=== PATIENT | female | born 1960 | race Caucasian/White ===

== ENCOUNTER → 2016-10-29 | Outpatient (CLI) | payer OTHER ==
--- NOTE | 2016-10-29 10:45 | MM ---
Reason for exam: additional evaluation requested from prior study. Last mammogram was performed 1 year and 2 months ago. History: Patient is postmenopausal. Family history of breast cancer in maternal aunt. Benign MG pre op loc each addl RT of the right breast, October 12, 2015. Benign MG pre op needle loc RT of the right breast, October 12, 2015. MG discontinued stereo core RT of the right breast, October 04, 2015. Physical Findings: Nurse Summary: 0.5cm nodule in the right breast at 10 o'clock (nurse dw). MG Diagnostic Mammo w CAD RGIO Bilateral CC and MLO view(s) were taken. Prior study comparison: September 06, 2015, bilateral MG screening mammo w CAD. There are scattered fibroglandular densities. Finding #1: Architectural distortion in the upper outer quadrant, posterior position of the right breast. Finding #2: There are typically benign round calcifications in both breasts. There is a chronic nodularity in the left breast. These results were verbally communicated with the patient and result sheet given to the patient on 10/29/16. ASSESSMENT: Benign, BI-RAD 2 RECOMMENDATION: Routine screening mammogram of both breasts in 1 year.
== END | disposition home or self-care (01) ==
LOC: RADMAMWWP 09:25
PROVIDERS: ATTEND Family Medicine
DX: R92.8 Other abnormal and inconclusive findings on diagnostic imaging of breast (principal)

== ENCOUNTER → 2016-11-26 | Outpatient (CLI) | payer OTHER ==
--- NOTE | 2016-11-26 09:51 | US ---
EXAMINATION TYPE: US pelvic complete DATE OF EXAM: 11/26/2016 9:36 AM COMPARISON: CT 2013 CLINICAL HISTORY: R10.2 PELVIC PAIN. Patient denies pelvic pain; ; patient stated just had skin t ag removed during gynecological exam one month ago and doctor ordered pelvic US transabdominally: tub al ligation. TECHNIQUE: Transabdominal (TA) Date of LMP: years ago EXAM MEASUREMENTS: Uterus: 7.4 x 3.5 x 3.6 cm Endometrial Stripe: 0.5 cm Right Ovary: 2.6 x 2.1 x 1.3 cm Left Ovary: 2.0 x 1.5 x 1.3 cm 1. Uterus: Anteverted 2. Endometrium: thickness wnl post menopausal 3. Right Ovary: wnl 4. Left Ovary: wnl 5. Bilateral Adnexa: wnl 6. Posterior cul-de-sac: wnl IMPRESSION: NORMAL PELVIC ULTRASOUND.
== END | disposition home or self-care (01) ==
LOC: RADUSWWP 08:19
PROVIDERS: ATTEND Family Medicine
DX: R10.2 Pelvic and perineal pain (principal)
CPT/HCPCS: 76856

== ENCOUNTER → 2017-03-15 | Outpatient (CLI) | payer OTHER ==
--- NOTE | 2017-03-15 07:56 | US ---
EXAMINATION TYPE: US extremity nonvasculr ltd RT DATE OF EXAM: 03/15/2017 COMPARISON: NONE CLINICAL HISTORY: R side knee pain M25.561. Pt states feeling a "bulging" and pain behind right knee x many years Probable Suazo's Cyst right pop fossa in area of pt's pain and palpable= 6.5 x 1.6 x 3.5 cm IMPRESSION: Fairly moderate to large size right-sided popliteal cyst.
== END | disposition home or self-care (01) ==
LOC: RADUSWWP 07:02
PROVIDERS: ATTEND Family Medicine
DX: M71.21 Synovial cyst of popliteal space [Baker], right knee (principal)

== ENCOUNTER → 2017-10-30 | Outpatient (CLI) | payer OTHER ==
--- NOTE | 2017-11-01 11:04 | MM ---
Reason for exam: screening (asymptomatic). Last mammogram was performed 1 year ago. History: Patient is postmenopausal. Family history of breast cancer in maternal aunt. Benign MG pre op loc each addl RT of the right breast, October 12, 2015. Benign MG pre op needle loc RT of the right breast, October 12, 2015. MG discontinued stereo core RT of the right breast, October 04, 2015. Physical Findings: A clinical breast exam by your physician is recommended on an annual basis and results should be correlated with mammographic findings. MG Screening Mammo w CAD Bilateral CC and MLO view(s) were taken. Prior study comparison: October 29, 2016, bilateral MG diagnostic mammo w CAD RIGO. September 09, 2015, right breast MG work up mamm w CAD RT. The breast tissue is heterogeneously dense. This may lower the sensitivity of mammography. Surgical clips on right breast. No significant changes when compared with prior studies. ASSESSMENT: Benign, BI-RAD 2 RECOMMENDATION: Routine screening mammogram of both breasts in 1 year.
== END ==
LOC: RADMAMWWP 08:33
PROVIDERS: ATTEND Family Medicine
DX: Z12.31 Encounter for screening mammogram for malignant neoplasm of breast (principal)
CPT/HCPCS: 77067

== ENCOUNTER → 2017-11-05 | Outpatient (CLI) | payer OTHER ==
--- NOTE | 2017-11-05 10:28 | CTL ---
EXAMINATION TYPE: CT Low Dose Lung DATE OF EXAM ORDERED: 11/05/2017 HISTORY: 57-year-old female with personal history of tobacco use, 6 month follow-up exam. Lung cancer screening CT DLP: [address] CTDI: 3.9 mGy Automated exposure control for dose reduction was used. SCREENING VISIT: 6 month follow-up COMPARISON: 05/02/2017 TECHNIQUE: Low dose computed tomography scan was performed through the chest at 1 mm thick sections a nd reconstructed images in the coronal and sagittal plane at 1 mm thick sections. MIP reconstructions in the coronal/sagittal plane were performed. CT DIAGNOSTIC QUALITY: Limited, but interpretable FINDINGS: Heart is normal size without pericardial effusion. Mild coronary vessel calcifications are present in remarkable for coronary artery disease. Similar aneurysm of the ascending aorta measuring up to 4.8 cm. Conventional branching anatomy. Large caliber to the main right and left pulmonary arteries 2.9 and 2.7 cm, respectively, suggesting under lying pulmonary arterial hypertension. Mildly enlarged 1.4 cm right tracheobronchial angle lymph node is unchanged. Otherwise, no thoracic l ymphadenopathy. Mild diffuse bronchial wall thickening suggests bronchitis or asthma. 8 mm pulmonary nodule along the minor fissure and adjacent 3 mm nodular redemonstrated, axial image 8 5 and 88. Limited assessment of the upper abdomen due to excessive nor is an low-dose CT technique. Bones: Moderate degenerative disc disease mid to lower thoracic spine. IMPRESSION: 1. LungRADS 2, benign appearance, <1% chance of malignancy. The 8 mm pulmonary nodule along the minor fissure as well as the adjacent 3 mm nodule remain unchanged for 6 months. 2. Findings suggest bronchitis or asthma. Additional changes suggesting pulmonary arterial hypertensi on. 3. Aneurysmal ascending aorta 4.8 cm, unchanged from 05/02/2017. RECOMMENDATION: 1. Return to routine annual low-dose lung cancer screening CT. 2. Smoking cessation. 3. Follow-up as clinically indicated for the patient's ascending aortic aneurysm. FOLLOW UP CT CHEST RECOMMENDATION: [address] LUNG RAD: Lung-Rad 2 Benign Appearance or Behavior
== END | disposition home or self-care (01) ==
LOC: RADCTMAIN 08:25
PROVIDERS: ATTEND Family Medicine
DX: I71.2 Thoracic aortic aneurysm, without rupture (principal); R91.8 Other nonspecific abnormal finding of lung field; Z87.891 Personal history of nicotine dependence

== ENCOUNTER → 2017-11-21 | Outpatient (CLI) | payer OTHER ==
--- NOTE | 2017-11-21 12:18 | CONS ---
CONSULTATION DATE OF SERVICE: 11/21/2017 This 57-year-old lady has been evaluated in sleep center for multiple awakenings from sleep with snoring and significant excessive daytime sleepiness. HISTORY OF PRESENT ILLNESS/SLEEP WAKE EVALUATION: Patient's usual sleep schedule from 11p.m. to 7 a.m. on weekdays and from around 2 a.m. until 7 a.m. on weekends. Usually no problems with falling asleep, although she has TV set in bedroom. She prefers to sleep on the side position. She sleeps with loud snoring, according to her and she wakes up with a dry mouth up to 5 times from sleep and up to 5 episodes of nocturia. No history of hypnagogic hallucinations, sleep paralysis or cataplexy. [place] Sleepiness Scale is in extremely high range of 21. PAST MEDICAL HISTORY: Positive for swelling of the legs, peripheral neuropathy. PAST SURGICAL HISTORY: None. MEDICATIONS: Vitamins. SOCIAL HISTORY: Positive for smoking about 1 pack a day for 40 years. Patient continues smoking. Alcohol consumption none at the present time. REVIEW OF SYSTEMS: Multiple awakenings from sleep, sleepiness during the day. Numbness in the feet and arms. Swelling of legs. No fevers. No double vision. No recent chest pain. No shortness of breath. No abdominal pain. No bleeding episodes. No blood in urine. No seizure episodes. FAMILY HISTORY: Diabetes, cancer. PHYSICAL EXAMINATION: During physical exam, a 57-year-old lady without distress. VITAL SIGNS: BP 146/74, HR 97, RR 16, height 5 feet 7 inches, weight 287, BMI 44.9, temperature 97.8, oxygen saturation on room air 94%. HEENT: PERRLA, EOMI. Oropharynx extremely low position of soft palate. Restriction of nasal breathing bilaterally. NECK: Supple, no JVD. Thyroid is not palpable. LUNGS: Clear to percussion and to auscultation. Good air exchange. No wheezing or rhonchi. HEART: S1, S2 regular. No murmurs, gallops, or rubs. ABDOMEN: Obese. EXTREMITIES: 1+ bilateral ankle edema. REFERRAL MANAGER: Awake, alert, and oriented X3. Cranial nerves 2 to 7 intact. There is no fasciculation or atrophy. noted. No focal deficits observed IMPRESSION: 1. Snoring, multiple awakenings from sleep, extremely low position of soft palate, wide neck 18 inches, sleepiness, obstructive sleep apnea-hypopnea syndrome. 2. Significant excessive daytime sleepiness. [place] Sleepiness Scale is 21. Differential diagnosis should include hypersomnia if sleep study will be negative for obstructive sleep apnea-hypopnea syndrome. 3. Obesity. 4. Chronic obstructive pulmonary disease. 5. History of smoking for about 40 pack years. 6. Swelling of the legs. 7. Increasing blood pressure in the office today. 8. History of peripheral neuropathy with numbness in feet and hands. 9. Menopause for about 15 years. PLAN: 1. Polysomnography for evaluation of patient's breathing during sleep. 2. CPAP/BiPAP titration if sleep study confirms obstructive sleep apnea-hypopnea syndrome. 3. Preferable position during sleep on the side. 4. No driving if patient feels any sleepiness. 5. I will see patient for follow up visit to explain results of testing and following plan. Thank you very much for referring this patient for consultation. Sincerely, Charly Bourgeois MD, PhD, FAASM Diplomat of [employer] [employer] [facility] [place] MMODL / IJN: [id number] /
== END | disposition home or self-care (01) ==
LOC: SLEEP 11:19
PROVIDERS: ATTEND Internal Medicine
DX: G47.33 Obstructive sleep apnea (adult) (pediatric) (principal); E66.9 Obesity, unspecified; G62.9 Polyneuropathy, unspecified; R03.0 Elevated blood-pressure reading, without diagnosis of hypertension; R20.0 Anesthesia of skin; M79.89 Other specified soft tissue disorders; J44.9 Chronic obstructive pulmonary disease, unspecified; Z87.891 Personal history of nicotine dependence; Z78.0 Asymptomatic menopausal state; Z68.41 Body mass index [BMI] 40.0-44.9, adult; Z79.899 Other long term (current) drug therapy
CPT/HCPCS: 99211

== ENCOUNTER → 2018-03-12 | Outpatient (CLI) | payer OTHER ==
--- NOTE | 2018-03-12 17:59 | US ---
EXAMINATION TYPE: US venous doppler duplex LE RT DATE OF EXAM: 03/12/2018 5:40 PM COMPARISON: NONE CLINICAL HISTORY: R22.41 Swelling Right Leg. Swelling SIDE PERFORMED: Right TECHNIQUE: The lower extremity deep venous system is examined utilizing real time linear array sonog geovanny with graded compression, doppler sonography and color-flow sonography. VESSELS IMAGED: External Iliac Vein (EIV) Common Femoral Vein Deep Femoral Vein Greater Saphenous Vein * Femoral Vein Popliteal Vein Small Saphenous Vein * Proximal Calf Veins (* superficial vessels) Right Leg: Negative for DVT No evidence of DVT right leg. IMPRESSION: Negative exam. No deep venous thrombosis in the right leg.
== END | disposition home or self-care (01) ==
LOC: RADUSMAIN 17:05
PROVIDERS: ATTEND Physician Assistant
DX: R22.41 Localized swelling, mass and lump, right lower limb (principal)

== ENCOUNTER 2018-07-15 14:38 | Emergency (ER) | payer OTHER ==
[2018-07-15] MEDS ORDERED: IPRATROPIUM-ALBUTEROL 3 ML NEB INHALATION STA (14:55)
[2018-07-15] MEDS ORDERED: methylPREDNISolone SOD SUCCI 125 MG/2 ML VIAL IV STA (14:55)
[2018-07-15] MEDS ORDERED: SODIUM CHLORIDE 0.9% 1,000 ML IV STA (14:55)
[2018-07-15 15:21] VITALS: RESP 20
--- NOTE | 2018-07-15 15:27 | XR ---
EXAMINATION TYPE: XR chest 2V DATE OF EXAM: 07/15/2018 COMPARISON: NONE HISTORY: Difficulty breathing TECHNIQUE: Frontal and lateral views of the chest are obtained. FINDINGS: There is no focal air space opacity, pleural effusion, or pneumothorax seen. The cardiac silhouette size is within normal limits. There is a mild spinal curvature. The osseous structures a re intact. The aorta is dense. Prominent lung volumes could possibly be due to underlying COPD. IMPRESSION: No acute cardiopulmonary process.
[2018-07-15 15:36] LABS: Basophils % (A) 0 %; Eosinophils # (A) 0.2 k/uL (0-0.7); Eosinophils % (A) 2 %; HCT 49.2 % (34.0-46.0); HGB 15.5 gm/dL (11.4-16.0); Lymphocytes # (A) 1.3 k/uL (1.0-4.8); Lymphocytes % (A) 17 %; MCH 29.9 pg (25.0-35.0); MCHC 31.6 g/dL (31.0-37.0); MCV 94.5 fL (80.0-100.0); Mean Platelet Volume 7.3; Monocytes # (A) 0.7 k/uL (0-1.0); Monocytes % (A) 8 %; Neutrophils # (A) 5.5 k/uL (1.3-7.7); Neutrophils % (A) 70 %; Platelet Count 191 k/uL (150-450); RDW 13.8 % (11.5-15.5); WBC 7.9 k/uL (3.8-10.6)
[2018-07-15 15:47] LABS: ALT 42 U/L (9-52); AST 38 U/L (14-36); Albumin 3.8 g/dL (3.5-5.0); Alkaline Phosphatase 118 U/L (38-126); Anion Gap 6 mmol/L; Blood Urea Nitrogen 12 mg/dL (7-17); Calcium 9.2 mg/dL (8.4-10.2); Carbon Dioxide 32 mmol/L (22-30); Chloride 103 mmol/L (98-107); Glucose 102 mg/dL (74-99); Magnesium 1.6 mg/dL (1.6-2.3); Potassium 4.3 mmol/L (3.5-5.1); Sodium 141 mmol/L (137-145); Total Bilirubin 0.5 mg/dL (0.2-1.3); Total Protein 6.5 g/dL (6.3-8.2)
--- NOTE | 2018-07-15 16:25 | ED ---
SOB HPI - General Chief Complaint: Shortness of Breath Stated Complaint: Dr young, poss pneumonia Time Seen by Provider: 07/15/18 14:45 Source: patient, RN notes reviewed Mode of arrival: wheelchair Limitations: no limitations - History of Present Illness Initial Comments: 57-year-old female presents emergency Department with chief complaint of shortness of breath. Patient was seen at PCPs office sent over here for further evaluation. She does have a history of COPD. Patient continues to smoke. Patient states she's been doing treatments at home and states short of breath. Patient was noted rule out pneumonia. Patient denies chest pain. Patient denies fever or chills. - Related Data Home Medications Medication Instructions Recorded Confirmed [id number] [id number] 2 each PO Q6HR PRN 09/08/15 10/10/15 [Excedrin] Biotin 5 mg PO QAM 09/08/15 10/10/15 Cartilage/Collagen II/Hyaluron 1 each PO QAM 09/08/15 10/10/15 [Move Free Ultra Tablet] Cranberry Fruit Extract [Cranberry] 3,200 mg PO QAM 09/08/15 10/10/15 Cyclobenzaprine [Flexeril] 5 mg PO TID PRN 09/08/15 10/10/15 Esomeprazole Magnesium [NexIUM] 20 mg PO DAILY 09/08/15 10/10/15 Glucosam/Javed-Msm1/C/Rigoberto/Bosw 1 each PO QAM 09/08/15 10/10/15 [Glucosamine-Chondroitin Tablet] Bgt-Owyb-Uqkfw Acid 1 cap PO QAM 09/08/15 10/10/15 [-U Capsule] Previous Rx's Medication Instructions Recorded HYDROcodone/APAP 7.5-325MG [[place] 1 each PO Q4H PRN #60 tab 10/12/15 7.5] Azithromycin [Zithromax Z-pack] 0 mg PO DIRECTED #1 pack 07/15/18 predniSONE 50 mg PO DAILY #5 tab 07/15/18 Allergies Allergy/AdvReac Type Severity Reaction Status Date / Time No Known Allergies Allergy Verified 07/15/18 14:44 Review of Systems ROS Statement: Those systems with pertinent positive or pertinent negative responses have been documented in the HPI. ROS Other: All systems not noted in ROS Statement are negative. Past Medical History Past Medical History: COPD Additional Past Medical History / Comment(s): ABNORMAL MAMMOGRAM History of Any Multi-Drug Resistant Organisms: None Reported Additional Past Surgical History / Comment(s): COLONOSCOPY Past Anesthesia/Blood Transfusion Reactions: No Reported Reaction Past Psychological History: No Psychological Hx Reported Smoking Status: Current every day smoker Past Alcohol Use History: None Reported Past Drug Use History: None Reported - Past Family History Mother Family Medical History: Diabetes Mellitus General Exam Limitations: no limitations General appearance: alert, in no apparent distress Head exam: Present: atraumatic, normocephalic, normal inspection Eye exam: Present: normal appearance, PERRL, EOMI. Absent: scleral icterus, conjunctival injection, periorbital swelling ENT exam: Present: normal exam, normal oropharynx, mucous membranes moist, TM's normal bilaterally, normal external ear exam Neck exam: Present: normal inspection, full ROM. Absent: tenderness, meningismus, lymphadenopathy Respiratory exam: Present: wheezes, decreased breath sounds. Absent: normal lung sounds bilaterally, respiratory distress, rales, rhonchi, stridor Cardiovascular Exam: Present: normal rhythm, tachycardia, normal heart sounds. Absent: systolic murmur, diastolic murmur, rubs, gallop, clicks Course Vital Signs 07/15/18 07/15/18 07/15/18 14:39 15:19 15:44 Temperature 98.2 F Pulse Rate 112 H 105 H Respiratory 18 20 20 Rate Blood Pressure 134/74 115/74 O2 Sat by Pulse 94 L 91 L Oximetry 07/15/18 07/15/18 15:49 16:03 Temperature Pulse Rate 93 95 Respiratory Rate Blood Pressure O2 Sat by Pulse Oximetry Medical Decision Making - Medical Decision Making 57-year-old female presented for shortness breath. Patient's found to be hypoxic 88-90 on pulse ox, patient is improved slightly after treatment. Chest x-ray obtained no acute abnormality. Patient advised needs to be admitted for COPD exacerbation. Patient refuses. Patient will sign out AGAINST MEDICAL ADVICE. - Lab Data Result diagrams: 07/15/18 15:09 07/15/18 15:09 Lab Results 07/15/18 07/15/18 07/15/18 Range/Units 15:09 15:09 15:09 WBC 7.9 (3.8-10.6) k/uL RBC 5.20 (3.80-5.40) m/uL Hgb 15.5 (11.4-16.0) gm/dL Hct 49.2 H (34.0-46.0) % MCV 94.5 (80.0-100.0) fL MCH 29.9 (25.0-35.0) pg MCHC 31.6 (31.0-37.0) g/dL RDW 13.8 (11.5-15.5) % Plt Count 191 (150-450) k/uL Neutrophils % 70 % Lymphocytes % 17 % Monocytes % 8 % Eosinophils % 2 % Basophils % 0 % Neutrophils # 5.5 (1.3-7.7) k/uL Lymphocytes # 1.3 (1.0-4.8) k/uL Monocytes # 0.7 (0-1.0) k/uL Eosinophils # 0.2 (0-0.7) k/uL Basophils # 0.0 (0-0.2) k/uL Sodium 141 (137-145) mmol/L Potassium 4.3 (3.5-5.1) mmol/L Chloride 103 (98-107) mmol/L Carbon Dioxide 32 H (22-30) mmol/L Anion Gap 6 mmol/L BUN 12 (7-17) mg/dL Creatinine 0.63 (0.52-1.04) mg/dL Est GFR (CKD-EPI)AfAm >90 (>60 ml/min/1.73 sqM) Est GFR (CKD-EPI)NonAf >90 (>60 ml/min/1.73 sqM) Glucose 102 H (74-99) mg/dL Calcium 9.2 (8.4-10.2) mg/dL Magnesium 1.6 (1.6-2.3) mg/dL Total Bilirubin 0.5 (0.2-1.3) mg/dL AST 38 H (14-36) U/L ALT 42 (9-52) U/L Alkaline Phosphatase 118 (38-126) U/L Troponin I <0.012 (0.000-0.034) ng/mL NT-Pro-B Natriuret Pep pg/mL Total Protein 6.5 (6.3-8.2) g/dL Albumin 3.8 (3.5-5.0) g/dL Influenza Type A RNA (Not Detectd) Influenza Type B (PCR) (Not Detectd) 07/15/18 07/15/18 Range/Units 15:09 15:09 WBC (3.8-10.6) k/uL RBC (3.80-5.40) m/uL Hgb (11.4-16.0) gm/dL Hct (34.0-46.0) % MCV (80.0-100.0) fL MCH (25.0-35.0) pg MCHC (31.0-37.0) g/dL RDW (11.5-15.5) % Plt Count (150-450) k/uL Neutrophils % % Lymphocytes % % Monocytes % % Eosinophils % % Basophils % % Neutrophils # (1.3-7.7) k/uL Lymphocytes # (1.0-4.8) k/uL Monocytes # (0-1.0) k/uL Eosinophils # (0-0.7) k/uL Basophils # (0-0.2) k/uL Sodium (137-145) mmol/L Potassium (3.5-5.1) mmol/L Chloride (98-107) mmol/L Carbon Dioxide (22-30) mmol/L Anion Gap mmol/L BUN (7-17) mg/dL Creatinine (0.52-1.04) mg/dL Est GFR (CKD-EPI)AfAm (>60 ml/min/1.73 sqM) Est GFR (CKD-EPI)NonAf (>60 ml/min/1.73 sqM) Glucose (74-99) mg/dL Calcium (8.4-10.2) mg/dL Magnesium (1.6-2.3) mg/dL Total Bilirubin (0.2-1.3) mg/dL AST (14-36) U/L ALT (9-52) U/L Alkaline Phosphatase (38-126) U/L Troponin I (0.000-0.034) ng/mL NT-Pro-B Natriuret Pep 172 pg/mL Total Protein (6.3-8.2) g/dL Albumin (3.5-5.0) g/dL Influenza Type A RNA Not Detected (Not Detectd) Influenza Type B (PCR) Not Detected (Not Detectd) 07/15/18 16:23 EKG performed at 16:17 all sinus rhythm with a rate of 97 IL 136 QRS 80 QT status QTC 356/452 Disposition Clinical Impression: COPD exacerbation, Hypoxic Disposition: Left Against Medical Advice Condition: Fair Instructions: COPD (Chronic Obstructive Pulmonary Disease) (ED) Additional Instructions: Please return to the Emergency Department if symptoms worsen or any other concerns. Prescriptions: Azithromycin [Zithromax Z-pack] 0 mg PO DIRECTED #1 pack predniSONE 50 mg PO DAILY #5 tab Is patient prescribed a controlled substance at d/c from ED?: No Referrals: Silvana Taylor DO [Primary Care Provider] - 1-2 days Time of Disposition: 16:24
[2018-07-15 16:34] VITALS: BP 124/66; PULSE 102; TEMP 98.5
== END 2018-07-15 16:32 | disposition left against medical advice (07) ==
LOC: EC 14:38
DX: J44.1 Chronic obstructive pulmonary disease with (acute) exacerbation (principal); R09.02 Hypoxemia; Z53.29 Procedure and treatment not carried out because of patient's decision for other reasons; Z79.899 Other long term (current) drug therapy; F17.200 Nicotine dependence, unspecified, uncomplicated
CPT/HCPCS: 36415; 94640; 93005; 83880; 80053; 83735; 84484; 85025; 87502; 71046; 99285; 96374; 96361; J2930

== ENCOUNTER 2018-07-15 23:04 | Observation (INO) | payer OTHER ==
[~2018-07-15 23:04] MED LIST: methylPREDNISolone SOD SUCCI 125 MG/2 ML VIAL ONE
[2018-07-16] MEDS: methylPREDNISolone SOD SUCCI 125 MG/2 ML VIAL IVP SCH ×4 (06:34→23:06)
[2018-07-16] MEDS: SODIUM CHLORIDE 0.9% 1,000 ML IV SCH ×2 (06:34→18:12)
[2018-07-16 07:07] LABS: Creatine Kinase 146 U/L (30-135); Creatine Kinase MB 3.6 ng/mL (0.0-2.4); Troponin I <0.012 ng/mL (0.000-0.034)
[2018-07-16 07:08] LABS: ALT 45 U/L (9-52); AST 36 U/L (14-36); Albumin 4.1 g/dL (3.5-5.0); Alkaline Phosphatase 121 U/L (38-126); Anion Gap 12 mmol/L; Blood Urea Nitrogen 20 mg/dL (7-17); Calcium 9.5 mg/dL (8.4-10.2); Carbon Dioxide 29 mmol/L (22-30); Chloride 100 mmol/L (98-107); Glucose 186 mg/dL (74-99); Magnesium 1.6 mg/dL (1.6-2.3); Potassium 4.7 mmol/L (3.5-5.1); Sodium 141 mmol/L (137-145); Total Bilirubin 0.3 mg/dL (0.2-1.3); Total Protein 6.8 g/dL (6.3-8.2)
[2018-07-16 07:38] LABS: Basophils % (A) 0 %; Eosinophils % (A) 0 %; HCT 50.6 % (34.0-46.0); HGB 15.8 gm/dL (11.4-16.0); Lymphocytes # (A) 0.7 k/uL (1.0-4.8); Lymphocytes % (A) 7 %; MCH 29.9 pg (25.0-35.0); MCHC 31.2 g/dL (31.0-37.0); MCV 95.9 fL (80.0-100.0); Mean Platelet Volume 7.8; Monocytes # (A) 0.1 k/uL (0-1.0); Monocytes % (A) 2 %; Neutrophils # (A) 8.5 k/uL (1.3-7.7); Neutrophils % (A) 90 %; Platelet Count 215 k/uL (150-450); RBC 5.28 m/uL (3.80-5.40); RDW 13.8 % (11.5-15.5); WBC 9.4 k/uL (3.8-10.6)
[2018-07-16] MEDS: IPRATROPIUM-ALBUTEROL 3 ML NEB IH SCH ×2 (09:12→13:09)
[2018-07-16] MEDS ORDERED: PNEUMOCOCCAL VACC-PNEUMOVAX 23 25 MCG/0.5 ML VIAL IM ONE (09:25)
[2018-07-16 11:49] LABS: Glucose,Whole Blood 211 mg/dL (75-99)
[2018-07-16] MEDS ORDERED: ASPIRIN-ACET-CAFF 250-250-65MG 1 EACH TAB PO PRN (12:05)
[2018-07-16] MEDS ORDERED: IPRATROPIUM-ALBUTEROL 3 ML NEB INHALATION PRN (12:08)
--- NOTE | 2018-07-16 12:17 | P.HPIM ---
History of Present Illness H&P Date: 07/16/18 This is a 57-year-old female patient of Dr. Taylor. Patient presented with complaints of increased shortness of breath. Patient was seen in her PCPs office where she was being treated outpatient for COPD exacerbation but symptoms had been progressively getting worse since her PCP sent her to be evaluated in the ER. Patient does have known past medical history of COPD and is a current 1 pack a day smoker. Chest x-ray completed showing no acute cardiopulmonary process. EKG completed showing normal sinus rhythm possible left atrial enlargement nonspecific T-wave abnormality. Dr. Munoz has been consulted for pulmonary. Patient started on IV steroids and antibiotics for COPD exacerbation. Repeat chest x-ray ordered. This time patient states slight improvement. Patient denies any nausea vomiting or diarrhea. Patient denies any urinary burning or frequency Review of Systems please refer to HPI otherwise unremarkable Past Medical History Past Medical History: COPD, GERD/Reflux, Osteoarthritis (OA) Additional Past Medical History / Comment(s): Frequent headaches, sinus and ear problems-R ear worse, severe arthritis bilateral knees. History of Any Multi-Drug Resistant Organisms: None Reported Additional Past Surgical History / Comment(s): R breast biopsies-benign, COLONOSCOPY Past Anesthesia/Blood Transfusion Reactions: No Reported Reaction Additional Past Anesthesia/Blood Transfusion Reaction / Comment(s): Difficulty waking. Smoking Status: Current every day smoker - Past Family History Mother Family Medical History: Diabetes Mellitus Father History Unknown: Yes Family Medical History: Unable to Obtain Medications and Allergies Home Medications Medication Instructions Recorded Confirmed Type Qdndhyq-Yltm-Kstv [id number] 2 tab PO Q6HR PRN 09/08/15 07/16/18 History [Excedrin] Cartilage/Collagen II/Hyaluron 1 tab PO QAM 09/08/15 07/16/18 History [Move Free Ultra Tablet] Cranberry Fruit Extract [Cranberry] 500 mg PO QAM 09/08/15 07/16/18 History Glucosam/Javed-Msm1/C/Rigoberto/Bosw 1 tab PO QAM 09/08/15 07/16/18 History [Glucosamine-Chondroitin Tablet] Vwf-Afvy-Eqzlq Acid 1 cap PO QAM 09/08/15 07/16/18 History [-U Capsule] RX: Biotin 5 mg PO QAM 09/08/15 07/16/18 History RX: predniSONE 50 mg PO DAILY #5 tab 07/15/18 07/16/18 Rx RX: Azithromycin [Zithromax Z-pack] See Taper PO DIRECTED 07/16/18 07/16/18 History Allergies Allergy/AdvReac Type Severity Reaction Status Date / Time No Known Allergies Allergy Verified 07/16/18 07:25 Physical Exam Vitals: Vital Signs Temp Pulse Pulse Resp BP Pulse Ox 07/16/18 09:26 82 07/16/18 09:05 80 07/16/18 07:40 97.7 F 89 18 129/78 90 L 07/16/18 02:10 98.3 F 106 H 18 130/83 96 Intake and Output 07/15/18 07/16/18 07/16/18 22:59 06:59 14:59 Other: Weight 125.6 kg Head normocephalic Neck supple Lungs diminished bilaterally expiratory wheezing Heart regular rate and rhythm S1-S2, no rub or gallop Abdomen is soft nontender nondistended positive bowel sounds no hepatosplenomegaly Extremities no edema Neuro alert and orientated to 3 Results CBC & Chem 7: 07/15/18 23:25 07/15/18 23:25 Labs: Abnormal Lab Results - Last 24 Hours (Table) 07/15/18 07/15/18 07/15/18 Range/Units 23:25 23:25 23:25 Hct 50.6 H (34.0-46.0) % Neutrophils # 8.5 H (1.3-7.7) k/uL Lymphocytes # 0.7 L (1.0-4.8) k/uL BUN 20 H (7-17) mg/dL Glucose 186 H (74-99) mg/dL POC Glucose (mg/dL) (75-99) mg/dL Total Creatine Kinase 146 H (30-135) U/L CK-MB (CK-2) 3.6 H (0.0-2.4) ng/mL 07/16/18 Range/Units 11:46 Hct (34.0-46.0) % Neutrophils # (1.3-7.7) k/uL Lymphocytes # (1.0-4.8) k/uL BUN (7-17) mg/dL Glucose (74-99) mg/dL POC Glucose (mg/dL) 211 H (75-99) mg/dL Total Creatine Kinase (30-135) U/L CK-MB (CK-2) (0.0-2.4) ng/mL Thrombosis Risk Factor Assmnt - Choose All That Apply Any of the Below Risk Factors Present?: Yes Each Factor Represents 1 point: Abnormal pulmonary function (COPD), Age 41-60 years, Obesity (BMI >25) Other Risk Factors: No Other congenital or acquired thrombophilia - If yes, enter type in comment: No Thrombosis Risk Factor Assessment Total Risk Factor Score: 3 Thrombosis Risk Factor Assessment Level: Moderate Risk Assessment and Plan Assessment: 1. Acute COPD exacerbation. Patient started on Solu-Medrol. Azithromycin and Rocephin for IV antibiotics. Dr. Munoz consulted for pulmonary. Repeat chest x- ray has been ordered. DuoNeb breathing treatments ordered. 2. Nicotine dependence. Patient states she smokes a pack a day. Patient educated on the importance smoking cessation. Nicotine patch ordered 3. History of GERD 4. History of osteoarthritis 5. History of migraines. Home medications resumed 6. Hyperglycemia due to IV steroids. We'll checking A1c. Sliding scale insulin ordered. DVT prophylaxis Lovenox. GI prophylaxis Protonix Time with Patient: Greater than 30 (Greater than 60% of the total time spent in counseling and coordination of care. I performed an examination of the patient and discussed their management with the Nurse Practitioner. I have reviewed the Nurse Practitioner's notes and agree with the documented findings and plan of care)
[2018-07-16] MEDS: INSULIN ASPART (NovoLOG) 100 UNIT/ML VIAL SQ SCH ×3 (12:36→23:03)
[2018-07-16] MEDS: ACETAMINOPHEN TAB 325 MG TAB PO PRN ×2 (12:36→18:09)
[2018-07-16] MEDS: IPRATROPIUM-ALBUTEROL 3 ML NEB INHALATION SCH ×3 (12:54→21:06)
--- NOTE | 2018-07-16 14:06 | XR ---
EXAMINATION TYPE: XR chest 2V DATE OF EXAM: 07/16/2018 COMPARISON: 07/15/2018 TECHNIQUE: PA and lateral views submitted. HISTORY: Difficulty breathing FINDINGS: The lungs are clear and there is no pneumothorax, pleural effusion, or focal pneumonia. Subsegmenta l changes at the left lung base. Atherosclerotic change of the aorta. Arthropathy of the shoulders. D iffuse osteopenia. IMPRESSION: 1. Left basilar linear atelectasis or scar.
[2018-07-16 18:04] LABS: Glucose,Whole Blood 173 mg/dL (75-99)
[2018-07-16 20:30] LABS: Glucose,Whole Blood 182 mg/dL (75-99)
[2018-07-16] MEDS: AZITHROMYCIN 500 MG in SODIUM CHLORIDE 0.9% 250 ML IVPB SCH (23:03)
[2018-07-16] MEDS: NICOTINE 21MG/24HR PATCH TRANSDERM SCH (23:03)
[2018-07-17] MEDS: ACETAMINOPHEN TAB 325 MG TAB PO PRN ×3 (00:59→20:45)
[2018-07-17] MEDS: methylPREDNISolone SOD SUCCI 125 MG/2 ML VIAL IVP SCH ×3 (05:39→18:30)
[2018-07-17 07:17] LABS: Glucose,Whole Blood 125 mg/dL (75-99)
--- NOTE | 2018-07-17 07:37 | P.CNPUL ---
History of Present Illness Consult date: 07/16/18 Reason for consult: dyspnea, cough Chief complaint: Increasing shortness of breath for a week duration progressive History of present illness: 57-year-old female who was seen evaluated examined on the floor for ongoing worsening of shortness of breath patient has a history of smoking and nicotine use and possible severe COPD, patient was seen in primary care service because of poor response of the therapy on outpatient basis advised to be admitted to the emergency department, patient has been placed on antibiotics breathing treatments and IV steroids, patient does have some EKG abnormality with some T wave changes however patient is pain-free, shortness of breath has improved with therapy to some extent, labs reviewed medications reviewed radiographic studies reviewed as well, chest x-ray left lower lobe infiltrate cannot be excluded versus atelectasis Review of Systems All systems: negative Past Medical History Past Medical History: COPD, GERD/Reflux, Osteoarthritis (OA) Additional Past Medical History / Comment(s): Frequent headaches, sinus and ear problems-R ear worse, severe arthritis bilateral knees. History of Any Multi-Drug Resistant Organisms: None Reported Additional Past Surgical History / Comment(s): R breast biopsies-benign, COLONOSCOPY Past Anesthesia/Blood Transfusion Reactions: No Reported Reaction Additional Past Anesthesia/Blood Transfusion Reaction / Comment(s): Difficulty waking. Smoking Status: Current every day smoker - Past Family History Mother Family Medical History: Diabetes Mellitus Father History Unknown: Yes Family Medical History: Unable to Obtain Medications and Allergies Home Medications Medication Instructions Recorded Confirmed Type Ftlqewe-Zwms-Awoe [id number] 2 tab PO Q6HR PRN 09/08/15 07/16/18 History [Excedrin] Biotin 5 mg PO QAM 09/08/15 07/16/18 History Cartilage/Collagen II/Hyaluron 1 tab PO QAM 09/08/15 07/16/18 History [Move Free Ultra Tablet] Cranberry Fruit Extract [Cranberry] 500 mg PO QAM 09/08/15 07/16/18 History Glucosam/Javed-Msm1/C/Rigoberto/Bosw 1 tab PO QAM 09/08/15 07/16/18 History [Glucosamine-Chondroitin Tablet] Znq-Vjog-Niviv Acid 1 cap PO QAM 09/08/15 07/16/18 History [-U Capsule] predniSONE 50 mg PO DAILY #5 tab 07/15/18 07/16/18 Rx Azithromycin [Zithromax Z-pack] See Taper PO DIRECTED 07/16/18 07/16/18 History Allergies Allergy/AdvReac Type Severity Reaction Status Date / Time No Known Allergies Allergy Verified 07/16/18 07:25 Physical Exam Vitals: Vital Signs Temp Pulse Pulse Resp BP Pulse Ox 07/16/18 21:18 102 H 07/16/18 21:07 100 07/16/18 20:22 78 17 07/16/18 20:20 98.1 F 88 16 129/80 94 L 07/16/18 17:08 100 18 07/16/18 16:55 102 H 18 90 L 07/16/18 15:17 98.4 F 81 16 119/78 94 L 07/16/18 13:07 84 07/16/18 12:54 88 07/16/18 09:26 82 07/16/18 09:05 80 07/16/18 07:40 97.7 F 89 18 129/78 90 L 07/16/18 02:10 98.3 F 106 H 18 130/83 96 Intake and Output 07/16/18 07/16/18 07/17/18 14:59 22:59 06:59 Intake Total 500 700 Balance 500 700 Intake: Intake, IV Titration 160 Amount Sodium Chloride 0.9% 1, 160 000 ml @ 80 mls/hr IV . [id number] [facility] Rx#:[id number] Oral 500 540 Other: Voiding Method Toilet # Voids 3 Weight 125.6 kg - Constitutional General appearance: average body habitus, disheveled, mild distress - EENT Eyes: EOMI, PERRLA, poor dentition, normal appearance Ears: bilateral: normal - Neck Carotids: bilateral: upstroke normal Thyroid: bilateral: normal size - Respiratory Respiratory: bilateral: diminished, rhonchi, wheezing (Fine on forced expiration ), prolonged expiration, negative: dullness, rales, prolonged inspiration - Cardiovascular Rhythm: regular Heart sounds: normal: S1, S2 - Gastrointestinal General gastrointestinal: decreased bowel sounds, soft - Neurologic Neurologic: CNII-XII intact - Musculoskeletal Musculoskeletal: gait normal, generalized weakness, strength equal bilaterally - Psychiatric Psychiatric: A&O x's 3, appropriate affect, intact judgment & insight Results - Laboratory Findings CBC and BMP: 07/15/18 23:25 07/15/18 23:25 Abnormal lab findings: Abnormal Labs 07/15/18 07/15/18 07/15/18 23:25 23:25 23:25 Hct 50.6 H Neutrophils # 8.5 H Lymphocytes # 0.7 L BUN 20 H Glucose 186 H POC Glucose (mg/dL) Total Creatine Kinase 146 H CK-MB (CK-2) 3.6 H 07/16/18 07/16/18 07/16/18 11:46 17:53 20:19 Hct Neutrophils # Lymphocytes # BUN Glucose POC Glucose (mg/dL) 211 H 173 H 182 H Total Creatine Kinase CK-MB (CK-2) - Diagnostic Findings Chest x-ray: report reviewed, image reviewed (Finding as noted above) Assessment and Plan Assessment: Probable left lower lobe pneumonia Acute COPD exacerbation Nonspecific EKG findings Extensive history of smoking and nicotine use History of migraine headaches History of GERD Degenerative joint disease osteoarthritis Plan: Bronchodilators IV steroids Deep breathing exercises incentive spirometry Sputum studies Will obtain a follow-up chest x-ray in next 48 hours Further recommendations pending plan of care as per clinical response of the patient Time with Patient: Greater than 30
--- NOTE | 2018-07-17 07:38 | P.PN ---
Subjective Progress Note Date: 07/17/18 Principal diagnosis: Left lower lobe pneumonia, acute COPD exacerbation, tracheobronchitis, extensive history of smoking and nicotine use, GERD, degenerative joint disease osteoarthritis, 07/17/2018, patient seen eval reexamined during the rounds, clinically patient has been doing slightly better with still short of breath ongoing cough and congestion unable to produce any sputum labs reviewed medications reviewed 57-year-old female who was seen evaluated examined on the floor for ongoing worsening of shortness of breath patient has a history of smoking and nicotine use and possible severe COPD, patient was seen in primary care service because of poor response of the therapy on outpatient basis advised to be admitted to the emergency department, patient has been placed on antibiotics breathing treatments and IV steroids, patient does have some EKG abnormality with some T wave changes however patient is pain-free, shortness of breath has improved with therapy to some extent, labs reviewed medications reviewed radiographic studies reviewed as well, chest x-ray left lower lobe infiltrate cannot be excluded versus atelectasis Objective - Vital Signs Vital signs: Vital Signs Temp 97.9 F 07/17/18 00:16 Pulse 74 07/17/18 00:16 Resp 16 07/17/18 00:16 BP 117/67 07/17/18 00:16 Pulse Ox 92 L 07/17/18 00:16 Intake & Output 07/16/18 07/17/18 07/17/18 18:59 06:59 18:59 Intake Total 500 700 Balance 500 700 Weight 125.6 kg Intake: Intake, IV Titration 160 Amount Sodium Chloride 0.9% 1, 160 000 ml @ 80 mls/hr IV . [id number] [facility] Rx#:[id number] Oral 500 540 Other: Voiding Method Toilet # Voids 3 - Exam - Constitutional General appearance: average body habitus, disheveled, mild distress - EENT Eyes: EOMI, PERRLA, poor dentition, normal appearance Ears: bilateral: normal - Neck Carotids: bilateral: upstroke normal Thyroid: bilateral: normal size - Respiratory Respiratory: bilateral: diminished, rhonchi, wheezing (Fine on forced expiration ), prolonged expiration, negative: dullness, rales, prolonged inspiration - Cardiovascular Rhythm: regular Heart sounds: normal: S1, S2 - Gastrointestinal General gastrointestinal: decreased bowel sounds, soft - Neurologic Neurologic: CNII-XII intact - Musculoskeletal Musculoskeletal: gait normal, generalized weakness, strength equal bilaterally - Psychiatric Psychiatric: A&O x's 3, appropriate affect, intact judgment & insight - Labs CBC & Chem 7: 07/15/18 23:25 07/15/18 23:25 Labs: Abnormal Lab Results - Last 24 Hours (Table) 07/15/18 07/16/18 07/16/18 Range/Units 23:25 11:46 17:53 Hct 50.6 H (34.0-46.0) % Neutrophils # 8.5 H (1.3-7.7) k/uL Lymphocytes # 0.7 L (1.0-4.8) k/uL POC Glucose (mg/dL) 211 H 173 H (75-99) mg/dL 07/16/18 07/17/18 Range/Units 20:19 07:05 Hct (34.0-46.0) % Neutrophils # (1.3-7.7) k/uL Lymphocytes # (1.0-4.8) k/uL POC Glucose (mg/dL) 182 H 125 H (75-99) mg/dL Assessment and Plan Assessment: Probable left lower lobe pneumonia Acute COPD exacerbation Nonspecific EKG findings Extensive history of smoking and nicotine use History of migraine headaches History of GERD Degenerative joint disease osteoarthritis Plan: Bronchodilators IV steroids Deep breathing exercises incentive spirometry Sputum studies Will obtain a follow-up chest x-ray in next 48 hours Further recommendations pending plan of care as per clinical response of the patient Time with Patient: Greater than 30
[2018-07-17] MEDS: INSULIN ASPART (NovoLOG) 100 UNIT/ML VIAL SQ SCH ×4 (07:42→20:45)
[2018-07-17] MEDS: PANTOPRAZOLE 40 MG TABLET PO SCH (07:59)
[2018-07-17] MEDS: ENOXAPARIN 40 MG/0.4 ML SYRINGE SQ SCH (07:59)
[2018-07-17] MEDS: NICOTINE 21MG/24HR PATCH TRANSDERM SCH (07:59)
[2018-07-17 08:32] LABS: Basophils % (A) 0 %; Eosinophils # (A) 0.1 k/uL (0-0.7); Eosinophils % (A) 0 %; HCT 48.4 % (34.0-46.0); HGB 15.2 gm/dL (11.4-16.0); Hypochromasia Moderate; Lymphocytes # (A) 1.2 k/uL (1.0-4.8); Lymphocytes % (A) 7 %; MCH 30.5 pg (25.0-35.0); MCHC 31.3 g/dL (31.0-37.0); MCV 97.4 fL (80.0-100.0); Mean Platelet Volume 7.4; Monocytes # (A) 0.5 k/uL (0-1.0); Monocytes % (A) 3 %; Neutrophils % (A) 90 %; Platelet Count 210 k/uL (150-450); RBC 4.97 m/uL (3.80-5.40); RDW 13.8 % (11.5-15.5); WBC 17.8 k/uL (3.8-10.6)
[2018-07-17 08:56] LABS: ALT 58 U/L (9-52); AST 46 U/L (14-36); Albumin 3.8 g/dL (3.5-5.0); Alkaline Phosphatase 105 U/L (38-126); Anion Gap 5 mmol/L; Blood Urea Nitrogen 15 mg/dL (7-17); Calcium 9.7 mg/dL (8.4-10.2); Carbon Dioxide 35 mmol/L (22-30); Chloride 102 mmol/L (98-107); Glucose 125 mg/dL (74-99); Potassium 5.1 mmol/L (3.5-5.1); Sodium 142 mmol/L (137-145); Total Bilirubin 0.3 mg/dL (0.2-1.3); Total Protein 6.3 g/dL (6.3-8.2)
[2018-07-17] MEDS ORDERED: NICOTINE 21MG/24HR PATCH TRANSDERM SCH (09:00)
[2018-07-17] MEDS: IPRATROPIUM-ALBUTEROL 3 ML NEB INHALATION SCH ×4 (09:35→21:38)
--- NOTE | 2018-07-17 12:04 | P.PN ---
Subjective Progress Note Date: 07/17/18 This is a 57-year-old female patient of Dr. Taylor. Patient presented with complaints of increased shortness of breath. Patient was seen in her PCPs office where she was being treated outpatient for COPD exacerbation but symptoms had been progressively getting worse since her PCP sent her to be evaluated in the ER. Patient does have known past medical history of COPD and is a current 1 pack a day smoker. Chest x-ray completed showing no acute cardiopulmonary process. EKG completed showing normal sinus rhythm possible left atrial enlargement nonspecific T-wave abnormality. Dr. Munoz has been consulted for pulmonary. Patient started on IV steroids and antibiotics for COPD exacerbation. Repeat chest x-ray ordered. This time patient states slight improvement. Patient denies any nausea vomiting or diarrhea. Patient denies any urinary burning or frequency On 07/17/2018 patient alert and oriented 3 sitting up in bed. Patient does report some per minute with her breathing. Patient remains on IV antibiotics and IV steroids. Patient has been followed by pulmonary. At this time patient denies chest pain. Patient denies any nausea vomiting or diarrhea. Patient denies any urinary burning frequency Objective - Vital Signs Vital signs: Vital Signs Temp 97.6 F 07/17/18 08:06 Pulse 100 07/17/18 09:49 Resp 20 07/17/18 08:06 BP 122/80 07/17/18 08:06 Pulse Ox 94 L 07/17/18 08:06 Intake & Output 07/16/18 07/17/18 07/17/18 18:59 06:59 18:59 Intake Total 500 700 Balance 500 700 Weight 125.6 kg Intake: Intake, IV Titration 160 Amount Sodium Chloride 0.9% 1, 160 000 ml @ 80 mls/hr IV . [id number] [facility] Rx#:[id number] Oral 500 540 Other: Voiding Method Toilet # Voids 3 - Exam Head normocephalic Neck supple Lungs clear to auscultation bilaterally no wheezing or crackles Heart regular rate and rhythm S1-S2, no rub or gallop Abdomen is soft nontender nondistended positive bowel sounds no hepatosplenomegaly Extremities no edema Neuro alert and orientated to 3 - Labs CBC & Chem 7: 07/17/18 07:45 07/17/18 07:45 Labs: Abnormal Lab Results - Last 24 Hours (Table) 07/16/18 07/16/18 07/17/18 Range/Units 17:53 20:19 07:05 WBC (3.8-10.6) k/uL Hct (34.0-46.0) % Neutrophils # (1.3-7.7) k/uL Carbon Dioxide (22-30) mmol/L Glucose (74-99) mg/dL POC Glucose (mg/dL) 173 H 182 H 125 H (75-99) mg/dL AST (14-36) U/L ALT (9-52) U/L 07/17/18 07/17/18 Range/Units 07:45 07:45 WBC 17.8 H (3.8-10.6) k/uL Hct 48.4 H (34.0-46.0) % Neutrophils # 16.0 H (1.3-7.7) k/uL Carbon Dioxide 35 H (22-30) mmol/L Glucose 125 H (74-99) mg/dL POC Glucose (mg/dL) (75-99) mg/dL AST 46 H (14-36) U/L ALT 58 H (9-52) U/L Assessment and Plan Assessment: 1. Acute COPD exacerbation. Patient started on Solu-Medrol. Azithromycin and Rocephin for IV antibiotics. Dr. Munoz consulted for pulmonary. Repeat chest x- ray has been ordered. DuoNeb breathing treatments ordered. 2. Nicotine dependence. Patient states she smokes a pack a day. Patient educated on the importance smoking cessation. Nicotine patch ordered 3. History of GERD 4. History of osteoarthritis 5. History of migraines. Home medications resumed 6. Hyperglycemia due to IV steroids. We'll checking A1c. Sliding scale insulin ordered. DVT prophylaxis Lovenox. GI prophylaxis Protonix I performed an examination of the patient and discussed their management with the Nurse Practitioner. I have reviewed the Nurse Practitioner's notes and agree with the documented findings and plan of care
[2018-07-17 12:06] LABS: Glucose,Whole Blood 200 mg/dL (75-99)
[2018-07-17 17:07] LABS: Glucose,Whole Blood 200 mg/dL (75-99)
[2018-07-17] MEDS: SODIUM CHLORIDE 0.9% 1,000 ML IV SCH ×2 (18:36→20:46)
[2018-07-17 20:29] LABS: Glucose,Whole Blood 255 mg/dL (75-99)
[2018-07-17] MEDS: AZITHROMYCIN 500 MG in SODIUM CHLORIDE 0.9% 250 ML IVPB SCH (20:46)
[2018-07-18] MEDS: methylPREDNISolone SOD SUCCI 125 MG/2 ML VIAL IVP SCH ×3 (00:38→12:12)
[2018-07-18 07:32] LABS: Glucose,Whole Blood 123 mg/dL (75-99)
[2018-07-18 07:48] VITALS: BP 128/88; RESP 16; TEMP 98
[2018-07-18] MEDS: ENOXAPARIN 40 MG/0.4 ML SYRINGE SQ SCH (07:48)
[2018-07-18] MEDS: PANTOPRAZOLE 40 MG TABLET PO SCH (07:49)
[2018-07-18] MEDS: NICOTINE 21MG/24HR PATCH TRANSDERM SCH (07:49)
[2018-07-18] MEDS: INSULIN ASPART (NovoLOG) 100 UNIT/ML VIAL SQ SCH ×2 (07:49→15:11)
[2018-07-18 08:29] LABS: Basophils % (A) 0 %; Eosinophils % (A) 0 %; HCT 45.8 % (34.0-46.0); HGB 14.4 gm/dL (11.4-16.0); Hypochromasia Moderate; Lymphocytes # (A) 1.1 k/uL (1.0-4.8); Lymphocytes % (A) 8 %; MCH 30.9 pg (25.0-35.0); MCHC 31.5 g/dL (31.0-37.0); Mean Platelet Volume 7.2; Monocytes # (A) 0.5 k/uL (0-1.0); Monocytes % (A) 3 %; Neutrophils # (A) 12.3 k/uL (1.3-7.7); Neutrophils % (A) 88 %; Platelet Count 194 k/uL (150-450); RBC 4.67 m/uL (3.80-5.40); RDW 13.8 % (11.5-15.5)
[2018-07-18] MEDS: IPRATROPIUM-ALBUTEROL 3 ML NEB INHALATION SCH ×2 (08:55→12:42)
[2018-07-18 08:57] LABS: ALT 74 U/L (9-52); AST 44 U/L (14-36); Albumin 3.6 g/dL (3.5-5.0); Alkaline Phosphatase 90 U/L (38-126); Anion Gap 4 mmol/L; Blood Urea Nitrogen 19 mg/dL (7-17); Calcium 9.1 mg/dL (8.4-10.2); Carbon Dioxide 37 mmol/L (22-30); Chloride 103 mmol/L (98-107); Glucose 120 mg/dL (74-99); Potassium 4.8 mmol/L (3.5-5.1); Sodium 144 mmol/L (137-145); Total Bilirubin 0.3 mg/dL (0.2-1.3); Total Protein 5.9 g/dL (6.3-8.2)
[2018-07-18 12:04] LABS: Glucose,Whole Blood 120 mg/dL (75-99)
[2018-07-18] MEDS: SODIUM CHLORIDE 0.9% 1,000 ML IV SCH (12:11)
[2018-07-18 12:45] VITALS: PULSE 92
--- NOTE | 2018-07-18 15:12 | P.DS ---
Providers Date of admission: 07/16/18 00:25 Expected date of discharge: 07/18/18 Attending physician: Catie Rhodes Consults: 07/16/18 08:48 Consult Physician Routine Consulting Provider: Joel Munoz Consult Reason/Comments: COPD Do you want consulting provider notified?: Yes Placement Type Exists?: Yes Primary care physician: Silvana Taylor Hospital Course: Discharge diagnosis 1. Acute COPD exacerbation with probable left lower lobe pneumonia. Patient started on Solu-Medrol. Azithromycin and Rocephin for IV antibiotics. Dr. Munoz consulted for pulmonary. Repeat chest x-ray has been ordered. DuoNeb breathing treatments ordered. Patient will be DC'd home on Ceftin for 7 more days and Prednisone taper. 2. Nicotine dependence. Patient states she smokes a pack a day. Patient educated on the importance smoking cessation. Nicotine patch ordered 3. History of GERD 4. History of osteoarthritis 5. History of migraines. Home medications resumed 6. Hyperglycemia due to IV steroids. Hemoglobin A1c 6.0 7. Elevated liver enzymes. AST 44, ALT 74. Will order repeat CMP for 3 days outpatient Hospital course This is a 57-year-old female patient of Dr. Taylor. Patient presented with complaints of increased shortness of breath. Patient was seen in her PCPs office where she was being treated outpatient for COPD exacerbation but symptoms had been progressively getting worse since her PCP sent her to be evaluated in the ER. Patient does have known past medical history of COPD and is a current 1 pack a day smoker. Chest x-ray completed showing no acute cardiopulmonary process. EKG completed showing normal sinus rhythm possible left atrial enlargement nonspecific T-wave abnormality. Dr. Munoz has been consulted for pulmonary. Patient started on IV steroids and antibiotics for COPD exacerbation. Repeat chest x-ray ordered. This time patient states slight improvement. Patient denies any nausea vomiting or diarrhea. Patient denies any urinary burning or frequency On 07/17/2018 patient alert and oriented 3 sitting up in bed. Patient does report some per minute with her breathing. Patient remains on IV antibiotics and IV steroids. Patient has been followed by pulmonary. At this time patient denies chest pain. Patient denies any nausea vomiting or diarrhea. Patient denies any urinary burning frequency On 07/18/2018 patient is alert and oriented 3. Patient states she feels much improved. Patient will be DC'd on Ceftin antibiotic and prednisone taper. Patient denies chest pain or shortness breath. Patient denies nausea vomiting or diarrhea. Patient denies any urinary burning or frequency. Patient has mildly elevated liver enzymes AST 44 ALT 74. Will order repeat liver enzymes outpatient in 3 days home oxygen test performed. Patient satting less then 88% on room air requiring home O2. I performed an examination of the patient and discussed their management with the Nurse Practitioner. I have reviewed the Nurse Practitioner's notes and agree with the documented findings and plan of care Patient Condition at Discharge: Stable Plan - Discharge Summary Discharge Rx Participant: No New Discharge Prescriptions: New predniSONE 10 mg PO DIRECTED #30 tab Nicotine 14Mg/24Hr Patch [Habitrol] 1 patch TRANSDERM DAILY 30 Days #30 patch Cefuroxime Axetil [Ceftin] 500 mg PO BID 7 Days #14 tab Continue Yegmdvc-Jccb-Gpwb [id number] [Excedrin] 2 tab PO Q6HR PRN PRN Reason: Migraine Headache Glucosam/Javed-Msm1/C/Rigoberto/Bosw [Glucosamine-Chondroitin Tablet] 1 tab PO QAM Cartilage/Collagen II/Hyaluron [Move Free Ultra Tablet] 1 tab PO QAM Cranberry Fruit Extract [Cranberry] 500 mg PO QAM Kun-Okyh-Zdjhw Acid [-U Capsule (formulary)] 1 cap PO QAM Biotin 5 mg PO QAM Discontinued predniSONE 50 mg PO DAILY #5 tab Azithromycin [Zithromax Z-pack] See Taper PO DIRECTED Discharge Medication List Dshzyuy-Tsfc-Owfm [id number] [Excedrin] 2 tab PO Q6HR PRN 09/08/15 [History] Biotin 5 mg PO QAM 09/08/15 [History] Cartilage/Collagen II/Hyaluron [Move Free Ultra Tablet] 1 tab PO QAM 09/08/15 [ History] Cranberry Fruit Extract [Cranberry] 500 mg PO QAM 09/08/15 [History] Glucosam/Javed-Msm1/C/Rigoberto/Bosw [Glucosamine-Chondroitin Tablet] 1 tab PO QAM 09/20 [History] Qqv-Qpyo-Dxzsa Acid [-U Capsule (formulary)] 1 cap PO QAM 09/07 [History] Cefuroxime Axetil [Ceftin] 500 mg PO BID 7 Days #14 tab 07/18/18 [Rx] Nicotine 14Mg/24Hr Patch [Habitrol] 1 patch TRANSDERM DAILY 30 Days #30 patch [Rx] predniSONE 10 mg PO DIRECTED #30 tab 07/18/18 [Rx] Follow up Appointment(s)/Referral(s): Joel Munoz MD [STAFF PHYSICIAN] - 1 Week Silvana Taylor DO [Primary Care Provider] - 1 Week Activity/Diet/Wound Care/Special Instructions: Patient will be discharged home with home oxygen Activity as tolerated Diet heart healthy Discharge Disposition: HOME SELF-CARE
--- NOTE | 2018-07-18 15:29 | P.PN ---
Subjective Progress Note Date: 07/18/18 Principal diagnosis: Left lower lobe pneumonia, acute COPD exacerbation, tracheobronchitis, extensive history of smoking and nicotine use, GERD, degenerative joint disease osteoarthritis, 07/18/2018, patient seen eval examined during the rounds clinically patient has been doing well awake and alert breathing comfortably no distress present hemodynamic status stable cough congestion shortness of breath has improved care plan discussed primary service patient patient is being planned for discharge later on today 07/17/2018, patient seen eval reexamined during the rounds, clinically patient has been doing slightly better with still short of breath ongoing cough and congestion unable to produce any sputum labs reviewed medications reviewed 57-year-old female who was seen evaluated examined on the floor for ongoing worsening of shortness of breath patient has a history of smoking and nicotine use and possible severe COPD, patient was seen in primary care service because of poor response of the therapy on outpatient basis advised to be admitted to the emergency department, patient has been placed on antibiotics breathing treatments and IV steroids, patient does have some EKG abnormality with some T wave changes however patient is pain-free, shortness of breath has improved with therapy to some extent, labs reviewed medications reviewed radiographic studies reviewed as well, chest x-ray left lower lobe infiltrate cannot be excluded versus atelectasis Objective - Vital Signs Vital signs: Vital Signs Temp 98.0 F 07/18/18 07:46 Pulse 92 07/18/18 12:53 Resp 16 07/18/18 07:46 BP 128/88 07/18/18 07:46 Pulse Ox 92 L 07/18/18 07:46 Intake & Output 07/17/18 07/18/18 07/18/18 18:59 06:59 18:59 Intake Total 3225 Balance 3225 Intake: Intake, IV Titration 1065 Amount Azithromycin 500 mg In 250 Sodium Chloride 0.9% 250 ml @ 250 mls/hr IVPB Q24H [facility] Rx#:[id number] Sodium Chloride 0.9% 1, 815 000 ml @ 80 mls/hr IV . [id number] [facility] Rx#:[id number] Oral 2160 Other: # Voids 4 3 2 # Bowel Movements 1 - Exam - Constitutional General appearance: average body habitus, disheveled, mild distress - EENT Eyes: EOMI, PERRLA, poor dentition, normal appearance Ears: bilateral: normal - Neck Carotids: bilateral: upstroke normal Thyroid: bilateral: normal size - Respiratory Respiratory: bilateral: diminished, rhonchi, wheezing (Fine on forced expiration ), prolonged expiration, negative: dullness, rales, prolonged inspiration - Cardiovascular Rhythm: regular Heart sounds: normal: S1, S2 - Gastrointestinal General gastrointestinal: decreased bowel sounds, soft - Neurologic Neurologic: CNII-XII intact - Musculoskeletal Musculoskeletal: gait normal, generalized weakness, strength equal bilaterally - Psychiatric Psychiatric: A&O x's 3, appropriate affect, intact judgment & insight - Labs CBC & Chem 7: 07/18/18 07:34 07/18/18 07:34 Labs: Abnormal Lab Results - Last 24 Hours (Table) 07/17/18 07/17/18 07/18/18 Range/Units 16:49 20:17 07:19 WBC (3.8-10.6) k/uL Neutrophils # (1.3-7.7) k/uL Carbon Dioxide (22-30) mmol/L BUN (7-17) mg/dL Glucose (74-99) mg/dL POC Glucose (mg/dL) 200 H 255 H 123 H (75-99) mg/dL AST (14-36) U/L ALT (9-52) U/L Total Protein (6.3-8.2) g/dL 07/18/18 07/18/18 07/18/18 Range/Units 07:34 07:34 11:52 WBC 14.0 H (3.8-10.6) k/uL Neutrophils # 12.3 H (1.3-7.7) k/uL Carbon Dioxide 37 H (22-30) mmol/L BUN 19 H (7-17) mg/dL Glucose 120 H (74-99) mg/dL POC Glucose (mg/dL) 120 H (75-99) mg/dL AST 44 H (14-36) U/L ALT 74 H (9-52) U/L Total Protein 5.9 L (6.3-8.2) g/dL Assessment and Plan Assessment: Probable left lower lobe pneumonia Acute COPD exacerbation Nonspecific EKG findings Extensive history of smoking and nicotine use History of migraine headaches History of GERD Degenerative joint disease osteoarthritis Plan: Bronchodilators IV steroids Deep breathing exercises incentive spirometry Sputum studies Will obtain a follow-up chest x-ray in next 48 hours Further recommendations pending plan of care as per clinical response of the patient Time with Patient: Greater than 30
[2018-07-18] MEDS ORDERED: AZITHROMYCIN 500 MG TAB PO SCH (20:00)
== END 2018-07-18 16:36 | disposition home or self-care (01) ==
LOC: EC 23:04 → 4SSUR 07-16 00:25 → UNDOADMIN 07-16 00:25 → INTOOBSV 07-16 00:25 → EDSTATUS 07-16 04:47 → UNDODISIN 07-18 16:36
PROVIDERS: ADMIT Internal Medicine; ATTEND Internal Medicine
DX: J44.1 Chronic obstructive pulmonary disease with (acute) exacerbation (principal); F17.210 Nicotine dependence, cigarettes, uncomplicated; K21.9 Gastro-esophageal reflux disease without esophagitis; M17.0 Bilateral primary osteoarthritis of knee; R73.9 Hyperglycemia, unspecified; T38.0X5A Adverse effect of glucocorticoids and synthetic analogues, initial encounter; G43.909 Migraine, unspecified, not intractable, without status migrainosus; E66.9 Obesity, unspecified; Z68.41 Body mass index [BMI] 40.0-44.9, adult; R74.8 Abnormal levels of other serum enzymes; R94.31 Abnormal electrocardiogram [ECG] [EKG]; Z79.82 Long term (current) use of aspirin; Z79.52 Long term (current) use of systemic steroids; Z79.899 Other long term (current) drug therapy; Z83.3 Family history of diabetes mellitus
CPT/HCPCS: 96376 ×3; 96365; 96366; 96367; 96372 ×2; 96361; 96374; 99285 ×2; 36415; 94640 ×8; 94760; 93005; 83880; 80053 ×4; 82550; 82553; 83735 ×2; 84484 ×2; 85025 ×4; 87502; 83036; 71046 ×2; G0378 ×3; S4990 ×3; J2930 ×4; J0456 ×2; J1650 ×2; J0696 ×2

== ENCOUNTER 2018-08-29 21:39 | Emergency (ER) | payer OTHER ==
[2018-08-29 22:10] LABS: Glucose,Whole Blood 114 mg/dL (75-99)
[2018-08-29] MEDS ORDERED: SODIUM CHLORIDE 0.9% 1,000 ML IV ONE (22:24)
[2018-08-29 22:43] VITALS: RESP 18
[2018-08-29 22:51] LABS: Basophils # (A) 0.1 k/uL (0-0.2); Basophils % (A) 0 %; Eosinophils # (A) 0.2 k/uL (0-0.7); Eosinophils % (A) 2 %; HCT 49.7 % (34.0-46.0); HGB 15.5 gm/dL (11.4-16.0); Lymphocytes # (A) 1.9 k/uL (1.0-4.8); Lymphocytes % (A) 15 %; MCH 30.4 pg (25.0-35.0); MCHC 31.2 g/dL (31.0-37.0); MCV 97.5 fL (80.0-100.0); Mean Platelet Volume 7.5; Monocytes # (A) 0.7 k/uL (0-1.0); Monocytes % (A) 6 %; Neutrophils # (A) 9.8 k/uL (1.3-7.7); Neutrophils % (A) 76 %; Platelet Count 239 k/uL (150-450); RDW 14.4 % (11.5-15.5); WBC 12.8 k/uL (3.8-10.6)
--- NOTE | 2018-08-29 22:53 | ED ---
General Adult HPI - General Chief complaint: Neuro Symptoms/Deficit Stated complaint: Hands shaking,slurred speech Source: patient Mode of arrival: wheelchair Limitations: no limitations - History of Present Illness Initial comments: Chante is a 57-year-old female who presents the emergency department today for evaluation of fatigue and generalized weakness. Patient reports that she's been dealing with chronic leg pain recently she states that last night she was unable to sleep during the night due to neuropathy in her legs. She reports that she did take gabapentin which improved her discomfort somewhat but she still feels as though she got less than a couple hours of sleep. Today she went about her usual day. She did take baclofen this afternoon which is a new medication for her. At dinnertime she states that she felt like her whole body was week she was having difficulty holding onto her silverware. She reports of both hands were weak and she kept dropping her fork while eating spaghetti. States that after dinner she decided to lay down because she is feeling very tired. Family states that they tried to wake her up and she was difficult to arouse which made them very concerned, upon her waking she continued to feel as though both of her arms and her entire body were very weak. Patient stated that she just thought she was fatigued and wanted to go back to sleep but her family is concerned that she may be having a stroke and encouraged her to come to the ER for further evaluation. - Related Data Home Medications Medication Instructions Recorded Confirmed Ehgdvtb-Gxki-Uaka [id number] 2 tab PO Q6HR PRN 09/08/15 08/29/18 [Excedrin] Biotin 5 mg PO QAM 09/08/15 08/29/18 Cranberry Fruit Extract [Cranberry] 500 mg PO QAM 09/08/15 08/29/18 Vjv-Tekb-Zmkrj Acid 1 cap PO QAM 09/08/15 08/29/18 [-U Capsule (formulary)] Baclofen [Lioresal] 20 mg PO BID 08/29/18 08/29/18 Beclomethasone Dip 80 Mcg/Puff 2 puff INHALATION RT-BID 08/29/18 08/29/18 [Qvar 80 mcg] Ergocalciferol [Vitamin D2 50,000 unit PO WEEKLY 08/29/18 08/29/18 (DRISDOL)] Fluticasone/Umeclidin/Vilanter 1 puff INHALATION RT-HS 08/29/18 08/29/18 [Trelegy Ellipta 100-62.5-25] Furosemide [Lasix] 20 mg PO TID 08/29/18 08/29/18 Gabapentin [Neurontin] 100 mg PO TID 08/29/18 08/29/18 Previous Rx's Medication Instructions Recorded predniSONE 10 mg PO DIRECTED #30 tab 07/18/18 Allergies Allergy/AdvReac Type Severity Reaction Status Date / Time No Known Allergies Allergy Verified 08/29/18 22:18 Review of Systems ROS Statement: Those systems with pertinent positive or pertinent negative responses have been documented in the HPI. ROS Other: All systems not noted in ROS Statement are negative. Past Medical History Past Medical History: COPD, GERD/Reflux, Osteoarthritis (OA) Additional Past Medical History / Comment(s): Frequent headaches, sinus and ear problems-R ear worse, severe arthritis bilateral knees. History of Any Multi-Drug Resistant Organisms: None Reported Additional Past Surgical History / Comment(s): R breast biopsies-benign, COLONOSCOPY Past Anesthesia/Blood Transfusion Reactions: No Reported Reaction Additional Past Anesthesia/Blood Transfusion Reaction / Comment(s): Difficulty waking. Past Psychological History: No Psychological Hx Reported Smoking Status: Current every day smoker Past Alcohol Use History: None Reported Past Drug Use History: None Reported - Past Family History Mother Family Medical History: Diabetes Mellitus Father History Unknown: Yes Family Medical History: Unable to Obtain General Exam - General Exam Comments Initial Comments: GENERAL: Patient is well-developed and well-nourished. Patient is nontoxic and well-hydrated and is in no distress. HENT: Normocephalic, Atraumatic. Neck is soft and supple. Mucus membranes are dry EYES: The sclera were anicteric and conjunctiva were pink and moist. Extraocular movements were intact and pupils were equal round and reactive to light. Eyelids were unremarkable. PULMONARY: Unlabored respirations. Good breath sounds bilaterally. No audible rales rhonchi or wheezing was noted. CARDIOVASCULAR: There is a regular rate and rhythm without any murmurs gallops or rubs. ABDOMEN: Obese, Soft and nontender with normal bowel sounds. SKIN: Skin is clear with no lesions or rashes and otherwise unremarkable. NEUROLOGIC: Patient is alert and oriented x3. Cranial nerves II through XII are intact. Motor and sensory are intact in bilateral upper and lower extremities. Normal speech, volume and content. Symmetrical smile. NIH score is 0 MUSCULOSKELETAL: Normal extremities with adequate strength and full range of motion. No lower extremity swelling or edema. No calf tenderness. LYMPHATICS: No significant lymphadenopathy is noted PSYCHIATRIC: Normal psychiatric evaluation. Limitations: no limitations Limitations: no limitations Course Vital Signs 08/29/18 08/29/18 08/29/18 21:43 22:00 22:42 Temperature 98.7 F Pulse Rate 97 98 101 H Respiratory 20 18 18 Rate Blood Pressure 138/95 141/90 111/80 O2 Sat by Pulse 92 L 91 L Oximetry 08/29/18 23:25 Temperature 97.7 F Pulse Rate 93 Respiratory 18 Rate Blood Pressure 143/77 O2 Sat by Pulse 98 Oximetry EKG Findings - EKG Comments: EKG Findings:: EKG obtained at 10:04 PM, rate is 95 rhythm is sinus there is a normal axis are normal intervals, CA 140, QRS 72, QTc 432. There are no acute ST elevations or depressions is no evidence of acute ischemia or infarction or arrhythmia. Medical Decision Making - Medical Decision Making The patient was seen and evaluated history was obtained from the patient Patient's family concerned she may be having a stroke due to weakness in her bilateral upper extremities and difficulty holding her fork and falling asleep during dinner Patient is on gabapentin when necessary for neuropathy and was started on baclofen which she took today in addition patient reports she's had only about 2 hours of sleep in the past 24 hours Patient's NIH score is 0, her symptoms are global weakness and fatigue I do not feel the patient is having an acute neurologic event I suspect that the patient's generalized weakness and fatigue secondary to sleep deprivation and medication interactions Patient's labs were reviewed she has mild leukocytosis no other significant abnormalities Patient received some IV fluids, upon reevaluation she reports she is feeling well she is still tired and would like to go home to sleep comfortably in her own bed Patient's vital signs were stable throughout her emergency visit stay. She had no focal neurologic deficits. Patient remained awake alert oriented at this time I do feel the patient is stable for discharge home. I did encourage the patient not to take baclofen especially when taking gabapentin as I do feel that the mixture of these 2 medications did significantly contribute to her bilateral upper extremity weakness in the difficulty she had while eating. I did encourage the patient to get a good night sleep and follow up with her primary care physician. Return parameters were discussed all questions pertaining care were answered best my ability and the patient was discharged home in stable condition. - Lab Data Result diagrams: 08/29/18 22:40 08/29/18 22:40 Lab Results 08/29/18 08/29/18 08/29/18 Range/Units 21:58 22:40 22:40 WBC 12.8 H (3.8-10.6) k/uL RBC 5.10 (3.80-5.40) m/uL Hgb 15.5 (11.4-16.0) gm/dL Hct 49.7 H (34.0-46.0) % MCV 97.5 (80.0-100.0) fL MCH 30.4 (25.0-35.0) pg MCHC 31.2 (31.0-37.0) g/dL RDW 14.4 (11.5-15.5) % Plt Count 239 (150-450) k/uL Neutrophils % 76 % Lymphocytes % 15 % Monocytes % 6 % Eosinophils % 2 % Basophils % 0 % Neutrophils # 9.8 H (1.3-7.7) k/uL Lymphocytes # 1.9 (1.0-4.8) k/uL Monocytes # 0.7 (0-1.0) k/uL Eosinophils # 0.2 (0-0.7) k/uL Basophils # 0.1 (0-0.2) k/uL Sodium 141 (137-145) mmol/L Potassium 4.3 (3.5-5.1) mmol/L Chloride 100 (98-107) mmol/L Carbon Dioxide 34 H (22-30) mmol/L Anion Gap 7 mmol/L BUN 21 H (7-17) mg/dL Creatinine 0.69 (0.52-1.04) mg/dL Est GFR (CKD-EPI)AfAm >90 (>60 ml/min/1.73 sqM) Est GFR (CKD-EPI)NonAf >90 (>60 ml/min/1.73 sqM) Glucose 121 H (74-99) mg/dL POC Glucose (mg/dL) 114 H (75-99) mg/dL POC Glu Hiv Counselor ID Slade, Maria Del Carmen Calcium 9.9 (8.4-10.2) mg/dL Magnesium 1.8 (1.6-2.3) mg/dL Total Bilirubin 0.3 (0.2-1.3) mg/dL AST 20 (14-36) U/L ALT 36 (9-52) U/L Alkaline Phosphatase 120 (38-126) U/L Total Protein 7.4 (6.3-8.2) g/dL Albumin 4.2 (3.5-5.0) g/dL Urine Color Urine Appearance (Clear) Urine pH (5.0-8.0) Ur Specific [place] (1.001-1.035) Urine Protein (Negative) Urine Glucose (UA) (Negative) Urine Ketones (Negative) Urine Blood (Negative) Urine Nitrite (Negative) Urine Bilirubin (Negative) Urine Urobilinogen (<2.0) mg/dL Ur Leukocyte Esterase (Negative) Urine RBC (0-5) /hpf Urine WBC (0-5) /hpf Ur Squamous Epith Cells (0-4) /hpf Urine Bacteria (None) /hpf Urine Mucus (None) /hpf 08/29/18 Range/Units 22:55 WBC (3.8-10.6) k/uL RBC (3.80-5.40) m/uL Hgb (11.4-16.0) gm/dL Hct (34.0-46.0) % MCV (80.0-100.0) fL MCH (25.0-35.0) pg MCHC (31.0-37.0) g/dL RDW (11.5-15.5) % Plt Count (150-450) k/uL Neutrophils % % Lymphocytes % % Monocytes % % Eosinophils % % Basophils % % Neutrophils # (1.3-7.7) k/uL Lymphocytes # (1.0-4.8) k/uL Monocytes # (0-1.0) k/uL Eosinophils # (0-0.7) k/uL Basophils # (0-0.2) k/uL Sodium (137-145) mmol/L Potassium (3.5-5.1) mmol/L Chloride (98-107) mmol/L Carbon Dioxide (22-30) mmol/L Anion Gap mmol/L BUN (7-17) mg/dL Creatinine (0.52-1.04) mg/dL Est GFR (CKD-EPI)AfAm (>60 ml/min/1.73 sqM) Est GFR (CKD-EPI)NonAf (>60 ml/min/1.73 sqM) Glucose (74-99) mg/dL POC Glucose (mg/dL) (75-99) mg/dL POC Glu Hiv Counselor ID Calcium (8.4-10.2) mg/dL Magnesium (1.6-2.3) mg/dL Total Bilirubin (0.2-1.3) mg/dL AST (14-36) U/L ALT (9-52) U/L Alkaline Phosphatase (38-126) U/L Total Protein (6.3-8.2) g/dL Albumin (3.5-5.0) g/dL Urine Color Yellow Urine Appearance Clear (Clear) Urine pH 6.0 (5.0-8.0) Ur Specific [place] 1.019 (1.001-1.035) Urine Protein Negative (Negative) Urine Glucose (UA) Negative (Negative) Urine Ketones Negative (Negative) Urine Blood Small H (Negative) Urine Nitrite Negative (Negative) Urine Bilirubin Negative (Negative) Urine Urobilinogen <2.0 (<2.0) mg/dL Ur Leukocyte Esterase Negative (Negative) Urine RBC 7 H (0-5) /hpf Urine WBC <1 (0-5) /hpf Ur Squamous Epith Cells 1 (0-4) /hpf Urine Bacteria Rare H (None) /hpf Urine Mucus Rare H (None) /hpf Disposition Clinical Impression: Medication reaction Disposition: HOME SELF-CARE Condition: Good Instructions (If sedation given, give patient instructions): Fatigue (ED) Is patient prescribed a controlled substance at d/c from ED?: No Referrals: Silvana Taylor DO [Primary Care Provider] - 1-2 days
[2018-08-29 22:59] LABS: ALT 36 U/L (9-52); AST 20 U/L (14-36); Albumin 4.2 g/dL (3.5-5.0); Alkaline Phosphatase 120 U/L (38-126); Anion Gap 7 mmol/L; Blood Urea Nitrogen 21 mg/dL (7-17); Calcium 9.9 mg/dL (8.4-10.2); Carbon Dioxide 34 mmol/L (22-30); Chloride 100 mmol/L (98-107); Glucose 121 mg/dL (74-99); Magnesium 1.8 mg/dL (1.6-2.3); Potassium 4.3 mmol/L (3.5-5.1); Sodium 141 mmol/L (137-145); Total Bilirubin 0.3 mg/dL (0.2-1.3); Total Protein 7.4 g/dL (6.3-8.2)
[2018-08-29 23:16] LABS: Appearance,Urine Clear (Clear); Bacteria,Urine Rare /hpf; Bilirubin,Urine Negative (Negative); Blood,Urine Small (Negative); Color,Urine Yellow; Glucose,Urine (UA) Negative (Negative); Ketones,Urine Negative (Negative); Leukocyte Esterase,Urine Negative (Negative); Mucus,Urine Rare /hpf; Nitrite,Urine Negative (Negative); Protein,Urine Negative (Negative); RBC,Urine 7 /hpf (0-5); Specific Gravity,Urine 1.019 (1.001-1.035); Squamous Epithelial Cell,Urine 1 /hpf (0-4); Urobilinogen,Urine <2.0 mg/dL (<2.0)
[2018-08-29 23:29] VITALS: BP 143/77; PULSE 93; TEMP 97.7
== END 2018-08-29 23:25 | disposition home or self-care (01) ==
LOC: EC 21:39
DX: R53.1 Weakness (principal); R53.81 Other malaise; T42.8X5A Adverse effect of antiparkinsonism drugs and other central muscle-tone depressants, initial encounter; G62.9 Polyneuropathy, unspecified; D72.829 Elevated white blood cell count, unspecified; J44.9 Chronic obstructive pulmonary disease, unspecified; F17.200 Nicotine dependence, unspecified, uncomplicated; Z79.82 Long term (current) use of aspirin; Z79.51 Long term (current) use of inhaled steroids; Z79.899 Other long term (current) drug therapy
CPT/HCPCS: 36415; 80053; 81001; 83735; 85025; 96360; 99285

== ENCOUNTER → 2018-11-20 | Outpatient (CLI) | payer OTHER | END | disposition home or self-care (01) | LOC: RADMRIMAIN 08:06 | PROVIDERS: ATTEND Physician Assistant | DX: Z53.9 Procedure and treatment not carried out, unspecified reason (principal) ==

== ENCOUNTER → 2019-03-03 | Outpatient (CLI) | payer OTHER ==
[2019-03-03 10:37] LABS: African American GFR (CKD) >90 (>60 ml/min/1.73 sqM); Blood Urea Nitrogen 14 mg/dL (7-17)
--- NOTE | 2019-03-03 11:26 | CT ---
EXAMINATION TYPE: CT chest w con DATE OF EXAM: 03/03/2019 COMPARISON: Low-dose lung screening CT November 05, 2017 and older study May 02, 2017 HISTORY: Other nonspecific abnormal finding of lung cuenca CT DLP: 753.10 mGycm. Automated Exposure Control for Dose Reduction was Utilized. TECHNIQUE: CT scan of the thorax is performed following with IV Contrast, patient injected with 100 ml mL of Isovue 300. FINDINGS: LUNGS: Stable mild right apical linear scarring. Just inferior to this there is new 10 x 8 mm right u pper lobe scarlike opacity axial image 13. Just inferior to this there is a new 1.2 x 1.0 cm left upp er lobe nodule or nodular consolidation axial image 16. There is increasing left basilar linear atele ctasis. No pleural effusion or pneumothorax. Background mild emphysematous change. MEDIASTINUM: There are no new greater than 1 cm hilar or mediastinal lymph nodes. Trace pericardial e ffusion is seen. No cardiomegaly. Enlarged main pulmonary artery 3.9 cm axial image 22. CT findings c onsistent with underlying pulmonary hypertension. Adjacent ascending aorta measures up to 4.9 cm in d iameter. OTHER: Surgical clips in the right breast are redemonstrated. IMPRESSION: New areas of nodularity or nodular consolidation bilateral upper lobes measuring up to 1. 2 x 1.0 cm. Consider PET/CT to further evaluate. Stable 4.9 cm ascending aortic aneurysm.
== END | disposition home or self-care (01) ==
LOC: RADCTMAIN 10:00
PROVIDERS: ATTEND Family Medicine
DX: I71.2 Thoracic aortic aneurysm, without rupture (principal)
CPT/HCPCS: 82565; 84520; 71260; 36415; Q9967

== ENCOUNTER → 2019-03-13 | Outpatient (CLI) | payer OTHER ==
--- NOTE | 2019-03-17 07:01 | PE ---
EXAMINATION TYPE: PET CT fusion skull to thigh DATE OF EXAM: 03/13/2019 COMPARISON: Low-dose CT dated 03/03/[address] dated 11/05/2017 HISTORY: Abnormal chest CT TECHNIQUE: Following the intravenous administration of 10.69 mCi of F-18 FDG, whole body images are performed from the skull base to the midthigh. Images are reviewed on the computer in the coronal, a xial, and sagittal planes. Reconstructed rotating images are created on independent workstation and reviewed on the computer. A localization and attenuation correction CT is performed in conjunction with the PET scan. SCAN: Initial. (Initial treatment strategy) FINDINGS: Mediastinal background: 2.06 Abdominal background: 3.83 SKULL BASE AND NECK: No suspicious hypermetabolic uptake. Uptake within the bilateral tonsillar pill ars is likely physiologic and small tonsilloliths are also seen and therefore uptake may be inflammat ory. CHEST, MEDIASTINUM, AND HILAR REGION: The right apical pulmonary nodule measuring approximately 0.6 x 0.7 cm measures smaller than on the prior exam of 02/24/1718 however this may be related to differenc es in technique. This has a maximum SUV of 0.76 although is below the threshold of PET CT. On the lef t there is an approximately 1.2 x 0.6 cm similar-appearing nodule with a maximum SUV of 0.79. ABDOMEN AND PELVIS: Focal cortical uptake of the right superior pole the kidney measures 4.31 maximum SUV without noncontrast enhanced CT correlate. OSSEOUS STRUCTURES: OTHER CT: Minimal right apical pleural-parenchymal scarring is seen. Trace pericardial effusion. Main pulmonary artery enlargement is seen that may represent pulmonary arterial hypertension clinically. Ascending thoracic aorta is again dilated and aneurysmal measuring approximately 4.8 cm. There is min imal dependent subsegmental atelectasis seen. Paranasal sinuses and mastoid air cells are well aerate d. Moderate degenerative changes of the spine are noted. Surgical clips are seen within the right sadia ast. Left chest wall is not included on the imaging given patient body habitus. Too small to accurate ly characterize lower pole posterior exophytic left renal lesion is subcentimeter. Diffuse thickening of the sigmoid colon could be artifactual given incomplete distention. Scattered sigmoid diverticula are noted. No dilated large or small bowel. Ventral diastases recti is seen. Entirety of the soft ti ssues are not imaged again given patient body habitus. No adenopathy is seen by size criteria in the chest, abdomen, or pelvis. Largest right paratracheal lymph node measures 1.0 cm in short axis, upper limits of normal. Precarinal lymph node also measures 1 cm in short axis, upper limits of normal. Gr susanna 1 anterolisthesis of L5 on S1. IMPRESSION: 1. Biapical pulmonary nodules are hypometabolic and therefore may relate to a benign process such as granulomatous disease, inflammatory process, or much less likely infectious process. However given th eir small size follow-up chest CT is recommended in 6-12 months to ensure no interval growth. If inte rval growth at that time repeat PET CT or percutaneous biopsy could be considered. 2. Focal cortical uptake within the right superior pole the kidney without CT correlate on nonenhance d CT. This could be misregistration from the renal sinus however renal ultrasound is recommended to e nsure no corresponding subcentimeter mass. 3. Diffuse thickening of the sigmoid colon may be on the basis of incomplete distention or chronic co litis with no acute inflammatory change. Correlate with any recent colonoscopy.
== END | disposition home or self-care (01) ==
LOC: RADPETMAIN 14:51
PROVIDERS: ATTEND Physician Assistant
DX: R91.8 Other nonspecific abnormal finding of lung field (principal); K63.89 Other specified diseases of intestine
CPT/HCPCS: 78815; A9552

== ENCOUNTER → 2019-04-04 | Outpatient (CLI) | payer OTHER ==
--- NOTE | 2019-04-04 21:34 | MR ---
EXAMINATION TYPE: MR brain wo/w con DATE OF EXAM: 04/04/2019 COMPARISON: None HISTORY: Dizziness, migraine, history of lung nodule CONTRAST: Performed utilizing 13 mL intravenous Gadavist gadolinium contrast. TECHNIQUE: Multiplanar, multiecho imaging on a 3.0 Essie magnet is performed through the brain. Stud y is performed within 24 hours of arrival to the hospital. Fast brain protocol was utilized due to cl austrophobia. The craniovertebral junction is normal. The pituitary is normal. Diffusion-weighted imaging is performed. No abnormal hyperintensity is present to suggest an acute i ntracranial infarct or acute ischemic change. Through the brain is unremarkable. Ventricles and sulci are appropriate for the patient age. No suspicious enhancement is evident. IMPRESSIONS: 1. Normal pre and postcontrast MRI brain
== END | disposition home or self-care (01) ==
LOC: RADMRIMAIN 13:05
PROVIDERS: ATTEND Physician Assistant
DX: R42 Dizziness and giddiness (principal)
CPT/HCPCS: 70553; A9585

== ENCOUNTER → 2019-07-18 | Outpatient (CLI) | payer OTHER ==
--- NOTE | 2019-07-18 16:45 | CT ---
EXAMINATION TYPE: CT abdomen pelvis w con DATE OF EXAM: 07/18/2019 HISTORY: Abdominal pelvic pain, nausea, dry heaving x2 months CT DLP: 2422mGycm Automated Exposure Control for Dose Reduction was Utilized. CONTRAST: CT scan of the abdomen and pelvis is performed with IV Contrast, patient injected with 100 mL of Isov ue 300. COMPARISON: PET/CT dated 03/13/2019 FINDINGS: LUNG BASES: Right middle lobe pulmonary nodule measures 6 mm. Bibasilar subsegmental atelectasis is s een.. LIVER/GB: Hepatic parenchyma is diffusely hypoattenuated in comparison to that of the spleen, most co mmonly seen in hepatic steatosis. This finding limits evaluation for hepatic masses. No gross evidenc e of hepatic mass is seen. No intrahepatic biliary ductal dilatation. No cholelithiasis PANCREAS: No significant abnormality is seen. SPLEEN: No significant abnormality is seen. ADRENALS: No significant abnormality is seen. KIDNEYS: There is a too small to accurately characterize 3 mm exophytic left renal lesion of the late ral pole on series 3 image 35. The kidneys demonstrate no evidence of hydronephrosis. BOWEL: There is long segment bowel wall thickening of the sigmoid colon. There is a hypoattenuated le riley within the sigmoid colon wall measuring 1.3 cm on series 3 image 74. There is mild pericolonic f at stranding. There are few scattered diverticula however no diverticular seen adjacent to be focal f at stranding. There is luminal narrowing of the sigmoid colon however no obstruction is seen. No prox imally dilated large or small bowel. UTERUS/ADNEXA: No gross abnormality seen. LYMPH NODES: No greater than 1cm abdominal or pelvic lymph nodes are appreciated. OSSEOUS STRUCTURES: There is grade 1 anterolisthesis of L5 on S1 likely on a degenerative basis. Air is seen posterior to the L2 vertebral body likely from adjacent vacuum disc phenomenon. OTHER: Ventral diastases recti is seen. IMPRESSION: 1. Long segment bowel wall thickening and pericolonic fat stranding of the sigmoid colon. Findings ma y be on the basis of acute uncomplicated colitis given no directly adjacent diverticula are seen. Alt ernatively acute or resolving diverticulitis are possible. A submucosal 1.3 cm lesion is seen in the sigmoid colon and considerations are for polyp, mass, or submucosal abscess. This would not be amenab le to percutaneous drainage at this time. As uptake was seen on the prior PET/CT in the sigmoid colon colonoscopy is again recommended to exclude neoplasm. 2. Mild grade hepatic steatosis. 3. Right middle lobe pulmonary nodule measuring 6 mm.
== END | disposition home or self-care (01) ==
LOC: RADCTMAIN 09:39
PROVIDERS: ATTEND Family Medicine
DX: K63.89 Other specified diseases of intestine (principal); K76.0 Fatty (change of) liver, not elsewhere classified
CPT/HCPCS: 74177; Q9967

== ENCOUNTER 2020-07-11 08:18 | Day surgery (SDC) | payer MEDICARE, OTHER ==
[2020-07-05 08:55] VITALS: BMI 43.8
[2020-07-11 08:53] LABS: Glucose,Whole Blood 141 mg/dL (75-99)
[2020-07-11] MEDS ORDERED: LACTATED RINGERS 1,000 ML IV ONE (08:56)
[2020-07-11] MEDS ORDERED: LIDOCAINE 1% (10MG/ML) FOR IV START INTRADERMA ONE (08:56)
[2020-07-11] MEDS ORDERED: PROPOFOL 10 MG/ML 20 ML VIAL IV ONE (09:57)
--- NOTE | 2020-07-11 10:08 | P.GSHP ---
History of Present Illness H&P Date: 07/11/20 Chief Complaint: GI bleed This is a 59-year-old female who presents today for colonoscopy. She has a history of GI bleed. Past Medical History Past Medical History: COPD, Diabetes Mellitus, GERD/Reflux, Osteoarthritis (OA), Pneumonia Additional Past Medical History / Comment(s): migraines,, sinus and ear [id number] ear worse, severe arthritis bilateral knees, constipation, edema lower legs and feet, hemorrhoids, blood in stool at times, gallstones, History of Any Multi-Drug Resistant Organisms: None Reported Past Surgical History: Breast Surgery, Tubal Ligation Additional Past Surgical History / Comment(s): Rt breast biopsies, COLONOSCOPY Past Anesthesia/Blood Transfusion Reactions: Previous Problems w/ Anesthesia Additional Past Anesthesia/Blood Transfusion Reaction / Comment(s): states had diff waking up- "states stopped breathing for a couple seconds" with last col onocopy, "i need a pillow under my head" Smoking Status: Current every day smoker - Past Family History Mother Family Medical History: No Reported History Additional Family Medical History / Comment(s): . Father History Unknown: Yes Family Medical History: Unable to Obtain Medications and Allergies Home Medications Medication Instructions Recorded Confirmed Type Lmiezvz-Oyyx-Hjzr [id number] 2 tab PO Q6HR PRN 09/08/15 07/05/20 History [Excedrin] Ergocalciferol [Vitamin D2 50,000 unit PO MARCELINO 08/29/18 07/05/20 History (DRISDOL)] Multivitamins, Thera [Multivitamin 1 tab PO PC-SUPPER 07/31/19 07/05/20 History (formulary)] Furosemide [Lasix] 20 mg PO PC-SUPPER 07/05/20 07/05/20 History Omeprazole [PriLOSEC] 40 mg PO PC-SUPPER 07/05/20 07/05/20 History Potassium Chloride [Klor-Con 20] 20 meq PO PC-SUPPER 07/05/20 07/05/20 History metFORMIN HCL [Glucophage Xr] 500 mg PO PC-SUPPER 07/05/20 07/05/20 History Allergies Allergy/AdvReac Type Severity Reaction Status Date / Time No Known Allergies Allergy Verified 07/05/20 08:38 Surgical - Exam Vital Signs Temp Pulse Resp BP Pulse Ox 97.2 F L 118 H 20 135/86 94 L 07/11/20 08:55 07/11/20 08:55 07/11/20 08:55 07/11/20 08:55 07/11/20 08:55 - General well developed, well nourished, no distress - Eyes PERRL - ENT normal pinna - Neck no masses - Respiratory normal expansion - Cardiovascular Rhythm: regular - Abdomen Abdomen: soft, non tender Results - Labs Abnormal Lab Results - Last 24 Hours (Table) 07/11/20 Range/Units 08:50 POC Glucose (mg/dL) 141 H (75-99) mg/dL Assessment and Plan Assessment: GI bleed we'll perform colonoscopy
[2020-07-11] MEDS ORDERED: IV FLUID CONTINUATION 1,000 ML IV ONE ×2 (10:26)
[2020-07-11 10:36] VITALS: TEMP 98
[2020-07-11 10:52] LABS: Glucose,Whole Blood 103 mg/dL (75-99)
[2020-07-11 11:42] VITALS: RESP 16
[2020-07-11 11:48] VITALS: BP 125/81; PULSE 95
== END 2020-07-11 12:18 | disposition home or self-care (01) ==
LOC: ORWHC2ENDO 08:18
PROVIDERS: ATTEND Surgery
DX: K92.2 Gastrointestinal hemorrhage, unspecified (principal); Z53.09 Procedure and treatment not carried out because of other contraindication; J44.9 Chronic obstructive pulmonary disease, unspecified; E11.9 Type 2 diabetes mellitus without complications; K21.9 Gastro-esophageal reflux disease without esophagitis; M19.90 Unspecified osteoarthritis, unspecified site; G43.909 Migraine, unspecified, not intractable, without status migrainosus; Z87.01 Personal history of pneumonia (recurrent); H91.90 Unspecified hearing loss, unspecified ear; F17.210 Nicotine dependence, cigarettes, uncomplicated; M17.0 Bilateral primary osteoarthritis of knee; Z98.51 Tubal ligation status; Z98.890 Other specified postprocedural states; Z87.19 Personal history of other diseases of the digestive system; Z79.84 Long term (current) use of oral hypoglycemic drugs; Z79.899 Other long term (current) drug therapy; Z99.81 Dependence on supplemental oxygen; E66.01 Morbid (severe) obesity due to excess calories; Z68.42 Body mass index [BMI] 45.0-49.9, adult
CPT/HCPCS: 45378; J2704

== ENCOUNTER 2020-10-30 05:50 | Inpatient (IN) | payer MEDICARE, OTHER ==
[2020-10-30] MEDS ORDERED: DEXAMETHASONE SOD PHOSPHATE 10 MG/ML 1 ML VIAL IV STA (06:07)
--- NOTE | 2020-10-30 06:11 | ED ---
SOB HPI - General Chief Complaint: Shortness of Breath Stated Complaint: SOB Time Seen by Provider: 10/30/20 06:00 Source: EMS Mode of arrival: EMS - History of Present Illness Initial Comments: Patient is a 60-year-old female with history of COPD, normal and 2 L of O2 at home, presenting to the emergency Department via EMS with complaints of increasing shortness of breath over the past few days. Patient tested positive for Covid at her doctor's office 4-5 days ago. She states her symptoms started 1 week ago. She's been having a cough, shortness of breath, fatigue and some body aches. She has some intermittent abdominal cramping but no specific abdominal pain. She denies nausea or vomiting, no diarrhea. Her appetite has been low, she's been drinking fluids. She states over the last few days she's had to increase her oxygen at home because she feels increasingly short of breath. She is an every day smoker. He denies any chest pains. She does admit to mild headache. She has no further complaints at this time. Upon arrival to the ER, she is at 91% on 4 L, rest of vitals are stable. - Related Data Home Medications Medication Instructions Recorded Confirmed Ergocalciferol [Vitamin D2 50,000 unit PO MARCELINO 08/29/18 10/30/20 (DRISDOL)] Multivitamins, Thera [Multivitamin 1 tab PO PC-SUPPER 07/31/19 10/30/20 (formulary)] Furosemide [Lasix] 20 mg PO PC-SUPPER PRN 07/05/20 10/30/20 Omeprazole [PriLOSEC] 40 mg PO PC-SUPPER 07/05/20 10/30/20 Potassium Chloride [Klor-Con 20] 20 meq PO PC-SUPPER PRN 07/05/20 10/30/20 Aspirin EC [Ecotrin Low Dose] 81 mg PO DAILY 10/30/20 10/30/20 Bumetanide 0.5 mg PO BID PRN 10/30/20 10/30/20 Furosemide [Lasix] 40 mg PO BID PRN 10/30/20 10/30/20 Montelukast [Singulair] 10 mg PO DAILY 10/30/20 10/30/20 Allergies Allergy/AdvReac Type Severity Reaction Status Date / Time No Known Allergies Allergy Verified 10/30/20 07:48 Review of Systems ROS Statement: Those systems with pertinent positive or pertinent negative responses have been documented in the HPI. ROS Other: All systems not noted in ROS Statement are negative. Past Medical History Past Medical History: COPD, Diabetes Mellitus, GERD/Reflux, Osteoarthritis (OA), Pneumonia Additional Past Medical History / Comment(s): migraines,, sinus and ear [id number] ear worse, severe arthritis bilateral knees, constipation, edema lower legs and feet, hemorrhoids, blood in stool at times, gallstones, History of Any Multi-Drug Resistant Organisms: None Reported Past Surgical History: Breast Surgery, Tubal Ligation Additional Past Surgical History / Comment(s): Rt breast biopsies, COLONOSCOPY Past Anesthesia/Blood Transfusion Reactions: Previous Problems w/ Anesthesia Additional Past Anesthesia/Blood Transfusion Reaction / Comment(s): states had diff waking up- "states stopped breathing for a couple seconds" with last colonocopy, "i need a pillow under my head" Past Psychological History: No Psychological Hx Reported Smoking Status: Former smoker Past Alcohol Use History: None Reported Past Drug Use History: None Reported - Past Family History Mother Family Medical History: No Reported History Additional Family Medical History / Comment(s): . Father History Unknown: Yes Family Medical History: Unable to Obtain General Exam - General Exam Comments Initial Comments: GENERAL: Patient is well-developed and well-nourished. Patient is nontoxic and in no acute distress. HEAD: Atraumatic, normocephalic. EYES: Pupils equal round and reactive to light, extraocular movements intact, sclera anicteric, conjunctiva are normal. Eyelids were unremarkable. ENT: TMs normal, nares patent, oropharynx clear without exudates. Moist mucous membr anes. NECK: Normal range of motion, supple without lymphadenopathy or JVD. LUNGS: Unlabored respirations. Decreased sounds in the lower lung cuenca, mild wheezes present HEART: Regular rate and rhythm without murmurs, rubs or gallops. ABDOMEN: Soft, nontender, normoactive bowel sounds. No guarding, no rebound. No masses appreciated. : Deferred MUSCULOSKELETAL: Normal extremities with adequate strength and normal range of motion, no pitting or edema. No clubbing or cyanosis. NEUROLOGICAL: Patient is alert and oriented x 3. Motor and sensory are also intact. Cranial nerves II through XII grossly intact. Symmetrical smile. Normal speech, normal gait. PSYCH: Normal mood, normal affect. SKIN: Warm, Dry, normal turgor, no rashes or lesions noted. Course Vital Signs 10/30/20 10/30/20 05:58 07:42 Temperature 98.2 F Pulse Rate 95 98 Respiratory 20 17 Rate Blood Pressure 140/99 117/70 O2 Sat by Pulse 91 L 92 L Oximetry Medical Decision Making - Medical Decision Making Patient is a 60-year-old female with history of COPD presenting from EMS for increasing shortness of breath. She tested positive for Covid a 4-5 days ago, is normally on 2 L at home. She's been having to increase this over the past 1- 2 days. He is currently at 91% on 4 L. Rest of vitals are stable. EKG shows no acute process. Chest x-ray shows prominence of right hilum, lymphadenopathy cannot be excluded, Covid pneumonia. White count is normal, hemoglobin is stable, dimer is elevated 0.96. Reticulocyte acid is 1.8. Magnesium is slightly low at 1.4. CT of the chest shows no evidence for PE, findings consistent with pneumonia, mediastinal and hilar adenopathy, emphysema, correlate for pulmonary artery hypertension. Upon reexamination, the patient is currently studying at 92% on 5 L. Respiratory vitals are stable. Patient be admitted for Covid pneumonia, pulmonary on consult. Patient accepted by Dr. Neva cabrera. Case discussed with Dr. Diane. - Lab Data Result diagrams: 10/30/20 06:11 10/30/20 06:11 Lab Results 10/30/20 10/30/20 10/30/20 Range/Units 06:11 06:11 06:11 WBC 8.0 (3.8-10.6) k/uL RBC 5.82 H (3.80-5.40) m/uL Hgb 17.0 H (11.4-16.0) gm/dL Hct 53.2 H (34.0-46.0) % MCV 91.4 (80.0-100.0) fL MCH 29.2 (25.0-35.0) pg MCHC 32.0 (31.0-37.0) g/dL RDW 18.5 H (11.5-15.5) % Plt Count 146 L (150-450) k/uL MPV 7.8 Neutrophils % 76 % Lymphocytes % 14 % Monocytes % 5 % Eosinophils % 1 % Basophils % 3 % Neutrophils # 6.1 (1.3-7.7) k/uL Lymphocytes # 1.1 (1.0-4.8) k/uL Monocytes # 0.4 (0-1.0) k/uL Eosinophils # 0.1 (0-0.7) k/uL Basophils # 0.2 (0-0.2) k/uL Hypochromasia Slight Anisocytosis Slight PT 9.9 (9.0-12.0) sec INR 0.9 (<1.2) APTT 22.0 (22.0-30.0) sec D-Dimer 0.96 H (<0.60) mg/L FEU Sodium 138 (137-145) mmol/L Potassium 4.8 (3.5-5.1) mmol/L Chloride 97 L (98-107) mmol/L Carbon Dioxide 38 H (22-30) mmol/L Anion Gap 3 mmol/L BUN 17 (7-17) mg/dL Creatinine 0.51 L (0.52-1.04) mg/dL Est GFR (CKD-EPI)AfAm >90 (>60 ml/min/1.73 sqM) Est GFR (CKD-EPI)NonAf >90 (>60 ml/min/1.73 sqM) Glucose 116 H (74-99) mg/dL Plasma Lactic Acid Sandoval (0.7-2.0) mmol/L Calcium 8.6 (8.4-10.2) mg/dL Magnesium 1.4 L (1.6-2.3) mg/dL Total Bilirubin 0.8 (0.2-1.3) mg/dL AST 43 H (14-36) U/L ALT 31 (4-34) U/L Alkaline Phosphatase 126 (38-126) U/L Lactate Dehydrogenase 1191 H (313-618) U/L Total Protein 6.9 (6.3-8.2) g/dL Albumin 3.7 (3.5-5.0) g/dL 10/30/20 Range/Units 06:11 WBC (3.8-10.6) k/uL RBC (3.80-5.40) m/uL Hgb (11.4-16.0) gm/dL Hct (34.0-46.0) % MCV (80.0-100.0) fL MCH (25.0-35.0) pg MCHC (31.0-37.0) g/dL RDW (11.5-15.5) % Plt Count (150-450) k/uL MPV Neutrophils % % Lymphocytes % % Monocytes % % Eosinophils % % Basophils % % Neutrophils # (1.3-7.7) k/uL Lymphocytes # (1.0-4.8) k/uL Monocytes # (0-1.0) k/uL Eosinophils # (0-0.7) k/uL Basophils # (0-0.2) k/uL Hypochromasia Anisocytosis PT (9.0-12.0) sec INR (<1.2) APTT (22.0-30.0) sec D-Dimer (<0.60) mg/L FEU Sodium (137-145) mmol/L Potassium (3.5-5.1) mmol/L Chloride (98-107) mmol/L Carbon Dioxide (22-30) mmol/L Anion Gap mmol/L BUN (7-17) mg/dL Creatinine (0.52-1.04) mg/dL Est GFR (CKD-EPI)AfAm (>60 ml/min/1.73 sqM) Est GFR (CKD-EPI)NonAf (>60 ml/min/1.73 sqM) Glucose (74-99) mg/dL Plasma Lactic Acid Sandoval 1.8 (0.7-2.0) mmol/L Calcium (8.4-10.2) mg/dL Magnesium (1.6-2.3) mg/dL Total Bilirubin (0.2-1.3) mg/dL AST (14-36) U/L ALT (4-34) U/L Alkaline Phosphatase (38-126) U/L Lactate Dehydrogenase (313-618) U/L Total Protein (6.3-8.2) g/dL Albumin (3.5-5.0) g/dL - EKG Data EKG Comments: Normal sinus rhythm, right atrial enlargement, pulmonary disease pattern, non specific T-wave abnormalities, no signs of acute ischemia. Similar to previous EKG on 08/29/2018. Disposition Clinical Impression: Pneumonia due to COVID-19 virus, Hypoxia, COPD exacerbation Disposition: ADMITTED IP TO THIS HOSP Condition: Stable Is patient prescribed a controlled substance at d/c from ED?: No Referrals: Pablo Hope MD [Primary Care Provider] - 1-2 days Decision Date: 10/30/20 Decision Time: 08:29
[2020-10-30 06:19] LABS: Anisocytosis Slight; Basophils # (A) 0.2 k/uL (0-0.2); Basophils % (A) 3 %; Eosinophils # (A) 0.1 k/uL (0-0.7); Eosinophils % (A) 1 %; HCT 53.2 % (34.0-46.0); Hypochromasia Slight; Lymphocytes # (A) 1.1 k/uL (1.0-4.8); Lymphocytes % (A) 14 %; MCH 29.2 pg (25.0-35.0); MCV 91.4 fL (80.0-100.0); Mean Platelet Volume 7.8; Monocytes # (A) 0.4 k/uL (0-1.0); Monocytes % (A) 5 %; Neutrophils # (A) 6.1 k/uL (1.3-7.7); Neutrophils % (A) 76 %; Platelet Count 146 k/uL (150-450); RBC 5.82 m/uL (3.80-5.40); RDW 18.5 % (11.5-15.5)
[2020-10-30 06:41] LABS: ALT 31 U/L (4-34); AST 43 U/L (14-36); African American GFR (CKD) >90 (>60 ml/min/1.73 sqM); Albumin 3.7 g/dL (3.5-5.0); Alkaline Phosphatase 126 U/L (38-126); Anion Gap 3 mmol/L; Blood Urea Nitrogen 17 mg/dL (7-17); Calcium 8.6 mg/dL (8.4-10.2); Carbon Dioxide 38 mmol/L (22-30); Chloride 97 mmol/L (98-107); Glucose 116 mg/dL (74-99); LDH 1191 U/L (313-618); Magnesium 1.4 mg/dL (1.6-2.3); Non-African American GFR(CKD) >90 (>60 ml/min/1.73 sqM); Sodium 138 mmol/L (137-145); Total Bilirubin 0.8 mg/dL (0.2-1.3); Total Protein 6.9 g/dL (6.3-8.2)
--- NOTE | 2020-10-30 06:45 | XR ---
EXAM: XR Chest, 1 View CLINICAL HISTORY: ITS.REASON XR Reason: Suspected COVID-19 pneumonia TECHNIQUE: Frontal view of the chest. COMPARISON: 07/16/2018. FINDINGS: Lungs: Patchy airspace disease is noted at the periphery of the mid lower lung zones bilaterally, right lung more so than the left lung. Prominence of the right hilum. Pleural space: Unremarkable. No pneumothorax. Heart: Cardiomegaly. Mediastinum: Unremarkable. Bones/joints: Osteopenia. Vasculature: Atherosclerotic disease of the aortic knob. IMPRESSION: 1. Prominence of the right hilum. Etiology such as lymphadenopathy cannot be excluded. 2. Patchy airspace disease in the mid lower lung zones bilaterally, right lung worse than the left lung. Atypical pneumonia such as Covid-19 pneumonia should be considered. 3. Osteopenia. 4. CT imaging of the chest with contrast administration is advised to further assessment of the right hilum and the pulmonary parenchyma.
[2020-10-30 06:46] LABS: Potassium 4.8 mmol/L (3.5-5.1)
[2020-10-30 06:47] LABS: INR 0.9 (<1.2); Prothrombin Time 9.9 sec (9.0-12.0)
[2020-10-30 07:08] LABS: D-Dimer 0.96 mg/L FEU (<0.60)
--- NOTE | 2020-10-30 08:08 | CT ---
EXAMINATION TYPE: CT chest angio for PE DATE OF EXAM: 10/30/2020 COMPARISON: Chest x-ray same date HISTORY: SOB, covid postitive CT DLP: 768.7 mGycm Automated exposure control for dose reduction was used. CONTRAST: CT Chest for pulmonary embolism performed with with IV Contrast, patient injected with 100 mL of Isov ue 370. Three-dimensional reconstructions performed on an alternate workstation FINDINGS: LUNGS: The lungs are remarkable for bilateral airspace disease, scattered groundglass predominantly p eripheral areas of airspace disease present, some of which appears somewhat nodular. There are some u nderlying emphysematous changes within the lungs. Some interstitial changes are present at the lung b ases, thickened interlobular septal lines. There is no pleural effusion or pneumothorax seen. The tracheobronchial tree is patent. MEDIASTINUM: There is satisfactory enhancement of the pulmonary artery and its branches, there is no CT evidence for pulmonary embolism. There is bilateral hilar, mediastinal adenopathy present as note d on chest x-ray No pericardial effusion is seen. The pulmonary artery is dilated. AORTA: Aneurysmal, ascending aorta measures approximately 4.6 cm, proximal descending aorta, thoraci c aorta shows a normal caliber. OTHER: Degenerative disc changes are noted in the visualized thoracic spine, there is a spinal curva ture. IMPRESSION: No evident pulmonary embolism. Findings consistent with pneumonia, follow-up recommended. Mediastinal and hilar adenopathy. Emphysema, correlate for pulmonary artery hypertension.
[2020-10-30] MEDS ORDERED: ONDANSETRON 4 MG/2 ML VIAL IVP PRN (08:23)
[2020-10-30] MEDS ORDERED: NALOXONE 0.4 MG/ML 1 ML VIAL IV PRN (08:23)
[2020-10-30 08:35] LABS: C Reactive Protein 4.6 mg/dL (<1.0)
[2020-10-30] MEDS: SODIUM CHLORIDE 0.9% 1,000 ML IV SCH ×2 (08:43→19:12)
[2020-10-30] MEDS ORDERED: REMDESIVIR 200 MG in SODIUM CHLORIDE 0.9% 250 ML IVPB ONE (15:00)
[2020-10-30] MEDS: ACETAMINOPHEN TAB 325 MG TAB PO PRN (15:29)
[2020-10-30] MEDS ORDERED: FUROSEMIDE 40 MG TAB PO PRN (16:47)
[2020-10-30] MEDS ORDERED: POTASSIUM CHLORIDE ER 20 MEQ TAB.ER PO PRN (16:47)
[2020-10-30] MEDS ORDERED: BUMETANIDE 0.5 MG TABLET PO PRN (16:47)
[2020-10-30] MEDS ORDERED: FUROSEMIDE 20 MG TAB PO PRN (16:47)
--- NOTE | 2020-10-30 16:48 | P.CNPUL ---
History of Present Illness Consult date: 10/30/20 Requesting physician: Fanny Jay Reason for consult: dyspnea, abnormal CXR/CT Chief complaint: Shortness of breath, cough, congestion History of present illness: This is a very pleasant 60-year-old female patient who follows with Dr. Viveros as her primary care provider. She has a history of obesity, oxygen dependent chronic obstructive pulmonary disease, former smoker, gastroesophageal reflux disease, diabetes mellitus, osteoarthritis. She had been having symptoms of sore throat, loss of taste, abdominal discomfort, shortness of breath cough, congestion. She tested positive at her PCPs office 4-5 days ago. Her symptoms started 1 week ago. She states her whole house has CoVID. early this morning she developed worsening shortness of breath cough and congestion and presented here to the emergency room for the same. O2 saturation 91% on 2 L nasal cannula. She's currently on 5 L/m. She is sitting up at the bedside. Awake and alert in no acute distress. Chest x-ray reveals patchy bilateral airspace disease in the mid lower lung zones. Right worse than left. There is some reactive lymphadenopathy noted. CT angiogram ruled out pulmonary embolism. Findings consistent with pneumonia. Mediastinal and hilar adenopathy. Emphysema. White count 8.0. Hemoglobin 17.0. Platelets 146. D-dimer 0.96. Sodium 1:30. Potassium 4.8. Creatinine 0.51. Glucose 116. AST 43. ALT 31. LDH 1191. C- reactive protein 4.6. Alfaro virus by PCR detected. She was initiating 0.9 normal saline at 75 ML's per hour. Given 1 dose of Decadron. Review of Systems REVIEW OF SYSTEMS: CONSTITUTIONAL: Denies any recent significant weight loss or weight gain. EYES: Denies change in vision. EARS, NOSE, MOUTH, THROAT: Positive for headache, sore throat CARDIOVASCULAR: Denies chest pain, palpitations or syncopal episodes. RESPIRATORY: Positive for shortness of breath, cough, congestion no hemoptysis. GASTROINTESTINAL: Denies change in appetite, denies abdominal pain GENITOURINARY: Denies hematuria, denies infections. MUSKULOSKELETAL: Denies pain, denies swelling. INTEGUMENTARY: Denies rash, denies eczema. NEUROLOGICAL: Denies recent memory loss, no recent seizure activity. PSYCHIATRIC: Denies anxiety, denies depression. HEMATOLOGIC/LYMPHATIC: Denies anemia, denies enlarged lymph nodes. Past Medical History Past Medical History: COPD, GERD/Reflux, Osteoarthritis (OA), Pneumonia Additional Past Medical History / Comment(s): migraines,, sinus and ear [id number] ear worse, severe arthritis bilateral knees, constipation, edema lower legs and feet, hemorrhoids, blood in stool at times, gallstones, History of Any Multi-Drug Resistant Organisms: None Reported Past Surgical History: Breast Surgery, Tubal Ligation Additional Past Surgical History / Comment(s): Rt breast biopsies, COLONOSCOPY Past Anesthesia/Blood Transfusion Reactions: Previous Problems w/ Anesthesia Additional Past Anesthesia/Blood Transfusion Reaction / Comment(s): states had diff waking up- "states stopped breathing for a couple seconds" with last colonocopy, "i need a pillow under my head" Past Psychological History: No Psychological Hx Reported Additional Psychological History / Comment(s): . Smoking Status: Former smoker Past Alcohol Use History: None Reported Additional Past Alcohol Use History / Comment(s): HAS BEEN SMOKING SINCE AGE 15, smokes 1 PPD Past Drug Use History: None Reported - Past Family History Mother Family Medical History: No Reported History Additional Family Medical History / Comment(s): . Father History Unknown: Yes Family Medical History: Unable to Obtain Medications and Allergies Home Medications Medication Instructions Recorded Confirmed Type Ergocalciferol [Vitamin D2 50,000 unit PO MARCELINO 08/29/18 10/30/20 History (DRISDOL)] Multivitamins, Thera [Multivitamin 1 tab PO PC-SUPPER 07/31/19 10/30/20 History (formulary)] Furosemide [Lasix] 20 mg PO PC-SUPPER PRN 07/05/20 10/30/20 History Omeprazole [PriLOSEC] 40 mg PO PC-SUPPER 07/05/20 10/30/20 History Potassium Chloride [Klor-Con 20] 20 meq PO PC-SUPPER PRN 07/05/20 10/30/20 History Aspirin EC [Ecotrin Low Dose] 81 mg PO DAILY 10/30/20 10/30/20 History Bumetanide 0.5 mg PO BID PRN 10/30/20 10/30/20 History Furosemide [Lasix] 40 mg PO BID PRN 10/30/20 10/30/20 History Montelukast [Singulair] 10 mg PO DAILY 10/30/20 10/30/20 History Allergies Allergy/AdvReac Type Severity Reaction Status Date / Time No Known Allergies Allergy Verified 10/30/20 07:48 Physical Exam Vitals: Vital Signs Temp Pulse Pulse Resp BP BP Pulse Ox 10/30/20 14:00 98.5 F 95 18 122/81 93 L 10/30/20 09:42 17 10/30/20 09:20 98.4 F 101 H 18 127/84 89 L 10/30/20 07:42 98 17 117/70 92 L 10/30/20 05:58 98.2 F 95 20 140/99 91 L Intake and Output 10/30/20 10/30/20 10/30/20 06:59 14:59 22:59 Other: Weight 127.006 kg 127.006 kg GENERAL EXAM: Alert, obese, very pleasant 60-year-old female patient, on 5 L nasal cannula, fairly comfortable in no apparent distress. HEAD: Normocephalic. EYES: Normal reaction of pupils, equal size. NOSE: Clear with pink turbinates. THROAT: No erythema or exudates. NECK: No masses, no JVD. CHEST: No chest wall deformity. LUNGS: Equal air entry with crackles in the bilateral posterior bases CVS: S1 and S2 normal with no audible murmur, regular rhythm. ABDOMEN: No hepatosplenomegaly, normal bowel sounds, no guarding or rigidity. SPINE: No scoliosis or deformity SKIN: No rashes CENTRAL NERVOUS SYSTEM: No focal deficits, tone is normal in all 4 extremities. EXTREMITIES: There is no peripheral edema. No clubbing, no cyanosis. Pe ripheral pulses are intact. Results - Laboratory Findings CBC and BMP: 10/30/20 06:11 10/30/20 06:11 PT/INR, D-dimer PT 9.9 sec (9.0-12.0) 10/30/20 06:11 INR 0.9 (<1.2) 10/30/20 06:11 D-Dimer 0.96 mg/L FEU (<0.60) H 10/30/20 06:11 Abnormal lab findings: Abnormal Labs 10/30/20 10/30/20 10/30/20 06:11 06:11 06:11 RBC 5.82 H Hgb 17.0 H Hct 53.2 H RDW 18.5 H Plt Count 146 L D-Dimer 0.96 H Chloride 97 L Carbon Dioxide 38 H Creatinine 0.51 L Glucose 116 H Magnesium 1.4 L AST 43 H Lactate Dehydrogenase 1191 H C-Reactive Protein 4.6 H Coronavirus (PCR) 10/30/20 08:26 RBC Hgb Hct RDW Plt Count D-Dimer Chloride Carbon Dioxide Creatinine Glucose Magnesium AST Lactate Dehydrogenase C-Reactive Protein Coronavirus (PCR) Detected A - Diagnostic Findings Chest x-ray: image reviewed CT scan - chest: image reviewed Assessment and Plan Assessment: 1 Acute on chronic hypoxemic respiratory failure secondary to acute COVID-19 pneumonia. Initiated on Remdesivir 10/30/2020 2 Acute exacerbation of chronic obstructive pulmonary disease secondary to above 3 Chronic hypoxemic respiratory failure secondary to COPD 4 Morbid obesity, BMI 43.9 kg/m 4 Diabetes mellitus 5 Gastroesophageal reflux disease 6 Osteoarthritis 7 Former smoker Plan: The patient was seen and evaluated by Dr. Ryder Chest x-ray, CAT scans and labs reviewed Initiated on Remdesivir Initiated on Lovenox, dexamethasone, vitamin supplements Titrate the FiO2 as tolerated Follow-up labs in the a.m. We will continue to follow and make further recommendations based on her clinical status I, the cosigning physician, performed a history & physical examination of the patient. Lungs sounds crackles in the bilateral posterior bases. Maintaining good O2 saturations in the 90s on 5 L/m per nasal cannula. I discussed the assessment and plan of care with my nurse practitioner, Elizabeth Brink. I attest to the above consultation as dictated by her. Time with Patient: Greater than 30
[2020-10-30] MEDS ORDERED: PANTOPRAZOLE 40 MG TABLET PO SCH (17:00)
[2020-10-30] MEDS ORDERED: ERGOCALCIFEROL 1,250 MCG (50,000 IU) CAPSULE PO SCH (17:15)
[2020-10-30] MEDS: MULTIVITAMINS, THERA 1 EACH TAB PO SCH (18:15)
[2020-10-30] MEDS: PANTOPRAZOLE 40 MG TABLET PO SCH (18:15)
[2020-10-30] MEDS: ENOXAPARIN 40 MG/0.4 ML SYRINGE SQ SCH (18:16)
--- NOTE | 2020-10-30 18:17 | HP ---
HISTORY AND PHYSICAL CHIEF COMPLAINTS: Shortness of breath. I am covering for Dr. Hope. HISTORY OF PRESENT ILLNESS: This 60-year-old woman with a past medical history of multiple medical problems including COPD, history of GERD, DJD, history of pneumonia, history of migraines, history of breast surgery, history of tubal ligation, being followed by Dr. Hope in the outpatient setting was having complaints of increased shortness of breath over the past several days. The patient was tested positive for Covid 19 at the primary care physician about 5 days ago. The patient whole two other symptoms are therefore like about 7 days. The patient also had some cough, shortness of breath, fatigue and some body aches. The patient came to [facility] and was admitted to the hospital for further evaluation and treatment. There is some intermittent cramping also noted. At the time of admission, the WBC is 8. Hemoglobin 17 and COVID-19 was positive. D- dimer was 0.96 and the patient's pulse ox was 89 percent on 4 L. The patient also had a chest x-ray and CT scan of the chest which is reviewed personally by me. The chest x- ray showed significant pneumonia on the right side. A CTA showed no evidence of pulmonary embolism, but showed significant evidence of bilateral pneumonia, right more than the left. The patient was admitted to the hospital for further evaluation and treatment. Pulmonary consultation in progress. There is no history of fever or rigors or chills. No history of headache, loss of consciousness, seizures at this time. PAST MEDICAL HISTORY: History of COPD, GERD, history of DJD, history of pneumonia, migraine, history of breast surgery, tubal ligation. MEDICATIONS: Prior to admission include: Klor-Con, Prilosec, multivitamins, Singulair, Lasix, vitamin D2, Bumex and Ecotrin. Doses are reviewed. ALLERGIES: None. FAMILY HISTORY: No history of heart disease or strokes in the family. SOCIAL HISTORY: History of smoking, continued ongoing. REVIEW OF SYSTEMS: ENT: No diminished vision. No diminished hearing. CARDIOVASCULAR: S1, S2. RESPIRATORY: As mentioned earlier. GI no nausea or vomiting. no dysuria. NERVOUS SYSTEM: No numbness or weakness. ALLERGY/IMMUNOLOGY: No asthma or hayfever. MUSCULOSKELETAL: As mentioned earlier. HEMATOLOGY/ONCOLOGY: No history of anemia. ENDOCRINE: No history of diabetes or hypothyroidism. CONSTITUTIONAL: As mentioned earlier. DERMATOLOGY: Negative. RHEUMATOLOGY: Negative. PSYCHIATRIC: As mentioned earlier. PHYSICAL EXAMINATION: Alert and oriented times three. Pulse 95, blood pressure 122/81. Respiration 18. Temperature 98.4, pulse ox 92% on 5 L. HEENT: Conjunctivae normal. NECK: No JVD. CARDIOVASCULAR: S1, S2 muffled. RESPIRATORY SYSTEM: Breath sounds diminished at the bases. A few scattered rhonchi. ABDOMEN: Soft, obese, nontender. LEGS: No edema. No swelling. NERVOUS SYSTEM: Higher functions as mentioned earlier. Moves all four extremities. No focal deficits. LYMPHATICS: No lymph nodes palpable in the neck, axillae or groin. SKIN: No ulcer, no rash and no bleeding. JOINTS: No active deforming arthropathy. LABS: WBC 18, hemoglobin is 17. Otherwise, LDH is 119, C-reactive is 4.6. Covid 19 is positive. ASSESSMENT: 1. Acute COVID-19 infection with acute COVID-19 bilateral pneumonia with acute hypoxic respiratory failure. 2. Mild thrombocytopenia. 3. Hypomagnesemia. 4. Elevated inflammatory markers of COVID-19. 5. History of chronic obstructive pulmonary disease. 6. Gastroesophageal reflux disease. 7. Degenerative joint disease. 8. History of pneumonia. 9. History of migraines. 10.History of degenerative joint disease. 11.History of tubal ligation. 12.Remote history of nicotine dependence. 13.Obesity with body mass of 43.9. 14.NO CODE, NO CPR, NO VENT. RECOMMENDATIONS AND DISCUSSION: In this 60-year-old woman who presented with multiple complex medical issues. We will monitor the patient closely. Continue the current medications. Symptomatic treatment. Dexamethasone. Bronchodilators. Remdesivir. Otherwise repeat labs. Prognosis guarded because of multiple complex medical issues. Further recommendations to follow. Dr. Hope will follow. See orders for details. A copy of dictation being forwarded to Dr. Hope who is the primary physician. MMODL / IJN: [id number] /
[2020-10-30] MEDS: BENZOCAINE/MENTHOL LOZENG 1 EACH LOZENGE MUCOUS MEM PRN (22:32)
[2020-10-31] MEDS: ACETAMINOPHEN TAB 325 MG TAB PO PRN (04:14)
[2020-10-31] MEDS: BENZOCAINE/MENTHOL LOZENG 1 EACH LOZENGE MUCOUS MEM PRN (04:15)
[2020-10-31] MEDS: CHOLECALCIFEROL 25 MCG (1000 IU) TABLET PO SCH (07:06)
[2020-10-31] MEDS: ASPIRIN 81 MG PO SCH (07:06)
[2020-10-31] MEDS: MONTELUKAST 10 MG TAB PO SCH (07:06)
[2020-10-31] MEDS: ENOXAPARIN 40 MG/0.4 ML SYRINGE SQ SCH (07:07)
[2020-10-31] MEDS: ZINC SULFATE 220 MG CAP PO SCH (07:07)
[2020-10-31] MEDS: ASCORBIC ACID 500 MG TAB PO SCH (07:07)
[2020-10-31] MEDS: DEXAMETHASONE SOD PHOSPHATE 10 MG/ML 1 ML VIAL IV SCH (07:08)
[2020-10-31 11:45] LABS: African American GFR (CKD) 115.6 (60.0-200.0); Anion Gap 2.8 mmol/L (4.00-12.00); C Reactive Protein 4.2 mg/dL (0.0-0.8); Calcium 9.2 mg/dL (8.7-10.3); Carbon Dioxide 37.2 mmol/L (21.6-31.8); Non-African American GFR(CKD) 99.8 (60.0-200.0); Potassium 4.6 mmol/L (3.5-5.5)
[2020-10-31] MEDS ORDERED: Magnesium Replacement Protocol 1 EACH MISC MISCELLANE PRN (11:47)
[2020-10-31 12:02] LABS: Basophils # (A) 0.02 X 10*3/uL (0.00-0.10); Basophils % (A) 0.3 %; Eosinophils # (A) 0 X 10*3/uL (0.04-0.35); Eosinophils % (A) 0 %; HCT 52.2 % (37.2-46.3); HGB 15.2 g/dL (12.0-15.0); Lymphocytes # (A) 1.72 X 10*3/uL (0.90-5.00); Lymphocytes % (A) 27.4 %; MCH 27.8 pg (27.0-32.0); MCHC 29.1 g/dL (32.0-37.0); MCV 95.4 fL (80.0-97.0); Mean Platelet Volume 10.4 fL (9.5-12.2); Monocytes # (A) 0.63 X 10*3/uL (0.20-1.00); Neutrophils # (A) 3.86 X 10*3/uL (1.80-7.70); Neutrophils % (A) 61.5 %; Platelet Count 155 X 10*3/uL (140-440); RBC 5.47 X 10*6/uL (4.10-5.20); RDW 18.8 % (11.5-14.5); WBC 6.28 X 10*3/uL (4.50-10.00)
--- NOTE | 2020-10-31 12:09 | P.PN ---
Subjective Progress Note Date: 10/31/20 This is a 60-year-old female admitted with hypoxic respiratory failure secondary to Covid pneumonia and multiple other medical issues. Completing Day 2 of Remdesivir. Continues on Lovenox, dexamethasone, vitamin supplements. Reports slept, sore throat. Maintaining O2 sats in the mid to low 90s on 5 L nasal cannula. Denies chest pain, palpitations or increasing shortness breath-reports she always has chronic shortness of breath. Denies lightheadedness dizziness or focal deficits. Afebrile. Objective - Vital Signs Vital signs: Vital Signs Temp 97.9 F 10/31/20 05:39 Pulse 68 10/31/20 05:39 Resp 18 10/31/20 05:39 BP 137/91 10/31/20 05:39 Pulse Ox 93 L 10/31/20 05:39 Intake & Output 10/30/20 10/31/20 10/31/20 18:59 06:59 18:59 Intake Total 250 Balance 250 Weight 127.006 kg Intake: Intake, IV Titration 250 Amount Remdesivir 200 mg In 250 Sodium Chloride 0.9% 250 ml @ 250 mls/hr IVPB ONCE ONE Rx#:[id number] Other: Voiding Method Toilet # Voids 3 - Exam PHYSICAL EXAM: VITAL SIGNS: [As above] GENERAL: Alert and oriented 3, Sitting up in bed, no acute distress, in deep sleep, aroused easily. HEENT: Conjunctivae normal. eyes normal. NECK: No JVD. No thyroid enlargement. CARDIOVASCULAR: S1, S2 regular. No murmur. RESPIRATION: Breath sounds diminished in the bases. Bibasilar crackles. ABDOMEN: Soft, nontender . No guarding. no masses palpable. Positive Bowel sounds. LEGS: No edema. no swelling NERVOUS SYSTEM: Cranial N 2-12 grossly normal. No focal deficits. Strength and sensation grossly intact. Skin: Warm and dry, no rash - Labs CBC & Chem 7: 10/30/20 06:11 10/30/20 06:11 Labs: Abnormal Lab Results - Last 24 Hours (Table) 10/30/20 10/30/20 Range/Units 06:11 08:26 C-Reactive Protein 4.6 H (<1.0) mg/dL Coronavirus (PCR) Detected A (Not Detectd) Assessment and Plan Assessment: Acute COVID-19 pneumonia Acute COPD secondary to above Acute on chronic hypoxic respiratory failure secondary to the above Hypomagnesemia Morbid obesity, BMI 43.9 Diabetes mellitus Gastroesophageal reflux disease History of Nicotine dependence Osteoarthritis Plan: Continue on current medication regime ,monitoring and symptomatic treatment. Follow-up magnesium level ordered with replacement protocol in place. Continue on covid regimen, including Remdesivir. Titrate FiO2 as per parameters. Increase activity as tolerated. The impression and plan of care has been dictated as directed. : I performed a history and examination of this patient, discussed the same with the dictator. I agree with the dictator's note ,documented as a scribe. Any additional findings or plans will be noted.
[2020-10-31] MEDS: REMDESIVIR 100 MG in SODIUM CHLORIDE 0.9% 250 ML IVPB SCH (14:28)
--- NOTE | 2020-10-31 15:47 | P.PN ---
Subjective Progress Note Date: 10/31/20 Principal diagnosis: Shortness of breath, cough, congestion This is a very pleasant 60-year-old female patient who follows with Dr. Viveros as her primary care provider. She has a history of obesity, oxygen dependent chronic obstructive pulmonary disease, former smoker, gastroesophageal reflux disease, diabetes mellitus, osteoarthritis. She had been having symptoms of sore throat, loss of taste, abdominal discomfort, shortness of breath cough, congestion. She tested positive at her PCPs office 4-5 days ago. Her symptoms started 1 week ago. She states her whole house has CoVID. early this morning she developed worsening shortness of breath cough and congestion and presented here to the emergency room for the same. O2 saturation 91% on 2 L nasal cannula. She's currently on 5 L/m. She is sitting up at the bedside. Awake and alert in no acute distress. Chest x-ray reveals patchy bilateral airspace disease in the mid lower lung zones. Right worse than left. There is some reactive lymphadenopathy noted. CT angiogram ruled out pulmonary embolism. Findings c onsistent with pneumonia. Mediastinal and hilar adenopathy. Emphysema. White count 8.0. Hemoglobin 17.0. Platelets 146. D-dimer 0.96. Sodium 1:30. Potassium 4.8. Creatinine 0.51. Glucose 116. AST 43. ALT 31. LDH 1191. C- reactive protein 4.6. Alfaro virus by PCR detected. She was initiating 0.9 normal saline at 75 ML's per hour. Given 1 dose of Decadron. On 10/31/2020 patient seen in follow-up on medical surgical floor. She was admitted with Covid pneumonia, she remains on 5 L of oxygen, her pulse ox is 94%, not sure if attempts have been made to wean her down. But looks very comfortable, she is sitting up on the edge of the bed, she is eating lunch, she is afebrile, hemodynamically she is stable, and denies worsening dyspnea, today's labs have been reviewed, white blood cell, 6.28, hemoglobin 16.2, d- dimer 0.76, renal profile is unremarkable, CO2 is 37, sodium is 141, potassium was 4.6. DAH is down to 358, his CRP is 4.2. Patient continues on daily dose of Decadron 6 mg daily, and she continues on Remdesivir, today is day 2 of treatment. Objective - Vital Signs Vital signs: Vital Signs Temp 98.1 F 10/31/20 14:00 Pulse 79 10/31/20 14:00 Resp 16 10/31/20 14:00 BP 130/73 10/31/20 14:00 Pulse Ox 94 L 10/31/20 14:00 Intake & Output 10/30/20 10/31/20 10/31/20 18:59 06:59 18:59 Intake Total 250 Balance 250 Weight 127.006 kg Intake: Intake, IV Titration 250 Amount Remdesivir 200 mg In 250 Sodium Chloride 0.9% 250 ml @ 250 mls/hr IVPB ONCE ONE Rx#:[id number] Other: Voiding Method Toilet Toilet # Voids 3 - Exam GENERAL EXAM: Alert, very pleasant, 60-year-old white female, on 5 L of oxygen with pulse ox of 94% comfortable in no apparent distress. HEAD: Normocephalic/atraumatic. EYES: Normal reaction of pupils, equal size. Conjunctiva pink, sclera white. NOSE: Clear with pink turbinates. THROAT: No erythema or exudates. NECK: No masses, no JVD, no thyroid enlargement, no adenopathy. CHEST: No chest wall deformity. Symmetrical expansion. LUNGS: Equal air entry with no crackles, wheeze, rhonchi or dullness. CVS: Regular rate and rhythm, normal S1 and S2, no gallops, no murmurs, no rubs ABDOMEN: Soft, nontender. No hepatosplenomegaly, normal bowel sounds, no guarding or rigidity. EXTREMITIES: No clubbing, no edema, no cyanosis, 2+ pulses and upper and lower extremities. MUSCULOSKELETAL: Muscle strength and tone normal. SPINE: No scoliosis or deformity SKIN: No rashes CENTRAL NERVOUS SYSTEM: Alert and oriented -3. No focal deficits, tone is normal in all 4 extremities. PSYCHIATRIC: Alert and oriented -3. Appropriate affect. Intact judgment and insight. - Labs CBC & Chem 7: 10/31/20 07:36 10/31/20 07:36 Labs: Abnormal Lab Results - Last 24 Hours (Table) 10/31/20 10/31/20 10/31/20 Range/Units 07:36 07:36 07:36 RBC 5.47 H (4.10-5.20) X 10*6/uL Hgb 15.2 H (12.0-15.0) g/dL Hct 52.2 H (37.2-46.3) % MCHC 29.1 L (32.0-37.0) g/dL RDW 18.8 H (11.5-14.5) % Immature Gran # 0.05 H (0.00-0.04) X 10*3/uL Eosinophils # 0 L (0.04-0.35) X 10*3/uL D-Dimer 0.76 H (<0.60) mg/L FEU Carbon Dioxide 37.2 H (21.6-31.8) mmol/L Anion Gap 2.80 L (4.00-12.00) mmol/L BUN/Creatinine Ratio 25.00 H (12.00-20.00) Ratio Lactate Dehydrogenase 358 H (120-246) U/L C-Reactive Protein 4.2 H (0.0-0.8) mg/dL Assessment and Plan Plan: Assessment: 1 Acute on chronic hypoxemic respiratory failure secondary to acute COVID-19 pneumonia. Initiated on Remdesivir 10/30/2020 2 Acute exacerbation of chronic obstructive pulmonary disease secondary to above 3 Chronic hypoxemic respiratory failure secondary to COPD 4 Morbid obesity, BMI 43.9 kg/m 4 Diabetes mellitus 5 Gastroesophageal reflux disease 6 Osteoarthritis 7 Former smoker Plan: Continue with Remdesivir and today is day two of treatment Continue Decadron, continue Lovenox, continue vitamins Today's labs have been noted, inflammatory markers are improving Weaning FiO2 to maintain O2 saturations at or above 90% We'll continue to follow her clinical course I performed a history & physical examination of the patient and discussed their management with my nurse practitioner, Sarah Bush. I reviewed the nurse practitioner's note and agree with the documented findings and plan of care. Lung sounds are positive for a few scattered crackles. The findings and the impression was discussed with the patient. I attest to the documentation by the nurse practitioner. Time with Patient: Less than 30
[2020-10-31] MEDS: PANTOPRAZOLE 40 MG TABLET PO SCH (16:40)
[2020-10-31] MEDS: MULTIVITAMINS, THERA 1 EACH TAB PO SCH (16:40)
[2020-10-31] MEDS: SODIUM CHLORIDE 0.9% 1,000 ML IV SCH (19:13)
[2020-11-01] MEDS ORDERED: ACETAMINOPHEN TAB 325 MG TAB ONE (04:35)
[2020-11-01] MEDS ORDERED: BENZOCAINE/MENTHOL LOZENG 1 EACH LOZENGE MUCOUS MEM ONE (04:35)
[2020-11-01] MEDS: ENOXAPARIN 40 MG/0.4 ML SYRINGE SQ SCH (09:39)
[2020-11-01] MEDS: ZINC SULFATE 220 MG CAP PO SCH (09:39)
[2020-11-01] MEDS: ASCORBIC ACID 500 MG TAB PO SCH (09:39)
[2020-11-01] MEDS: MONTELUKAST 10 MG TAB PO SCH (09:39)
[2020-11-01] MEDS: DEXAMETHASONE SOD PHOSPHATE 10 MG/ML 1 ML VIAL IV SCH (09:39)
[2020-11-01] MEDS: ASPIRIN 81 MG PO SCH (09:40)
[2020-11-01] MEDS: CHOLECALCIFEROL 25 MCG (1000 IU) TABLET PO SCH (09:40)
[2020-11-01 10:39] VITALS: PULSE 84; RESP 16
[2020-11-01] MEDS: REMDESIVIR 100 MG in SODIUM CHLORIDE 0.9% 250 ML IVPB SCH (14:06)
--- NOTE | 2020-11-01 14:18 | P.DS ---
Providers Date of admission: 10/30/20 08:23 Expected date of discharge: 11/01/20 Attending physician: Pablo Hope MD Consults: 10/30/20 08:24 Consult Physician Urgent Consulting Provider: Tammy Ryder Consult Reason/Comments: Covid pneumonia Do you want consulting provider notified?: Yes Primary care physician: Pablo Hope MD Hospital Course: Final Diagnoses: Acute COVID-19 pneumonia Acute COPD secondary to above Acute on chronic hypoxic respiratory failure secondary to the above Hypomagnesemia Morbid obesity, BMI 43.9 Diabetes mellitus Gastroesophageal reflux disease History of Nicotine dependence, quit 3 months ago. Osteoarthritis Hospital course:This is a 60-year-old female admitted with hypoxic respiratory failure secondary to Covid pneumonia and multiple other medical issues. Completing Day 2 of Remdesivir. Continues on Lovenox, dexamethasone, vitamin supplements. Reports slept, sore throat. Maintaining O2 sats in the mid to low 90s on 5 L nasal cannula. Denies chest pain, palpitations or increasing shortness breath-reports she always has chronic shortness of breath. Denies lightheadedness dizziness or focal deficits. Afebrile. Significant clinical improvement. Completing third dose of Remdesevir. Sitting up at bedside, talking on full with no shortness of breath. Lungs clear to auscultation . Denies chest pain, palpitations. Denies lightheadedness dizziness or focal deficits. Patient is eager for discharge. Patient will be discharged home today in stable condition with fair prognosis pending final DC recommendations and clearance from pulmonary. The impression and plan of care has been dictated as directed. : I performed a history and examination of this patient, discussed the same with the dictator. I agree with the dictator's note ,documented as a scribe. Any additional findings or plans will be noted. Patient Condition at Discharge: Stable Plan - Discharge Summary New Discharge Prescriptions: New Zinc Sulfate [Orazinc] 220 mg PO DAILY cap Ascorbic Acid [Vitamin C] 1,000 mg PO DAILY tab Cholecalciferol [Vitamin D3 (25 Mcg = 1000 Iu)] 25 mcg PO DAILY tablet dexAMETHasone ORAL [Hexadrol] See Taper PO DAILY 9 Days #18 tablet Continue Ergocalciferol [Vitamin D2 (DRISDOL)] 50,000 unit PO MARCELINO Multivitamins, Thera [Multivitamin (formulary)] 1 tab PO PC-SUPPER Omeprazole [PriLOSEC] 40 mg PO PC-SUPPER Potassium Chloride [Klor-Con 20] 20 meq PO PC-SUPPER PRN PRN Reason: WITH LASIX Furosemide [Lasix] 20 mg PO PC-SUPPER PRN PRN Reason: Edema Aspirin EC [Ecotrin Low Dose] 81 mg PO DAILY Bumetanide 0.5 mg PO BID PRN PRN Reason: Edema Furosemide [Lasix] 40 mg PO BID PRN PRN Reason: Edema Montelukast [Singulair] 10 mg PO DAILY Discharge Medication List Ergocalciferol [Vitamin D2 (DRISDOL)] 50,000 unit PO MARCELINO 08/29/18 [History] Multivitamins, Thera [Multivitamin (formulary)] 1 tab PO PC-SUPPER 07/31/19 [History] Furosemide [Lasix] 20 mg PO PC-SUPPER PRN 07/05/20 [History] Omeprazole [PriLOSEC] 40 mg PO PC-SUPPER 07/05/20 [History] Potassium Chloride [Klor-Con 20] 20 meq PO PC-SUPPER PRN 07/05/20 [History] Aspirin EC [Ecotrin Low Dose] 81 mg PO DAILY 10/30/20 [History] Bumetanide 0.5 mg PO BID PRN 10/30/20 [History] Furosemide [Lasix] 40 mg PO BID PRN 10/30/20 [History] Montelukast [Singulair] 10 mg PO DAILY 10/30/20 [History] Ascorbic Acid [Vitamin C] 1,000 mg PO DAILY tab 11/01/20 [Rx] Cholecalciferol [Vitamin D3 (25 Mcg = 1000 Iu)] 25 mcg PO DAILY tablet 11/01/20 [Rx] Zinc Sulfate [Orazinc] 220 mg PO DAILY cap 11/01/20 [Rx] dexAMETHasone ORAL [Hexadrol] See Taper PO DAILY 9 Days #18 tablet 11/01/20 [Rx] Follow up Appointment(s)/Referral(s): Pablo Hope MD [Primary Care Provider] - 11/08/20 1:30 pm (With [facility] This will be a virtual visit. office will call you) [facility] [NON-STAFF] - As Needed Joe Xiong DO [Doctor of Osteopathic Medicine] - 2 Weeks
--- NOTE | 2020-11-01 14:28 | P.PN ---
Subjective Progress Note Date: 11/01/20 Principal diagnosis: Shortness of breath, cough, congestion This is a very pleasant 60-year-old female patient who follows with Dr. Viveros as her primary care provider. She has a history of obesity, oxygen dependent chronic obstructive pulmonary disease, former smoker, gastroesophageal reflux disease, diabetes mellitus, osteoarthritis. She had been having symptoms of sore throat, loss of taste, abdominal discomfort, shortness of breath cough, congestion. She tested positive at her PCPs office 4-5 days ago. Her symptoms started 1 week ago. She states her whole house has CoVID. early this morning she developed worsening shortness of breath cough and congestion and presented here to the emergency room for the same. O2 saturation 91% on 2 L nasal cannula. She's currently on 5 L/m. She is sitting up at the bedside. Awake and alert in no acute distress. Chest x-ray reveals patchy bilateral airspace disease in the mid lower lung zones. Right worse than left. There is some reactive lymphadenopathy noted. CT angiogram ruled out pulmonary embolism. Findings c onsistent with pneumonia. Mediastinal and hilar adenopathy. Emphysema. White count 8.0. Hemoglobin 17.0. Platelets 146. D-dimer 0.96. Sodium 1:30. Potassium 4.8. Creatinine 0.51. Glucose 116. AST 43. ALT 31. LDH 1191. C- reactive protein 4.6. Alfaro virus by PCR detected. She was initiating 0.9 normal saline at 75 ML's per hour. Given 1 dose of Decadron. On 10/31/2020 patient seen in follow-up on medical surgical floor. She was admitted with Covid pneumonia, she remains on 5 L of oxygen, her pulse ox is 94%, not sure if attempts have been made to wean her down. But looks very comfortable, she is sitting up on the edge of the bed, she is eating lunch, she is afebrile, hemodynamically she is stable, and denies worsening dyspnea, today's labs have been reviewed, white blood cell, 6.28, hemoglobin 16.2, d- dimer 0.76, renal profile is unremarkable, CO2 is 37, sodium is 141, potassium was 4.6. DAH is down to 358, his CRP is 4.2. Patient continues on daily dose of Decadron 6 mg daily, and she continues on Remdesivir, today is day 2 of treatment. On 11/01/2020 patient seen in follow-up on medical surgical floor. She is currently on 5 L of oxygen pulse ox is 92-94%, patient is afebrile, patient has been ambulating to the bathroom and back, tolerating activity quite well, she normally wears 2 L of oxygen on a regular basis at home, today is her third day of Remdesivir treatment, there has been no worsening in her dyspnea or hypoxia, appears quite stable, she would like to go home today. No new labs today, yesterday's labs showed normal white count of 6.28, hemoglobin was 15.2, d-dimer was 0.76, sodium is 141, potassium is 4.6, chloride is 101, CO2 37, BUN of 15, creatinine 0.6, LDH was improving yesterday's labs, his CRP was relatively stable. She remains on IV Decadron 6 mg daily, and prophylactic Lovenox, she will receive her third dose of Remdesivir today, she can be considered for discharge home from pulmonary perspective Objective - Vital Signs Vital signs: Vital Signs Temp 98.5 F 11/01/20 10:00 Pulse 84 11/01/20 10:00 Resp 16 11/01/20 10:00 BP 120/82 11/01/20 10:00 Pulse Ox 92 L 11/01/20 10:00 Intake & Output 10/31/20 11/01/20 11/01/20 18:59 06:59 18:59 Other: Voiding Method Toilet Toilet # Voids 5 4 - Exam GENERAL EXAM: Alert, very pleasant, 60-year-old white female, on 5 L of oxygen with pulse ox of 92% comfortable in no apparent distress. HEAD: Normocephalic/atraumatic. EYES: Normal reaction of pupils, equal size. Conjunctiva pink, sclera white. NOSE: Clear with pink turbinates. THROAT: No erythema or exudates. NECK: No masses, no JVD, no thyroid enlargement, no adenopathy. CHEST: No chest wall deformity. Symmetrical expansion. LUNGS: Equal air entry with no crackles, wheeze, rhonchi or dullness. CVS: Regular rate and rhythm, normal S1 and S2, no gallops, no murmurs, no rubs ABDOMEN: Soft, nontender. No hepatosplenomegaly, normal bowel sounds, no guarding or rigidity. EXTREMITIES: No clubbing, no edema, no cyanosis, 2+ pulses and upper and lower extremities. MUSCULOSKELETAL: Muscle strength and tone normal. SPINE: No scoliosis or deformity SKIN: No rashes CENTRAL NERVOUS SYSTEM: Alert and oriented -3. No focal deficits, tone is normal in all 4 extremities. PSYCHIATRIC: Alert and oriented -3. Appropriate affect. Intact judgment and insight. - Labs CBC & Chem 7: 10/31/20 07:36 10/31/20 07:36 Assessment and Plan Plan: Assessment: 1 Acute on chronic hypoxemic respiratory failure secondary to acute COVID-19 pneumonia. Initiated on Remdesivir 10/30/2020 2 Acute exacerbation of chronic obstructive pulmonary disease secondary to above 3 Chronic hypoxemic respiratory failure secondary to COPD 4 Morbid obesity, BMI 43.9 kg/m 4 Diabetes mellitus 5 Gastroesophageal reflux disease 6 Osteoarthritis 7 Former smoker Plan: Patient has remained stable from pulmonary perspective, no worsening dyspnea or hypoxia She is ambulating in the room, tolerating ambulation quite well Her inflammatory markers were improving and yesterday's labs She can receive her third dose Remdesivir early today and be considered for discharge home She can finish outpatient course of oral Decadron Patient follow-up with Dr. Xiong in the office in 2 weeks I performed a history & physical examination of the patient and discussed their management with my nurse practitioner, Sarah Bush. I reviewed the nurse practitioner's note and agree with the documented findings and plan of care. Lung sounds are positive for a few scattered crackles. The findings and the impression was discussed with the patient. I attest to the documentation by the nurse practitioner. Time with Patient: Less than 30
[2020-11-01 14:52] VITALS: BP 113/77; TEMP 98.2
== END 2020-11-01 15:50 | disposition home or self-care (01) | DRG 177 ==
LOC: EC 05:50 → 4SSUR 08:23
PROVIDERS: ADMIT Family Medicine; ATTEND Family Medicine
PROC: XW033E5 Introduction of Remdesivir Anti-infective into Peripheral Vein, Percutaneous Approach, New Technology Group 5 (ICD-10-PCS; principal; 2020-10-30)
DX: U07.1 COVID-19 (principal); J12.82 Pneumonia due to coronavirus disease 2019; J96.21 Acute and chronic respiratory failure with hypoxia; Z68.41 Body mass index [BMI] 40.0-44.9, adult; J44.0 Chronic obstructive pulmonary disease with (acute) lower respiratory infection; J44.1 Chronic obstructive pulmonary disease with (acute) exacerbation; D69.6 Thrombocytopenia, unspecified; E11.9 Type 2 diabetes mellitus without complications; E66.01 Morbid (severe) obesity due to excess calories; E83.42 Hypomagnesemia; Z87.891 Personal history of nicotine dependence; K21.9 Gastro-esophageal reflux disease without esophagitis; M17.0 Bilateral primary osteoarthritis of knee; K59.00 Constipation, unspecified; H91.93 Unspecified hearing loss, bilateral; Z66 Do not resuscitate; M19.90 Unspecified osteoarthritis, unspecified site; G43.909 Migraine, unspecified, not intractable, without status migrainosus; I27.20 Pulmonary hypertension, unspecified; Z87.01 Personal history of pneumonia (recurrent); R59.1 Generalized enlarged lymph nodes; Z79.82 Long term (current) use of aspirin; Z79.899 Other long term (current) drug therapy; Z98.51 Tubal ligation status; Z99.81 Dependence on supplemental oxygen
CPT/HCPCS: 36415; 71045; 71275; 80048; 80053; 83605; 83615; 83735; 85025; 85379; 85610; 85730; 86140; 87635; 93005; 96374; 99285

== ENCOUNTER → 2021-01-31 | Outpatient (CLI) | payer MEDICARE, OTHER ==
--- NOTE | 2021-02-01 10:55 | ECHOF ---
Referral Reason:R06.02 Shortness of breath; R60.9 Edema MEASUREMENTS -------- HEIGHT: 170.2 cm WEIGHT: 123.8 kg BP: RVIDd: 3.7 cm (< 3.3) IVSd: 1.4 cm (0.6 - 1.1) LVIDd: 4.5 cm (3.9 - 5.3) LVPWd: 1.5 cm (0.6 - 1.1) IVSs: 1.8 cm LVIDs: 3.1 cm LVPWs: 2.1 cm LA Diam: 3.8 cm (2.7 - 3.8) LAESV Index (A-L): 16.53 ml/m Ao Diam: 3.8 cm (2.0 - 3.7) AV Cusp: 2.2 cm (1.5 - 2.6) MV EXCURSION: 17.332 mm (> 18.000) MV EF SLOPE: 60 mm/s (70 - 150) EPSS: 0.2 cm MV E Lucien: 0.77 m/s MV DecT: 217 ms MV A Lucien: 0.76 m/s MV E/A Ratio: 1.01 RAP: 5.00 mmHg RVSP: 28.72 mmHg FINDINGS -------- ASinus rhythm. This was a technically adequate study. The left ventricular size is normal. There is moderate concentric left ventricular hypertrophy. O verall left ventricular systolic function is normal with, an EF between 60 - 65 %. The right ventricle is mildly enlarged. Normal LA size by volume 22+/-6 ml/m2. The right atrium is normal in size. Interatrial and interventricular septum intact. There is mild aortic regurgitation. The mitral valve is normal. Mild tricuspid regurgitation present. Right ventricular systolic pressure is normal at < 35 mmHg. Trace/mild (physiologic) pulmonic regurgitation. The aortic root is dilated measuring 3.8cm. Ascending AO up to 41 mm Normal inferior vena cava with normal inspiratory collapse consistent with estimated right atrial pre ssure of 5 mmHg. There is no pericardial effusion. CONCLUSIONS -------- 1. The left ventricular size is normal. 2. There is moderate concentric left ventricular hypertrophy. 3. Overall left ventricular systolic function is normal with, an EF between 60 - 65 %. 4. The right ventricle is mildly enlarged. 5. Normal LA size by volume 22+/-6 ml/m2. 6. There is mild aortic regurgitation. 7. Mild tricuspid regurgitation present. 8. Trace/mild (physiologic) pulmonic regurgitation. 9. The aortic root is dilated measuring 3.8cm. 10. Ascending AO up to 41 mm 11. There is no pericardial effusion. DOWEL MAKER: Jud William RDCS
== END | disposition home or self-care (01) ==
LOC: RADECHMAIN 11:30
PROVIDERS: ATTEND Family Medicine
DX: I35.1 Nonrheumatic aortic (valve) insufficiency (principal); I07.1 Rheumatic tricuspid insufficiency
CPT/HCPCS: 93306

== ENCOUNTER 2021-08-21 17:39 | Inpatient (IN) | payer MEDICARE, OTHER ==
--- NOTE | 2021-08-21 17:58 | ED ---
General Adult HPI - General Stated complaint: Fall/ankle injury Time Seen by Provider: 08/21/21 17:40 - History of Present Illness Initial comments: This is a 60-year-old female with past medical history of COPD, osteoarthritis, GERD presents emergency Department with right ankle pain after a fall. Patient states she stood up from her chair to use the bathroom and she did not use her walker that she usually uses and she lost her balance and fell, twisting her right ankle. Patient denies passing out or experiencing any presyncopal event or symptoms before the fall, she states she just tried to walk without her walker and knew that her balance was can be bad without it. Patient denies any prior surgeries or trauma to her right leg. Patient states her pain is currently 8/10 and worse when she tries to move it. Patient states she is usually on 5-6L oxygen at home. Patient states she normally has neuropathy in her bilateral feet follows up with primary care for this. Patient denies any loss of consciousness, hitting her head or the use of any blood thinners. Patient denies any chest pain, nausea, vomiting, shortness of breath, abdominal pain, dizziness, lightheadedness, change in vision, change in bowel or bladder. - Related Data Home Medications Medication Instructions Recorded Confirmed Ergocalciferol [Vitamin D2 50,000 unit PO MARCELINO 08/29/18 08/21/21 (DRISDOL)] Multivitamins, Thera [Multivitamin 1 tab PO DAILY 07/31/19 08/21/21 (formulary)] Omeprazole [PriLOSEC] 40 mg PO DAILY 07/05/20 08/21/21 Potassium Chloride [Klor-Con 20] 20 meq PO TID 07/05/20 08/21/21 Aspirin EC [Ecotrin Low Dose] 81 mg PO DAILY 10/30/20 08/21/21 Furosemide [Lasix] 40 mg PO DAILY 10/30/20 08/21/21 Montelukast [Singulair] 10 mg PO DAILY 10/30/20 08/21/21 Atorvastatin [Lipitor] 40 mg PO HS 08/21/21 08/21/21 Chlorthalidone 25 mg PO DAILY 08/21/21 08/21/21 Gabapentin [Neurontin] 200 mg PO BID 08/21/21 08/21/21 Hydrocortisone Oint 1 applic TOPICAL TID 08/21/21 08/21/21 [Hydrocortisone 1% Oint] Hydrocortisone Pr Cream 1 applic RECTAL BID 08/21/21 08/21/21 [Proctosol-Hc 2.5%] Ipratropium-Albuterol Nebulize 3 ml INHALATION RT-QID PRN 08/21/21 08/21/21 [Duoneb 0.5 mg-3 mg/3 ml Soln] Pramipexole [Mirapex] 0.125 mg PO HS 08/21/21 08/21/21 traMADol HCL [Ultram] 50 mg PO BID PRN 08/21/21 08/21/21 Allergies Allergy/AdvReac Type Severity Reaction Status Date / Time No Known Allergies Allergy Verified 08/21/21 19:19 Review of Systems ROS Statement: Those systems with pertinent positive or pertinent negative responses have been documented in the HPI. ROS Other: All systems not noted in ROS Statement are negative. Past Medical History Past Medical History: COPD, GERD/Reflux, Osteoarthritis (OA), Pneumonia Additional Past Medical History / Comment(s): migraines,, sinus and ear [id number] ear worse, severe arthritis bilateral knees, constipation, edema lower legs and feet, hemorrhoids, blood in stool at times, gallstones, History of Any Multi-Drug Resistant Organisms: None Reported Past Surgical History: Breast Surgery, Tubal Ligation Additional Past Surgical History / Comment(s): Rt breast biopsies, COLONOSCOPY Past Anesthesia/Blood Transfusion Reactions: Previous Problems w/ Anesthesia Additional Past Anesthesia/Blood Transfusion Reaction / Comment(s): states had diff waking up- "states stopped breathing for a couple seconds" with last colonocopy, "i need a pillow under my head" Past Psychological History: No Psychological Hx Reported Additional Psychological History / Comment(s): . Smoking Status: Former smoker Past Alcohol Use History: None Reported Additional Past Alcohol Use History / Comment(s): HAS BEEN SMOKING SINCE AGE 15, smokes 1 PPD Past Drug Use History: None Reported - Past Family History Mother Family Medical History: No Reported History Additional Family Medical History / Comment(s): . Father History Unknown: Yes Family Medical History: Unable to Obtain General Exam General appearance: alert, in no apparent distress Head exam: Present: atraumatic, normocephalic Eye exam: Present: normal appearance, PERRL, EOMI ENT exam: Present: normal exam, mucous membranes moist Neck exam: Present: full ROM. Absent: tenderness, meningismus Respiratory exam: Present: normal lung sounds bilaterally. Absent: respiratory distress, wheezes, rales, rhonchi, stridor Cardiovascular Exam: Present: regular rate, normal rhythm, normal heart sounds. Absent: systolic murmur, diastolic murmur, rubs, gallop, clicks GI/Abdominal exam: Present: soft, normal bowel sounds. Absent: distended, tenderness, guarding, rebound, rigid Extremities exam: Present: full ROM (She will to bend right knee but states it is painful to her right ankle while doing so. Pulses intact. Mild swelling around medial and lateral malleolus of right ankle. No erythema or warmth noted), other (Patient with tenderness to lateral and medial malleolus of right ankle when palpated. Pedal pulses 2+ No erythema, warmth or swelling noted.) Back exam: Present: normal inspection, full ROM. Absent: tenderness, CVA tenderness (R), CVA tenderness (L), paraspinal tenderness, vertebral tenderness Neurological exam: Present: alert, oriented X3, CN II-XII intact Psychiatric exam: Present: normal affect, normal mood Skin exam: Present: warm, dry, intact, normal color. Absent: rash Course Vital Signs 08/21/21 18:12 Temperature 97.5 F L Pulse Rate 96 Respiratory 16 Rate Blood Pressure 123/74 O2 Sat by Pulse 91 L Oximetry Medical Decision Making - Medical Decision Making This 60-year-old female presents to the emergency department after falling and twisting her right ankle. X-ray right foot and ankle impression: Acute bimalleolar fracture of the ankle. No evidence of fracture of the foot. There is soft tissue swelling around the ankle. Metatarsals are intact. Spoke with agreed to admit patient to his services, he came down and did splint patient's right ankle. Internal medicine will be consulted. Patient verbally agreed to plan. Discussed with my attending, Dr. Taylor. Disposition Clinical Impression: Bimalleolar fracture of right ankle Disposition: ADMITTED IP TO THIS [facility] Condition: Serious Referrals: José Lacy DO [Primary Care Provider] - 1-2 days
--- NOTE | 2021-08-21 19:21 | XR ---
EXAMINATION TYPE: XR ankle complete RT DATE OF EXAM: 08/21/2021 COMPARISON: NONE HISTORY: Foot pain and ankle pain TECHNIQUE: 3 views FINDINGS: There is oblique fracture distal fibula with 5 mm displacement. There is transverse fractur e through the medial malleolus with 4 mm displacement. There is no dislocation. There is plantar calc aneal spurring. There is soft tissue swelling around the ankle. IMPRESSION: There is bimalleolar fracture of the right ankle. Soft tissue swelling.
--- NOTE | 2021-08-21 19:22 | XR ---
EXAMINATION TYPE: XR foot complete RT DATE OF EXAM: 08/21/2021 COMPARISON: NONE HISTORY: Foot pain TECHNIQUE: 3 views FINDINGS: Metatarsals appear intact. The toes appear intact. I see no fracture of the foot. There is bimalleolar fracture noted of the ankle. There is soft tissue swelling around the ankle. There is mod erate plantar calcaneal spurring. There are no erosions. IMPRESSION: Acute bimalleolar fracture of the ankle. No evidence of a fracture of the foot.
[2021-08-21] MEDS ORDERED: MORPHINE SULFATE 4 MG/ML SYRINGE IVP STA (19:27)
[2021-08-21] MEDS ORDERED: ONDANSETRON 4 MG/2 ML VIAL IVP PRN (20:18)
[2021-08-21] MEDS ORDERED: NALOXONE 0.4 MG/ML 1 ML VIAL IV PRN ×2 (20:18→20:48)
--- NOTE | 2021-08-21 20:29 | XR ---
EXAMINATION TYPE: XR tibia fibula RT DATE OF EXAM: 08/21/2021 COMPARISON: Today HISTORY: Pain TECHNIQUE: 4 views FINDINGS: There are fractures of the medial and lateral malleolus. There is a few millimeter lateral displacement of the talus. There is soft tissue swelling around the ankle. The knee joint is anatomic . There is hypertrophic spurring of the medial femoral and tibial condyles. IMPRESSION: Bimalleolar fracture of the ankle without change in position compared to recent exam. Mild osteoarthritis at the knee joint. Soft tissue swelling.
[2021-08-21] MEDS ORDERED: SODIUM CHLORIDE 0.9% 1,000 ML IV SCH (20:30)
[2021-08-21] MEDS ORDERED: ATORVASTATIN 40 MG TAB PO SCH (21:00)
[2021-08-21] MEDS: ATORVASTATIN 40 MG TAB PO SCH (21:21)
[2021-08-21] MEDS: GABAPENTIN 100 MG CAP PO SCH (21:21)
--- NOTE | 2021-08-21 23:32 | P.HPOR ---
History of Present Illness H&P Date: 08/21/21 This patient is a 60- year old female with a past medical history of COPD requiring 6 L home oxygen, GERD, neuropathy that presented to [facility] emergency department earlier today with complaints of right ankle pain following a fall at home. Patient was getting up from her chair and didn't use her walker, and twisted her right ankle. X-rays in the ED revealed a right bimalleolar ankle fracture. There was safety concern for the patient returning home per her , therefore she is admitted under the care of Dr. De La Cruz for placement. Internal medicine is consulted for medical management. Patient is examined bedside in the emergency department this evening with Dr. De La Cruz. Patient complains of isolated right ankle pain. There are no additional complaints at this time. Vital signs stable. Past Medical History Past Medical History: COPD, GERD/Reflux, Osteoarthritis (OA), Pneumonia Additional Past Medical History / Comment(s): migraines,, sinus and ear [id number] ear worse, severe arthritis bilateral knees, constipation, edema lower legs and feet, hemorrhoids, blood in stool at times, gallstones, History of Any Multi-Drug Resistant Organisms: None Reported Past Surgical History: Breast Surgery, Tubal Ligation Additional Past Surgical History / Comment(s): Rt breast biopsies, COLONOSCOPY Past Anesthesia/Blood Transfusion Reactions: Previous Problems w/ Anesthesia Additional Past Anesthesia/Blood Transfusion Reaction / Comment(s): states had diff waking up- "states stopped breathing for a couple seconds" with last colonocopy, "i need a pillow under my head" Past Psychological History: No Psychological Hx Reported Additional Psychological History / Comment(s): . Smoking Status: Former smoker Past Alcohol Use History: None Reported Additional Past Alcohol Use History / Comment(s): HAS BEEN SMOKING SINCE AGE 15, smokes 1 PPD Past Drug Use History: None Reported - Past Family History Mother Family Medical History: No Reported History Additional Family Medical History / Comment(s): . Father History Unknown: Yes Family Medical History: Unable to Obtain Medications and Allergies Home Medications Medication Instructions Recorded Confirmed Type Ergocalciferol [Vitamin D2 50,000 unit PO MARCELINO 08/29/18 08/21/21 History (DRISDOL)] Multivitamins, Thera [Multivitamin 1 tab PO DAILY 07/31/19 08/21/21 History (formulary)] Omeprazole [PriLOSEC] 40 mg PO DAILY 07/05/20 08/21/21 History Potassium Chloride [Klor-Con 20] 20 meq PO TID 07/05/20 08/21/21 History Aspirin EC [Ecotrin Low Dose] 81 mg PO DAILY 10/30/20 08/21/21 History Furosemide [Lasix] 40 mg PO DAILY 10/30/20 08/21/21 History Montelukast [Singulair] 10 mg PO DAILY 10/30/20 08/21/21 History Atorvastatin [Lipitor] 40 mg PO HS 08/21/21 08/21/21 History Chlorthalidone 25 mg PO DAILY 08/21/21 08/21/21 History Gabapentin [Neurontin] 200 mg PO BID 08/21/21 08/21/21 History Hydrocortisone Oint 1 applic TOPICAL TID 08/21/21 08/21/21 History [Hydrocortisone 1% Oint] Hydrocortisone Pr Cream 1 applic RECTAL BID 08/21/21 08/21/21 History [Proctosol-Hc 2.5%] Ipratropium-Albuterol Nebulize 3 ml INHALATION RT-QID PRN 08/21/21 08/21/21 History [Duoneb 0.5 mg-3 mg/3 ml Soln] Pramipexole [Mirapex] 0.125 mg PO HS 08/21/21 08/21/21 History traMADol HCL [Ultram] 50 mg PO BID PRN 08/21/21 08/21/21 History Allergies Allergy/AdvReac Type Severity Reaction Status Date / Time No Known Allergies Allergy Verified 08/21/21 19:19 Physical Examination On examination, patient is sitting up in bed in no acute distress. She is alert and orientated x3. Her head appears normocephalic and atraumatic. Nasal cannula in place. On inspection of the right ankle, there is diffuse swelling. No open wounds or lacerations, skin is intact. The right ankle and foot is warm and well-perfused. Results Right ankle x-ray 08/21/21: Displaced bimalleolar ankle fracture. Right foot x-ray 08/21/21: No acute fractures or dislocations. Assessment and Plan Assessment: Displaced right bimalleolar ankle fracture Plan: - Patient was evaluated with Dr. De La Cruz in the emergency department this evening. Patient's right ankle fracture will ultimately require surgical fixation, although this will be delayed for 1-2 weeks to allow for improvement in her soft tissue swelling. Patient was placed into a well-padded bulky Diane splint today in the ED. She should keep this splint in place until follow-up in the office. - Strict non-weight bearing right lower extremity. Physical therapy has been consulted for gait and balance training. - Keep right lower extremity elevated for swelling control. - Pain management as needed. - Internal medicine consult for medical management. - Case management has been consulted for discharge planning. She will most likely require rehab.
[2021-08-22] MEDS: HYDROmorphone 0.5 MG/0.5 ML SYRINGE IVP PRN ×3 (00:08→08:03)
[2021-08-22] MEDS: GABAPENTIN 100 MG CAP PO SCH (08:03)
[2021-08-22] MEDS: ASPIRIN 81 MG PO SCH (08:03)
[2021-08-22] MEDS: FUROSEMIDE 40 MG TAB PO SCH (08:03)
--- NOTE | 2021-08-22 10:19 | P.PN ---
Subjective Progress Note Date: 08/22/21 This patient is a 60- year old female with a past medical history of COPD requiring 6 L home oxygen, GERD, neuropathy that presented to [facility] emergency department earlier today with complaints of right ankle pain following a fall at home. Patient was getting up from her chair and didn't use her walker, and twisted her right ankle. X-rays in the ED revealed a right bimalleolar ankle fracture. There was safety concern for the patient returning home per her , therefore she is admitted under the care of Dr. De La Cruz for placement. Internal medicine is consulted for medical management. 08/22/21: Patient is again evaluated bedside in the emergency department this morning. Patient's daughter is bedside. Patient states her ankle feels better in her splint. Her pain is well-controlled at this time. There are no new complaints or concerns. Vital signs stable. Objective - Vital Signs Vital signs: Vital Signs Temp 97.6 F 08/22/21 07:35 Pulse 103 H 08/22/21 07:44 Resp 18 08/22/21 07:35 BP 129/89 08/22/21 07:35 Pulse Ox 94 L 08/22/21 07:35 Intake & Output 08/21/21 08/22/21 08/22/21 18:59 06:59 18:59 Output Total 400 Balance -400 Weight 127.006 kg Output: Urine 400 - Exam On examination, patient is sitting up in bed. She is arousable and answers questions appropriately. Her daughter is bedside. Nasal cannula is in place. On inspection of the right lower extremity, there is a clean, dry, intact bulky Diane splint in place which appears to be well-fitting. The visible portion of the toes are warm and well perfused with brisk capillary refill distally. No pain with passive [id number] of the toes. She is able to wiggle toes appropriately. Assessment and Plan Assessment: Displaced right bimalleolar ankle fracture Plan: - Strict non-weight bearing right lower extremity. Keep bulky Diane splint in place. - Physical therapy for gait and balance training. - Keep right lower extremity elevated for swelling control. - Pain management as needed. - Internal medicine consult for medical management. - Case management has been consulted for discharge planning. She will most likely require rehab. - Patient is instructed to follow-up in the office one week after discharge with Dr. Downing for continued management of her right ankle fracture.
[2021-08-22] MEDS ORDERED: IPRATROPIUM-ALBUTEROL 3 ML NEB INHALATION PRN (10:33)
[2021-08-22] MEDS: MONTELUKAST 10 MG TAB PO SCH (11:24)
[2021-08-22] MEDS: PANTOPRAZOLE 40 MG TABLET PO SCH (11:24)
[2021-08-22 11:31] LABS: African American GFR (CKD) >90 (>60 ml/min/1.73 sqM); Blood Urea Nitrogen 11 mg/dL (7-17); Calcium 9.2 mg/dL (8.4-10.2); Chloride 86 mmol/L (98-107); Glucose 216 mg/dL (74-99); Non-African American GFR(CKD) >90 (>60 ml/min/1.73 sqM); Potassium 3.9 mmol/L (3.5-5.1); Sodium 137 mmol/L (137-145)
[2021-08-22 11:37] LABS: Anion Gap 8 mmol/L
[2021-08-22 11:49] LABS: Basophils % (A) 0 %; Eosinophils # (A) 0.1 k/uL (0-0.7); Eosinophils % (A) 1 %; HCT 38.1 % (34.0-46.0); HGB 11.6 gm/dL (11.4-16.0); Hypochromasia Marked; Lymphocytes # (A) 1.2 k/uL (1.0-4.8); Lymphocytes % (A) 10 %; MCH 30.3 pg (25.0-35.0); MCHC 30.5 g/dL (31.0-37.0); MCV 99.2 fL (80.0-100.0); Mean Platelet Volume 7.3; Monocytes # (A) 0.7 k/uL (0-1.0); Monocytes % (A) 6 %; Neutrophils # (A) 9.7 k/uL (1.3-7.7); Neutrophils % (A) 81 %; Platelet Count 272 k/uL (150-450); RBC 3.84 m/uL (3.80-5.40); RDW 14.1 % (11.5-15.5); WBC 11.9 k/uL (3.8-10.6)
[2021-08-22 12:11] LABS: Carbon Dioxide 43 mmol/L (22-30)
[2021-08-22 12:39] LABS: ABG Base Excess 24.9 mmol/L; ABG Oxygen Saturation 90.3 % (94-97); ABG PH 7.38 (7.35-7.45); ABG PO2 61 mmHg (83-108); ABG TCO2 53 mmol/L (19-24); Allen Test Performed? Yes
[2021-08-22 12:41] LABS: ABG HCO3 50 mmol/L (21-25); ABG PCO2 85 mmHg (35-45)
[2021-08-22] MEDS: POTASSIUM CHLORIDE ER 20 MEQ TAB.ER PO SCH (16:07)
[2021-08-22 17:16] LABS: Glucose,Whole Blood 187 mg/dL (75-99)
[2021-08-22] MEDS: INSULIN ASPART (NovoLOG) 100 UNIT/ML VIAL SQ SCH (17:17)
--- NOTE | 2021-08-22 22:18 | XR ---
EXAMINATION TYPE: XR chest 1V portable DATE OF EXAM: 08/22/2021 COMPARISON: NONE HISTORY: Hypoxemia TECHNIQUE: FINDINGS: Heart is borderline enlarged. There is no gross heart failure. There is probably some subse gmental atelectasis at the lung bases. Thoracic aorta is atheromatous. IMPRESSION: Subsegmental atelectasis at the lung bases similar to old exam. No obvious heart failure.
--- NOTE | 2021-08-22 22:28 | P.CONS ---
History of Present Illness - Reason for Consult Consult date: 08/22/21 Medical management - Chief Complaint Status post fall and right ankle displaced malleolar fracture. - History of Present Illness Patient is a 60-year-old female with known history of COPD on oxygen at 6 L via nasal cannula at home, morbid obesity BMI 43.9, GERD, osteoarthritis and migraine headaches and previous history of smoking presents to ER with complaints of right ankle pain status post fall at home. Patient states that she stood up from her chair to using bathroom but did not take her walker and also her leg tangled into the rug, lost her balance and twisted her right ankle. Denied any complaints of dizziness or lightheadedness. No chest pain or shortness of breath or headache. Denied any loss of consciousness. Denied hitting her head. Patient came to the hospital due to severe right ankle pain. Medicine service was consulted due to COPD and other medical problems. Patient was found to have displaced right bimalleolar ankle fracture. Patient is status post splint placement by orthopedic surgery. Laboratory showed WBC 11.9 hemoglobin 11.69 platelets 272 Sodium 137 potassium 3.9 chloride 86 bicarb is 43 BUN 11 creatinine 0.59 and blood sugar is 216 and calcium 9.2 COVID-19 PCR not detected. Review of Systems Constitutional: Patient denies any fever or chills . No generalized weakness or weight loss. Abdomen: Patient denied nausea vomiting and diarrhea and abdominal pain. Cardiovascular: Patient denies any chest pain or short of breath no palpitations. Respiratory: patient denied any cough or sputum production. No shortness of breath Neurologic: Patient denied any numbness or tingling headache. Musculoskeletal: Patient does complain of right ankle pain.. Skin: Negative Psychiatric: Negative Endocrine: No heat or cold intolerance. No recent weight gain. Genitourinary: No dysuria or hematuria. All other 14 point ROS negative except the above Past Medical History Past Medical History: COPD, GERD/Reflux, Osteoarthritis (OA), Pneumonia Additional Past Medical History / Comment(s): migraines,, sinus and ear [id number] ear worse, severe arthritis bilateral knees, constipation, edema lower legs and feet, hemorrhoids, blood in stool at times, gallstones, History of Any Multi-Drug Resistant Organisms: None Reported Past Surgical History: Breast Surgery, Tubal Ligation Additional Past Surgical History / Comment(s): Rt breast biopsies, COLONOSCOPY Past Anesthesia/Blood Transfusion Reactions: Previous Problems w/ Anesthesia Additional Past Anesthesia/Blood Transfusion Reaction / Comm: states had diff waking up- "states stopped breathing for a couple seconds" with last colonocopy, "i need a pillow under my head" Past Psychological History: No Psychological Hx Reported Additional Psychological History / Comment(s): . Smoking Status: Former smoker Past Alcohol Use History: None Reported Additional Past Alcohol Use History / Comment(s): HAS BEEN SMOKING SINCE AGE 15, smokes 1 PPD Past Drug Use History: None Reported - Past Family History Mother Family Medical History: No Reported History Additional Family Medical History / Comment(s): . Father History Unknown: Yes Family Medical History: Unable to Obtain Medications and Allergies Home Medications Medication Instructions Recorded Confirmed Type Ergocalciferol [Vitamin D2 50,000 unit PO MARCELINO 08/29/18 08/21/21 History (DRISDOL)] Multivitamins, Thera [Multivitamin 1 tab PO DAILY 07/31/19 08/21/21 History (formulary)] Omeprazole [PriLOSEC] 40 mg PO DAILY 07/05/20 08/21/21 History Potassium Chloride [Klor-Con 20] 20 meq PO TID 07/05/20 08/21/21 History Aspirin EC [Ecotrin Low Dose] 81 mg PO DAILY 10/30/20 08/21/21 History Furosemide [Lasix] 40 mg PO DAILY 10/30/20 08/21/21 History Montelukast [Singulair] 10 mg PO DAILY 10/30/20 08/21/21 History Atorvastatin [Lipitor] 40 mg PO HS 08/21/21 08/21/21 History Chlorthalidone 25 mg PO DAILY 08/21/21 08/21/21 History Gabapentin [Neurontin] 200 mg PO BID 08/21/21 08/21/21 History Hydrocortisone Oint 1 applic TOPICAL TID 08/21/21 08/21/21 History [Hydrocortisone 1% Oint] Hydrocortisone Pr Cream 1 applic RECTAL BID 08/21/21 08/21/21 History [Proctosol-Hc 2.5%] Ipratropium-Albuterol Nebulize 3 ml INHALATION RT-QID PRN 08/21/21 08/21/21 History [Duoneb 0.5 mg-3 mg/3 ml Soln] Pramipexole [Mirapex] 0.125 mg PO HS 08/21/21 08/21/21 History traMADol HCL [Ultram] 50 mg PO BID PRN 08/21/21 08/21/21 History Allergies Allergy/AdvReac Type Severity Reaction Status Date / Time No Known Allergies Allergy Verified 08/21/21 19:19 Physical Exam Vitals: Vital Signs Temp Pulse Pulse Resp BP BP Pulse Ox 08/22/21 07:44 103 H 08/22/21 07:35 97.6 F 103 H 18 129/89 94 L 08/22/21 06:26 106 H 127/92 94 L 08/22/21 02:37 72 18 133/65 95 08/22/21 00:04 110 H 18 127/92 94 L 08/21/21 18:12 97.5 F L 96 16 123/74 91 L Intake and Output 08/21/21 08/22/21 08/22/21 22:59 06:59 14:59 Output Total 400 Balance -400 Output: Urine 400 Other: Weight 127.006 kg PHYSICAL EXAMINATION: Patient is lying in the bed. Awake alert but mildly confused. HEENT: Normocephalic. Neck is supple. Pupils reactive. Nostrils clear. Oral cavity is moist. Neck reveals no JVD, carotid bruits, or thyromegaly. CHEST EXAMINATION: Trachea is central. Symmetrical expansion. Bibasilar diminished sounds. No wheezing or rhonchi.. CARDIAC: Normal S1, S2 with no gallops. No murmurs ABDOMEN: Soft. Bowel sounds normal. No organomegaly. No abdominal bruits. Extremities: Trace bilateral pedal edema. No clubbing or cyanosis Neurologically awake, alert, oriented x2-3 with well-coordinated movements. No gross focal deficits noted Skin: No rash or skin lesions. Psychiatric: Cooperative. Could not be assessed c. Musculoskeletal: Right ankle splint up to upper leg. Results CBC & Chem 7: 08/22/21 10:50 08/22/21 10:50 Assessment and Plan Assessment: S/p mechanical fall and displaced right ankle bimalleolar fracture. Status post splint placement. COPD currently on 6 L oxygen via nasal cannula at home. Chronic hypercapnic and hypoxic respiratory failure Morbid obesity BMI 43.9 GERD Osteoarthritis History of migraine headaches History of gallstones Pain history of smoking DVT prophylaxis with heparin subcu Plan: Patient will be continued pain management and limit narcotic pain medications. Continue with duo nebs and oxygen supplementation. Due to hypercapnia, ABGs will be obtained and patient will be started on BiPAP. Pulmonary service will be consulted. Continue with GI and DVT prophylaxis. Current with home medications and follow- up closely. Further recommendations based on clinical course. Thank you for your consult.
[2021-08-23] MEDS: ACETAMINOPHEN TAB 325 MG TAB PO PRN ×3 (01:00→20:58)
[2021-08-23 02:41] LABS: Glucose,Whole Blood 177 mg/dL (75-99)
[2021-08-23] MEDS: INSULIN ASPART (NovoLOG) 100 UNIT/ML VIAL SQ SCH ×5 (03:09→22:02)
[2021-08-23] MEDS: GABAPENTIN 100 MG CAP PO SCH ×3 (03:09→20:58)
[2021-08-23] MEDS: POTASSIUM CHLORIDE ER 20 MEQ TAB.ER PO SCH ×4 (03:09→20:58)
[2021-08-23] MEDS: PRAMIPEXOLE 0.125 MG TAB PO SCH ×2 (03:09→20:58)
[2021-08-23] MEDS: ATORVASTATIN 40 MG TAB PO SCH ×2 (03:09→20:58)
[2021-08-23] MEDS: HEPARIN SODIUM,PORCINE/PF 5,000 UNIT/0.5 ML SYRINGE SQ SCH ×4 (03:17→20:58)
[2021-08-23] MEDS: HYDROmorphone 0.5 MG/0.5 ML SYRINGE IVP PRN (05:40)
[2021-08-23] MEDS: HYDROmorphone 1 MG/ML 1 ML SYRINGE IVP PRN ×2 (05:42→09:20)
[2021-08-23 06:51] LABS: Glucose,Whole Blood 181 mg/dL (75-99)
[2021-08-23] MEDS: IPRATROPIUM-ALBUTEROL 3 ML NEB INHALATION SCH ×4 (07:55→21:28)
[2021-08-23] MEDS: PANTOPRAZOLE 40 MG TABLET PO SCH (09:19)
[2021-08-23] MEDS: FUROSEMIDE 40 MG TAB PO SCH (09:19)
[2021-08-23] MEDS: MONTELUKAST 10 MG TAB PO SCH (09:20)
[2021-08-23] MEDS: ASPIRIN 81 MG PO SCH (09:20)
[2021-08-23 09:39] LABS: HCT 35.7 % (37.2-46.3); HGB 10.5 g/dL (12.0-15.0); MCH 29.5 pg (27.0-32.0); MCHC 29.4 g/dL (32.0-37.0); MCV 100.3 fL (80.0-97.0); Mean Platelet Volume 10.2 fL (9.5-12.2); NRBC Per 100 WBC 0 /100 WBCS (0.0-0.0); Platelet Count 226 X 10*3/uL (140-440); RBC 3.56 X 10*6/uL (4.10-5.20); RDW 13.2 % (11.5-14.5); WBC 14.18 X 10*3/uL (4.50-10.00)
[2021-08-23 09:42] LABS: Magnesium 1.8 mg/dL (1.5-2.4)
[2021-08-23 09:49] LABS: African American GFR (CKD) 115.6 (60.0-200.0); Albumin 3.8 g/dL (3.8-4.9); Albumin/Globulin Ratio 1.41 (1.60-3.17); Anion Gap 9.9 mmol/L (10.00-18.00); BUN/Creat Ratio 17.5 Ratio (12.00-20.00); Blood Urea Nitrogen 10.5 mg/dL (9.0-27.0); Calcium 9.1 mg/dL (8.7-10.3); Carbon Dioxide 42.1 mmol/L (20.0-27.5); Globulin 2.7 g/dL (1.6-3.3); Non-African American GFR(CKD) 99.8 (60.0-200.0); Potassium 3.3 mmol/L (3.5-5.5); Total Bilirubin 0.4 mg/dL (0.30-1.20); Total Protein 6.5 g/dL (6.2-8.2)
[2021-08-23 10:56] LABS: Basophils # (A) 0.04 X 10*3/uL (0.00-0.10); Basophils % (A) 0.3 %; Eosinophils # (A) 0.07 X 10*3/uL (0.04-0.35); Eosinophils % (A) 0.5 %; Immature Grans, Automated 0.6 %; Lymphocytes # (A) 1.53 X 10*3/uL (0.90-5.00); Lymphocytes % (A) 10.8 %; Monocytes # (A) 2.06 X 10*3/uL (0.20-1.00); Monocytes % (A) 14.5 %; Neutrophils # (A) 10.39 X 10*3/uL (1.80-7.70); Neutrophils % (A) 73.3 %
[2021-08-23 10:57] LABS: Stomatocytes 2+
[2021-08-23 11:32] LABS: Glucose,Whole Blood 213 mg/dL (75-99)
[2021-08-23 15:26] LABS: Appearance,Urine Cloudy (Clear); Bacteria,Urine Occasional /hpf; Bilirubin,Urine Negative (Negative); Blood,Urine Moderate (Negative); Budding Yeast,Urine Occasional /hpf; Color,Urine Yellow; Glucose,Urine (UA) Negative (Negative); Ketones,Urine Negative (Negative); Leukocyte Esterase,Urine Small (Negative); Mucus,Urine Rare /hpf; Nitrite,Urine Positive (Negative); PH, Urine 6.5 (5.0-8.0); Protein,Urine Negative (Negative); RBC,Urine 30 /hpf (0-5); Specific Gravity,Urine 1.011 (1.001-1.035); Squamous Epithelial Cell,Urine 5 /hpf (0-4); Urobilinogen,Urine <2.0 mg/dL (<2.0); WBC,Urine 5 /hpf (0-5)
[2021-08-23] MEDS ORDERED: Potassium Replacement Protocol 1 EACH MISC MISCELLANE PRN (15:51)
--- NOTE | 2021-08-23 16:02 | P.PN ---
Subjective Patient is a 60-year-old female with known history of COPD on oxygen at 6 L via nasal cannula at home, morbid obesity BMI 43.9, GERD, osteoarthritis and migraine headaches and previous history of smoking presents to ER with complaints of right ankle pain status post fall at home. Patient states that she stood up from her chair to using bathroom but did not take her walker and also her leg tangled into the rug, lost her balance and twisted her right ankle. Denied any complaints of dizziness or lightheadedness. No chest pain or shortness of breath or headache. Denied any loss of consciousness. Denied hitting her head. Patient came to the hospital due to severe right ankle pain. Medicine service was consulted due to COPD and other medical problems. Patient was found to have displaced right bimalleolar ankle fracture. Patient is status post splint placement by orthopedic surgery. Laboratory showed WBC 11.9 hemoglobin 11.69 platelets 272 Sodium 137 potassium 3.9 chloride 86 bicarb is 43 BUN 11 creatinine 0.59 and blood sugar is 216 and calcium 9.2 COVID-19 PCR not detected. 08/23/2021 This is a pleasant 60 years old female who presents with right ankle bimalleolar fracture with orthopedic team on the case with splint placed in her fracture site. Yesterday patient has been running fever 101 anteriorly morning today at 100. No more fever but patient is lethargic, easily arousable, she did not specify any symptoms to me but UTI is suspected because of abnormal urinalysis, were going to repeat the UA and send a culture, also will order blood culture, chest x-ray showing atelectasis. We will start the patient empirically on ceftriaxone and asked for infectious disease consult. procalcitonin is mildly elevated at 0.22 Also patient is hypoxic but improving 15 L down to 5 L/m today. She is only minimally tachypneic. Patient remains on aspirin and subacute heparin Objective - Vital Signs Vital signs: Vital Signs Temp 98.4 F 08/23/21 07:54 Pulse 107 H 08/23/21 07:54 Resp 20 08/23/21 10:51 BP 117/65 08/23/21 07:54 Pulse Ox 91 L 08/23/21 10:40 Intake & Output 08/22/21 08/23/21 08/23/21 18:59 06:59 18:59 Intake Total 200 Output Total 1000 Balance -1000 200 Weight 127.006 kg Intake: Oral 200 Output: Urine 1000 Other: Voiding Method External Catheter External Catheter - Exam -GENERAL: The patient is alert and oriented x3, lethargic, drowsy not in any acute distress. Well developed, well nourished. HEENT: Pupils are round and equally reacting to light. EOMI. No scleral icterus. No conjunctival pallor. Normocephalic, atraumatic. No pharyngeal erythema. No thyromegaly. CARDIOVASCULAR: S1 and S2 present. No murmurs, rubs, or gallops. PULMONARY: Chest is clear to auscultation, no wheezing or crackles. ABDOMEN: Soft, nontender, nondistended, normoactive bowel sounds. No palpable organomegaly. MUSCULOSKELETAL: No joint swelling or deformity. -EXTREMITIES: No cyanosis, clubbing, or pedal edema. Right ankle in big cast NEUROLOGICAL: Gross neurological examination did not reveal any focal deficits. SKIN: No rashes. no petechiae. - Labs CBC & Chem 7: 08/23/21 05:35 08/23/21 05:35 Labs: Abnormal Lab Results - Last 24 Hours (Table) 08/22/21 08/22/21 08/22/21 Range/Units 10:50 10:50 12:35 WBC 11.9 H (3.8-10.6) k/uL RBC (4.10-5.20) X 10*6/uL Hgb (12.0-15.0) g/dL Hct (37.2-46.3) % MCV (80.0-97.0) fL MCHC 30.5 L (31.0-37.0) g/dL Immature Gran # (0.00-0.04) X 10*3/uL Neutrophils # 9.7 H (1.3-7.7) k/uL Monocytes # (0.20-1.00) X 10*3/uL ABG pCO2 85 H* (35-45) mmHg ABG pO2 61 L (83-108) mmHg ABG HCO3 50 H* (21-25) mmol/L ABG Total CO2 53 H (19-24) mmol/L ABG O2 Saturation 90.3 L (94-97) % Potassium (3.5-5.5) mmol/L Chloride 86 L (98-107) mmol/L Carbon Dioxide 43 H* (22-30) mmol/L Anion Gap (10.00-18.00) mmol/L Glucose 216 H (74-99) mg/dL POC Glucose (mg/dL) (75-99) mg/dL Albumin/Globulin Ratio (1.60-3.17) g/dL Procalcitonin (0.02-0.09) ng/mL 08/22/21 08/22/21 08/23/21 Range/Units 17:14 23:07 05:35 WBC (3.8-10.6) k/uL RBC (4.10-5.20) X 10*6/uL Hgb (12.0-15.0) g/dL Hct (37.2-46.3) % MCV (80.0-97.0) fL MCHC (31.0-37.0) g/dL Immature Gran # (0.00-0.04) X 10*3/uL Neutrophils # (1.3-7.7) k/uL Monocytes # (0.20-1.00) X 10*3/uL ABG pCO2 (35-45) mmHg ABG pO2 (83-108) mmHg ABG HCO3 (21-25) mmol/L ABG Total CO2 (19-24) mmol/L ABG O2 Saturation (94-97) % Potassium (3.5-5.5) mmol/L Chloride (98-107) mmol/L Carbon Dioxide (22-30) mmol/L Anion Gap (10.00-18.00) mmol/L Glucose (74-99) mg/dL POC Glucose (mg/dL) 187 H 177 H (75-99) mg/dL Albumin/Globulin Ratio (1.60-3.17) g/dL Procalcitonin 0.22 H (0.02-0.09) ng/mL 08/23/21 08/23/21 08/23/21 Range/Units 05:35 05:35 06:50 WBC 14.18 H (3.8-10.6) k/uL RBC 3.56 L (4.10-5.20) X 10*6/uL Hgb 10.5 L (12.0-15.0) g/dL Hct 35.7 L (37.2-46.3) % MCV 100.3 H (80.0-97.0) fL MCHC 29.4 L (31.0-37.0) g/dL Immature Gran # 0.09 H (0.00-0.04) X 10*3/uL Neutrophils # 10.39 H (1.3-7.7) k/uL Monocytes # 2.06 H (0.20-1.00) X 10*3/uL ABG pCO2 (35-45) mmHg ABG pO2 (83-108) mmHg ABG HCO3 (21-25) mmol/L ABG Total CO2 (19-24) mmol/L ABG O2 Saturation (94-97) % Potassium 3.3 L (3.5-5.5) mmol/L Chloride 87 L (98-107) mmol/L Carbon Dioxide 42.1 H* (22-30) mmol/L Anion Gap 9.90 L (10.00-18.00) mmol/L Glucose 157 H (74-99) mg/dL POC Glucose (mg/dL) 181 H (75-99) mg/dL Albumin/Globulin Ratio 1.41 L (1.60-3.17) g/dL Procalcitonin (0.02-0.09) ng/mL Assessment and Plan Assessment: S/p mechanical fall and displaced right ankle bimalleolar fracture. Status post splint placement. Fever with possible urinary tract infection versus other COPD currently on 5 L oxygen via nasal cannula at home. Chronic hypercapnic and hypoxic respiratory failure Morbid obesity BMI 43.9 GERD Osteoarthritis History of migraine headaches History of gallstones Pain history of smoking Plan: This is a pleasant 60 years old female who presents with right ankle fracture status post splint placement, also she has some mild COPD exacerbation, and UTI. Start ceftriaxone Recent urinalysis and urine culture, consult infectious disease team Orthopedic team on the case Continue with bronchodilator and breathing treatment and monitor oxygen. Labs and medication were reviewed.. Continue same treatment. Continue with symptomatic treatment. Resume home medication. Monitor lytes and vitals. DVT and GI prophylaxis. Further recommendations as per clinical course of the patient DVT prophylaxis: Subcutaneous heparin GI Prophylaxis: Ppi PT/OT: Pending Prognosis is guarded
[2021-08-23 16:29] LABS: Glucose,Whole Blood 159 mg/dL (75-99)
[2021-08-23] MEDS: SODIUM CHLORIDE 0.9% 1,000 ML IV SCH (17:35)
[2021-08-23 18:08] LABS: Appearance,Urine Clear (Clear); Bacteria,Urine Rare /hpf; Bilirubin,Urine Negative (Negative); Blood,Urine Moderate (Negative); Color,Urine Yellow; Glucose,Urine (UA) Negative (Negative); Ketones,Urine Negative (Negative); Leukocyte Esterase,Urine Negative (Negative); Mucus,Urine Rare /hpf; Nitrite,Urine Negative (Negative); PH, Urine 6.5 (5.0-8.0); Protein,Urine Negative (Negative); RBC,Urine 27 /hpf (0-5); Specific Gravity,Urine 1.009 (1.001-1.035); Urobilinogen,Urine <2.0 mg/dL (<2.0); WBC,Urine 1 /hpf (0-5)
[2021-08-23] MEDS: TAMSULOSIN 0.4 MG CAP.ER.24H PO SCH (21:06)
[2021-08-23 21:25] LABS: Glucose,Whole Blood 187 mg/dL (75-99)
[2021-08-23] MEDS: SYMBICORT 160-4.5 MCG INHALER INHALATION SCH (21:28)
--- NOTE | 2021-08-23 22:09 | XR ---
EXAMINATION TYPE: XR foot complete LT DATE OF EXAM: 08/23/2021 COMPARISON: NONE HISTORY: Pain and swelling TECHNIQUE: 3 views FINDINGS: Metatarsals are intact. Toes are intact. I see no fracture nor dislocation. There is planta r calcaneal spurring. There is some soft tissue swelling of the forefoot. IMPRESSION: Soft tissue swelling. No fracture. No sign of inflammatory arthritis
--- NOTE | 2021-08-23 23:11 | P.CONS ---
History of Present Illness - Reason for Consult Consult date: 08/23/21 Fever Requesting physician: Francisco E Sheet - Chief Complaint Fall and right ankle pain x one day - History of Present Illness Patient is a 60-year-old female with a past medical history difficult for COPD osteoarthritis gastroesophageal reflux disease presenting to the ER 2 days ago for evaluation of a fall apparently the patient stood up from her chair to use the bathroom and she did not use her walker patient lost her balance and fell twisting her right ankle no history of any syncope patient was subsequently brought into the hospital on arrival patient was complaining of pain to the right ankle area almost 8 out of 10 with no radiation patient on presentation to the hospital was afebrile she did spike a fever of 101 F last night and no fever since then patient also have a white count of 14.18 with a left shift patient did have a normal creatinine, dioxide is elevated liver enzymes are normal urine is mildly positive barnes PCR was negative patient did have a chest x-ray last night with evidence of subsegmental atelectasis at the lung base similar to old exam patient also have a ankle x-ray bimalleolar fracture of the right ankle and soft tissue swelling patient has been evaluated by orthopedics recommending medical treatment infectious disease consulted because of a fever last night patient is currently lethargic and is unable to provide any history most information has been obtained from review the chart and talking to nursing staff Review of Systems Positive points has been mentioned in HPI complete review could not be obtained because of his underlying mental status Past Medical History Past Medical History: COPD, GERD/Reflux, Osteoarthritis (OA), Pneumonia Additional Past Medical History / Comment(s): migraines,, sinus and ear [id number] ear worse, severe arthritis bilateral knees, constipation, edema lower legs and feet, hemorrhoids, blood in stool at times, gallstones, History of Any Multi-Drug Resistant Organisms: None Reported Past Surgical History: Breast Surgery, Tubal Ligation Additional Past Surgical History / Comment(s): Rt breast biopsies, COLONOSCOPY Past Anesthesia/Blood Transfusion Reactions: Previous Problems w/ Anesthesia Additional Past Anesthesia/Blood Transfusion Reaction / Comm: states had diff waking up- "states stopped breathing for a couple seconds" with last colonocopy, "i need a pillow under my head" Past Psychological History: No Psychological Hx Reported Additional Psychological History / Comment(s): . Smoking Status: Former smoker Past Alcohol Use History: None Reported Additional Past Alcohol Use History / Comment(s): HAS BEEN SMOKING SINCE AGE 15, smokes 1 PPD Past Drug Use History: None Reported - Past Family History Mother Family Medical History: No Reported History Additional Family Medical History / Comment(s): . Father History Unknown: Yes Family Medical History: Unable to Obtain Medications and Allergies Home Medications Medication Instructions Recorded Confirmed Type Ergocalciferol [Vitamin D2 50,000 unit PO MARCELINO 08/29/18 08/21/21 History (DRISDOL)] Multivitamins, Thera [Multivitamin 1 tab PO DAILY 07/31/19 08/21/21 History (formulary)] Omeprazole [PriLOSEC] 40 mg PO DAILY 07/05/20 08/21/21 History Potassium Chloride [Klor-Con 20] 20 meq PO TID 07/05/20 08/21/21 History Aspirin EC [Ecotrin Low Dose] 81 mg PO DAILY 10/30/20 08/21/21 History Furosemide [Lasix] 40 mg PO DAILY 10/30/20 08/21/21 History Montelukast [Singulair] 10 mg PO DAILY 10/30/20 08/21/21 History Atorvastatin [Lipitor] 40 mg PO HS 08/21/21 08/21/21 History Chlorthalidone 25 mg PO DAILY 08/21/21 08/21/21 History Gabapentin [Neurontin] 200 mg PO BID 08/21/21 08/21/21 History Hydrocortisone Oint 1 applic TOPICAL TID 08/21/21 08/21/21 History [Hydrocortisone 1% Oint] Hydrocortisone Pr Cream 1 applic RECTAL BID 08/21/21 08/21/21 History [Proctosol-Hc 2.5%] Ipratropium-Albuterol Nebulize 3 ml INHALATION RT-QID PRN 08/21/21 08/21/21 History [Duoneb 0.5 mg-3 mg/3 ml Soln] Pramipexole [Mirapex] 0.125 mg PO HS 08/21/21 08/21/21 History traMADol HCL [Ultram] 50 mg PO BID PRN 08/21/21 08/21/21 History Allergies Allergy/AdvReac Type Severity Reaction Status Date / Time No Known Allergies Allergy Verified 08/21/21 19:19 Physical Exam Vitals: Vital Signs Temp Pulse Resp BP Pulse Ox 08/23/21 14:00 99.1 F 100 19 137/89 96 08/23/21 12:14 16 08/23/21 12:00 93 L 08/23/21 10:51 20 08/23/21 10:40 20 91 L 08/23/21 07:54 98.4 F 107 H 20 117/65 95 08/23/21 05:35 98.7 F 105 H 20 111/62 96 08/23/21 03:05 99 F 103 H 18 109/71 97 08/23/21 02:00 97.1 F L 08/23/21 00:57 100 F H 117 H 20 111/56 96 08/22/21 20:12 101.0 F H 122 H 20 153/93 91 L 08/22/21 20:04 91 L 08/22/21 19:40 86 L 08/22/21 19:30 79 L 08/22/21 18:09 105 H 18 91 L Intake and Output 08/23/21 08/23/21 08/23/21 06:59 14:59 22:59 Intake Total 200 Balance 200 Intake: Oral 200 Other: Voiding Method External Catheter GENERAL DESCRIPTION: Middle-aged female lying in bed, no distress. No tachypnea or accessory muscle of respiration use. HEENT: Shows Pallor , no scleral icterus. Oral mucous membrane is dry. No pharyngeal erythema or thrush NECK: Trachea central, no thyromegaly. LUNGS: Unlabored breathing. Decreased pulses on the base. No wheeze or crackle. HEART: S1, S2, regular rate and rhythm. No loud murmur ABDOMEN: Soft, no tenderness , guarding or rigidity, no organomegaly EXTREMITIES: Right leg currently covered with a cast SKIN: No rash, no masses palpable. NEUROLOGICAL: The patient is lethargic orientation couldn't be determined Results CBC & Chem 7: 08/23/21 05:35 08/23/21 05:35 Labs: Abnormal Lab Results - Last 24 Hours (Table) 08/22/21 08/22/21 08/22/21 Range/Units 15:13 17:14 23:07 WBC (4.50-10.00) X 10*3/uL RBC (4.10-5.20) X 10*6/uL Hgb (12.0-15.0) g/dL Hct (37.2-46.3) % MCV (80.0-97.0) fL MCHC (32.0-37.0) g/dL Immature Gran # (0.00-0.04) X 10*3/uL Neutrophils # (1.80-7.70) X 10*3/uL Monocytes # (0.20-1.00) X 10*3/uL Potassium (3.5-5.5) mmol/L Chloride (96-109) mmol/L Carbon Dioxide (20.0-27.5) mmol/L Anion Gap (10.00-18.00) mmol/L Glucose (70-110) mg/dL POC Glucose (mg/dL) 187 H 177 H (75-99) mg/dL Albumin/Globulin Ratio (1.60-3.17) g/dL Procalcitonin (0.02-0.09) ng/mL Urine Appearance Cloudy H (Clear) Urine Blood Moderate H (Negative) Urine Nitrite Positive H (Negative) Ur Leukocyte Esterase Small H (Negative) Urine RBC 30 H (0-5) /hpf Ur Squamous Epith Cells 5 H (0-4) /hpf Urine Bacteria Occasional H (None) /hpf Urine Mucus Rare H (None) /hpf Urine Yeast (Budding) Occasional H (None) /hpf 08/23/21 08/23/21 08/23/21 Range/Units 05:35 05:35 05:35 WBC 14.18 H (4.50-10.00) X 10*3/uL RBC 3.56 L (4.10-5.20) X 10*6/uL Hgb 10.5 L (12.0-15.0) g/dL Hct 35.7 L (37.2-46.3) % MCV 100.3 H (80.0-97.0) fL MCHC 29.4 L (32.0-37.0) g/dL Immature Gran # 0.09 H (0.00-0.04) X 10*3/uL Neutrophils # 10.39 H (1.80-7.70) X 10*3/uL Monocytes # 2.06 H (0.20-1.00) X 10*3/uL Potassium 3.3 L (3.5-5.5) mmol/L Chloride 87 L (96-109) mmol/L Carbon Dioxide 42.1 H* (20.0-27.5) mmol/L Anion Gap 9.90 L (10.00-18.00) mmol/L Glucose 157 H (70-110) mg/dL POC Glucose (mg/dL) (75-99) mg/dL Albumin/Globulin Ratio 1.41 L (1.60-3.17) g/dL Procalcitonin 0.22 H (0.02-0.09) ng/mL Urine Appearance (Clear) Urine Blood (Negative) Urine Nitrite (Negative) Ur Leukocyte Esterase (Negative) Urine RBC (0-5) /hpf Ur Squamous Epith Cells (0-4) /hpf Urine Bacteria (None) /hpf Urine Mucus (None) /hpf Urine Yeast (Budding) (None) /hpf 08/23/21 08/23/21 08/23/21 Range/Units 06:50 11:30 16:28 WBC (4.50-10.00) X 10*3/uL RBC (4.10-5.20) X 10*6/uL Hgb (12.0-15.0) g/dL Hct (37.2-46.3) % MCV (80.0-97.0) fL MCHC (32.0-37.0) g/dL Immature Gran # (0.00-0.04) X 10*3/uL Neutrophils # (1.80-7.70) X 10*3/uL Monocytes # (0.20-1.00) X 10*3/uL Potassium (3.5-5.5) mmol/L Chloride (96-109) mmol/L Carbon Dioxide (20.0-27.5) mmol/L Anion Gap (10.00-18.00) mmol/L Glucose (70-110) mg/dL POC Glucose (mg/dL) 181 H 213 H 159 H (75-99) mg/dL Albumin/Globulin Ratio (1.60-3.17) g/dL Procalcitonin (0.02-0.09) ng/mL Urine Appearance (Clear) Urine Blood (Negative) Urine Nitrite (Negative) Ur Leukocyte Esterase (Negative) Urine RBC (0-5) /hpf Ur Squamous Epith Cells (0-4) /hpf Urine Bacteria (None) /hpf Urine Mucus (None) /hpf Urine Yeast (Budding) (None) /hpf Assessment and Plan (1) Fever Current Visit: Yes Status: Acute Code(s): R50.9 - FEVER, UNSPECIFIED SNOMED Code(s): 320244728 Plan: 1-Patient with an episode of fever in this patient presented to hospital with a fall and did have a right ankle fracture currently being treated conservatively with no plan for surgical intervention in this patient did have mildly positive UA chest x-ray did not show any pneumonia with a low-grade fever possibly related to the injury less likely abdominal source 2-we will check influenza PCR as well as ultrasound of the abdomen 3-continue with empiric Rocephin for now while waiting for the work-up to be completed We will follow on clinical condition and cultures to further adjust medication if needed Thank you for this consultation we will follow the patient along with you Time with Patient: Greater than 30
[2021-08-24] MEDS: ACETAMINOPHEN TAB 325 MG TAB PO PRN ×2 (02:14→14:45)
[2021-08-24 06:58] LABS: Glucose,Whole Blood 150 mg/dL (75-99)
[2021-08-24] MEDS: IPRATROPIUM-ALBUTEROL 3 ML NEB INHALATION SCH ×4 (07:13→20:12)
[2021-08-24] MEDS: SYMBICORT 160-4.5 MCG INHALER INHALATION SCH ×2 (07:13→20:12)
[2021-08-24] MEDS: INSULIN ASPART (NovoLOG) 100 UNIT/ML VIAL SQ SCH ×4 (08:22→23:01)
[2021-08-24] MEDS: POTASSIUM CHLORIDE ER 20 MEQ TAB.ER PO SCH ×3 (08:22→21:18)
[2021-08-24] MEDS: PANTOPRAZOLE 40 MG TABLET PO SCH (08:22)
[2021-08-24] MEDS: MONTELUKAST 10 MG TAB PO SCH (08:22)
[2021-08-24] MEDS: HEPARIN SODIUM,PORCINE/PF 5,000 UNIT/0.5 ML SYRINGE SQ SCH ×3 (08:22→21:17)
[2021-08-24] MEDS: GABAPENTIN 100 MG CAP PO SCH ×2 (08:22→21:18)
[2021-08-24] MEDS: FUROSEMIDE 40 MG TAB PO SCH (08:22)
[2021-08-24] MEDS: ASPIRIN 81 MG PO SCH (08:22)
--- NOTE | 2021-08-24 08:57 | US ---
EXAMINATION TYPE: US abdomen complete DATE OF EXAM: 08/24/2021 COMPARISON: NONE CLINICAL HISTORY: fever. fever EXAM MEASUREMENTS: Liver Length: 23.7 cm Gallbladder Wall: 0.3 cm Spleen: 12.0 cm Right Kidney: 13.6 x 5.1 x 5.4 cm Left Kidney: 13.5 x 6.0 x 5.4 cm *technical limitations due to patient's body habitus and overlying bowel Pancreas: Obscured by bowel gas Liver: enlarged, attenuating, heterogeneous Gallbladder: stones noted, largest = 1.6cm Evidence for sonographic Schofield's sign: no CBD: Obscured by overlying bowel gas Spleen: appears wnl Right Kidney: no evidence of hydronephrosis Left Kidney: no evidence of hydronephrosis Upper IVC: Obscured by overlying bowel gas Abd Aorta: Obscured by overlying bowel gas IMPRESSION: 1. Cholelithiasis. CBD is obscured by bowel gas. 2. Hepatomegaly with nonspecific pattern to the liver can be associated with hepatitis or hepatic chance atosis correlate clinically.
--- NOTE | 2021-08-24 08:58 | US ---
EXAMINATION TYPE: US venous doppler duplex LE LT DATE OF EXAM: 08/24/2021 8:48 AM COMPARISON: US 2012 CLINICAL HISTORY: leg pain, r/o dvt. Left leg pain SIDE PERFORMED: Left TECHNIQUE: The lower extremity deep venous system is examined utilizing real time linear array sonog geovanny with graded compression, doppler sonography and color-flow sonography. VESSELS IMAGED: Common Femoral Vein Deep Femoral Vein Greater Saphenous Vein * Femoral Vein Popliteal Vein Small Saphenous Vein * Proximal Calf Veins (* superficial vessels) Compression images not done due to patient unable to tolerate the pressure Left Leg: Visualized portions appear negative for DVT IMPRESSION: 1. Limited exam as discussed above demonstrates no obvious diagnostic evidence of DVT. Note is made c ompression images could not be performed as noted above.
[2021-08-24 08:59] LABS: African American GFR (CKD) 122.5 (60.0-200.0); Anion Gap 11.7 mmol/L (10.00-18.00); BUN/Creat Ratio 26.98 Ratio (12.00-20.00); Blood Urea Nitrogen 13.6 mg/dL (9.0-27.0); Carbon Dioxide 39.2 mmol/L (20.0-27.5); Non-African American GFR(CKD) 105.7 (60.0-200.0); Potassium 3.7 mmol/L (3.5-5.5)
[2021-08-24 09:40] LABS: Basophils # (A) 0.03 X 10*3/uL (0.00-0.10); Basophils % (A) 0.2 %; Eosinophils # (A) 0.06 X 10*3/uL (0.04-0.35); Eosinophils % (A) 0.4 %; HCT 34.1 % (37.2-46.3); HGB 9.8 g/dL (12.0-15.0); Immature Grans, Automated 0.3 %; Lymphocytes # (A) 1.75 X 10*3/uL (0.90-5.00); Lymphocytes % (A) 12.1 %; MCH 29.7 pg (27.0-32.0); MCHC 28.7 g/dL (32.0-37.0); MCV 103.3 fL (80.0-97.0); Mean Platelet Volume 10.7 fL (9.5-12.2); Monocytes # (A) 1.94 X 10*3/uL (0.20-1.00); Monocytes % (A) 13.4 %; NRBC Per 100 WBC 0 /100 WBCS (0.0-0.0); Neutrophils # (A) 10.62 X 10*3/uL (1.80-7.70); Neutrophils % (A) 73.6 %; Platelet Count 213 X 10*3/uL (140-440); RDW 13.2 % (11.5-14.5); WBC 14.45 X 10*3/uL (4.50-10.00)
--- NOTE | 2021-08-24 10:42 | P.PN ---
Subjective Patient is a 60-year-old female with known history of COPD on oxygen at 6 L via nasal cannula at home, morbid obesity BMI 43.9, GERD, osteoarthritis and migraine headaches and previous history of smoking presents to ER with complaints of right ankle pain status post fall at home. Patient states that she stood up from her chair to using bathroom but did not take her walker and also her leg tangled into the rug, lost her balance and twisted her right ankle. Denied any complaints of dizziness or lightheadedness. No chest pain or shortness of breath or headache. Denied any loss of consciousness. Denied hitting her head. Patient came to the hospital due to severe right ankle pain. Medicine service was consulted due to COPD and other medical problems. Patient was found to have displaced right bimalleolar ankle fracture. Patient is status post splint placement by orthopedic surgery. Laboratory showed WBC 11.9 hemoglobin 11.69 platelets 272 Sodium 137 potassium 3.9 chloride 86 bicarb is 43 BUN 11 creatinine 0.59 and blood sugar is 216 and calcium 9.2 COVID-19 PCR not detected. 08/23/2021 This is a pleasant 60 years old female who presents with right ankle bimalleolar fracture with orthopedic team on the case with splint placed in her fracture site. Yesterday patient has been running fever 101 anteriorly morning today at 100. No more fever but patient is lethargic, easily arousable, she did not specify any symptoms to me but UTI is suspected because of abnormal urinalysis, were going to repeat the UA and send a culture, also will order blood culture, chest x-ray showing atelectasis. We will start the patient empirically on ceftriaxone and asked for infectious disease consult. procalcitonin is mildly elevated at 0.22 Also patient is hypoxic but improving 15 L down to 5 L/m today. She is only minimally tachypneic. Patient remains on aspirin and subacute heparin 08/24/2021 Patients with right ankle fracture status post splint placement, pain is minimal. The patient had evidence of urinary retention with bladder scan more than 1200 and folic catheter was placed, she is awake and alert and oriented today, drowsiness from yesterday improved significantly today. She still running fever of 99.9 and mild leukocytosis of 14.4 indicating of sepsis and she is on normal saline 75 mL/h. Source not defined completely yet, patient complaining of from left leg pain and tenderness with ultrasound negative for D VT the suspicion for cellulitis is there. Also she has some gallstone disease on abdominal ultrasound but with no significant abdominal pain but again she is morbidly obese. Also patient has cough but negative for infection Continue with ceftriaxone and normal saline with Gen. surgery team consulted for gallbladder disease. Orthopedic team following the case for right ankle fracture status There is also some evidence of hepatobiliary disease and possible hepatitis, therefore we will order the test Objective - Vital Signs Vital signs: Vital Signs Temp 99.5 F 08/24/21 07:46 Pulse 116 H 08/24/21 07:46 Resp 16 08/24/21 08:30 BP 111/71 08/24/21 02:00 Pulse Ox 91 L 08/24/21 07:46 Intake & Output 08/23/21 08/24/21 08/24/21 18:59 06:59 18:59 Intake Total 300 Output Total 4400 900 Balance -4100 -900 Intake: Oral 300 Output: Urine 3200 900 Uretheral (Anderson) 1200 Post Void Residual 1200 Other: Voiding Method External Catheter Indwelling Catheter Indwelling Catheter # Bowel Movements 1 - Exam -GENERAL: The patient is alert and oriented x3, lethargic, drowsy not in any acute distress. Well developed, well nourished. HEENT: Pupils are round and equally reacting to light. EOMI. No scleral icterus. No conjunctival pallor. Normocephalic, atraumatic. No pharyngeal erythema. No thyromegaly. CARDIOVASCULAR: S1 and S2 present. No murmurs, rubs, or gallops. PULMONARY: Chest is clear to auscultation, no wheezing or crackles. ABDOMEN: Soft, nontender, nondistended, normoactive bowel sounds. No palpable organomegaly. MUSCULOSKELETAL: No joint swelling or deformity. -EXTREMITIES: No cyanosis, clubbing, or pedal edema. Right ankle in big cast NEUROLOGICAL: Gross neurological examination did not reveal any focal deficits. SKIN: No rashes. no petechiae. - Labs CBC & Chem 7: 08/24/21 04:02 08/24/21 04:02 Labs: Abnormal Lab Results - Last 24 Hours (Table) 08/22/21 08/23/21 08/23/21 Range/Units 15:13 05:35 05:35 WBC (4.50-10.00) X 10*3/uL RBC (4.10-5.20) X 10*6/uL Hgb (12.0-15.0) g/dL Hct (37.2-46.3) % MCV (80.0-97.0) fL MCHC (32.0-37.0) g/dL Immature Gran # (0.00-0.04) X 10*3/uL Neutrophils # (1.80-7.70) X 10*3/uL Monocytes # (0.20-1.00) X 10*3/uL Potassium 3.3 L (3.5-5.5) mmol/L Chloride 87 L (96-109) mmol/L Carbon Dioxide 42.1 H* (20.0-27.5) mmol/L Anion Gap 9.90 L (10.00-18.00) mmol/L Creatinine (0.6-1.5) mg/dL BUN/Creatinine Ratio (12.00-20.00) Ratio Glucose 157 H (70-110) mg/dL POC Glucose (mg/dL) (75-99) mg/dL Albumin/Globulin Ratio 1.41 L (1.60-3.17) g/dL Procalcitonin 0.22 H (0.02-0.09) ng/mL Urine Appearance Cloudy H (Clear) Urine Blood Moderate H (Negative) Urine Nitrite Positive H (Negative) Ur Leukocyte Esterase Small H (Negative) Urine RBC 30 H (0-5) /hpf Ur Squamous Epith Cells 5 H (0-4) /hpf Urine Bacteria Occasional H (None) /hpf Urine Mucus Rare H (None) /hpf Urine Yeast (Budding) Occasional H (None) /hpf 08/23/21 08/23/21 08/23/21 Range/Units 05:35 11:30 16:28 WBC (4.50-10.00) X 10*3/uL RBC (4.10-5.20) X 10*6/uL Hgb (12.0-15.0) g/dL Hct (37.2-46.3) % MCV (80.0-97.0) fL MCHC (32.0-37.0) g/dL Immature Gran # 0.09 H (0.00-0.04) X 10*3/uL Neutrophils # 10.39 H (1.80-7.70) X 10*3/uL Monocytes # 2.06 H (0.20-1.00) X 10*3/uL Potassium (3.5-5.5) mmol/L Chloride (96-109) mmol/L Carbon Dioxide (20.0-27.5) mmol/L Anion Gap (10.00-18.00) mmol/L Creatinine (0.6-1.5) mg/dL BUN/Creatinine Ratio (12.00-20.00) Ratio Glucose (70-110) mg/dL POC Glucose (mg/dL) 213 H 159 H (75-99) mg/dL Albumin/Globulin Ratio (1.60-3.17) g/dL Procalcitonin (0.02-0.09) ng/mL Urine Appearance (Clear) Urine Blood (Negative) Urine Nitrite (Negative) Ur Leukocyte Esterase (Negative) Urine RBC (0-5) /hpf Ur Squamous Epith Cells (0-4) /hpf Urine Bacteria (None) /hpf Urine Mucus (None) /hpf Urine Yeast (Budding) (None) /hpf 08/23/21 08/23/21 08/24/21 Range/Units 21:24 Unknown 04:02 WBC 14.45 H (4.50-10.00) X 10*3/uL RBC 3.30 L (4.10-5.20) X 10*6/uL Hgb 9.8 L (12.0-15.0) g/dL Hct 34.1 L (37.2-46.3) % MCV 103.3 H (80.0-97.0) fL MCHC 28.7 L (32.0-37.0) g/dL Immature Gran # 0.05 H (0.00-0.04) X 10*3/uL Neutrophils # 10.62 H (1.80-7.70) X 10*3/uL Monocytes # 1.94 H (0.20-1.00) X 10*3/uL Potassium (3.5-5.5) mmol/L Chloride (96-109) mmol/L Carbon Dioxide (20.0-27.5) mmol/L Anion Gap (10.00-18.00) mmol/L Creatinine (0.6-1.5) mg/dL BUN/Creatinine Ratio (12.00-20.00) Ratio Glucose (70-110) mg/dL POC Glucose (mg/dL) 187 H (75-99) mg/dL Albumin/Globulin Ratio (1.60-3.17) g/dL Procalcitonin (0.02-0.09) ng/mL Urine Appearance (Clear) Urine Blood Moderate H (Negative) Urine Nitrite (Negative) Ur Leukocyte Esterase (Negative) Urine RBC 27 H (0-5) /hpf Ur Squamous Epith Cells (0-4) /hpf Urine Bacteria Rare H (None) /hpf Urine Mucus Rare H (None) /hpf Urine Yeast (Budding) (None) /hpf 08/24/21 08/24/21 Range/Units 04:02 06:56 WBC (4.50-10.00) X 10*3/uL RBC (4.10-5.20) X 10*6/uL Hgb (12.0-15.0) g/dL Hct (37.2-46.3) % MCV (80.0-97.0) fL MCHC (32.0-37.0) g/dL Immature Gran # (0.00-0.04) X 10*3/uL Neutrophils # (1.80-7.70) X 10*3/uL Monocytes # (0.20-1.00) X 10*3/uL Potassium (3.5-5.5) mmol/L Chloride 89 L (96-109) mmol/L Carbon Dioxide 39.2 H (20.0-27.5) mmol/L Anion Gap (10.00-18.00) mmol/L Creatinine 0.5 L (0.6-1.5) mg/dL BUN/Creatinine Ratio 26.98 H (12.00-20.00) Ratio Glucose 147 H (70-110) mg/dL POC Glucose (mg/dL) 150 H (75-99) mg/dL Albumin/Globulin Ratio (1.60-3.17) g/dL Procalcitonin (0.02-0.09) ng/mL Urine Appearance (Clear) Urine Blood (Negative) Urine Nitrite (Negative) Ur Leukocyte Esterase (Negative) Urine RBC (0-5) /hpf Ur Squamous Epith Cells (0-4) /hpf Urine Bacteria (None) /hpf Urine Mucus (None) /hpf Urine Yeast (Budding) (None) /hpf Microbiology - Last 24 Hours (Table) 08/22/21 21:27 Blood Culture - Preliminary Blood No Growth after 24 hours 08/22/21 21:22 Blood Culture - Preliminary Blood No Growth after 24 hours Assessment and Plan Assessment: S/p mechanical fall and displaced right ankle bimalleolar fracture. Status post splint placement. Fever with possible urinary tract infection versus other black left leg cellulitis or gallbladder disease Hepatic steatosis, versus hepatobiliary disease, rule out hepatitis Urinary retention, status post Anderson catheter placement. Started on Flomax COPD currently on 5 L oxygen via nasal cannula at home. Chronic hypercapnic and hypoxic respiratory failure Morbid obesity BMI 43.9 GERD Osteoarthritis History of migraine headaches History of gallstones Pain history of smoking Plan: This is a pleasant 60 years old female who presents with right ankle fracture status post splint placement, also she has some mild COPD exacerbation, and UTI. Continue with ceftriaxone infectious disease team on the case Orthopedic team on the case Continue with bronchodilator and breathing treatment and monitor oxygen. Labs and medication were reviewed.. Continue same treatment. Continue with symptomatic treatment. Resume home medication. Monitor lytes and vitals. DVT and GI prophylaxis. Further recommendations as per clinical course of the patient DVT prophylaxis: Subcutaneous heparin GI Prophylaxis: Ppi PT/OT: Pending Prognosis is guarded
[2021-08-24 11:12] LABS: Glucose,Whole Blood 161 mg/dL (75-99)
--- NOTE | 2021-08-24 11:47 | P.CNPUL ---
History of Present Illness Consult date: 08/24/21 Requesting physician: Francisco Sahu Reason for consult: hypoxemia, abnormal CXR/CT Chief complaint: Right ankle pain History of present illness: This is a 60-year-old female patient with a known history of morbid obesity, oxygen dependent chronic obstructive pulmonary disease, diabetes mellitus, osteoarthritis. She presented here to the emergency room on 08/22/2021 with complaints of right ankle pain after a fall. White count 14.4. Hemoglobin 9.8. Sodium 140. Potassium 3.7. Creatinine 0.5. Glucose 147. Influenza screen negative. X-rays did reveal a displaced right bimalleolar ankle fracture. She has been placed in a splint by orthopedics. Doppler of the lower extremity ruled out DVT. We were consulted regarding chest x-ray revealing some atelectatic changes. She's also hypercapnic. 2 blood gases revealed a PaO2 of 61, pCO2 85 and a pH of 7.38 on 44% FiO2. She is seen today in consultation on the regular medical floor. She is currently resting comfortably in bed. Laying flat. Denies any worsening shortness of breath, cough or congestion. On 5 L high flow nasal cannula with O2 saturations in the low 90s. She is currently on Symbicort, angularis, DuoNeb inhalations. Antibiotics in the form of ceftriaxone. Heparin for DVT prophylaxis. Review of Systems REVIEW OF SYSTEMS: CONSTITUTIONAL: Denies any recent significant weight loss or weight gain. EYES: Denies change in vision. EARS, NOSE, MOUTH, THROAT: Denies headaches, denies sore throat. CARDIOVASCULAR: Denies chest pain, palpitations or syncopal episodes. RESPIRATORY: Denies shortness of breath, cough, congestion or hemoptysis. GASTROINTESTINAL: Denies change in appetite, denies abdominal pain GENITOURINARY: Denies hematuria, denies infections. MUSKULOSKELETAL: Positive for right ankle pain, swelling. INTEGUMENTARY: Denies rash, denies eczema. NEUROLOGICAL: Denies recent memory loss, no recent seizure activity. PSYCHIATRIC: Denies anxiety, denies depression. HEMATOLOGIC/LYMPHATIC: Denies anemia, denies enlarged lymph nodes. Past Medical History Past Medical History: COPD, GERD/Reflux, Osteoarthritis (OA), Pneumonia Additional Past Medical History / Comment(s): migraines,, sinus and ear problem [id number] ear worse, severe arthritis bilateral knees, constipation, edema lower legs and feet, hemorrhoids, blood in stool at times, gallstones, History of Any Multi-Drug Resistant Organisms: None Reported Past Surgical History: Breast Surgery, Tubal Ligation Additional Past Surgical History / Comment(s): Rt breast biopsies, COLONOSCOPY Past Anesthesia/Blood Transfusion Reactions: Previous Problems w/ Anesthesia Additional Past Anesthesia/Blood Transfusion Reaction / Comment(s): states had diff waking up- "states stopped breathing for a couple seconds" with last colonocopy, "i need a pillow under my head" Past Psychological History: No Psychological Hx Reported Additional Psychological History / Comment(s): . Smoking Status: Former smoker Past Alcohol Use History: None Reported Additional Past Alcohol Use History / Comment(s): HAS BEEN SMOKING SINCE AGE 15, smokes 1 PPD Past Drug Use History: None Reported - Past Family History Mother Family Medical History: No Reported History Additional Family Medical History / Comment(s): . Father History Unknown: Yes Family Medical History: Unable to Obtain Medications and Allergies Home Medications Medication Instructions Recorded Confirmed Type Ergocalciferol [Vitamin D2 50,000 unit PO MARCELINO 08/29/18 08/21/21 History (DRISDOL)] Multivitamins, Thera [Multivitamin 1 tab PO DAILY 07/31/19 08/21/21 History (formulary)] Omeprazole [PriLOSEC] 40 mg PO DAILY 07/05/20 08/21/21 History Potassium Chloride [Klor-Con 20] 20 meq PO TID 07/05/20 08/21/21 History Aspirin EC [Ecotrin Low Dose] 81 mg PO DAILY 10/30/20 08/21/21 History Furosemide [Lasix] 40 mg PO DAILY 10/30/20 08/21/21 History Montelukast [Singulair] 10 mg PO DAILY 10/30/20 08/21/21 History Atorvastatin [Lipitor] 40 mg PO HS 08/21/21 08/21/21 History Chlorthalidone 25 mg PO DAILY 08/21/21 08/21/21 History Gabapentin [Neurontin] 200 mg PO BID 08/21/21 08/21/21 History Hydrocortisone Oint 1 applic TOPICAL TID 08/21/21 08/21/21 History [Hydrocortisone 1% Oint] Hydrocortisone Pr Cream 1 applic RECTAL BID 08/21/21 08/21/21 History [Proctosol-Hc 2.5%] Ipratropium-Albuterol Nebulize 3 ml INHALATION RT-QID PRN 08/21/21 08/21/21 History [Duoneb 0.5 mg-3 mg/3 ml Soln] Pramipexole [Mirapex] 0.125 mg PO HS 08/21/21 08/21/21 History traMADol HCL [Ultram] 50 mg PO BID PRN 08/21/21 08/21/21 History Allergies Allergy/AdvReac Type Severity Reaction Status Date / Time No Known Allergies Allergy Verified 08/21/21 19:19 Physical Exam Vitals: Vital Signs Temp Pulse Resp BP Pulse Ox 08/24/21 08:30 16 08/24/21 07:46 99.5 F 116 H 16 91 L 08/24/21 07:14 94 L 08/24/21 02:00 99.9 F H 116 H 21 111/71 93 L 08/23/21 20:00 98.5 F 65 19 108/69 95 08/23/21 14:00 99.1 F 100 19 137/89 96 08/23/21 12:14 16 08/23/21 12:00 93 L Intake and Output 08/23/21 08/24/21 08/24/21 22:59 06:59 14:59 Intake Total 100 Output Total 4400 900 400 Balance -4300 -900 -400 Intake: Oral 100 Output: Urine 3200 900 400 Uretheral (Anderson) 1200 Post Void Residual 1200 Other: Voiding Method Indwelling Catheter Indwelling Catheter # Bowel Movements 1 GENERAL EXAM: Alert, morbidly obese 60-year-old female patient on 5 L nasal cannula, comfortable in no apparent distress. HEAD: Normocephalic. EYES: Normal reaction of pupils, equal size. NOSE: Clear with pink turbinates. THROAT: No erythema or exudates. NECK: No masses, no JVD. CHEST: No chest wall deformity. LUNGS: Equal air entry with no crackles, wheeze, rhonchi or dullness. CVS: S1 and S2 normal with no audible murmur, regular rhythm. ABDOMEN: No hepatosplenomegaly, normal bowel sounds, no guarding or rigidity. SPINE: No scoliosis or deformity SKIN: No rashes CENTRAL NERVOUS SYSTEM: No focal deficits, tone is normal in all 4 extremities. EXTREMITIES: Splint the right lower extremity and ankle. Peripheral pulses are intact. Results - Laboratory Findings CBC and BMP: 08/24/21 04:02 08/24/21 04:02 ABG ABG pH 7.38 (7.35-7.45) 08/22/21 12:35 ABG pCO2 85 mmHg (35-45) H* 08/22/21 12:35 ABG pO2 61 mmHg (83-108) L 08/22/21 12:35 ABG O2 Saturation 90.3 % (94-97) L 08/22/21 12:35 Abnormal lab findings: Abnormal Labs 08/22/21 08/22/21 08/22/21 10:50 10:50 12:35 WBC 11.9 H RBC Hgb Hct MCV MCHC 30.5 L Immature Gran # Neutrophils # 9.7 H Monocytes # ABG pCO2 85 H* ABG pO2 61 L ABG HCO3 50 H* ABG Total CO2 53 H ABG O2 Saturation 90.3 L Potassium Chloride 86 L Carbon Dioxide 43 H* Anion Gap Creatinine BUN/Creatinine Ratio Glucose 216 H POC Glucose (mg/dL) Albumin/Globulin Ratio Procalcitonin Urine Appearance Urine Blood Urine Nitrite Ur Leukocyte Esterase Urine RBC Ur Squamous Epith Cells Urine Bacteria Urine Mucus Urine Yeast (Budding) 08/22/21 08/22/21 08/22/21 15:13 17:14 23:07 WBC RBC Hgb Hct MCV MCHC Immature Gran # Neutrophils # Monocytes # ABG pCO2 ABG pO2 ABG HCO3 ABG Total CO2 ABG O2 Saturation Potassium Chloride Carbon Dioxide Anion Gap Creatinine BUN/Creatinine Ratio Glucose POC Glucose (mg/dL) 187 H 177 H Albumin/Globulin Ratio Procalcitonin Urine Appearance Cloudy H Urine Blood Moderate H Urine Nitrite Positive H Ur Leukocyte Esterase Small H Urine RBC 30 H Ur Squamous Epith Cells 5 H Urine Bacteria Occasional H Urine Mucus Rare H Urine Yeast (Budding) Occasional H 08/23/21 08/23/21 08/23/21 05:35 05:35 05:35 WBC 14.18 H RBC 3.56 L Hgb 10.5 L Hct 35.7 L MCV 100.3 H MCHC 29.4 L Immature Gran # 0.09 H Neutrophils # 10.39 H Monocytes # 2.06 H ABG pCO2 ABG pO2 ABG HCO3 ABG Total CO2 ABG O2 Saturation Potassium 3.3 L Chloride 87 L Carbon Dioxide 42.1 H* Anion Gap 9.90 L Creatinine BUN/Creatinine Ratio Glucose 157 H POC Glucose (mg/dL) Albumin/Globulin Ratio 1.41 L Procalcitonin 0.22 H Urine Appearance Urine Blood Urine Nitrite Ur Leukocyte Esterase Urine RBC Ur Squamous Epith Cells Urine Bacteria Urine Mucus Urine Yeast (Budding) 08/23/21 08/23/21 08/23/21 06:50 11:30 16:28 WBC RBC Hgb Hct MCV MCHC Immature Gran # Neutrophils # Monocytes # ABG pCO2 ABG pO2 ABG HCO3 ABG Total CO2 ABG O2 Saturation Potassium Chloride Carbon Dioxide Anion Gap Creatinine BUN/Creatinine Ratio Glucose POC Glucose (mg/dL) 181 H 213 H 159 H Albumin/Globulin Ratio Procalcitonin Urine Appearance Urine Blood Urine Nitrite Ur Leukocyte Esterase Urine RBC Ur Squamous Epith Cells Urine Bacteria Urine Mucus Urine Yeast (Budding) 08/23/21 08/23/21 08/24/21 21:24 Unknown 04:02 WBC 14.45 H RBC 3.30 L Hgb 9.8 L Hct 34.1 L MCV 103.3 H MCHC 28.7 L Immature Gran # 0.05 H Neutrophils # 10.62 H Monocytes # 1.94 H ABG pCO2 ABG pO2 ABG HCO3 ABG Total CO2 ABG O2 Saturation Potassium Chloride Carbon Dioxide Anion Gap Creatinine BUN/Creatinine Ratio Glucose POC Glucose (mg/dL) 187 H Albumin/Globulin Ratio Procalcitonin Urine Appearance Urine Blood Moderate H Urine Nitrite Ur Leukocyte Esterase Urine RBC 27 H Ur Squamous Epith Cells Urine Bacteria Rare H Urine Mucus Rare H Urine Yeast (Budding) 08/24/21 08/24/21 08/24/21 04:02 06:56 11:11 WBC RBC Hgb Hct MCV MCHC Immature Gran # Neutrophils # Monocytes # ABG pCO2 ABG pO2 ABG HCO3 ABG Total CO2 ABG O2 Saturation Potassium Chloride 89 L Carbon Dioxide 39.2 H Anion Gap Creatinine 0.5 L BUN/Creatinine Ratio 26.98 H Glucose 147 H POC Glucose (mg/dL) 150 H 161 H Albumin/Globulin Ratio Procalcitonin Urine Appearance Urine Blood Urine Nitrite Ur Leukocyte Esterase Urine RBC Ur Squamous Epith Cells Urine Bacteria Urine Mucus Urine Yeast (Budding) - Diagnostic Findings Chest x-ray: image reviewed Assessment and Plan Assessment: 1 Fall with right ankle injury found to have a displaced right bimalleolar ankle fracture, status post splint placement 2 Chronic hypercapnic respiratory failure with compensation per pH 3 Chronic hypoxemic respiratory failure secondary to COPD 4 Morbid obesity, BMI 43.9 kg/m 4 Diabetes mellitus 5 Gastroesophageal reflux disease 6 Osteoarthritis 7 Former smoker Plan: The patient was seen and evaluated Chest x-ray, ABGs and labs reviewed She does have compensated hypercapnia Continue to titrate the FiO2 to maintain O2 saturations greater than 88% May utilize BiPAP if difficult to arouse Continue Symbicort, Singulair, DuoNeb's Titrate the FiO2 as tolerated Increase her activity as tolerated We will continue to follow and make further recommendations based on her clinical status I, the cosigning physician, performed a history & physical examination of the patient. Lungs sounds are clear. Maintaining good O2 saturations in the 90s on 5 L high flow nasal cannula. I discussed the assessment and plan of care with my nurse practitioner, Elizabeth Brink. I attest to the above consultation as dictated by her. Time with Patient: Greater than 30
--- NOTE | 2021-08-24 12:09 | XR ---
EXAMINATION TYPE: XR chest 1V DATE OF EXAM: 08/24/2021 COMPARISON: 08/22/2021 HISTORY: Fever TECHNIQUE: Single frontal view of the chest is obtained. FINDINGS: Heart is enlarged and there is a coarsened interstitium. No pleural effusion or pneumothor ax. Atherosclerotic change aorta. IMPRESSION: Cardiomegaly correlate for chronic interstitial lung disease, bronchitis or interstitial pneumonitis.
--- NOTE | 2021-08-24 14:22 | CDI ---
Documentation Clarification Form Date: 08/24/2021 02:00:00 PM From: Kely Mac RN CCDS Admit Date: 08/23/2021 10:45:00 AM Patient Name: Chante Boston Visit Number: [id number] Discharge Date: ATTENTION: The Clinical Documentation Specialists (CDI) and [facility] Coding Staff appreciate your assistance in clarifying documentation. Please respond to the clarification below the line at the bottom and electronically sign. The CDI & [facility] Coding staff will review the response and follow-up if needed. Please note: Queries are made part of the Legal Health Record. If you have any questions, please contact the author of this message via ITS. Dr. Francisco Sahu Sepsis documented in Medicine progress note 08/24. Additional clarification regarding the etiology/cause of the clinical indicators is requested. History/Risk Factors: 60-year-old female presents to the ED after a fall a displaced malleolar fracture. Medical History COPD, GERD and chronic respiratory failure. Medicine consult, 08/22. Clinical Indicators: WBC: 08/22 11.9 Blood cultures: 08/23 No growth after 24 hours. Vitals signs: 08/22 Temp 101.0 F Axillary; B/P 153/93; HR 122; RR 20; SpO2 91% 15L High Flow UA: 08/22 Nitrate Positive; Leukocyte Esterase small; RBC 30. Treatment: ID Consult: 08/23 This patient did have a mildly positive UA. Chest xray did not show any pneumonia with low grade fever possibly related to the injury less likely abdominal source. Antibiotics: 08/23 Ceftriaxone Sodium 1gm IVPB Q24HR In your professional opinion, please clarify if these findings signify one of the following conditions: [ ] Sepsis POA [ ] Sepsis, Not POA [ ] Sepsis ruled out [ ] Other, please specify [ ] Unable to determine SIRS Criteria: 2 or more of the following may indicate SIRS -Temperature < 96.8F (36C) or > 101.0F (38.3C) -Heart Rate > 90 bpm -Respiratory Rate > 20 breaths/min or PaCO2 < 32 mmHg -White Blood Cell Count > 12,000 or < 4,000 cells/mm3 or > 10% bands (Template Last Reviewed: August 2020) Possible Sepsis with leukocytosis and fever MTDD
--- NOTE | 2021-08-24 14:51 | P.GSCN ---
History of Present Illness Consult date: 08/24/21 History of present illness: CHIEF COMPLAINT: Right ankle pain HISTORY OF PRESENT ILLNESS: This is a 60-year-old female who presented to the hospital for right ankle pain after a fall. She had evidence of a displaced right bimalleolar ankle fracture on x-ray. She was admitted to orthopedic service. They have the right ankle in a splint. Surgical service was consult blood in regards to patient's cholelithiasis. Patient had an elevated white count and fever during her admission. An abdominal ultrasound was completed showing evidence of gallstones. Patient denies any abdominal pain. She is tolerating diet with no nausea or vomiting. On exam however she does have some mild right upper quadrant tenderness. She did have a low-grade temp of 99.9. She has been mildly tachycardic. And has evidence of leukocytosis. She is on antibiotics. Patient seen and examined with Dr. smith PAST MEDICAL HISTORY: COPD, GERD/Reflux, Osteoarthritis (OA), Pneumonia PAST SURGICAL HISTORY: Breast Surgery, Tubal Ligation MEDICATIONS: See list. ALLERGIES: See list. SOCIAL HISTORY: No illicit drug use. REVIEW OF SYSTEMS: CONSTITUTIONAL: Denies fever or chills. HEENT: Denies blurred vision, vision changes, or eye pain. Denies hemoptysis CARDIOVASCULAR: Denies chest pain or pressure. RESPIRATORY: No shortness of breath. GASTROINTESTINAL: See HPI for pertinent findings HEMATOLOGIC: Denies bleeding disorders. GENITOURINARY: Denies any blood in urine or increased urinary frequency. SKIN: Denies pruitis. Denies rash. PHYSICAL EXAM: VITAL SIGNS: Reviewed GENERAL: Well-developed in no acute distress. HEENT: No sclera icterus. Extraocular movements grossly intact. Moist buccal mucosa. Head is atraumatic, normocephalic. No nasal drainage. ABDOMEN: Soft. Obese. Nondistended. Tender to palpation of the right upper quadrant NEUROLOGIC: Alert and oriented. Cranial nerves II through XII grossly intact. LABORATORY DATA: WBC is trending upwards of 14.45 hemoglobin 9.8 platelets 213 Sodium is 140 potassium is 3.7, CO2 39.2 creatinine 0.5 LFTs and total bilirubin are normal Protocol calcitonin is 0.22 COVID-19 and influenza screening are negative IMAGING: Abdominal ultrasound shows cholelithiasis. CBD is obscured by bowel gas. Hepa tomegaly with nonspecific pattern to the liver can be associated with hepatitis or hepatic steatosis. Correlate clinically. ASSESSMENT: 1. Acute on chronic cholecystitis 2. Right upper quadrant pain with cholelithiasis PLAN: -Recommend outpatient cholecystectomy when patient is medically stable -Continue antibiotics -Continue supportive care -Follow up on labs in a.m. Thank you for this consultation Physician Hasher Operator note has been reviewed by physician. Signing provider agrees with the documented findings, assessment, and plan of care. Past Medical History Past Medical History: COPD, GERD/Reflux, Osteoarthritis (OA), Pneumonia Additional Past Medical History / Comment(s): migraines,, sinus and ear [id number] ear worse, severe arthritis bilateral knees, constipation, edema lower legs and feet, hemorrhoids, blood in stool at times, gallstones, History of Any Multi-Drug Resistant Organisms: None Reported Past Surgical History: Breast Surgery, Tubal Ligation Additional Past Surgical History / Comment(s): Rt breast biopsies, COLONOSCOPY Past Anesthesia/Blood Transfusion Reactions: Previous Problems w/ Anesthesia Additional Past Anesthesia/Blood Transfusion Reaction / Comm: states had diff waking up- "states stopped breathing for a couple seconds" with last colonocopy, "i need a pillow under my head" Past Psychological History: No Psychological Hx Reported Additional Psychological History / Comment(s): . Smoking Status: Former smoker Past Alcohol Use History: None Reported Additional Past Alcohol Use History / Comment(s): HAS BEEN SMOKING SINCE AGE 15, smokes 1 PPD Past Drug Use History: None Reported - Past Family History Mother Family Medical History: No Reported History Additional Family Medical History / Comment(s): . Father History Unknown: Yes Family Medical History: Unable to Obtain Medications and Allergies Home Medications Medication Instructions Recorded Confirmed Type Ergocalciferol [Vitamin D2 50,000 unit PO MARCELINO 08/29/18 08/21/21 History (DRISDOL)] Multivitamins, Thera [Multivitamin 1 tab PO DAILY 07/31/19 08/21/21 History (formulary)] Omeprazole [PriLOSEC] 40 mg PO DAILY 07/05/20 08/21/21 History Potassium Chloride [Klor-Con 20] 20 meq PO TID 07/05/20 08/21/21 History Aspirin EC [Ecotrin Low Dose] 81 mg PO DAILY 10/30/20 08/21/21 History Furosemide [Lasix] 40 mg PO DAILY 10/30/20 08/21/21 History Montelukast [Singulair] 10 mg PO DAILY 10/30/20 08/21/21 History Atorvastatin [Lipitor] 40 mg PO HS 08/21/21 08/21/21 History Chlorthalidone 25 mg PO DAILY 08/21/21 08/21/21 History Gabapentin [Neurontin] 200 mg PO BID 08/21/21 08/21/21 History Hydrocortisone Oint 1 applic TOPICAL TID 08/21/21 08/21/21 History [Hydrocortisone 1% Oint] Hydrocortisone Pr Cream 1 applic RECTAL BID 08/21/21 08/21/21 History [Proctosol-Hc 2.5%] Ipratropium-Albuterol Nebulize 3 ml INHALATION RT-QID PRN 08/21/21 08/21/21 History [Duoneb 0.5 mg-3 mg/3 ml Soln] Pramipexole [Mirapex] 0.125 mg PO HS 08/21/21 08/21/21 History traMADol HCL [Ultram] 50 mg PO BID PRN 08/21/21 08/21/21 History Allergies Allergy/AdvReac Type Severity Reaction Status Date / Time No Known Allergies Allergy Verified 08/21/21 19:19 Surgical - Exam Vital Signs Temp Pulse Resp BP Pulse Ox 97.5 F L 96 16 123/74 91 L 08/21/21 18:12 08/21/21 18:12 08/21/21 18:12 08/21/21 18:12 08/21/21 18:12 Results - Labs 08/24/21 04:02 08/24/21 04:02 Abnormal Lab Results - Last 24 Hours (Table) 08/22/21 08/23/21 08/23/21 Range/Units 15:13 16:28 21:24 WBC (4.50-10.00) X 10*3/uL RBC (4.10-5.20) X 10*6/uL Hgb (12.0-15.0) g/dL Hct (37.2-46.3) % MCV (80.0-97.0) fL MCHC (32.0-37.0) g/dL Immature Gran # (0.00-0.04) X 10*3/uL Neutrophils # (1.80-7.70) X 10*3/uL Monocytes # (0.20-1.00) X 10*3/uL Chloride (96-109) mmol/L Carbon Dioxide (20.0-27.5) mmol/L Creatinine (0.6-1.5) mg/dL BUN/Creatinine Ratio (12.00-20.00) Ratio Glucose (70-110) mg/dL POC Glucose (mg/dL) 159 H 187 H (75-99) mg/dL Urine Appearance Cloudy H (Clear) Urine Blood Moderate H (Negative) Urine Nitrite Positive H (Negative) Ur Leukocyte Esterase Small H (Negative) Urine RBC 30 H (0-5) /hpf Ur Squamous Epith Cells 5 H (0-4) /hpf Urine Bacteria Occasional H (None) /hpf Urine Mucus Rare H (None) /hpf Urine Yeast (Budding) Occasional H (None) /hpf 08/23/21 08/24/21 08/24/21 Range/Units Unknown 04:02 04:02 WBC 14.45 H (4.50-10.00) X 10*3/uL RBC 3.30 L (4.10-5.20) X 10*6/uL Hgb 9.8 L (12.0-15.0) g/dL Hct 34.1 L (37.2-46.3) % MCV 103.3 H (80.0-97.0) fL MCHC 28.7 L (32.0-37.0) g/dL Immature Gran # 0.05 H (0.00-0.04) X 10*3/uL Neutrophils # 10.62 H (1.80-7.70) X 10*3/uL Monocytes # 1.94 H (0.20-1.00) X 10*3/uL Chloride 89 L (96-109) mmol/L Carbon Dioxide 39.2 H (20.0-27.5) mmol/L Creatinine 0.5 L (0.6-1.5) mg/dL BUN/Creatinine Ratio 26.98 H (12.00-20.00) Ratio Glucose 147 H (70-110) mg/dL POC Glucose (mg/dL) (75-99) mg/dL Urine Appearance (Clear) Urine Blood Moderate H (Negative) Urine Nitrite (Negative) Ur Leukocyte Esterase (Negative) Urine RBC 27 H (0-5) /hpf Ur Squamous Epith Cells (0-4) /hpf Urine Bacteria Rare H (None) /hpf Urine Mucus Rare H (None) /hpf Urine Yeast (Budding) (None) /hpf 08/24/21 08/24/21 Range/Units 06:56 11:11 WBC (4.50-10.00) X 10*3/uL RBC (4.10-5.20) X 10*6/uL Hgb (12.0-15.0) g/dL Hct (37.2-46.3) % MCV (80.0-97.0) fL MCHC (32.0-37.0) g/dL Immature Gran # (0.00-0.04) X 10*3/uL Neutrophils # (1.80-7.70) X 10*3/uL Monocytes # (0.20-1.00) X 10*3/uL Chloride (96-109) mmol/L Carbon Dioxide (20.0-27.5) mmol/L Creatinine (0.6-1.5) mg/dL BUN/Creatinine Ratio (12.00-20.00) Ratio Glucose (70-110) mg/dL POC Glucose (mg/dL) 150 H 161 H (75-99) mg/dL Urine Appearance (Clear) Urine Blood (Negative) Urine Nitrite (Negative) Ur Leukocyte Esterase (Negative) Urine RBC (0-5) /hpf Ur Squamous Epith Cells (0-4) /hpf Urine Bacteria (None) /hpf Urine Mucus (None) /hpf Urine Yeast (Budding) (None) /hpf Microbiology - Last 24 Hours (Table) 08/22/21 21:27 Blood Culture - Preliminary Blood No Growth after 24 hours 08/22/21 21:22 Blood Culture - Preliminary Blood No Growth after 24 hours Diabetes panel 08/24/21 Range/Units 04:02 Sodium 140 (135-145) mmol/L Potassium 3.7 (3.5-5.5) mmol/L Chloride 89 L (96-109) mmol/L Carbon Dioxide 39.2 H (20.0-27.5) mmol/L BUN 13.6 (9.0-27.0) mg/dL Creatinine 0.5 L (0.6-1.5) mg/dL Glucose 147 H (70-110) mg/dL Calcium 9.0 (8.7-10.3) mg/dL Calcium panel 08/24/21 Range/Units 04:02 Calcium 9.0 (8.7-10.3) mg/dL Pituitary panel 08/24/21 Range/Units 04:02 Sodium 140 (135-145) mmol/L Potassium 3.7 (3.5-5.5) mmol/L Chloride 89 L (96-109) mmol/L Carbon Dioxide 39.2 H (20.0-27.5) mmol/L BUN 13.6 (9.0-27.0) mg/dL Creatinine 0.5 L (0.6-1.5) mg/dL Glucose 147 H (70-110) mg/dL Calcium 9.0 (8.7-10.3) mg/dL Adrenal panel 08/24/21 Range/Units 04:02 Sodium 140 (135-145) mmol/L Potassium 3.7 (3.5-5.5) mmol/L Chloride 89 L (96-109) mmol/L Carbon Dioxide 39.2 H (20.0-27.5) mmol/L BUN 13.6 (9.0-27.0) mg/dL Creatinine 0.5 L (0.6-1.5) mg/dL Glucose 147 H (70-110) mg/dL Calcium 9.0 (8.7-10.3) mg/dL
[2021-08-24 16:00] LABS: Glucose,Whole Blood 164 mg/dL (75-99)
[2021-08-24 16:27] LABS: Hepatitis A Antibody IgM Nonreactive (Nonreactive); Hepatitis B Core IgM Nonreactive (Nonreactive); Hepatitis B Surface Antigen Nonreactive (Nonreactive); Hepatitis C IgG Antibody Nonreactive (Nonreactive)
[2021-08-24 21:06] LABS: Glucose,Whole Blood 144 mg/dL (75-99)
[2021-08-24] MEDS: HYDROmorphone 1 MG/ML 1 ML SYRINGE IVP PRN (21:17)
[2021-08-24] MEDS: ATORVASTATIN 40 MG TAB PO SCH (21:18)
[2021-08-24] MEDS: TAMSULOSIN 0.4 MG CAP.ER.24H PO SCH (21:18)
[2021-08-24] MEDS: PRAMIPEXOLE 0.125 MG TAB PO SCH (21:18)
--- NOTE | 2021-08-24 21:34 | P.PN ---
Subjective Progress Note Date: 08/24/21 Principal diagnosis: Fever Patient is a 60-year-old female presented to hospital after the patient did have of all with resulting right ankle fracture, the patient did blank ve a fever. On today's evaluation that is 08/24/2021 the patient overall fever pattern has improved with a T-max of 99.9F, patient is more awake and alert she is breathing comfortably denies any chest pain shortness with occasional cough. Denies any abdominal pain no nausea vomiting has been complaining of pain mostly to the right ankle area and no diarrhea Objective - Vital Signs Vital signs: Vital Signs Temp 99.5 F 08/24/21 07:46 Pulse 116 H 08/24/21 07:46 Resp 16 08/24/21 08:30 BP 111/71 08/24/21 02:00 Pulse Ox 91 L 08/24/21 07:46 Intake & Output 08/23/21 08/24/21 08/24/21 18:59 06:59 18:59 Intake Total 300 Output Total 4400 900 400 Balance -4100 -900 -400 Intake: Oral 300 Output: Urine 3200 900 400 Uretheral (Anderson) 1200 Post Void Residual 1200 Other: Voiding Method External Catheter Indwelling Catheter Indwelling Catheter # Bowel Movements 1 - Exam GENERAL DESCRIPTION: A middle-aged female lying in bed in no distress RESPIRATORY SYSTEM: Unlabored breathing , decreased breath sounds at bases HEART: S1 S2 regular rate and rhythm , ABDOMEN: Soft , no tenderness EXTREMITIES: Right leg is currently covered in the cast - Labs CBC & Chem 7: 08/24/21 04:02 08/24/21 04:02 Labs: Abnormal Lab Results - Last 24 Hours (Table) 08/22/21 08/23/21 08/23/21 Range/Units 15:13 05:35 11:30 WBC (4.50-10.00) X 10*3/uL RBC (4.10-5.20) X 10*6/uL Hgb (12.0-15.0) g/dL Hct (37.2-46.3) % MCV (80.0-97.0) fL MCHC (32.0-37.0) g/dL Immature Gran # 0.09 H (0.00-0.04) X 10*3/uL Neutrophils # 10.39 H (1.80-7.70) X 10*3/uL Monocytes # 2.06 H (0.20-1.00) X 10*3/uL Chloride (96-109) mmol/L Carbon Dioxide (20.0-27.5) mmol/L Creatinine (0.6-1.5) mg/dL BUN/Creatinine Ratio (12.00-20.00) Ratio Glucose (70-110) mg/dL POC Glucose (mg/dL) 213 H (75-99) mg/dL Urine Appearance Cloudy H (Clear) Urine Blood Moderate H (Negative) Urine Nitrite Positive H (Negative) Ur Leukocyte Esterase Small H (Negative) Urine RBC 30 H (0-5) /hpf Ur Squamous Epith Cells 5 H (0-4) /hpf Urine Bacteria Occasional H (None) /hpf Urine Mucus Rare H (None) /hpf Urine Yeast (Budding) Occasional H (None) /hpf 08/23/21 08/23/21 08/23/21 Range/Units 16:28 21:24 Unknown WBC (4.50-10.00) X 10*3/uL RBC (4.10-5.20) X 10*6/uL Hgb (12.0-15.0) g/dL Hct (37.2-46.3) % MCV (80.0-97.0) fL MCHC (32.0-37.0) g/dL Immature Gran # (0.00-0.04) X 10*3/uL Neutrophils # (1.80-7.70) X 10*3/uL Monocytes # (0.20-1.00) X 10*3/uL Chloride (96-109) mmol/L Carbon Dioxide (20.0-27.5) mmol/L Creatinine (0.6-1.5) mg/dL BUN/Creatinine Ratio (12.00-20.00) Ratio Glucose (70-110) mg/dL POC Glucose (mg/dL) 159 H 187 H (75-99) mg/dL Urine Appearance (Clear) Urine Blood Moderate H (Negative) Urine Nitrite (Negative) Ur Leukocyte Esterase (Negative) Urine RBC 27 H (0-5) /hpf Ur Squamous Epith Cells (0-4) /hpf Urine Bacteria Rare H (None) /hpf Urine Mucus Rare H (None) /hpf Urine Yeast (Budding) (None) /hpf 08/24/21 08/24/21 08/24/21 Range/Units 04:02 04:02 06:56 WBC 14.45 H (4.50-10.00) X 10*3/uL RBC 3.30 L (4.10-5.20) X 10*6/uL Hgb 9.8 L (12.0-15.0) g/dL Hct 34.1 L (37.2-46.3) % MCV 103.3 H (80.0-97.0) fL MCHC 28.7 L (32.0-37.0) g/dL Immature Gran # 0.05 H (0.00-0.04) X 10*3/uL Neutrophils # 10.62 H (1.80-7.70) X 10*3/uL Monocytes # 1.94 H (0.20-1.00) X 10*3/uL Chloride 89 L (96-109) mmol/L Carbon Dioxide 39.2 H (20.0-27.5) mmol/L Creatinine 0.5 L (0.6-1.5) mg/dL BUN/Creatinine Ratio 26.98 H (12.00-20.00) Ratio Glucose 147 H (70-110) mg/dL POC Glucose (mg/dL) 150 H (75-99) mg/dL Urine Appearance (Clear) Urine Blood (Negative) Urine Nitrite (Negative) Ur Leukocyte Esterase (Negative) Urine RBC (0-5) /hpf Ur Squamous Epith Cells (0-4) /hpf Urine Bacteria (None) /hpf Urine Mucus (None) /hpf Urine Yeast (Budding) (None) /hpf Microbiology - Last 24 Hours (Table) 08/22/21 21:27 Blood Culture - Preliminary Blood No Growth after 24 hours 08/22/21 21:22 Blood Culture - Preliminary Blood No Growth after 24 hours Assessment and Plan (1) Fever Current Visit: Yes Status: Acute Code(s): R50.9 - FEVER, UNSPECIFIED SNOMED Code(s): 109816634 Plan: 1-Patient with an episode of fever in this patient presented to hospital with a fall and did have a right ankle fracture currently being treated conservatively with no plan for surgical intervention in this patient did have mildly positive UA chest x-ray did not show any pneumonia with a low-grade fever possibly related to the injury less likely abdominal source, patient influenza PCR came back negative, abdominal ultrasound with cholelithiasis but no evidence of any cholecystitis, patient culture remains to be negative to continue with Rocephin and monitor clinical course closely Time with Patient: Less than 30
[2021-08-24] MEDS: SODIUM CHLORIDE 0.9% 1,000 ML IV SCH ×2 (23:00→23:02)
[2021-08-25] MEDS: ACETAMINOPHEN TAB 325 MG TAB PO PRN ×3 (00:52→17:38)
[2021-08-25 07:11] LABS: Glucose,Whole Blood 180 mg/dL (75-99)
[2021-08-25] MEDS: HEPARIN SODIUM,PORCINE/PF 5,000 UNIT/0.5 ML SYRINGE SQ SCH ×2 (08:19→17:10)
[2021-08-25] MEDS: MONTELUKAST 10 MG TAB PO SCH (08:19)
[2021-08-25] MEDS: FUROSEMIDE 40 MG TAB PO SCH (08:19)
[2021-08-25] MEDS: INSULIN ASPART (NovoLOG) 100 UNIT/ML VIAL SQ SCH ×3 (08:19→17:10)
[2021-08-25] MEDS: PANTOPRAZOLE 40 MG TABLET PO SCH (08:19)
[2021-08-25] MEDS: ASPIRIN 81 MG PO SCH (08:19)
[2021-08-25] MEDS: POTASSIUM CHLORIDE ER 20 MEQ TAB.ER PO SCH ×2 (08:19→17:11)
[2021-08-25] MEDS: GABAPENTIN 100 MG CAP PO SCH (08:19)
[2021-08-25] MEDS: IPRATROPIUM-ALBUTEROL 3 ML NEB INHALATION SCH ×3 (08:49→16:48)
[2021-08-25] MEDS: SYMBICORT 160-4.5 MCG INHALER INHALATION SCH (08:49)
[2021-08-25] MEDS: SODIUM CHLORIDE 0.9% 1,000 ML IV SCH (09:10)
[2021-08-25] MEDS: HYDROmorphone 1 MG/ML 1 ML SYRINGE IVP PRN (09:16)
--- NOTE | 2021-08-25 09:27 | P.PN ---
Progress Note - Text Progress Note Date: 08/25/21 Patient remained stable. On exam vital signs are stable. Abdomen soft. There is minimal tenderness from quadrant. Chronic cholecystitis. Patient was discharged home and follow-up as an outpatient for laparoscopically cholecystectomy once her overall condition is improved.
[2021-08-25 10:49] LABS: Basophils # (A) 0.05 X 10*3/uL (0.00-0.10); Basophils % (A) 0.4 %; Eosinophils # (A) 0.09 X 10*3/uL (0.04-0.35); Eosinophils % (A) 0.7 %; HCT 33.5 % (37.2-46.3); HGB 9.4 g/dL (12.0-15.0); Immature Grans, Automated 0.4 %; Lymphocytes % (A) 10.1 %; MCHC 28.1 g/dL (32.0-37.0); MCV 103.4 fL (80.0-97.0); Mean Platelet Volume 10.7 fL (9.5-12.2); Monocytes # (A) 1.76 X 10*3/uL (0.20-1.00); Monocytes % (A) 12.7 %; NRBC Per 100 WBC 0 /100 WBCS (0.0-0.0); Neutrophils # (A) 10.47 X 10*3/uL (1.80-7.70); Neutrophils % (A) 75.7 %; Platelet Count 231 X 10*3/uL (140-440); RBC 3.24 X 10*6/uL (4.10-5.20); RDW 13.1 % (11.5-14.5); WBC 13.83 X 10*3/uL (4.50-10.00)
[2021-08-25 11:01] LABS: African American GFR (CKD) 121.9 (60.0-200.0); Anion Gap 12.5 mmol/L (10.00-18.00); BUN/Creat Ratio 24.07 Ratio (12.00-20.00); Blood Urea Nitrogen 12.3 mg/dL (9.0-27.0); C Reactive Protein 28.3 mg/dL (0.00-0.80); Calcium 9.1 mg/dL (8.7-10.3); Carbon Dioxide 37.1 mmol/L (20.0-27.5); Non-African American GFR(CKD) 105.2 (60.0-200.0); Potassium 3.9 mmol/L (3.5-5.5)
[2021-08-25 11:10] LABS: Glucose,Whole Blood 197 mg/dL (75-99)
--- NOTE | 2021-08-25 14:01 | P.DS ---
Providers Date of admission: 08/23/21 10:45 Attending physician: Domingo Pascual Consults: 08/21/21 20:19 Consult Physician Routine Consulting Provider: Chris De La Cruz Consult Reason/Comments: Right ankle bimalleolar fracture Do you want consulting provider notified?: Yes 08/22/21 13:25 Consult Physician Routine Consulting Provider: Joe Xiong Consult Reason/Comments: COPD, hypercapnea Do you want consulting provider notified?: Already Contacted 08/23/21 15:56 Consult Physician Urgent Consulting Provider: Ej Connell Consult Reason/Comments: fever Do you want consulting provider notified?: Yes 08/24/21 10:25 Consult Physician Urgent Consulting Provider: Richard Guardado Consult Reason/Comments: GB dis Do you want consulting provider notified?: Yes Primary care physician: [facility] Course: Diagnoses: S/p mechanical fall and displaced right ankle bimalleolar fracture. Status post splint placement. Fever with possible urinary tract infection versus others: left leg cellulitis or gallbladder disease Hepatic steatosis, versus hepatobiliary disease, acute hepatitis panel was negative Urinary retention, status post Anderson catheter placement. Started on Flomax COPD currently on 5 L oxygen via nasal cannula at home. Chronic hypercapnic and hypoxic respiratory failure Morbid obesity BMI 43.9 GERD Osteoarthritis History of migraine headaches History of gallstones Pain history of smoking Hospital course: Patient is a 60-year-old female with known history of COPD on oxygen at 6 L via nasal cannula at home, morbid obesity BMI 43.9, GERD, osteoarthritis and migraine headaches and previous history of smoking presents to ER with complaints of right ankle pain status post fall at home. Patient states that she stood up from her chair to using bathroom but did not take her walker and also her leg tangled into the rug, lost her balance and twisted her right ankle. Denied any complaints of dizziness or lightheadedness. Patient was found to have displaced right bimalleolar ankle fracture. Patient is status post splint placement by orthopedic surgery. Also patient has been running fever and mild leukocytosis, infection is suspected including UTI versus left leg cellulitis, she has urinary retention more than 1200 mL and Anderson catheter inserted and Flomax added. Left leg venous Doppler was negative for DVT. History left leg today show no erythema or swelling but only mild tenderness which is improving. Left foot x-rays negative for fracture. Also infectious disease team were consulted, who recommended ultrasound of the abdomen which shows gallbladder stones, surgical team with Dr. vivas suspect acute cholecystitis with only mild tenderness, no nausea vomiting. And he recommended outpatient cholecystectomy, patient informed and she agrees. On the day of discharge patient feels much better, no fever since yesterday, mildly tachycardic and 106. Hemodynamically stable. She is saturating 94% on 5 L oxygen via nasal cannula most likely related to her history of COPD, which is compensated now and evaluated by route jumper. She is fully awake and oriented, she denies chest pain or dyspnea or coughing. No abdominal pain or vomiting or diarrhea. Anderson catheter is in place. Patient was cleared for discharge by all consultantsIncluding orthopedic team, infectious disease, surgical team and pulmonary service. Problems and management plan were discussed with the patient and he verbalized understanding and acceptance Patient was found stable and can be discharged home however he needs follow-up as an outpatient. Patient was instructed to follow up with PCP within one week and patient agrees Patient was instructed to follow up with Dr. vivas in 2 weeks, with orthopedic Dr. Downing./Dr. Fredrick johnston in 1 week, and with route jumper Dr. Xiong in 1-2 weeks. Patient agrees Physical exam Gen: patient is a AAOx3, no distress CVS: S1-S2, RRR, no murmur Lungs: B/L CTA, no wheezing Abdomen: soft, no distention, no tenderness, positive bowel sounds. -Extremity: no leg edema or induration. Right leg in the because for her right ankle fracture. Mild left leg tenderness Time spent more than 35 minutes Patient Condition at Discharge: Serious Plan - Discharge Summary Discharge Rx Participant: No New Discharge Prescriptions: No Action Ergocalciferol [Vitamin D2 (DRISDOL)] 50,000 unit PO MARCELINO Multivitamins, Thera [Multivitamin (formulary)] 1 tab PO DAILY Omeprazole [PriLOSEC] 40 mg PO DAILY Potassium Chloride [Klor-Con 20] 20 meq PO TID Aspirin EC [Ecotrin Low Dose] 81 mg PO DAILY traMADol HCL [Ultram] 50 mg PO BID PRN PRN Reason: Pain Hydrocortisone Pr Cream [Proctosol-Hc 2.5%] 1 applic RECTAL BID Chlorthalidone 25 mg PO DAILY Atorvastatin [Lipitor] 40 mg PO HS Furosemide [Lasix] 40 mg PO DAILY Montelukast [Singulair] 10 mg PO DAILY Pramipexole [Mirapex] 0.125 mg PO HS Ipratropium-Albuterol Nebulize [Duoneb 0.5 mg-3 mg/3 ml Soln] 3 ml INHALATION RT-QID PRN PRN Reason: Shortness Of Breath Hydrocortisone Oint [Hydrocortisone 1% Oint] 1 applic TOPICAL TID Gabapentin [Neurontin] 200 mg PO BID Discharge Medication List Ergocalciferol [Vitamin D2 (DRISDOL)] 50,000 unit PO MARCELINO 08/29/18 [History] Multivitamins, Thera [Multivitamin (formulary)] 1 tab PO DAILY 07/31/19 [History] Omeprazole [PriLOSEC] 40 mg PO DAILY 07/05/20 [History] Potassium Chloride [Klor-Con 20] 20 meq PO TID 07/05/20 [History] Aspirin EC [Ecotrin Low Dose] 81 mg PO DAILY 10/30/20 [History] Furosemide [Lasix] 40 mg PO DAILY 10/30/20 [History] Montelukast [Singulair] 10 mg PO DAILY 10/30/20 [History] Atorvastatin [Lipitor] 40 mg PO HS 08/21/21 [History] Chlorthalidone 25 mg PO DAILY 08/21/21 [History] Gabapentin [Neurontin] 200 mg PO BID 08/21/21 [History] Hydrocortisone Oint [Hydrocortisone 1% Oint] 1 applic TOPICAL TID 08/21/21 [ History] Hydrocortisone Pr Cream [Proctosol-Hc 2.5%] 1 applic RECTAL BID 08/21/21 [History] Ipratropium-Albuterol Nebulize [Duoneb 0.5 mg-3 mg/3 ml Soln] 3 ml INHALATION RT-QID PRN 08/21/21 [History] Pramipexole [Mirapex] 0.125 mg PO HS 08/21/21 [History] traMADol HCL [Ultram] 50 mg PO BID PRN 08/21/21 [History] Follow up Appointment(s)/Referral(s): Luis Eduardo Downing DPM [Doctor of Osteopathic Medicine] - 1 Week (Orthopedic DrCarlos for your ankle fracture) Joe Xiong DO [Doctor of Osteopathic Medicine] - 2 Weeks José Lacy DO [Primary Care Provider] - 1-2 days Richard Guardado MD [STAFF PHYSICIAN] - 2 Weeks (general surgeon we recommend outpatient gall bladder surgery ) Chris De La Cruz MD [Medical Doctor] - 1 Week (Orthopedic physician for your ankle fracture) Activity/Diet/Wound Care/Special Instructions: Strict non-weight bearing right lower extremity. Keep bulky Diane splint intact until follow-up in the office. Keep right lower extremity elevated for swelling and pain control. Follow-up in the office in [address] Downing. Call the office with any questions or concerns,
[2021-08-25 16:09] VITALS: BP 133/76; PULSE 109; RESP 18; TEMP 98.5
[2021-08-25 16:43] LABS: Glucose,Whole Blood 145 mg/dL (75-99)
--- NOTE | 2021-08-25 17:51 | P.PN ---
Subjective Progress Note Date: 08/25/21 Principal diagnosis: Hypercapnic respiratory failure. This is a 60-year-old female patient with a known history of morbid obesity, oxygen dependent chronic obstructive pulmonary disease, diabetes mellitus, osteoarthritis. She presented here to the emergency room on 08/22/2021 with complaints of right ankle pain after a fall. White count 14.4. Hemoglobin 9.8. Sodium 140. Potassium 3.7. Creatinine 0.5. Glucose 147. Influenza screen negative. X-rays did reveal a displaced right bimalleolar ankle fracture. She has been placed in a splint by orthopedics. Doppler of the lower extremity ruled out DVT. We were consulted regarding chest x-ray revealing some atelectatic changes. She's also hypercapnic. 2 blood gases revealed a PaO2 of 61, pCO2 85 and a pH of 7.38 on 44% FiO2. She is seen today in consultation on the regular medical floor. She is currently resting comfortably in bed. Laying flat. Denies any worsening shortness of breath, cough or congestion. On 5 L high flow nasal cannula with O2 saturations in the low 90s. She is currently on Symbicort, angularis, DuoNeb inhalations. Antibiotics in the form of ceftriaxone. Heparin for DVT prophylaxis. Progress note dated 08/25/2021. This is a 60-year-old female with a known history of morbid obesity, oxygen dependent COPD, diabetes, osteoarthritis, and chronic hypercapnic respiratory failure. The patient presented to the emergency department on 08/22, with complaints of right ankle pain after a fall. She had a displaced right bimalleolar ankle fracture. She did Doppler of the lower extremity which ruled out DVT. We were consulted because of worsening hypercapnia. We recommended conservative oxygen management. The patient is currently on 5 L nasal cannula. She's getting saline at 75 mL an hour. [facility]. She is currently stable from the pulmonary standpoint. White count 13.8, hemoglobin 9.4, hematocrit 33.5, and platelet count 231,000. Sodium 139, potassium 3.9, chlorides 89, CO2 37, anion gap 13, BUN 12, and creatinine 0.5. Pro-calcitonin level is 0.18. Chest x-ray from yesterday showed cardiomegaly, and some diffuse interstitial changes. Objective - Vital Signs Vital signs: Vital Signs Temp 98.5 F 08/25/21 14:57 Pulse 109 H 08/25/21 14:57 Resp 18 08/25/21 14:57 BP 133/76 08/25/21 14:57 Pulse Ox 97 08/25/21 14:57 Intake & Output 08/24/21 08/25/21 08/25/21 18:59 06:59 18:59 Intake Total 900 540 Output Total 457 967 5088 Balance -550 350 -1235 Intake: Intake, IV Titration 900 Amount Sodium Chloride 0.9% 1, 900 000 ml @ 75 mls/hr IV . [id number] RUBEN Rx#:[id number] Oral 540 Output: Urine 663 [id number] Other: Voiding Method Indwelling Catheter Indwelling Catheter Indwelling Catheter # Bowel Movements 1 1 - Exam No acute distress, oriented 3. No respiratory distress. Currently on 5 L nasa l cannula. That is her home dose of oxygen. HEENT examination is grossly unremarkable. Neck supple. Full range of motion. No adenopathy thyromegaly or neck vein distention. Cardiovascular examination reveals regular rhythm rate. S1-S2 normal. No S3 or S4. No discernible murmur noted. Heart sounds are distant. Heart rate 97 bpm. Lungs reveal clear breath sounds. Breath sounds are equal bilaterally. No adventitious lung sounds including wheezes rhonchi or crackles. Saturations are 97% on 5 L. Abdomen soft bowel sounds are heard. No masses or tenderness. Extremities are intact. No cyanosis, clubbing or edema. There is a splint noted on the right lower extremity. Skin is without rash or lesion. Neurologic examination is brief but nonfocal. - Labs CBC & Chem 7: 08/25/21 03:17 08/25/21 03:17 Labs: Abnormal Lab Results - Last 24 Hours (Table) 08/24/21 08/25/21 08/25/21 Range/Units 21:03 03:17 03:17 WBC 13.83 H (4.50-10.00) X 10*3/uL RBC 3.24 L (4.10-5.20) X 10*6/uL Hgb 9.4 L (12.0-15.0) g/dL Hct 33.5 L (37.2-46.3) % MCV 103.4 H (80.0-97.0) fL MCHC 28.1 L (32.0-37.0) g/dL Immature Gran # 0.06 H (0.00-0.04) X 10*3/uL Neutrophils # 10.47 H (1.80-7.70) X 10*3/uL Monocytes # 1.76 H (0.20-1.00) X 10*3/uL Chloride (96-109) mmol/L Carbon Dioxide (20.0-27.5) mmol/L Creatinine (0.6-1.5) mg/dL BUN/Creatinine Ratio (12.00-20.00) Ratio Glucose (70-110) mg/dL POC Glucose (mg/dL) 144 H (75-99) mg/dL C-Reactive Protein (0.00-0.80) mg/dL Procalcitonin 0.18 H (0.02-0.09) ng/mL 08/25/21 08/25/21 08/25/21 Range/Units 03:17 07:09 11:09 WBC (4.50-10.00) X 10*3/uL RBC (4.10-5.20) X 10*6/uL Hgb (12.0-15.0) g/dL Hct (37.2-46.3) % MCV (80.0-97.0) fL MCHC (32.0-37.0) g/dL Immature Gran # (0.00-0.04) X 10*3/uL Neutrophils # (1.80-7.70) X 10*3/uL Monocytes # (0.20-1.00) X 10*3/uL Chloride 89 L (96-109) mmol/L Carbon Dioxide 37.1 H (20.0-27.5) mmol/L Creatinine 0.5 L (0.6-1.5) mg/dL BUN/Creatinine Ratio 24.07 H (12.00-20.00) Ratio Glucose 162 H (70-110) mg/dL POC Glucose (mg/dL) 180 H 197 H (75-99) mg/dL C-Reactive Protein 28.30 H (0.00-0.80) mg/dL Procalcitonin (0.02-0.09) ng/mL 08/25/21 Range/Units 16:41 WBC (4.50-10.00) X 10*3/uL RBC (4.10-5.20) X 10*6/uL Hgb (12.0-15.0) g/dL Hct (37.2-46.3) % MCV (80.0-97.0) fL MCHC (32.0-37.0) g/dL Immature Gran # (0.00-0.04) X 10*3/uL Neutrophils # (1.80-7.70) X 10*3/uL Monocytes # (0.20-1.00) X 10*3/uL Chloride (96-109) mmol/L Carbon Dioxide (20.0-27.5) mmol/L Creatinine (0.6-1.5) mg/dL BUN/Creatinine Ratio (12.00-20.00) Ratio Glucose (70-110) mg/dL POC Glucose (mg/dL) 145 H (75-99) mg/dL C-Reactive Protein (0.00-0.80) mg/dL Procalcitonin (0.02-0.09) ng/mL Microbiology - Last 24 Hours (Table) 08/22/21 21:27 Blood Culture - Preliminary Blood No Growth after 48 hours 08/22/21 21:22 Blood Culture - Preliminary Blood No Growth after 48 hours Assessment and Plan Assessment: 1 Fall with right ankle injury found to have a displaced right bimalleolar ankle fracture, status post splint placement. 2 Chronic hypercapnic respiratory failure with compensation per pH. 3 Chronic hypoxemic respiratory failure secondary to COPD. 4 Morbid obesity, BMI 43.9 kg/m. 4 Diabetes mellitus. 5 Gastroesophageal reflux disease. 6 Osteoarthritis. 7 Former smoker. Plan: Plan dated 08/25/2021. The patient is stable from the pulmonary standpoint, for possible consideration of discharge. The patient is currently on 5 L nasal cannula, which is what she uses typically at home. The patient will likely be discharged to a skilled nursing. She is hoping to be discharged to [facility]. The patient states that her breathing is stable, and pretty much at baseline. The patient is not discharged, we'll continue to follow make recommendations where appropriate. Prognosis is guarded. Time with Patient: Less than 30
== END 2021-08-25 18:55 | DRG 872 ==
LOC: EC 17:39 → 4SSUR 20:48 → OBSVTOIN 08-23 10:45
PROVIDERS: ADMIT Hospitalist; ATTEND Hospitalist
PROC: 0QSGXZZ Reposition Right Tibia, External Approach (ICD-10-PCS; principal; 2021-08-23)
PROC: 0QSJXZZ Reposition Right Fibula, External Approach (ICD-10-PCS; 2021-08-23)
DX: A41.9 Sepsis, unspecified organism (principal); J96.11 Chronic respiratory failure with hypoxia; J96.12 Chronic respiratory failure with hypercapnia; J98.11 Atelectasis; K80.12 Calculus of gallbladder with acute and chronic cholecystitis without obstruction; Z68.41 Body mass index [BMI] 40.0-44.9, adult; Z20.822 Contact with and (suspected) exposure to COVID-19; Z90.49 Acquired absence of other specified parts of digestive tract; E66.01 Morbid (severe) obesity due to excess calories; F17.210 Nicotine dependence, cigarettes, uncomplicated; G62.9 Polyneuropathy, unspecified; E11.42 Type 2 diabetes mellitus with diabetic polyneuropathy; G43.909 Migraine, unspecified, not intractable, without status migrainosus; K76.0 Fatty (change of) liver, not elsewhere classified; I51.7 Cardiomegaly; J44.9 Chronic obstructive pulmonary disease, unspecified; K21.9 Gastro-esophageal reflux disease without esophagitis; M17.0 Bilateral primary osteoarthritis of knee; R33.8 Other retention of urine; S82.841A Displaced bimalleolar fracture of right lower leg, initial encounter for closed fracture; X50.1XXA Overexertion from prolonged static or awkward postures, initial encounter; Z79.82 Long term (current) use of aspirin; W19.XXXA Unspecified fall, initial encounter; Z79.899 Other long term (current) drug therapy; Z99.81 Dependence on supplemental oxygen; Z87.19 Personal history of other diseases of the digestive system; Z98.51 Tubal ligation status
CPT/HCPCS: 36600; 71045; 76700; 80048; 80053; 80074; 81001; 82805; 83735; 83880; 84145; 85025; 86140; 87040; 87502; 87635; 94760; 96372; 96374; 96375; 99285

== ENCOUNTER → 2022-01-11 | Outpatient (CLI) | payer MEDICARE, OTHER ==
--- NOTE | 2022-01-11 13:06 | XR ---
Right ankle HISTORY: Right ankle pain 3 views of the right ankle, correlation to prior right leg 08/21/2021 The distal fibular fracture, medial malleolar fracture and subluxation changes are again seen, latera l exam shows lucency through the region of the anterior aspect of the distal tibia additionally and b david seen, possibly related to medial malleolar fracture. No significant periosteal reaction, questi on some healing of the distal fibula on the lateral view. There is associated soft tissue swelling pr esent. Bone mineralization is reduced. IMPRESSION: Displaced fractures are again noted
== END | disposition home or self-care (01) ==
LOC: RADXRYALE 11:07
PROVIDERS: ATTEND Physician Assistant
DX: M25.571 Pain in right ankle and joints of right foot (principal); S82.51XA Displaced fracture of medial malleolus of right tibia, initial encounter for closed fracture; S82.831A Other fracture of upper and lower end of right fibula, initial encounter for closed fracture; X58.XXXA Exposure to other specified factors, initial encounter

== ENCOUNTER 2022-01-29 04:06 | Emergency (ER) | payer MEDICARE, OTHER ==
[2022-01-29 04:14] VITALS: BP 122/69; PULSE 99; RESP 22; TEMP 97.9
--- NOTE | 2022-01-29 04:25 | ED ---
Fall HPI - General Chief Complaint: Fall Stated Complaint: Fall Time Seen by Provider: 01/29/22 04:23 Source: patient, EMS, RN notes reviewed, old records reviewed Mode of arrival: EMS Limitations: no limitations - History of Present Illness Initial Comments: This is a 7-year-old female to the emergency department for evaluation. Patient presents today for evaluation of fall fall causing left knee pain landing on left knee. Pain hurts with movement pain hurts with straightening pain hurts with bending. Patient can ambulate but it is painful. No other to medic injury noted MD Complaint: fall -: hour(s) Fall From: standing When Fall Occurred: 1 hour [employer] Fall Witnessed: no Place Fall Occurred: home Loss of Consciousness: none Prolonged Down Time?: no Symptoms Prior to Fall: none Location - Extremities: Left: Knee Severity: moderate Severity scale (1-10): 4 Quality: aching Context: tripped/slipped Associated Symptoms: denies - Related Data Home Medications Medication Instructions Recorded Confirmed Ergocalciferol [Vitamin D2 50,000 unit PO MARCELINO 08/29/18 08/21/21 (DRISDOL)] Multivitamins, Thera [Multivitamin 1 tab PO DAILY 07/31/19 08/21/21 (formulary)] Omeprazole [PriLOSEC] 40 mg PO DAILY 07/05/20 08/21/21 Aspirin EC [Ecotrin Low Dose] 81 mg PO DAILY 10/30/20 08/21/21 Furosemide [Lasix] 40 mg PO DAILY 10/30/20 08/21/21 Montelukast [Singulair] 10 mg PO DAILY 10/30/20 08/21/21 Atorvastatin [Lipitor] 40 mg PO HS 08/21/21 08/21/21 Hydrocortisone Oint 1 applic TOPICAL TID 08/21/21 08/21/21 [Hydrocortisone 1% Oint] Hydrocortisone Pr Cream 1 applic RECTAL BID 08/21/21 08/21/21 [Proctosol-Hc 2.5%] Ipratropium-Albuterol Nebulize 3 ml INHALATION RT-QID PRN 08/21/21 08/21/21 [Duoneb 0.5 mg-3 mg/3 ml Soln] Pramipexole [Mirapex] 0.125 mg PO HS 08/21/21 08/21/21 Previous Rx's Medication Instructions Recorded Budesonide-Formot 160-4.5 Mcg 2 puff INHALATION RT-BID gm 08/25/21 [Symbicort 160-4.5 Mcg Inhaler] Docusate [Colace] 100 mg PO BID PRN #10 capsule 08/25/21 Gabapentin [Neurontin] 200 mg PO BID #8 cap 08/25/21 HYDROcodone/APAP 5-325MG [[place] 1 tab PO Q12HR PRN 3 Days #6 tab 08/25/21 5-325] Heparin Sodium,Porcine [Heparin 5,000 unit SQ Q12HR #1 each 08/25/21 Sodium] Tamsulosin [Flomax] 0.4 mg PO PC-SUPPER 08/25/21 cefUROXime axetiL [Ceftin] 500 mg PO BID 7 Days #14 tab 08/25/21 Allergies Allergy/AdvReac Type Severity Reaction Status Date / Time No Known Allergies Allergy Verified 08/21/21 19:19 Review of Systems ROS Statement: Those systems with pertinent positive or pertinent negative responses have been documented in the HPI. ROS Other: All systems not noted in ROS Statement are negative. Past Medical History Past Medical History: COPD, GERD/Reflux, Osteoarthritis (OA), Pneumonia Additional Past Medical History / Comment(s): migraines,, sinus and ear [id number] ear worse, severe arthritis bilateral knees, constipation, edema lower legs and feet, hemorrhoids, blood in stool at times, gallstones, History of Any Multi-Drug Resistant Organisms: None Reported Past Surgical History: Breast Surgery, Tubal Ligation Additional Past Surgical History / Comment(s): Rt breast biopsies, COLONOSCOPY Past Anesthesia/Blood Transfusion Reactions: Previous Problems w/ Anesthesia Additional Past Anesthesia/Blood Transfusion Reaction / Comment(s): states had diff waking up- "states stopped breathing for a couple seconds" with last colonocopy, "i need a pillow under my head" Past Psychological History: No Psychological Hx Reported Smoking Status: Former smoker Past Alcohol Use History: None Reported Past Drug Use History: None Reported - Past Family History Mother Family Medical History: No Reported History Additional Family Medical History / Comment(s): . Father History Unknown: Yes Family Medical History: Unable to Obtain General Exam Limitations: no limitations General appearance: alert, in no apparent distress Head exam: Present: atraumatic, normocephalic, normal inspection Eye exam: Present: normal appearance, PERRL, EOMI. Absent: scleral icterus, conjunctival injection, periorbital swelling ENT exam: Present: normal exam, mucous membranes moist Neck exam: Present: normal inspection. Absent: tenderness, meningismus, lymphadenopathy Respiratory exam: Present: normal lung sounds bilaterally. Absent: respiratory distress, wheezes, rales, rhonchi, stridor Cardiovascular Exam: Present: regular rate, normal rhythm, normal heart sounds. Absent: systolic murmur, diastolic murmur, rubs, gallop, clicks GI/Abdominal exam: Present: soft, normal bowel sounds. Absent: distended, tenderness, guarding, rebound, rigid Extremities exam: Present: normal inspection, full ROM, normal capillary refill. Absent: tenderness, pedal edema, joint swelling, calf tenderness Back exam: Present: normal inspection Neurological exam: Present: alert, oriented X3, CN II-XII intact Psychiatric exam: Present: normal affect, normal mood Skin exam: Present: warm, dry, intact, normal color. Absent: rash Course Vital Signs 01/29/22 04:09 Temperature 97.9 F Pulse Rate 99 Respiratory 22 Rate Blood Pressure 122/69 O2 Sat by Pulse 94 L Oximetry - Reevaluation(s) Reevaluation #1: 01/29/22 Medical records reviewed Reevaluation #2: 01/29/22 Patient informed of results and questions answered Reevaluation #3: 01/29/22 Patient feels improved and able to ambulate without difficulty Medical Decision Making - Medical Decision Making 61 female status post fall with knee pain. X-ray knee positive for contusion - Radiology Data Radiology results: report reviewed (X-ray left knee negative for traumatic injury), image reviewed Disposition Clinical Impression: Fall, Contusion of left knee Disposition: HOME SELF-CARE Condition: Good Instructions (If sedation given, give patient instructions): Fall Prevention for Older Adults (ED) Is patient prescribed a controlled substance at d/c from ED?: No Referrals: José Lacy DO [Primary Care Provider] - 1-2 days Time of Disposition: 06:15
[2022-01-29] MEDS ORDERED: HYDROmorphone 1 MG/ML 1 ML SYRINGE IM STA (04:30)
--- NOTE | 2022-01-29 05:12 | XR ---
EXAMINATION TYPE: XR knee complete LT DATE OF EXAM: 01/29/2022 COMPARISON: NONE HISTORY: Knee pain TECHNIQUE: 4 views FINDINGS: There is no evidence of fracture nor dislocation. There is subcutaneous edema around the kn ee. There is more extensive edema anterior to the patella. No sign of joint effusion. There is minima l spurring of the medial tibial condyle. IMPRESSION: No fracture seen. Subcutaneous edema. Minimal spur formation. Possible hematoma anterior to the patella.
[2022-01-29] MEDS ORDERED: IBUPROFEN 800 MG TAB PO STA (06:20)
[2022-01-29] MEDS ORDERED: IBUPROFEN 600 MG STARTER PACK 4 TAB BTL PO STA (06:20)
== END 2022-01-29 06:24 | disposition home or self-care (01) ==
LOC: EC 04:06
DX: S80.02XA Contusion of left knee, initial encounter (principal); J44.9 Chronic obstructive pulmonary disease, unspecified; K21.9 Gastro-esophageal reflux disease without esophagitis; Z79.83 Long term (current) use of bisphosphonates; Z87.891 Personal history of nicotine dependence; W19.XXXA Unspecified fall, initial encounter
CPT/HCPCS: 73562; 99283; 96372; J1170

== ENCOUNTER 2022-05-21 13:04 | Inpatient (IN) | payer MEDICARE, OTHER ==
[2022-05-21] MEDS ORDERED: ONDANSETRON 4 MG/2 ML VIAL IVP STA (13:17)
[2022-05-21] MEDS ORDERED: SODIUM CHLORIDE 0.9% 1,000 ML IV STA ×2 (13:18→16:05)
--- NOTE | 2022-05-21 13:34 | ED ---
Abdominal Pain HPI - General Chief Complaint: Abdominal Pain Stated Complaint: Abd pain Time Seen by Provider: 05/21/22 13:08 Source: patient, EMS, RN notes reviewed - History of Present Illness Initial Comments: Patient is a 61-year-old female presenting to the emergency room via EMS with complaints of abdominal pain that began at 1:00 this morning approximately 12 hours ago with nausea and dry heaves. She reports that her abdominal pain is in the upper quadrants. She also reports increase in lethargy and fatigue ongoing since the onset of symptoms. She has severe COPD which requires 4-5 L of oxygen nasal cannula and reports that her breathing is at her baseline. She denies any chest pain, diarrhea, headache, dizziness, fevers or chills. She is not ambulatory since a fracture to her right ankle earlier in the year despite intervention and rehab. She does have a known history of gallstones but has not had a cholecystectomy in the past. In addition to her gallstone and COPD history she has past medical history significant for GERD and migraines. - Related Data Home Medications Medication Instructions Recorded Confirmed Omeprazole [PriLOSEC] 40 mg PO DAILY 07/05/20 08/21/21 Montelukast [Singulair] 10 mg PO DAILY 10/30/20 08/21/21 Atorvastatin Calcium [Lipitor] 80 mg PO HS 05/21/22 05/21/22 Citalopram Hydrobromide 10 mg PO DAILY 05/21/22 05/21/22 [Citalopram HBr] Ergocalciferol [Vitamin D2 (1250 1,250 mcg PO MARCELINO 05/21/22 05/21/22 Mcg = 75878 Iu)] HYDROcodone/APAP 5-325MG [[place] 1 tab PO Q4H PRN 05/21/22 05/21/22 5-325] Levothyroxine Sodium [Synthroid] 50 mcg PO DAILY 05/21/22 05/21/22 Potassium Chloride ER [K-Dur 20] 20 meq PO TID 05/21/22 05/21/22 metFORMIN HCL [Glucophage] 500 mg PO BID 05/21/22 05/21/22 Previous Rx's Medication Instructions Recorded Gabapentin [Neurontin] 200 mg PO BID #8 cap 08/25/21 Allergies Allergy/AdvReac Type Severity Reaction Status Date / Time No Known Allergies Allergy Verified 05/21/22 15:29 Review of Systems ROS Statement: Those systems with pertinent positive or pertinent negative responses have been documented in the HPI. ROS Other: All systems not noted in ROS Statement are negative. Past Medical History Past Medical History: COPD, GERD/Reflux, Osteoarthritis (OA), Pneumonia Additional Past Medical History / Comment(s): migraines,, sinus and ear [id number] ear worse, severe arthritis bilateral knees, constipation, edema lower legs and feet, hemorrhoids, blood in stool at times, gallstones, History of Any Multi-Drug Resistant Organisms: None Reported Past Surgical History: Breast Surgery, Tubal Ligation Additional Past Surgical History / Comment(s): Rt breast biopsies, COLONOSCOPY Past Anesthesia/Blood Transfusion Reactions: Previous Problems w/ Anesthesia Additional Past Anesthesia/Blood Transfusion Reaction / Comment(s): states had diff waking up- "states stopped breathing for a couple seconds" with last colonocopy, "i need a pillow under my head" Past Psychological History: No Psychological Hx Reported Smoking Status: Former smoker Past Alcohol Use History: None Reported Past Drug Use History: None Reported - Past Family History Mother Family Medical History: No Reported History Additional Family Medical History / Comment(s): . Father History Unknown: Yes Family Medical History: Unable to Obtain General Exam General appearance: in no apparent distress, other (Drowsy easily aroused) Head exam: Present: atraumatic, normocephalic, normal inspection Eye exam: Present: normal appearance, PERRL, EOMI. Absent: scleral icterus, conjunctival injection, periorbital swelling ENT exam: Present: normal exam, mucous membranes moist Neck exam: Present: other (Large neck) Respiratory exam: Present: decreased breath sounds (Throughout). Absent: respiratory distress, wheezes, rales, rhonchi Cardiovascular Exam: Present: normal rhythm, tachycardia, normal heart sounds. Absent: systolic murmur, diastolic murmur, rubs, gallop, clicks GI/Abdominal exam: Present: tenderness, normal bowel sounds, other (Rounded obese). Absent: rebound, rigid Rectal exam: Present: deferred Extremities exam: Present: tenderness (right ankle). Absent: pedal edema Neurological exam: Present: oriented X3, other (Drowsy easily aroused). Absent: CN II-XII intact Expanded Eye Response: (3) open to voice Motor Response: (6) obeys commands Verbal Response: (5) oriented Theresa Total: 14 Psychiatric exam: Present: normal affect, normal mood Skin exam: Present: dry, other (discolored bilateral lower extremity with dry scaly patches) Course Vital Signs 05/21/22 05/21/22 13:08 15:00 Temperature 98.8 F Pulse Rate 117 H 130 H Respiratory 18 20 Rate Blood Pressure 166/87 136/74 O2 Sat by Pulse 96 92 L Oximetry Medical Decision Making - Medical Decision Making 7-year-old female presenting to the emergency room via EMS with complaints of sudden onset of abdominal pain, nausea with dry heaves and lethargy. Nausea and tachycardia on exam noted we will give IV hydration along with Zofran. We will defer analgesics at this time. Will obtain CBC, CMP, amylase, lipase along with urinalysis and cephid swab. Will obtain CT of the abdomen without contrast. Will defer ultrasound of the abdomen due to body habitus. CBC shows marked leukocytosis with white count 21.8 CMP with low chloride and elevated bicarb. Lactic acid elevated at 3.1. Liver enzymes stable. Awaiting urinalysis and cephid swab. CT of the abdomen shows hypertrophic gallbladder with hazy density surrounding unable to exclude early cholecystitis recommend gallbladder ultrasound or HIDA scan, diverticulosis with mild acute diverticulitis possible low lung volumes and posterior left infrahilar region which may room sent focal area of atelectasis. Due to body habitus will defer ultrasound and order HIDA scan. Will obtain chest x-ray for further evaluation for possible pneumonia. Swabs negative for influenza, COVID and RSV. Chest x-ray shows cardiomegaly and chronic interstitial pulmonary disease limited inspiration. Subsegmental basilar changes favoring atelectasis over pneumonia however in the clinical setting of elevated bicarbonate leukocytosis elevated lactic acid and lethargy will proceed with treatment and admission for sepsis and treat broadly with Rocephin, Zithromax and Flagyl. Findings discussed with patient and past at bedside. Patient wishing to go home however advised that given findings and sepsis criteria being met that discharge home could result in further decline including but not limited to possible . Patient is agreeable for continued hospital admission plan. Case discussed with Dr. Dawson was sound physician accepting of admission and advises no further consultations or orders at this time. Case discussed with Dr. Medina. - Lab Data Result diagrams: 05/21/22 13:20 05/21/22 13:20 Lab Results 05/21/22 05/21/22 05/21/22 Range/Units 13:20 13:20 13:20 WBC 21.8 H (3.8-10.6) k/uL RBC 4.20 (3.80-5.40) m/uL Hgb 12.0 (11.4-16.0) gm/dL Hct 37.9 (34.0-46.0) % MCV 90.3 (80.0-100.0) fL MCH 28.7 (25.0-35.0) pg MCHC 31.7 (31.0-37.0) g/dL RDW 14.7 (11.5-15.5) % Plt Count 180 (150-450) k/uL MPV 8.5 Neutrophils % 90 % Lymphocytes % 3 % Monocytes % 5 % Eosinophils % 1 % Basophils % 0 % Neutrophils # 19.6 H (1.3-7.7) k/uL Lymphocytes # 0.7 L (1.0-4.8) k/uL Monocytes # 1.1 H (0-1.0) k/uL Eosinophils # 0.2 (0-0.7) k/uL Basophils # 0.0 (0-0.2) k/uL Hypochromasia Marked PT 10.0 (9.0-12.0) sec INR 0.9 (<1.2) APTT 17.9 L (22.0-30.0) sec Sodium 138 (137-145) mmol/L Potassium 3.8 (3.5-5.1) mmol/L Chloride 91 L (98-107) mmol/L Carbon Dioxide 38 H (22-30) mmol/L Anion Gap 9 mmol/L BUN 13 (7-17) mg/dL Creatinine 0.38 L (0.52-1.04) mg/dL Est GFR (CKD-EPI)AfAm >90 (>60 ml/min/1.73 sqM) Est GFR (CKD-EPI)NonAf >90 (>60 ml/min/1.73 sqM) Glucose 192 H (74-99) mg/dL Plasma Lactic Acid Sandoval (0.7-2.0) mmol/L Calcium 9.1 (8.4-10.2) mg/dL Total Bilirubin 0.6 (0.2-1.3) mg/dL AST 32 (14-36) U/L ALT 35 H (4-34) U/L Alkaline Phosphatase 119 (38-126) U/L Total Protein 7.4 (6.3-8.2) g/dL Albumin 4.5 (3.5-5.0) g/dL Amylase 37 (30-110) U/L Lipase 51 (23-300) U/L 05/21/22 Range/Units 13:20 WBC (3.8-10.6) k/uL RBC (3.80-5.40) m/uL Hgb (11.4-16.0) gm/dL Hct (34.0-46.0) % MCV (80.0-100.0) fL MCH (25.0-35.0) pg MCHC (31.0-37.0) g/dL RDW (11.5-15.5) % Plt Count (150-450) k/uL MPV Neutrophils % % Lymphocytes % % Monocytes % % Eosinophils % % Basophils % % Neutrophils # (1.3-7.7) k/uL Lymphocytes # (1.0-4.8) k/uL Monocytes # (0-1.0) k/uL Eosinophils # (0-0.7) k/uL Basophils # (0-0.2) k/uL Hypochromasia PT (9.0-12.0) sec INR (<1.2) APTT (22.0-30.0) sec Sodium (137-145) mmol/L Potassium (3.5-5.1) mmol/L Chloride (98-107) mmol/L Carbon Dioxide (22-30) mmol/L Anion Gap mmol/L BUN (7-17) mg/dL Creatinine (0.52-1.04) mg/dL Est GFR (CKD-EPI)AfAm (>60 ml/min/1.73 sqM) Est GFR (CKD-EPI)NonAf (>60 ml/min/1.73 sqM) Glucose (74-99) mg/dL Plasma Lactic Acid Sandoval 3.1 H* (0.7-2.0) mmol/L Calcium (8.4-10.2) mg/dL Total Bilirubin (0.2-1.3) mg/dL AST (14-36) U/L ALT (4-34) U/L Alkaline Phosphatase (38-126) U/L Total Protein (6.3-8.2) g/dL Albumin (3.5-5.0) g/dL Amylase (30-110) U/L Lipase (23-300) U/L - Radiology Data Radiology results: report reviewed, image reviewed Two-view chest x-ray impression the radiologist cardiomegaly. Correlate for chronic interstitial pulmonary disease. Basilar atelectasis favored over pneumonia. There is nodular prominence since of the right hilum which could reflect patient rotation in the pulmonary artery. Recommend short-term follow-up PA and lateral views of the chest. CAT scan of the abdomen and pelvis without compress impression by radiologist hypertrophy gallbladder with surrounding haze density. Assessment limited by prominence breathing motion. Unable to exclude early acute cholecystitis. Further imaging evaluation is desired consider gallbladder ultrasound or HIDA scan. Sigmoid diverticulosis. There is some wall thickening along the mid sigmoid colon and some possible adjacent inflammation. Correlate for mild acute diverticulitis. No abscess or free air. The lung volumes. 3 x 3 cm density posterior left infrahilar region may represent focal area of atelectasis. Recommend contrast-enhanced CT 2-3 weeks to exclude any underlying mass. Hepatomegaly with at least moderate hepatis stasis. Small hiatal hernia. Disposition Clinical Impression: Sepsis, Acute abdomen Disposition: ADMITTED IP TO THIS HOSP Condition: Serious Is patient prescribed a controlled substance at d/c from ED?: No Referrals: José Lacy DO [Primary Care Provider] - 1-2 days Time of Disposition: 15:46
[2022-05-21 14:04] LABS: Basophils % (A) 0 %; Eosinophils # (A) 0.2 k/uL (0-0.7); Eosinophils % (A) 1 %; HCT 37.9 % (34.0-46.0); Hypochromasia Marked; Lymphocytes # (A) 0.7 k/uL (1.0-4.8); Lymphocytes % (A) 3 %; MCH 28.7 pg (25.0-35.0); MCHC 31.7 g/dL (31.0-37.0); MCV 90.3 fL (80.0-100.0); Mean Platelet Volume 8.5; Monocytes # (A) 1.1 k/uL (0-1.0); Monocytes % (A) 5 %; Neutrophils # (A) 19.6 k/uL (1.3-7.7); Neutrophils % (A) 90 %; Platelet Count 180 k/uL (150-450); RDW 14.7 % (11.5-15.5); WBC 21.8 k/uL (3.8-10.6)
[2022-05-21 14:15] LABS: ALT 35 U/L (4-34); AST 32 U/L (14-36); African American GFR (CKD) >90 (>60 ml/min/1.73 sqM); Albumin 4.5 g/dL (3.5-5.0); Alkaline Phosphatase 119 U/L (38-126); Amylase 37 U/L (30-110); Anion Gap 9 mmol/L; Blood Urea Nitrogen 13 mg/dL (7-17); Calcium 9.1 mg/dL (8.4-10.2); Carbon Dioxide 38 mmol/L (22-30); Chloride 91 mmol/L (98-107); Glucose 192 mg/dL (74-99); Lipase 51 U/L (23-300); Non-African American GFR(CKD) >90 (>60 ml/min/1.73 sqM); Potassium 3.8 mmol/L (3.5-5.1); Sodium 138 mmol/L (137-145); Total Bilirubin 0.6 mg/dL (0.2-1.3); Total Protein 7.4 g/dL (6.3-8.2)
[2022-05-21 14:16] LABS: INR 0.9 (<1.2)
[2022-05-21 14:17] LABS: Partial Thromboplastin Time 17.9 sec (22.0-30.0)
--- NOTE | 2022-05-21 14:25 | CT ---
EXAMINATION TYPE: CT abdomen pelvis wo con DATE OF EXAM: 05/21/2022 COMPARISON: 07/18/2019 HISTORY: 61-year-old female abdominal pain CT DLP: 2331 mGycm. Automated exposure control for dose reduction was used. TECHNIQUE: Contiguous axial scanning of the abdomen and pelvis without IV contrast. Coronal and sagit reid reconstructions performed. FINDINGS: Heart borderline enlarged without pericardial effusion. There are diminished lung volumes compared to the 07/18/2019 exam with numerous stranding areas of atelectasis. A more focal masslike area of densi ty along the posterior left infrahilar region measures 3.3 cm and warrants follow-up. No pleural effu riley. Small hiatal hernia. Liver enlarged measuring 24.3 cm with diffuse low-attenuation suggesting fatty infiltration. The gallbladder is hydropic measuring 5.2 cm wide. There is suggestion of pericholecystic hazy densit y. Assessment limited by prominent breathing motion. Adrenal glands, kidneys, spleen, pancreas no gross abnormality allowing for limitations of noncontras t technique and prominent breathing motion. Mild rectus diastases along the periumbilical and supraumbilical region at 5.7 cm wide. No dilated small bowel, free fluid, or free air. No mesenteric or retroperitoneal lymphadenopathy. Normal appendix. Mild stool within the right side of the colon. There is sigmoid diverticulosis. Mild wall thickening along the mid sigmoid colon and some mild adjac ent fat stranding, coronal image 72 and axial image 128. There seems to have been greater degree of i nflammation on the patient's 07/18/2019 CT. Bladder is urine distended. Uterus anteverted. Small bilateral ovaries. No abnormal fluid collection in the pelvis or pelvic lymphadenopathy. Bones: Osteitis pubis. Mild degenerative change at both hips. Mild degenerative changes left SI joint . Accentuated lower lumbar lordosis. Severe hypertrophic facet arthropathy lower lumbar spine with gr susanna 1 anterolisthesis L5-S1. Moderate degenerative disc disease upper lumbar spine and visualized low er thoracic spine. IMPRESSION: 1. Hydropic gallbladder with surrounding hazy density. Assessment limited by prominent breathing mot ion. Unable to exclude early acute cholecystitis. If further imaging evaluation is desired, consider either gallbladder ultrasound or HIDA scan. 2. Sigmoid diverticulosis. There is some wall thickening along the mid sigmoid colon and some possib le adjacent inflammation. Correlate for mild acute diverticulitis. No abscess or free air. 3. Low lung volumes. A 3.3 cm density posterior left infrahilar region may represent focal area of a telectasis. Recommend contrast enhanced CT chest in 2-3 weeks to exclude an underlying mass. 4. Hepatomegaly (24.3 cm) with at least moderate hepatic steatosis. Correlate with LFTs, lipid profi le, and patient risk factors. 5. Small hiatal hernia.
--- NOTE | 2022-05-21 14:58 | XR ---
EXAMINATION TYPE: XR chest 2V DATE OF EXAM: 05/21/2022 COMPARISON: 08/24/2021 TECHNIQUE: PA and lateral views submitted. HISTORY: COPD FINDINGS: Atherosclerotic change aorta. Heart size normal. Coarsened interstitium. Limited inspiration. Subsegm ental basilar changes. Degenerative changes of the spine. IMPRESSION: 1. Cardiomegaly correlate for chronic interstitial pulmonary disease. Basilar atelectasis favored ove r pneumonia. 2. There is nodular prominence of the right hilum which could reflect patient rotation and the pulmon gala artery. Recommend short-term follow-up PA and lateral views of the chest.
[2022-05-21] MEDS ORDERED: AZITHROMYCIN 500 MG in SODIUM CHLORIDE 0.9% 250 ML IVPB STA (15:27)
[2022-05-21] MEDS ORDERED: ACETAMINOPHEN TAB 325 MG TAB PO PRN (15:27)
[2022-05-21] MEDS ORDERED: PNEUMONIA PROTOCOL UTILIZED 1 EACH MISC PO PRN (15:27)
[2022-05-21] MEDS ORDERED: DEXTROSE 50% SYRINGE 50 ML IVP PRN ×2 (16:08)
--- NOTE | 2022-05-21 16:14 | P.HPIM ---
History of Present Illness H&P Date: 05/21/22 Chief Complaint: abdominal pain Patient is a 61-year-old female with past medical history of diabetes, hypothyroidism, COPD, dyslipidemia, chronic hypoxic respiratory failure presenting with abdominal pain and nausea. She claims that her abdominal pain began early this morning, mostly in the upper quadrants, associated nausea, and vomiting, sharp in nature, nonradiating, and constant 10/10. She denies any bowel movements, sick contacts, fevers, chills, chest pain, worsening shortness of breath, palpitations, lightheadedness, or urinary complaints. Patient is nonambulatory at baseline due to recent right ankle fracture, was sent to rehab. She uses a wheelchair and scooter at home. In the ED, she was tachycardic, normal blood pressure, saturating well on her baseline [address] abdomen and pelvis showed hydropic gallbladder with surrounding hazy density, possible early acute cholecystitis, further evaluation recommended. Sigmoid diverticulosis with possible mild acute diverticulitis. Atelectasis, 3.3 cm density posterior left infrahilar region could represent atelectasis or underlying mass, recommended repeat CT chest in 2-3 weeks. Hepatomegaly with moderate hepatic steatosis. Small hiatal hernia. Patient seen and examined at bedside. Pertinent positives and negatives as discussed in HPI, a complete review of syst ems was performed and all other systems are negative. Vital signs reviewed General: nontoxic, no distress, appears at stated age, morbidly obese Derm: warm, dry Head: atraumatic, normocephalic, symmetric Eyes: EOMI, no lid lag, anicteric sclera, pupils equal round reactive to light ENT: Nose and ears atraumatic Neck: No thyromegaly, supple Mouth: no lip lesion, mucus membranes moist Cardiovascular: S1S2 reg, no murmur, no edema Lungs: clear to auscultation bilateral, no rhonchi, no rales, no wheeze, no accessory muscle use, on 5 L nasal cannula Abdominal: soft, mildly tender to palpation in all quadrants, no guarding, no appreciable organomegaly Ext: no gross muscle atrophy, muscle strength muscle strength 5 out of 5 in all 4 extremities, no contractures Neuro: CN II-XII grossly intact Psych: Alert, oriented, appropriate affect Assessment/Plan: Severe sepsis Leukocytosis Sinus tachycardia Abdominal pain Possible acute cholecystitis Mild acute diverticulitis Lactic acidosis -Blood cultures -Less likely to be pneumonia, as patient is at baseline oxygen requirements, no cough or worsening shortness of breath -HIDA scan -Pro calcitonin -Continue ceftriaxone and Flagyl -IV fluids Chronic medical problems: Chronic hypoxic respiratory failure COPD Diabetes - SSI, hold metformin Hypothyroidism Dyslipidemia -Continue home medications The patient is admitted with an anticipated greater than 2 midnight stay for evaluation of sepsis. Surrogate decision-maker: Daughter CODE STATUS: Full code DVT prophylaxis: Subcu heparin Anticipated discharge date: Pending clinical course Anticipated discharge place: Pending clinical course A total of 48 minutes was spent on the care of this complex patient more than 50% of the time was spent in counseling and care coordination. Past Medical History Past Medical History: COPD, GERD/Reflux, Osteoarthritis (OA), Pneumonia Additional Past Medical History / Comment(s): migraines,, sinus and ear [id number] ear worse, severe arthritis bilateral knees, constipation, edema lower legs and feet, hemorrhoids, blood in stool at times, gallstones, History of Any Multi-Drug Resistant Organisms: None Reported Past Surgical History: Breast Surgery, Tubal Ligation Additional Past Surgical History / Comment(s): Rt breast biopsies, COLONOSCOPY Past Anesthesia/Blood Transfusion Reactions: Previous Problems w/ Anesthesia Additional Past Anesthesia/Blood Transfusion Reaction / Comment(s): states had diff waking up- "states stopped breathing for a couple seconds" with last colonocopy, "i need a pillow under my head" Past Psychological History: No Psychological Hx Reported Smoking Status: Former smoker Past Alcohol Use History: None Reported Past Drug Use History: None Reported - Past Family History Mother Family Medical History: No Reported History Additional Family Medical History / Comment(s): . Father History Unknown: Yes Family Medical History: Unable to Obtain Medications and Allergies Home Medications Medication Instructions Recorded Confirmed Type Omeprazole [PriLOSEC] 40 mg PO DAILY 07/05/20 05/21/22 History Montelukast [Singulair] 10 mg PO HS 10/30/20 05/21/22 History Gabapentin [Neurontin] 200 mg PO BID #8 cap 08/25/21 05/21/22 Rx Atorvastatin Calcium [Lipitor] 80 mg PO HS 05/21/22 05/21/22 History Citalopram Hydrobromide 10 mg PO DAILY 05/21/22 05/21/22 History [Citalopram HBr] Ergocalciferol [Vitamin D2 (1250 1,250 mcg PO MARCELINO 05/21/22 05/21/22 History Mcg = 99451 Iu)] HYDROcodone/APAP 5-325MG [[place] 1 tab PO Q4H PRN 05/21/22 05/21/22 History 5-325] Levothyroxine Sodium [Synthroid] 50 mcg PO DAILY 05/21/22 05/21/22 History Potassium Chloride ER [K-Dur 20] 20 meq PO TID 05/21/22 05/21/22 History metFORMIN HCL [Glucophage] 500 mg PO BID 05/21/22 05/21/22 History Allergies Allergy/AdvReac Type Severity Reaction Status Date / Time No Known Allergies Allergy Verified 05/21/22 15:29 Physical Exam Vitals: Vital Signs Temp Pulse Resp BP Pulse Ox 05/21/22 15:00 130 H 20 136/74 92 L 05/21/22 13:08 98.8 F 117 H 18 166/87 96 Intake and Output 05/21/22 05/21/22 05/21/22 06:59 14:59 22:59 Other: Weight 127.006 kg Results CBC & Chem 7: 05/21/22 13:20 05/21/22 13:20 Labs: Abnormal Lab Results - Last 24 Hours (Table) 05/21/22 05/21/22 05/21/22 Range/Units 13:20 13:20 13:20 WBC 21.8 H (3.8-10.6) k/uL Neutrophils # 19.6 H (1.3-7.7) k/uL Lymphocytes # 0.7 L (1.0-4.8) k/uL Monocytes # 1.1 H (0-1.0) k/uL APTT 17.9 L (22.0-30.0) sec Chloride 91 L (98-107) mmol/L Carbon Dioxide 38 H (22-30) mmol/L Creatinine 0.38 L (0.52-1.04) mg/dL Glucose 192 H (74-99) mg/dL Plasma Lactic Acid Sand[place] (0.7-2.0) mmol/L ALT 35 H (4-34) U/L 05/21/22 Range/Units 13:20 WBC (3.8-10.6) k/uL Neutrophils # (1.3-7.7) k/uL Lymphocytes # (1.0-4.8) k/uL Monocytes # (0-1.0) k/uL APTT (22.0-30.0) sec Chloride (98-107) mmol/L Carbon Dioxide (22-30) mmol/L Creatinine (0.52-1.04) mg/dL Glucose (74-99) mg/dL Plasma Lactic Acid [place] 3.1 H* (0.7-2.0) mmol/L ALT (4-34) U/L
[2022-05-21] MEDS: SODIUM CHLORIDE 0.9% 1,000 ML IV SCH (16:32)
[2022-05-21 16:39] LABS: VBG PH 7.39 (7.31-7.41)
[2022-05-21] MEDS: IPRATROPIUM-ALBUTEROL 3 ML NEB INHALATION SCH ×3 (17:16→20:15)
[2022-05-21] MEDS: INSULIN ASPART (NovoLOG) 100 UNIT/ML VIAL SQ SCH ×2 (17:33→21:24)
[2022-05-21] MEDS: metroNIDAZOLE-NS PMX 500 MG in SALINE 1 100ML.BAG IVPB SCH ×2 (17:33→23:06)
[2022-05-21] MEDS: ATORVASTATIN 80 MG TAB PO SCH (20:13)
[2022-05-21] MEDS: GABAPENTIN 100 MG CAP PO SCH (20:13)
[2022-05-21] MEDS: FLUTICASONE 50MCG/SPRAY NASAL 16GM EA NOSTRIL SCH (20:13)
[2022-05-21] MEDS: MONTELUKAST 10 MG TAB PO SCH (20:13)
[2022-05-21 20:40] LABS: Glucose,Whole Blood 202 mg/dL (70-110)
[2022-05-21] MEDS: KETOROLAC 15 MG/ML 1 ML VIAL IVP PRN (21:58)
[2022-05-22 01:40] LABS: Glucose,Whole Blood 152 mg/dL (70-110)
[2022-05-22] MEDS ORDERED: SODIUM CHLORIDE 0.9% 1,000 ML IV ONE (01:43)
[2022-05-22] MEDS ORDERED: LORazepam 1 MG/0.5 ML VIAL IV STA (01:46)
[2022-05-22 01:53] LABS: ABG Base Excess 9.2 mmol/L; ABG HCO3 35 mmol/L (21-25); ABG Oxygen Saturation 91.8 % (94-97); ABG PCO2 69 mmHg (35-45); ABG PH 7.32 (7.35-7.45); ABG PO2 69 mmHg (83-108); ABG TCO2 38 mmol/L (19-24); Allen Test Performed? Yes
[2022-05-22 02:12] LABS: Appearance,Urine Clear (Clear); Bilirubin,Urine Negative (Negative); Blood,Urine Negative (Negative); Color,Urine Yellow; Glucose,Urine (UA) Trace (Negative); Ketones,Urine Negative (Negative); Leukocyte Esterase,Urine Negative (Negative); Mucus,Urine Rare /hpf; Nitrite,Urine Negative (Negative); Protein,Urine 1+ (Negative); RBC,Urine 2 /hpf (0-5); Specific Gravity,Urine 1.015 (1.001-1.035); Urobilinogen,Urine <2.0 mg/dL (<2.0); WBC,Urine 3 /hpf (0-5)
--- NOTE | 2022-05-22 03:31 | P.EN ---
A team called on this patient due to difficulty breathing and increase lethargy patient was refusing bipap earlier tonight , however, now is able to tolerate it , patient given a small dose of ativan to help her with anxiety ABG showed chronic hypercapnic respiratory failure , compensated she also given 1 L normal saline due to sinus tachycardia , she will continue on 130 cc per hour bladder scan showed >700 cc urine , mendoza cath inserted continue to monitor and manage on 3S
[2022-05-22 05:54] LABS: Glucose,Whole Blood 168 mg/dL (70-110)
[2022-05-22] MEDS: SODIUM CHLORIDE 0.9% 1,000 ML IV SCH ×3 (05:59→18:12)
[2022-05-22 07:17] LABS: HGB 11.4 gm/dL (11.4-16.0); Hypochromasia Marked; MCH 28.5 pg (25.0-35.0); MCHC 30.2 g/dL (31.0-37.0); MCV 94.4 fL (80.0-100.0); Mean Platelet Volume 8.7; Platelet Count 183 k/uL (150-450); RBC 4.02 m/uL (3.80-5.40); RDW 14.4 % (11.5-15.5); WBC 25.4 k/uL (3.8-10.6)
[2022-05-22 07:33] LABS: African American GFR (CKD) >90 (>60 ml/min/1.73 sqM); Anion Gap 5 mmol/L; Blood Urea Nitrogen 15 mg/dL (7-17); Calcium 8.2 mg/dL (8.4-10.2); Carbon Dioxide 37 mmol/L (22-30); Chloride 99 mmol/L (98-107); Glucose 170 mg/dL (74-99); Magnesium 1.4 mg/dL (1.6-2.3); Non-African American GFR(CKD) >90 (>60 ml/min/1.73 sqM); Potassium 3.7 mmol/L (3.5-5.1); Sodium 141 mmol/L (137-145)
[2022-05-22 08:18] LABS: Lymphocytes # (M) 0.76 k/uL (1.0-4.8); Monocytes # (M) 1.27 k/uL (0-1.0); Neutrophils # (M) 23.37 k/uL (1.3-7.7); Neutrophils % (M) 92 %; Nucleated Red Blood Cells 0 /100 WBC (0-0); Total Cells Counted 100
[2022-05-22 08:20] LABS: Toxic Granulation Present
[2022-05-22] MEDS: IPRATROPIUM-ALBUTEROL 3 ML NEB INHALATION SCH ×4 (08:51→19:45)
--- NOTE | 2022-05-22 09:16 | NM ---
Nuclear medicine hepatobiliary scan. HISTORY: Pain. DOSAGE: The patient received 4.9 mCi of Technetium 99m Choletec. FINDINGS: There is normal hepatic extraction. The gallbladder is seen by 60 minutes. There is bilia ry to bowel clearance by 20 minutes. Ejection fraction could not be obtained due to nonvisualization of the gallbladder. IMPRESSION: 1. Gallbladder is not seen at 120 minutes. Findings are suggestive of cholecystitis.
[2022-05-22] MEDS: LEVOTHYROXINE 50 MCG TAB PO SCH (10:19)
[2022-05-22] MEDS: GABAPENTIN 100 MG CAP PO SCH ×2 (10:22→21:24)
[2022-05-22] MEDS: PANTOPRAZOLE 40 MG TABLET PO SCH (10:22)
[2022-05-22] MEDS: CITALOPRAM HYDROBROMIDE 10 MG TAB PO SCH (10:23)
[2022-05-22] MEDS: MAGNESIUM SULFATE-D5W PMX 1 GM in DEXTROSE/WATER 1 100ML.BAG IVPB SCH ×4 (10:24→22:06)
[2022-05-22] MEDS: metroNIDAZOLE-NS PMX 500 MG in SALINE 1 100ML.BAG IVPB SCH ×3 (10:24→23:39)
[2022-05-22] MEDS: INSULIN ASPART (NovoLOG) 100 UNIT/ML VIAL SQ SCH ×4 (10:25→22:16)
[2022-05-22] MEDS: KETOROLAC 15 MG/ML 1 ML VIAL IVP PRN (10:27)
[2022-05-22 11:32] LABS: Glucose,Whole Blood 167 mg/dL (70-110)
--- NOTE | 2022-05-22 11:56 | P.GSCN ---
History of Present Illness Consult date: 05/22/22 History of present illness: CHIEF COMPLAINT: Abdominal pain HISTORY OF PRESENT ILLNESS: This is a 61-year-old female with a known history of COPD home O2 dependent. She presented to the hospital with complaints of abdominal pain with nausea and vomiting that started yesterday. She reports that the pain is severe. She has diffuse pain but mostly in the right upper quadrant and left lower quadrant. She denies any nausea or vomiting. She has had bowel movements and they've been formed with no blood. She has been febrile, tachycardic with elevated white count. Her computed tomography scan of the abdomen shows hydropic gallbladder with surrounding hazy density. Unable to exclude acute cholecystitis. Also sigmoid diverticulosis there is some wall thickening along the mid sigmoid colon and some possible adjacent inflammation. Correlate for mild acute diverticulitis. No abscess or free air noted. Patient's HIDA scan did suggest cholecystitis. Patient does have a known history of gallstones. Patient also reports that she has difficulty with anesthesia. Patient denies any cardiac history. Patient did require BiPAP through the evening. PAST MEDICAL HISTORY: COPD, GERD/Reflux, Osteoarthritis (OA), Pneumonia PAST SURGICAL HISTORY: Tubal ligation MEDICATIONS: See below ALLERGIES: See below SOCIAL HISTORY: No illicit drug use. REVIEW OF SYSTEMS: CONSTITUTIONAL: Denies fever or chills. HEENT: Denies blurred vision, vision changes, or eye pain. Denies hemoptysis CARDIOVASCULAR: Denies chest pain or pressure. RESPIRATORY: No shortness of breath. GASTROINTESTINAL: See HPI for pertinent findings HEMATOLOGIC: Denies bleeding disorders. GENITOURINARY: Denies any blood in urine or increased urinary frequency. SKIN: Denies pruitis. Denies rash. PHYSICAL EXAM: VITAL SIGNS: Reviewed GENERAL: Well-developed in no acute distress. HEENT: No sclera icterus. Extraocular movements grossly intact. Moist buccal mucosa. Head is atraumatic, normocephalic. No nasal drainage. ABDOMEN: Soft. Obese. Distended. Diffuse tenderness with more pain in the right upper quadrant and left lower quadrant neuro alert and orientated to 3 LABORATORY DATA: WBC 21.8 up to 25.4 Hgb 11.4 platelets 183 sodium is 141 potassium is 3.7 BUN is 15 creatinine 0.44 Glucose 167 A1c 6.9 Magnesium 1.4 Total bilirubin 0.6 AST 32 ALT 35 alk phos 119 lipase 51 IMAGING: HIDA scan gallbladder not seen. Findings are suggestive of cholecystitis Computed tomography scan abdomen and pelvis shows hydropic gallbladder with surrounding hazy density. Unable to exclude acute cholecystitis. Also sigmoid diverticulosis there is some wall thickening along the mid sigmoid colon and some possible adjacent inflammation. Correlate for mild acute diverticulitis. No abscess or free air noted. Low lung volumes. A 3.3 cm density posterior left infrahilar region may be a separate focal area of atelectasis. Hepatomegaly with a at least moderate hepatic steatosis. Small hiatal hernia. ASSESSMENT: 1. Abdominal pain 2. Acute Cholecystitis 3. Possible acute diverticulitis 4. Sepsis 5. History of COPD, on home O2 PLAN: -Further recommendations forthcoming per surgeon -Keep patient nothing by mouth -Agree with pulmonary consult -Continue antibiotics -Continue IV fluids -IV Tylenol added for pain control Physician Public Aid Eligibility Assistant note has been reviewed by physician. Signing provider agrees with the documented findings, assessment, and plan of care. Past Medical History Past Medical History: COPD, GERD/Reflux, Osteoarthritis (OA), Pneumonia Additional Past Medical History / Comment(s): migraines,, sinus and ear [id number] ear worse, severe arthritis bilateral knees, constipation, edema lower legs and feet, hemorrhoids, blood in stool at times, gallstones, History of Any Multi-Drug Resistant Organisms: None Reported Past Surgical History: Breast Surgery, Tubal Ligation Additional Past Surgical History / Comment(s): Rt breast biopsies, COLONOSCOPY Past Anesthesia/Blood Transfusion Reactions: Previous Problems w/ Anesthesia Additional Past Anesthesia/Blood Transfusion Reaction / Comm: states had diff waking up- "states stopped breathing for a couple seconds" with last colonocopy, "i need a pillow under my head" Past Psychological History: No Psychological Hx Reported Additional Psychological History / Comment(s): . Smoking Status: Former smoker Past Alcohol Use History: None Reported Additional Past Alcohol Use History / Comment(s): HAS BEEN SMOKING SINCE AGE 15, smokes 1 PPD Past Drug Use History: None Reported - Past Family History Mother Family Medical History: No Reported History Additional Family Medical History / Comment(s): . Father History Unknown: Yes Family Medical History: Unable to Obtain Medications and Allergies Home Medications Medication Instructions Recorded Confirmed Type Omeprazole [PriLOSEC] 40 mg PO DAILY 07/05/20 05/21/22 History Montelukast [Singulair] 10 mg PO HS 10/30/20 05/21/22 History Gabapentin [Neurontin] 200 mg PO BID #8 cap 08/25/21 05/21/22 Rx Atorvastatin Calcium [Lipitor] 80 mg PO HS 05/21/22 05/21/22 History Citalopram Hydrobromide 10 mg PO DAILY 05/21/22 05/21/22 History [Citalopram HBr] Ergocalciferol [Vitamin D2 (1250 1,250 mcg PO MARCELINO 05/21/22 05/21/22 History Mcg = 85950 Iu)] HYDROcodone/APAP 5-325MG [[place] 1 tab PO Q4H PRN 05/21/22 05/21/22 History 5-325] Levothyroxine Sodium [Synthroid] 50 mcg PO DAILY 05/21/22 05/21/22 History Potassium Chloride ER [K-Dur 20] 20 meq PO TID 05/21/22 05/21/22 History metFORMIN HCL [Glucophage] 500 mg PO BID 05/21/22 05/21/22 History Allergies Allergy/AdvReac Type Severity Reaction Status Date / Time No Known Allergies Allergy Verified 05/21/22 15:29 Surgical - Exam Vital Signs Temp Pulse Resp BP Pulse Ox 98.8 F 117 H 18 166/87 96 05/21/22 13:08 05/21/22 13:08 05/21/22 13:08 05/21/22 13:08 05/21/22 13:08 Results - Labs 05/22/22 06:40 05/22/22 06:40 Abnormal Lab Results - Last 24 Hours (Table) 05/21/22 05/21/22 05/21/22 Range/Units 13:20 13:20 13:20 WBC 21.8 H (3.8-10.6) k/uL MCHC (31.0-37.0) g/dL Neutrophils # 19.6 H (1.3-7.7) k/uL Neutrophils # (Manual) (1.3-7.7) k/uL Lymphocytes # 0.7 L (1.0-4.8) k/uL Lymphocytes # (Manual) (1.0-4.8) k/uL Monocytes # 1.1 H (0-1.0) k/uL Monocytes # (Manual) (0-1.0) k/uL APTT 17.9 L (22.0-30.0) sec ABG pH (7.35-7.45) ABG pCO2 (35-45) mmHg ABG pO2 (83-108) mmHg ABG HCO3 (21-25) mmol/L ABG Total CO2 (19-24) mmol/L ABG O2 Saturation (94-97) % VBG pCO2 (37-51) mmHg VBG HCO3 (24-28) mmol/L Chloride 91 L (98-107) mmol/L Carbon Dioxide 38 H (22-30) mmol/L Creatinine 0.38 L (0.52-1.04) mg/dL Glucose 192 H (74-99) mg/dL POC Glucose (mg/dL) (70-110) mg/dL Plasma Lactic Acid Sandoval (0.7-2.0) mmol/L Calcium (8.4-10.2) mg/dL Magnesium (1.6-2.3) mg/dL ALT 35 H (4-34) U/L Urine Protein (Negative) Urine Glucose (UA) (Negative) Urine Mucus (None) /hpf 05/21/22 05/21/22 05/21/22 Range/Units 13:20 16:20 20:07 WBC (3.8-10.6) k/uL MCHC (31.0-37.0) g/dL Neutrophils # (1.3-7.7) k/uL Neutrophils # (Manual) (1.3-7.7) k/uL Lymphocytes # (1.0-4.8) k/uL Lymphocytes # (Manual) (1.0-4.8) k/uL Monocytes # (0-1.0) k/uL Monocytes # (Manual) (0-1.0) k/uL APTT (22.0-30.0) sec ABG pH (7.35-7.45) ABG pCO2 (35-45) mmHg ABG pO2 (83-108) mmHg ABG HCO3 (21-25) mmol/L ABG Total CO2 (19-24) mmol/L ABG O2 Saturation (94-97) % VBG pCO2 71 H* (37-51) mmHg VBG HCO3 42 H (24-28) mmol/L Chloride (98-107) mmol/L Carbon Dioxide (22-30) mmol/L Creatinine (0.52-1.04) mg/dL Glucose (74-99) mg/dL POC Glucose (mg/dL) (70-110) mg/dL Plasma Lactic Acid Sandoval 3.1 H* 2.4 H* (0.7-2.0) mmol/L Calcium (8.4-10.2) mg/dL Magnesium (1.6-2.3) mg/dL ALT (4-34) U/L Urine Protein (Negative) Urine Glucose (UA) (Negative) Urine Mucus (None) /hpf 05/21/22 05/22/22 05/22/22 Range/Units 20:35 01:38 01:49 WBC (3.8-10.6) k/uL MCHC (31.0-37.0) g/dL Neutrophils # (1.3-7.7) k/uL Neutrophils # (Manual) (1.3-7.7) k/uL Lymphocytes # (1.0-4.8) k/uL Lymphocytes # (Manual) (1.0-4.8) k/uL Monocytes # (0-1.0) k/uL Monocytes # (Manual) (0-1.0) k/uL APTT (22.0-30.0) sec ABG pH 7.32 L (7.35-7.45) ABG pCO2 69 H (35-45) mmHg ABG pO2 69 L (83-108) mmHg ABG HCO3 35 H (21-25) mmol/L ABG Total CO2 38 H (19-24) mmol/L ABG O2 Saturation 91.8 L (94-97) % VBG pCO2 (37-51) mmHg VBG HCO3 (24-28) mmol/L Chloride (98-107) mmol/L Carbon Dioxide (22-30) mmol/L Creatinine (0.52-1.04) mg/dL Glucose (74-99) mg/dL POC Glucose (mg/dL) 202 H 152 H (70-110) mg/dL Plasma Lactic Acid Sandoval (0.7-2.0) mmol/L Calcium (8.4-10.2) mg/dL Magnesium (1.6-2.3) mg/dL ALT (4-34) U/L Urine Protein (Negative) Urine Glucose (UA) (Negative) Urine Mucus (None) /hpf 05/22/22 05/22/22 05/22/22 Range/Units 02:00 05:52 06:40 WBC 25.4 H (3.8-10.6) k/uL MCHC 30.2 L (31.0-37.0) g/dL Neutrophils # (1.3-7.7) k/uL Neutrophils # (Manual) 23.37 H (1.3-7.7) k/uL Lymphocytes # (1.0-4.8) k/uL Lymphocytes # (Manual) 0.76 L (1.0-4.8) k/uL Monocytes # (0-1.0) k/uL Monocytes # (Manual) 1.27 H (0-1.0) k/uL APTT (22.0-30.0) sec ABG pH (7.35-7.45) ABG pCO2 (35-45) mmHg ABG pO2 (83-108) mmHg ABG HCO3 (21-25) mmol/L ABG Total CO2 (19-24) mmol/L ABG O2 Saturation (94-97) % VBG pCO2 (37-51) mmHg VBG HCO3 (24-28) mmol/L Chloride (98-107) mmol/L Carbon Dioxide (22-30) mmol/L Creatinine (0.52-1.04) mg/dL Glucose (74-99) mg/dL POC Glucose (mg/dL) 168 H (70-110) mg/dL Plasma Lactic Acid Sandoval (0.7-2.0) mmol/L Calcium (8.4-10.2) mg/dL Magnesium (1.6-2.3) mg/dL ALT (4-34) U/L Urine Protein 1+ H (Negative) Urine Glucose (UA) Trace H (Negative) Urine Mucus Rare H (None) /hpf 05/22/22 Range/Units 06:40 WBC (3.8-10.6) k/uL MCHC (31.0-37.0) g/dL Neutrophils # (1.3-7.7) k/uL Neutrophils # (Manual) (1.3-7.7) k/uL Lymphocytes # (1.0-4.8) k/uL Lymphocytes # (Manual) (1.0-4.8) k/uL Monocytes # (0-1.0) k/uL Monocytes # (Manual) (0-1.0) k/uL APTT (22.0-30.0) sec ABG pH (7.35-7.45) ABG pCO2 (35-45) mmHg ABG pO2 (83-108) mmHg ABG HCO3 (21-25) mmol/L ABG Total CO2 (19-24) mmol/L ABG O2 Saturation (94-97) % VBG pCO2 (37-51) mmHg VBG HCO3 (24-28) mmol/L Chloride (98-107) mmol/L Carbon Dioxide 37 H (22-30) mmol/L Creatinine 0.44 L (0.52-1.04) mg/dL Glucose 170 H (74-99) mg/dL POC Glucose (mg/dL) (70-110) mg/dL Plasma Lactic Acid Sandoval (0.7-2.0) mmol/L Calcium 8.2 L (8.4-10.2) mg/dL Magnesium 1.4 L (1.6-2.3) mg/dL ALT (4-34) U/L Urine Protein (Negative) Urine Glucose (UA) (Negative) Urine Mucus (None) /hpf Diabetes panel 05/21/22 05/22/22 Range/Units 13:20 06:40 Sodium 138 141 (137-145) mmol/L Potassium 3.8 3.7 (3.5-5.1) mmol/L Chloride 91 L 99 (98-107) mmol/L Carbon Dioxide 38 H 37 H (22-30) mmol/L BUN 13 15 (7-17) mg/dL Creatinine 0.38 L 0.44 L (0.52-1.04) mg/dL Glucose 192 H 170 H (74-99) mg/dL Calcium 9.1 8.2 L (8.4-10.2) mg/dL AST 32 (14-36) U/L ALT 35 H (4-34) U/L Alkaline Phosphatase 119 (38-126) U/L Total Protein 7.4 (6.3-8.2) g/dL Albumin 4.5 (3.5-5.0) g/dL Calcium panel 05/21/22 05/22/22 Range/Units 13:20 06:40 Calcium 9.1 8.2 L (8.4-10.2) mg/dL Albumin 4.5 (3.5-5.0) g/dL Pituitary panel 05/21/22 05/22/22 Range/Units 13:20 06:40 Sodium 138 141 (137-145) mmol/L Potassium 3.8 3.7 (3.5-5.1) mmol/L Chloride 91 L 99 (98-107) mmol/L Carbon Dioxide 38 H 37 H (22-30) mmol/L BUN 13 15 (7-17) mg/dL Creatinine 0.38 L 0.44 L (0.52-1.04) mg/dL Glucose 192 H 170 H (74-99) mg/dL Calcium 9.1 8.2 L (8.4-10.2) mg/dL Adrenal panel 05/21/22 05/22/22 Range/Units 13:20 06:40 Sodium 138 141 (137-145) mmol/L Potassium 3.8 3.7 (3.5-5.1) mmol/L Chloride 91 L 99 (98-107) mmol/L Carbon Dioxide 38 H 37 H (22-30) mmol/L BUN 13 15 (7-17) mg/dL Creatinine 0.38 L 0.44 L (0.52-1.04) mg/dL Glucose 192 H 170 H (74-99) mg/dL Calcium 9.1 8.2 L (8.4-10.2) mg/dL Total Bilirubin 0.6 (0.2-1.3) mg/dL AST 32 (14-36) U/L ALT 35 H (4-34) U/L Alkaline Phosphatase 119 (38-126) U/L Total Protein 7.4 (6.3-8.2) g/dL Albumin 4.5 (3.5-5.0) g/dL Assessment and Plan Plan: The patient is septic from acute cholecystitis. Patient is increased risk for surgery due to her underlying medical issues including severe COPD. The patient will undergo laparoscopic cholecystectomy possible open open cholecystectomy today. Patient remained intubated after surgery.
[2022-05-22 12:29] LABS: ABG Base Excess 12.2 mmol/L; ABG HCO3 39 mmol/L (21-25); ABG Oxygen Saturation 94.3 % (94-97); ABG PO2 79 mmHg (83-108); ABG TCO2 41 mmol/L (19-24); Allen Test Performed? Yes
[2022-05-22 12:34] LABS: ABG PCO2 78 mmHg (35-45)
[2022-05-22] MEDS: FLUTICASONE 50MCG/SPRAY NASAL 16GM EA NOSTRIL SCH (12:41)
[2022-05-22] MEDS: ACETAMINOPHEN IV (For NPO) 1,000 MG in EMPTY BAG 1 BAG IVPB SCH ×3 (12:42→23:38)
--- NOTE | 2022-05-22 13:55 | P.CNPUL ---
History of Present Illness Consult date: 05/22/22 Requesting physician: Oscar Dawson Reason for consult: other Chief complaint: Sepsis. History of present illness: Pulmonary/critical care consult dated 05/22/2022. 61-year-old female who presented to the emergency department, on May 21, complaining of abdominal pain. The pain began about 12 hours or so prior to her admission to the emergency department. She also had nausea, with dry heaves. The pain apparently was in the upper quadrant of the abdomen. She does have a history of severe COPD, and she uses oxygen 24/7, at 45 L/m. She has a CO2 retainer. Anyway, she was admitted to the floor, with abdominal discomfort. She has a history of known gallstone disease, but has not had a cholecystectomy in the past. She was evaluated, and had a nuclear scan, and was found to have acute cholecystitis, with sepsis. Apparently, a rapid response was called last Saturday 3:30, and, it was determined that the patient likely had sepsis from her gallbladder disease. She was placed on BiPAP at 14/7 and 40%, and blood gases at that time showed a pO2 of 69, a P CO2 of 69, and a pH is 7.32. This would suggest that her baseline PaCO2 is 60. She's getting saline at 130 mL an hour, IV Flagyl and Rocephin. We will ask to see her for preoperative clearance. I asked for another blood gas, and her repeat blood gas showed a pO2 of 79, CO2 of 78, pH is 7.30. This again was on BiPAP. Her room air saturations are 68%. Current vital signs include a blood pressure 106/67, heart rate 107, respiratory rate 20, saturation 92%, and temperature 90.8 degrees. White count 25.4, hemoglobin 11.4, hematocrit 38, platelet count 283,000. Sodium 141, potassium 3.7, chlorides 99, CO2 37, anion gap 5, BUN 15, creatinine 0.44. Pro-calcitonin level is elevated at 1.17. Chest x-ray shows some basilar atelectasis, and cardiomegaly. Computed tomography scan of the abdomen and pelvis suggested acute cholecystitis, sigmoid diverticulosis, low lung volumes, and hepatomegaly. The patient's hepatobiliary scan was suggestive of cholecystitis. Review of Systems REVIEW OF SYSTEMS: CONSTITUTIONAL: [Negative.] NEUROLOGIC: [ Negative.] HEENT: [ Negative.] CARDIAC: [Negative.] PULMONARY: [Negative.] GI: Nausea, abdominal pain. : [Negative.] RHEUMATOLOGIC: [ Negative.] IMMUNOLOGIC: [ Negative.] ENDOCRINE: [Negative. ] DERMATOLOGIC: [Negative.] Past Medical History Past Medical History: COPD, GERD/Reflux, Osteoarthritis (OA), Pneumonia Additional Past Medical History / Comment(s): migraines,, sinus and ear [id number] ear worse, severe arthritis bilateral knees, constipation, edema lower legs and feet, hemorrhoids, blood in stool at times, gallstones, History of Any Multi-Drug Resistant Organisms: None Reported Past Surgical History: Breast Surgery, Tubal Ligation Additional Past Surgical History / Comment(s): Rt breast biopsies, COLONOSCOPY Past Anesthesia/Blood Transfusion Reactions: Previous Problems w/ Anesthesia Additional Past Anesthesia/Blood Transfusion Reaction / Comment(s): states had diff waking up- "states stopped breathing for a couple seconds" with last colonocopy, "i need a pillow under my head" Past Psychological History: No Psychological Hx Reported Additional Psychological History / Comment(s): . Smoking Status: Former smoker Past Alcohol Use History: None Reported Additional Past Alcohol Use History / Comment(s): HAS BEEN SMOKING SINCE AGE 15, smokes 1 PPD Past Drug Use History: None Reported - Past Family History Mother Family Medical History: No Reported History Additional Family Medical History / Comment(s): . Father History Unknown: Yes Family Medical History: Unable to Obtain Medications and Allergies Home Medications Medication Instructions Recorded Confirmed Type Omeprazole [PriLOSEC] 40 mg PO DAILY 07/05/20 05/21/22 History Montelukast [Singulair] 10 mg PO HS 10/30/20 05/21/22 History Gabapentin [Neurontin] 200 mg PO BID #8 cap 08/25/21 05/21/22 Rx Atorvastatin Calcium [Lipitor] 80 mg PO HS 05/21/22 05/21/22 History Citalopram Hydrobromide 10 mg PO DAILY 05/21/22 05/21/22 History [Citalopram HBr] Ergocalciferol [Vitamin D2 (1250 1,250 mcg PO MARCELINO 05/21/22 05/21/22 History Mcg = 65529 Iu)] HYDROcodone/APAP 5-325MG [[place] 1 tab PO Q4H PRN 05/21/22 05/21/22 History 5-325] Levothyroxine Sodium [Synthroid] 50 mcg PO DAILY 05/21/22 05/21/22 History Potassium Chloride ER [K-Dur 20] 20 meq PO TID 05/21/22 05/21/22 History metFORMIN HCL [Glucophage] 500 mg PO BID 05/21/22 05/21/22 History Allergies Allergy/AdvReac Type Severity Reaction Status Date / Time No Known Allergies Allergy Verified 05/21/22 15:29 Physical Exam Osteopathic Statement: *. No significant issues noted on an osteopathic structural exam other than those noted in the History and Physical/Consult. Vitals: Vital Signs Temp Pulse Pulse Resp BP BP Pulse Ox 05/22/22 12:00 107 H 106/67 92 L 05/22/22 11:38 101 H 20 05/22/22 11:28 106 H 22 96 05/22/22 10:10 90 L 05/22/22 10:05 98.0 F 128 H 22 110/62 68 L 05/22/22 04:00 98.9 F 118 H 21 135/77 91 L 05/22/22 03:35 97 05/22/22 03:33 05/22/22 01:55 05/22/22 01:10 137 H 22 05/21/22 23:43 100.9 F H 125 H 26 H 133/74 87 L 05/21/22 20:25 133 H 05/21/22 20:15 130 H 05/21/22 20:00 99.7 F H 132 H 25 H 174/94 91 L 05/21/22 19:31 26 H 05/21/22 18:40 100.7 F H 133 H 26 H 149/81 96 05/21/22 18:10 97.6 F 136 H 24 133/84 94 L 05/21/22 17:26 131 H 24 111/84 90 L 05/21/22 16:29 134 H 24 126/85 95 05/21/22 15:00 130 H 20 136/74 92 L FiO2 05/22/22 12:00 40 05/22/22 11:38 05/22/22 11:28 40 05/22/22 10:10 05/22/22 10:05 05/22/22 04:00 40 05/22/22 03:35 40 05/22/22 03:33 40 05/22/22 01:55 40 05/22/22 01:10 05/21/22 23:43 05/21/22 20:25 05/21/22 20:15 05/21/22 20:00 05/21/22 19:31 05/21/22 18:40 05/21/22 18:10 05/21/22 17:26 05/21/22 16:29 05/21/22 15:00 Intake and Output 05/21/22 05/22/22 05/22/22 22:59 06:59 14:59 Output Total 700 275 Balance -700 -275 Output: Urine 700 275 Other: Voiding Method External Catheter External Catheter Weight 127.006 kg No acute distress, lethargic, with BiPAP mask in place. HEENT examination is grossly unremarkable. Neck supple. Full range of motion. No adenopathy thyromegaly or neck vein d istention. Cardiovascular examination reveals regular rhythm rate. S1-S2 normal. No S3 or S4. No discernible murmur noted. Heart sounds distant. Heart rate 107 bpm. Lungs reveal mostly clear breath sounds. Minimal scattered rhonchi. No wheezes or crackles. Saturations are 92% on BiPAP. Abdomen obese, without bowel sounds. Tenderness on palpation throughout. Extremities are intact. No cyanosis clubbing or edema. Skin is without rash or lesion. Neurologic examination is difficult to assess. Results - Laboratory Findings CBC and BMP: 05/22/22 06:40 05/22/22 06:40 ABG ABG pH 7.30 (7.35-7.45) L 05/22/22 12:28 ABG pCO2 78 mmHg (35-45) H* 05/22/22 12:28 ABG pO2 79 mmHg (83-108) L 05/22/22 12:28 ABG O2 Saturation 94.3 % (94-97) 05/22/22 12:28 PT/INR, D-dimer PT 10.0 sec (9.0-12.0) 05/21/22 13:20 INR 0.9 (<1.2) 05/21/22 13:20 Abnormal lab findings: Abnormal Labs 05/21/22 05/21/22 05/21/22 13:20 13:20 13:20 WBC 21.8 H MCHC Neutrophils # 19.6 H Neutrophils # (Manual) Lymphocytes # 0.7 L Lymphocytes # (Manual) Monocytes # 1.1 H Monocytes # (Manual) APTT 17.9 L ABG pH ABG pCO2 ABG pO2 ABG HCO3 ABG Total CO2 ABG O2 Saturation VBG pCO2 VBG HCO3 Chloride 91 L Carbon Dioxide 38 H Creatinine 0.38 L Glucose 192 H POC Glucose (mg/dL) Hemoglobin A1c Plasma Lactic Acid Sand[place] Calcium Magnesium ALT 35 H Procalcitonin Urine Protein Urine Glucose (UA) Urine Mucus 05/21/22 05/21/22 05/21/22 13:20 16:20 20:07 WBC MCHC Neutrophils # Neutrophils # (Manual) Lymphocytes # Lymphocytes # (Manual) Monocytes # Monocytes # (Manual) APTT ABG pH ABG pCO2 ABG pO2 ABG HCO3 ABG Total CO2 ABG O2 Saturation VBG pCO2 71 H* VBG HCO3 42 H Chloride Carbon Dioxide Creatinine Glucose POC Glucose (mg/dL) Hemoglobin A1c Plasma Lactic Acid Sandoval 3.1 H* 2.4 H* Calcium Magnesium ALT Procalcitonin Urine Protein Urine Glucose (UA) Urine Mucus 05/21/22 05/22/22 05/22/22 20:35 01:38 01:49 WBC MCHC Neutrophils # Neutrophils # (Manual) Lymphocytes # Lymphocytes # (Manual) Monocytes # Monocytes # (Manual) APTT ABG pH 7.32 L ABG pCO2 69 H ABG pO2 69 L ABG HCO3 35 H ABG Total CO2 38 H ABG O2 Saturation 91.8 L VBG pCO2 VBG HCO3 Chloride Carbon Dioxide Creatinine Glucose POC Glucose (mg/dL) 202 H 152 H Hemoglobin A1c Plasma Lactic Acid [place] Calcium Magnesium ALT Procalcitonin Urine Protein Urine Glucose (UA) Urine Mucus 05/22/22 05/22/22 05/22/22 02:00 05:52 06:40 WBC MCHC Neutrophils # Neutrophils # (Manual) Lymphocytes # Lymphocytes # (Manual) Monocytes # Monocytes # (Manual) APTT ABG pH ABG pCO2 ABG pO2 ABG HCO3 ABG Total CO2 ABG O2 Saturation VBG pCO2 VBG HCO3 Chloride Carbon Dioxide Creatinine Glucose POC Glucose (mg/dL) 168 H Hemoglobin A1c 6.9 H Plasma Lactic Acid [place] Calcium Magnesium ALT Procalcitonin Urine Protein 1+ H Urine Glucose (UA) Trace H Urine Mucus Rare H 05/22/22 05/22/22 05/22/22 06:40 06:40 06:40 WBC 25.4 H MCHC 30.2 L Neutrophils # Neutrophils # (Manual) 23.37 H Lymphocytes # Lymphocytes # (Manual) 0.76 L Monocytes # Monocytes # (Manual) 1.27 H APTT ABG pH ABG pCO2 ABG pO2 ABG HCO3 ABG Total CO2 ABG O2 Saturation VBG pCO2 VBG HCO3 Chloride Carbon Dioxide 37 H Creatinine 0.44 L Glucose 170 H POC Glucose (mg/dL) Hemoglobin A1c Plasma Lactic Acid Sandoval Calcium 8.2 L Magnesium 1.4 L ALT Procalcitonin 1.17 H Urine Protein Urine Glucose (UA) Urine Mucus 05/22/22 05/22/22 11:31 12:28 WBC MCHC Neutrophils # Neutrophils # (Manual) Lymphocytes # Lymphocytes # (Manual) Monocytes # Monocytes # (Manual) APTT ABG pH 7.30 L ABG pCO2 78 H* ABG pO2 79 L ABG HCO3 39 H ABG Total CO2 41 H ABG O2 Saturation VBG pCO2 VBG HCO3 Chloride Carbon Dioxide Creatinine Glucose POC Glucose (mg/dL) 167 H Hemoglobin A1c Plasma Lactic Acid [place]oval Calcium Magnesium ALT Procalcitonin Urine Protein Urine Glucose (UA) Urine Mucus - Diagnostic Findings Chest x-ray: image reviewed Assessment and Plan Assessment: Acute cholecystitis with sepsis. Severe COPD, with chronic hypoxemic and hypercapnic respiratory failure. Obesity. History of gastroesophageal reflux disease. History of osteoarthritis. History of migraine cephalgia. Prior history of tobacco use. Plan: Plan dated 05/22/2022. The patient will likely go to the operating room today. The patient will likely come back to the intensive care unit on the ventilator. Additional recommendations and suggestions are forthcoming. The patient has received both Flagyl and Rocephin. She's getting saline at 130 mL an hour. It appears that her baseline PaCO2 is right around between 60-65 mmHg. She does have chronic hypoxemic respiratory failure along with chronic hypercapnic respiratory failure. Additional recommendations and suggestions are forthcoming. Time with Patient: Greater than 30
--- NOTE | 2022-05-22 14:11 | P.PN ---
Subjective Progress Note Date: 05/22/22 Principal diagnosis: sepsis Hospital Course: 61-year-old female with past medical history of diabetes, hypothyroidism, COPD, dyslipidemia, chronic hypoxic respiratory failure presenting with abdominal pain and nausea. On initial presentation, she was tachycardic, normal blood pressure, saturating well on her baseline [address] abdomen and pelvis showed hydropic gallbladder with surrounding hazy density, possible early acute cholecystitis, further evaluation recommended. Sigmoid diverticulosis with possible mild acute diverticulitis. Atelectasis, 3.3 cm density posterior left infrahilar region could represent atelectasis or underlying mass, recommended repeat CT chest in 2-3 weeks. Hepatomegaly with moderate hepatic steatosis. Small hiatal hernia. HIDA scan shows findings suggestive of cholecystitis. Surgery was consulted. Patient is at high risk for respiratory failure postop. Pulmonology consulted for further respiratory optimalization clearance. Patient remains on IV antibiotics. Subjective: Patient seen and examined at bedside. Overnight, A team was called as patient was complaining of difficulty breathing and increased lethargy, patient given dose of Ativan to help her with her anxiety, been able to tolerate BiPAP for a few hours, ABG shows chronic hypercapnic respiratory failure, compensated. She was also given more fluids for sinus tachycardia, bladder scan showed urinary retention, Anderson catheter was inserted. Patient currently continues to complain of abdominal pain, but denies any further respiratory distress, chest pain, palpitations, lightheadedness, urinary or bowel complaints. Pertinent positives and negatives as discussed above, a complete review of systems was performed and all other systems are negative. Vitals Signs Reviewed. General: nontoxic, no distress, appears at stated age, morbidly obese Derm: warm, dry Head: atraumatic, normocephalic, symmetric Eyes: EOMI, no lid lag, anicteric sclera, pupils equal round reactive to light ENT: Nose and ears atraumatic Neck: No thyromegaly, supple Mouth: no lip lesion, mucus membranes moist Cardiovascular: S1S2 reg, no murmur, no edema Lungs: clear to auscultation bilateral, no rhonchi, no rales, no wheeze, no accessory muscle use, on Bipap Abdominal: soft, mildly tender to palpation in all quadrants, no guarding, no appreciable organomegaly Ext: no gross muscle atrophy, muscle strength muscle strength 5 out of 5 in all 4 extremities, no contractures Neuro: CN II-XII grossly intact Psych: Alert, oriented, appropriate affect Assessment and Plan: Acute cholecystitis Severe sepsis with lactic acidosis Leukocytosis Sinus tachycardia Abdominal pain Mild acute diverticulitis -Blood cultures pending -Pro calcitonin -Continue ceftriaxone and Flagyl -IV fluids -Surgery consulted Preoperative evaluation -RCRI - 1 point, class II risk, 6% 30 day risk of , MD, or cardiac arrest -Postoperative respiratory failure risk close to 30% given her total dependent functional status, and chronic hypoxic respiratory failure -We will involve pulmonology for further preoperative respiratory optimalization and clearance Acute Urinary retention -Anderson catheter Hypomagnesemia -Replete and monitor Chronic medical problems: Chronic hypoxic respiratory failure COPD Diabetes - SSI, hold metformin Hypothyroidism Dyslipidemia -Continue home medications DVT ppx: Subcu heparin Code status: Full code Anticipated discharge place: Pending clinical course Anticipated discharge time: pending clinical course Objective - Vital Signs Vital signs: Vital Signs Temp 98.0 F 05/22/22 10:05 Pulse 128 H 05/22/22 10:05 Resp 22 05/22/22 10:05 BP 110/62 05/22/22 10:05 Pulse Ox 90 L 05/22/22 10:10 FiO2 40 05/22/22 04:00 Intake & Output 05/21/22 05/22/22 05/22/22 18:59 06:59 18:59 Output Total 700 Balance -700 Weight 127.006 kg 127.006 kg Output: Urine 700 Other: Voiding Method External Catheter External Catheter - Labs CBC & Chem 7: 05/22/22 06:40 05/22/22 06:40 Labs: Abnormal Lab Results - Last 24 Hours (Table) 05/21/22 05/21/22 05/21/22 Range/Units 13:20 13:20 13:20 WBC 21.8 H (3.8-10.6) k/uL MCHC (31.0-37.0) g/dL Neutrophils # 19.6 H (1.3-7.7) k/uL Neutrophils # (Manual) (1.3-7.7) k/uL Lymphocytes # 0.7 L (1.0-4.8) k/uL Lymphocytes # (Manual) (1.0-4.8) k/uL Monocytes # 1.1 H (0-1.0) k/uL Monocytes # (Manual) (0-1.0) k/uL APTT 17.9 L (22.0-30.0) sec ABG pH (7.35-7.45) ABG pCO2 (35-45) mmHg ABG pO2 (83-108) mmHg ABG HCO3 (21-25) mmol/L ABG Total CO2 (19-24) mmol/L ABG O2 Saturation (94-97) % VBG pCO2 (37-51) mmHg VBG HCO3 (24-28) mmol/L Chloride 91 L (98-107) mmol/L Carbon Dioxide 38 H (22-30) mmol/L Creatinine 0.38 L (0.52-1.04) mg/dL Glucose 192 H (74-99) mg/dL POC Glucose (mg/dL) (70-110) mg/dL Plasma Lactic Acid Sandoval (0.7-2.0) mmol/L Calcium (8.4-10.2) mg/dL Magnesium (1.6-2.3) mg/dL ALT 35 H (4-34) U/L Urine Protein (Negative) Urine Glucose (UA) (Negative) Urine Mucus (None) /hpf 05/21/22 05/21/22 05/21/22 Range/Units 13:20 16:20 20:07 WBC (3.8-10.6) k/uL MCHC (31.0-37.0) g/dL Neutrophils # (1.3-7.7) k/uL Neutrophils # (Manual) (1.3-7.7) k/uL Lymphocytes # (1.0-4.8) k/uL Lymphocytes # (Manual) (1.0-4.8) k/uL Monocytes # (0-1.0) k/uL Monocytes # (Manual) (0-1.0) k/uL APTT (22.0-30.0) sec ABG pH (7.35-7.45) ABG pCO2 (35-45) mmHg ABG pO2 (83-108) mmHg ABG HCO3 (21-25) mmol/L ABG Total CO2 (19-24) mmol/L ABG O2 Saturation (94-97) % VBG pCO2 71 H* (37-51) mmHg VBG HCO3 42 H (24-28) mmol/L Chloride (98-107) mmol/L Carbon Dioxide (22-30) mmol/L Creatinine (0.52-1.04) mg/dL Glucose (74-99) mg/dL POC Glucose (mg/dL) (70-110) mg/dL Plasma Lactic Acid Sandoval 3.1 H* 2.4 H* (0.7-2.0) mmol/L Calcium (8.4-10.2) mg/dL Magnesium (1.6-2.3) mg/dL ALT (4-34) U/L Urine Protein (Negative) Urine Glucose (UA) (Negative) Urine Mucus (None) /hpf 05/21/22 05/22/22 05/22/22 Range/Units 20:35 01:38 01:49 WBC (3.8-10.6) k/uL MCHC (31.0-37.0) g/dL Neutrophils # (1.3-7.7) k/uL Neutrophils # (Manual) (1.3-7.7) k/uL Lymphocytes # (1.0-4.8) k/uL Lymphocytes # (Manual) (1.0-4.8) k/uL Monocytes # (0-1.0) k/uL Monocytes # (Manual) (0-1.0) k/uL APTT (22.0-30.0) sec ABG pH 7.32 L (7.35-7.45) ABG pCO2 69 H (35-45) mmHg ABG pO2 69 L (83-108) mmHg ABG HCO3 35 H (21-25) mmol/L ABG Total CO2 38 H (19-24) mmol/L ABG O2 Saturation 91.8 L (94-97) % VBG pCO2 (37-51) mmHg VBG HCO3 (24-28) mmol/L Chloride (98-107) mmol/L Carbon Dioxide (22-30) mmol/L Creatinine (0.52-1.04) mg/dL Glucose (74-99) mg/dL POC Glucose (mg/dL) 202 H 152 H (70-110) mg/dL Plasma Lactic Acid Sandoval (0.7-2.0) mmol/L Calcium (8.4-10.2) mg/dL Magnesium (1.6-2.3) mg/dL ALT (4-34) U/L Urine Protein (Negative) Urine Glucose (UA) (Negative) Urine Mucus (None) /hpf 05/22/22 05/22/22 05/22/22 Range/Units 02:00 05:52 06:40 WBC 25.4 H (3.8-10.6) k/uL MCHC 30.2 L (31.0-37.0) g/dL Neutrophils # (1.3-7.7) k/uL Neutrophils # (Manual) 23.37 H (1.3-7.7) k/uL Lymphocytes # (1.0-4.8) k/uL Lymphocytes # (Manual) 0.76 L (1.0-4.8) k/uL Monocytes # (0-1.0) k/uL Monocytes # (Manual) 1.27 H (0-1.0) k/uL APTT (22.0-30.0) sec ABG pH (7.35-7.45) ABG pCO2 (35-45) mmHg ABG pO2 (83-108) mmHg ABG HCO3 (21-25) mmol/L ABG Total CO2 (19-24) mmol/L ABG O2 Saturation (94-97) % VBG pCO2 (37-51) mmHg VBG HCO3 (24-28) mmol/L Chloride (98-107) mmol/L Carbon Dioxide (22-30) mmol/L Creatinine (0.52-1.04) mg/dL Glucose (74-99) mg/dL POC Glucose (mg/dL) 168 H (70-110) mg/dL Plasma Lactic Acid Sandoval (0.7-2.0) mmol/L Calcium (8.4-10.2) mg/dL Magnesium (1.6-2.3) mg/dL ALT (4-34) U/L Urine Protein 1+ H (Negative) Urine Glucose (UA) Trace H (Negative) Urine Mucus Rare H (None) /hpf 05/22/22 Range/Units 06:40 WBC (3.8-10.6) k/uL MCHC (31.0-37.0) g/dL Neutrophils # (1.3-7.7) k/uL Neutrophils # (Manual) (1.3-7.7) k/uL Lymphocytes # (1.0-4.8) k/uL Lymphocytes # (Manual) (1.0-4.8) k/uL Monocytes # (0-1.0) k/uL Monocytes # (Manual) (0-1.0) k/uL APTT (22.0-30.0) sec ABG pH (7.35-7.45) ABG pCO2 (35-45) mmHg ABG pO2 (83-108) mmHg ABG HCO3 (21-25) mmol/L ABG Total CO2 (19-24) mmol/L ABG O2 Saturation (94-97) % VBG pCO2 (37-51) mmHg VBG HCO3 (24-28) mmol/L Chloride (98-107) mmol/L Carbon Dioxide 37 H (22-30) mmol/L Creatinine 0.44 L (0.52-1.04) mg/dL Glucose 170 H (74-99) mg/dL POC Glucose (mg/dL) (70-110) mg/dL Plasma Lactic Acid Sandoval (0.7-2.0) mmol/L Calcium 8.2 L (8.4-10.2) mg/dL Magnesium 1.4 L (1.6-2.3) mg/dL ALT (4-34) U/L Urine Protein (Negative) Urine Glucose (UA) (Negative) Urine Mucus (None) /hpf
[2022-05-22] MEDS ORDERED: BUPIVACAIN-EPI 0.25%-1:200,000 30 ML VIAL SQ ONE ×2 (15:23→16:30)
[2022-05-22 15:48] LABS: Glucose,Whole Blood 135 mg/dL (70-110)
[2022-05-22] MEDS ORDERED: IV FLUID CONTINUATION 1,000 ML IV ONE (15:49)
[2022-05-22] MEDS ORDERED: LACTATED RINGERS 1,000 ML IV ONE ×2 (15:58→16:59)
[2022-05-22] MEDS ORDERED: PHENYLEPHRINE-0.9% NACL SYG 1,000 MCG/10 ML SYRINGE ONE (16:01)
[2022-05-22] MEDS ORDERED: ROCURONIUM 10 MG/ML (5 ML VIAL) IV ONE (16:01)
[2022-05-22] MEDS ORDERED: SUCCINYLCHOLINE CHLORIDE 200 MG/10 ML VIAL IV ONE (16:01)
[2022-05-22] MEDS ORDERED: MIDAZOLAM 2 MG/2 ML VIAL ONE (16:01)
[2022-05-22] MEDS ORDERED: LIDOCAINE 2% INJ 20 MG/ML (2 ML VIAL) ONE (16:01)
[2022-05-22] MEDS ORDERED: HEPARIN SODIUM,PORCINE/PF 5,000 UNIT/0.5 ML SYRINGE SQ ONE (16:01)
[2022-05-22] MEDS ORDERED: fentaNYL (PF) 50 MCG/ML 2 ML AMP ONE (16:01)
[2022-05-22] MEDS ORDERED: propofoL 100 ML IV ONE (17:29)
--- NOTE | 2022-05-22 17:36 | P.OP ---
Date of Procedure: 05/22/22 Preoperative Diagnosis: Acute cholecystitis Postoperative Diagnosis: Acute gangrenous cholecystitis Procedure(s) Performed: Diagnostic laparoscopy Open cholecystectomy Anesthesia: ELLY Surgeon: Richard Guardado Estimated Blood Loss (ml): 150 Pathology: other (Gallbladder) Condition: stable Disposition: PACU Description of Procedure: The patient was placed on the operating table. The patient received a general endotracheal tube anesthesia. The patients abdomen was prepped and draped in the usual sterile fashion. Through an infraumbilical stab incision, the fascia of the anterior abdominal wall was grasped with a pair of Kochers and then the Veress needle was placed in the peritoneal cavity. Position of the Veress needle was confirmed with positive drop test. The abdomen was then insufflated. After adequate insufflation, the 10 mm trocar was placed in the peritoneal cavity. Following this the laparoscope was placed in the peritoneal cavity. The patient was placed in the head-up, right side up position and then a 5 mm trocar was placed in the right lateral and right subcostal position under direct visualization. A 8 mm trocar was placed in the epigastric position. The gallbladder was significantly inflamed. It appeared to be hydropic. Using Harmonic scissors an opening was made in the dome of the gallbladder and the gallbladder was aspirated. There is mucopurulent fluid. The gallbladder wall was very thick. The gallbladder was grasped and retracted cephalad. There was significant inflammation around the triangle. At this point decided to open cholecystectomy. The trochars withdrawn. A right subcostal incision was made. Using left cautery the abdominal wall was divided. The patient was morbidly obese. She had a very large liver. The gallbladder is visualized. The gallbladder was then taken down in a dome down technique. Due to the significant inflammation along the cystic artery and chronic low is decided perform a subtotal cholecystectomy the neck of the gallbladder was then transected with the Barr scissors. The gallbladder wall was very thick. It measured approximately 7 mm in thickness And then the gallbladder neck was oversewn with 2-0 Vicryl suture. There was no significant bleeding from the gallbladder. The liver bed was bleeding and several bleeding points were quite high. Piece of Surgicel was placed in the gallbladder fossa. A KIANA drain is placed in the gallbladder fossa and brought out through a stab incision in the right lateral area. The abdomen was irrigated there is no bleeding seen. The fascia was closed with looped #1 PDS suture. Skin was closed with letty. The drain is secured with 3-0 nylon suture. Patient tolerated procedure well. She was sent back to the ICU intubated.
[2022-05-22 18:01] LABS: Glucose,Whole Blood 169 mg/dL (70-110)
[2022-05-22] MEDS: LACTATED RINGERS 1,000 ML IV SCH (18:13)
[2022-05-22 18:26] LABS: ABG Base Excess 9.7 mmol/L; ABG HCO3 35 mmol/L (21-25); ABG Oxygen Saturation 97.1 % (94-97); ABG PCO2 63 mmHg (35-45); ABG PH 7.36 (7.35-7.45); ABG PO2 110 mmHg (83-108); ABG TCO2 37 mmol/L (19-24); Allen Test Performed? Yes
--- NOTE | 2022-05-22 18:53 | XR ---
EXAMINATION TYPE: XR chest 1V portable DATE OF EXAM: 05/22/2022 6:19 PM COMPARISON: Chest radiograph from one day prior. TECHNIQUE: XR chest 1V portable Portable AP radiograph of the chest. CLINICAL INDICATION:Female, 61 years old with history of Tube placement; FINDINGS: Lungs/Pleura: There is no evidence of pleural effusion, focal consolidation, or pneumothorax. Pulmonary vascularity: Pulmonary vascular congestion. Heart/mediastinum: Cardiomediastinal silhouette is enlarged and stable. Musculoskeletal: No acute osseous pathology. Lines/Tubes: Endotracheal tube with distal tip 3.3 cm above the yajaira Nasogastric tube with its distal tip and side-port projecting under the diaphragm. IMPRESSION: Support tubes in appropriate position. Congestive heart failure changes correlate with serum BNP.
[2022-05-22 20:00] LABS: Basophils # (A) 0.1 k/uL (0-0.2); Basophils % (A) 0 %; Eosinophils # (A) 0.1 k/uL (0-0.7); Eosinophils % (A) 0 %; HCT 33.3 % (34.0-46.0); HGB 10.3 gm/dL (11.4-16.0); Hypochromasia Marked; Lymphocytes # (A) 0.7 k/uL (1.0-4.8); Lymphocytes % (A) 3 %; MCH 29.4 pg (25.0-35.0); MCHC 31.1 g/dL (31.0-37.0); MCV 94.5 fL (80.0-100.0); Mean Platelet Volume 9.1; Monocytes # (A) 1.4 k/uL (0-1.0); Monocytes % (A) 6 %; Neutrophils # (A) 21.9 k/uL (1.3-7.7); Neutrophils % (A) 90 %; Platelet Count 163 k/uL (150-450); RBC 3.52 m/uL (3.80-5.40); RDW 14.4 % (11.5-15.5); WBC 24.3 k/uL (3.8-10.6)
[2022-05-22 20:15] LABS: African American GFR (CKD) >90 (>60 ml/min/1.73 sqM); Anion Gap 4 mmol/L; Blood Urea Nitrogen 20 mg/dL (7-17); Calcium 7.8 mg/dL (8.4-10.2); Carbon Dioxide 34 mmol/L (22-30); Chloride 99 mmol/L (98-107); Glucose 201 mg/dL (74-99); Magnesium 1.8 mg/dL (1.6-2.3); Non-African American GFR(CKD) >90 (>60 ml/min/1.73 sqM); Potassium 3.7 mmol/L (3.5-5.1); Sodium 137 mmol/L (137-145)
[2022-05-22] MEDS ORDERED: Magnesium Replacement Protocol 1 EACH MISC MISCELLANE PRN (20:30)
[2022-05-22] MEDS ORDERED: SODIUM CHLORIDE 0.9% 500 ML 500 ML IV ONE (20:43)
[2022-05-22] MEDS ORDERED: ADENOSINE 3 MG/ML 2 ML VIAL IVP ONE (20:51)
[2022-05-22] MEDS: ATORVASTATIN 80 MG TAB PO SCH (21:20)
[2022-05-22] MEDS: MONTELUKAST 10 MG TAB PO SCH (21:24)
[2022-05-22] MEDS ORDERED: Potassium Replacement Protocol 1 EACH MISC MISCELLANE PRN (21:25)
[2022-05-22] MEDS: POTASSIUM CHLORIDE 10 MEQ in WATER FOR INJECTION 1 100ML.BAG IVPB SCH ×2 (21:36→23:40)
[2022-05-22 22:17] LABS: Glucose,Whole Blood 177 mg/dL (70-110)
[2022-05-23] MEDS: KETOROLAC 15 MG/ML 1 ML VIAL IVP PRN (00:38)
[2022-05-23] MEDS: NOREPINEPHRINE 4 MG in SODIUM CHLORIDE 0.9% 250 ML IV SCH ×2 (01:30→13:20)
[2022-05-23 01:42] LABS: Glucose,Whole Blood 120 mg/dL (70-110)
[2022-05-23] MEDS: CHLORHEXIDINE GLUCONATE 15 ML CUP MUCOUS MEM SCH ×3 (03:15→20:21)
[2022-05-23] MEDS: HYDROmorphone 1 MG/ML 1 ML SYRINGE IVP PRN ×8 (03:54→23:16)
[2022-05-23 05:27] LABS: ABG Base Excess 9.4 mmol/L; ABG HCO3 35 mmol/L (21-25); ABG Oxygen Saturation 96.3 % (94-97); ABG PCO2 59 mmHg (35-45); ABG PH 7.38 (7.35-7.45); ABG PO2 91 mmHg (83-108); ABG TCO2 36 mmol/L (19-24); Allen Test Performed? Yes
[2022-05-23 06:12] LABS: HCT 30.9 % (34.0-46.0); HGB 9.7 gm/dL (11.4-16.0); Hypochromasia Marked; MCH 29.6 pg (25.0-35.0); MCHC 31.4 g/dL (31.0-37.0); MCV 94.2 fL (80.0-100.0); Mean Platelet Volume 9.1; Platelet Count 182 k/uL (150-450); RBC 3.28 m/uL (3.80-5.40); RDW 14.5 % (11.5-15.5); WBC 21.4 k/uL (3.8-10.6)
[2022-05-23 06:30] LABS: ALT 61 U/L (4-34); AST 68 U/L (14-36); African American GFR (CKD) >90 (>60 ml/min/1.73 sqM); Albumin 2.7 g/dL (3.5-5.0); Alkaline Phosphatase 105 U/L (38-126); Anion Gap 1 mmol/L; Blood Urea Nitrogen 22 mg/dL (7-17); Calcium 8.1 mg/dL (8.4-10.2); Carbon Dioxide 35 mmol/L (22-30); Chloride 103 mmol/L (98-107); Glucose 147 mg/dL (74-99); Magnesium 2.4 mg/dL (1.6-2.3); Non-African American GFR(CKD) >90 (>60 ml/min/1.73 sqM); Potassium 3.6 mmol/L (3.5-5.1); Sodium 139 mmol/L (137-145); Total Bilirubin 0.5 mg/dL (0.2-1.3); Total Protein 5.1 g/dL (6.3-8.2)
[2022-05-23] MEDS: SODIUM CHLORIDE 0.9% 1,000 ML IV SCH (06:36)
[2022-05-23] MEDS: LACTATED RINGERS 1,000 ML IV SCH ×3 (06:37→20:17)
[2022-05-23] MEDS: INSULIN ASPART (NovoLOG) 100 UNIT/ML VIAL SQ SCH ×4 (06:38→23:24)
[2022-05-23] MEDS: ACETAMINOPHEN IV (For NPO) 1,000 MG in EMPTY BAG 1 BAG IVPB SCH (06:40)
[2022-05-23] MEDS ORDERED: Potassium Replacement Protocol 1 EACH MISC MISCELLANE PRN (06:46)
[2022-05-23] MEDS: POTASSIUM CHLORIDE 10 MEQ in WATER FOR INJECTION 1 100ML.BAG IVPB SCH ×2 (06:56→09:42)
[2022-05-23] MEDS: IPRATROPIUM-ALBUTEROL 3 ML NEB INHALATION SCH ×4 (07:16→18:52)
--- NOTE | 2022-05-23 07:18 | XR ---
EXAMINATION TYPE: XR chest 1V portable DATE OF EXAM: 05/23/2022 5:55 AM COMPARISON: Chest radiograph from one day prior. TECHNIQUE: XR chest 1V portable Portable AP radiograph of the chest. CLINICAL INDICATION:Female, 61 years old with history of Tube placement; FINDINGS: Lungs/Pleura: No evidence of focal consolidation or pneumothorax. Blunting of the costophrenic angles is present. Pulmonary vascularity: Unremarkable. Heart/mediastinum: Cardiomediastinal silhouette is enlarged and stable. Atherosclerotic calcificatio ns are seen in the aorta. Musculoskeletal: No acute osseous pathology. Lines/Tubes: Endotracheal tube with distal tip 4.7 cm above the yajaira Nasogastric tube with its distal tip and side-port projecting under the diaphragm. IMPRESSION: Cardiomegaly, pulmonary vascular congestion and bilateral pleural effusions. Correlate with BNP for c ongestive heart failure.
[2022-05-23] MEDS: LEVOTHYROXINE 50 MCG TAB PO SCH (08:05)
[2022-05-23] MEDS ORDERED: propofoL 100 ML IV ONE ×2 (09:10→11:47)
[2022-05-23] MEDS: metroNIDAZOLE-NS PMX 500 MG in SALINE 1 100ML.BAG IVPB SCH ×3 (09:42→23:25)
[2022-05-23] MEDS: GABAPENTIN 100 MG CAP PO SCH ×2 (09:43→20:18)
[2022-05-23] MEDS: CITALOPRAM HYDROBROMIDE 10 MG TAB PO SCH (09:43)
[2022-05-23] MEDS: PANTOPRAZOLE 40 MG TABLET PO SCH (09:43)
[2022-05-23] MEDS: FLUTICASONE 50MCG/SPRAY NASAL 16GM EA NOSTRIL SCH (10:09)
--- NOTE | 2022-05-23 10:19 | P.PN ---
Subjective Progress Note Date: 05/23/22 Principal diagnosis: sepsis Hospital Course: 61-year-old female with past medical history of diabetes, hypothyroidism, COPD, dyslipidemia, chronic hypoxic respiratory failure presenting with abdominal pain and nausea. On initial presentation, she was tachycardic, normal blood pressure, saturating well on her baseline [address] abdomen and pelvis showed hydropic gallbladder with surrounding hazy density, possible early acute cholecystitis, further evaluation recommended. Sigmoid diverticulosis with possible mild acute diverticulitis. Atelectasis, 3.3 cm density posterior left infrahilar region could represent atelectasis or underlying mass, osorio mmended repeat CT chest in 2-3 weeks. Hepatomegaly with moderate hepatic steatosis. Small hiatal hernia. HIDA scan shows findings suggestive of cholecystitis. Surgery was consulted. Patient at high risk for respiratory failure postop. Pulmonology consulted. Patient remains on IV antibiotics. Patient underwent laparoscopic converted to open cholecystectomy. Patient intubated during the procedure. She is now admitted to the ICU. Currently intubated and sedated and requiring minimal amounts of pressors. Subjective: Patient seen and examined at bedside. Currently intubated and sedated. Per nursing, patient having adequate urine output. Patient on pressors due to use of propofol for sedation. Plan is likely to consider extubation today. Pertinent positives and negatives as discussed above, a complete review of systems was performed and all other systems are negative. Vitals Signs Reviewed. General: Intubated and sedated, appears at stated age, morbidly obese Derm: warm, dry, abdominal dressing clean, dry, and intact Head: atraumatic, normocephalic, symmetric Eyes: anicteric sclera, pupils equal round reactive to light, pinpoint ENT: Nose and ears atraumatic Neck: No thyromegaly, supple Mouth: no lip lesion, mucus membranes moist Cardiovascular: S1S2 reg, no murmur, no edema Lungs: Intubated, bilateral rhonchi, no accessory muscle use Abdominal: soft, obese abdomen, right-sided drain with serosanguineous discharge Ext: no gross muscle atrophy, no contractures Neuro: Sedated Psych: Unable to evaluate Assessment and Plan: Acute cholecystitis Severe sepsis with lactic acidosis Leukocytosis Sinus tachycardia Abdominal pain Mild acute diverticulitis -No status post cholecystectomy -Blood cultures pending -Pro calcitonin mildly elevated -Continue ceftriaxone and Flagyl -IV fluids -Surgery and ICU following -Renal pressors Acute on chronic hypoxic respiratory failure Currently intubated postoperatively -Consider spontaneous breathing trial, and extubation Acute Urinary retention -Anderson catheter Hypomagnesemia -Resolved Chronic medical problems: COPD Diabetes - SSI, hold metformin Hypothyroidism Dyslipidemia -Continue home medications DVT ppx: Subcu heparin Code status: Full code Anticipated discharge place: Pending clinical course Anticipated discharge time: pending clinical course Objective - Vital Signs Vital signs: Vital Signs Temp 98.7 F 05/23/22 08:00 Pulse 92 05/23/22 10:00 Resp 18 05/23/22 10:00 BP 118/63 05/23/22 10:00 Pulse Ox 93 L 05/23/22 10:00 FiO2 80 05/23/22 08:00 Intake & Output 05/22/22 05/23/22 05/23/22 18:59 06:59 18:59 Intake Total 3647.779 9500.663 276 Output Total 625 645 200 Balance 007.420 8507.663 76 Weight 156.4 kg Intake: IV 1500 2179 276 0.9 154 26 ACETAMINOPHEN IV (For NPO 400 ) 1,000 mg In Empty Bag 1 bag @ 400 mls/hr IVPB Q6HR RUBEN Rx#:[id number] LR 1625 250 Intake, IV Titration 10.034 694.663 Amount Magnesium Sulfate-D5w Pmx 200 1 gm In Dextrose/Water 1 100ml.bag @ 100 mls/hr IVPB Q1H RUBEN Rx#: [id number] Norepinephrine 4 mg In 79.36 Sodium Chloride 0.9% 250 ml @ 0.03 MCG/KG/MIN 14. 517 mls/hr IV .[id number] RUBEN Rx#:[id number] Potassium Chloride 10 meq 200 In Water For Injection 1 100ml.bag @ 100 mls/hr IVPB Q1H RUBEN Rx#: [id number] propofoL 1,000 mg In 10.034 215.303 Empty Bag 1 bag @ 15 MCG/ KG/MIN 11.431 mls/hr IV . [id number] RUBEN Rx#:[id number] Output: Drainage 110 Right Abdomen 110 Urine 425 535 200 Estimated Blood Loss 200 Other: Voiding Method External Catheter Indwelling Catheter ABP, PAP, CO, CI - Last Documented Arterial Blood Pressure 124/66 - Labs CBC & Chem 7: 05/23/22 05:50 05/23/22 05:50 Labs: Abnormal Lab Results - Last 24 Hours (Table) 05/22/22 05/22/22 05/22/22 Range/Units 06:40 06:40 11:31 WBC (3.8-10.6) k/uL RBC (3.80-5.40) m/uL Hgb (11.4-16.0) gm/dL Hct (34.0-46.0) % Neutrophils # (1.3-7.7) k/uL Lymphocytes # (1.0-4.8) k/uL Monocytes # (0-1.0) k/uL ABG pH (7.35-7.45) ABG pCO2 (35-45) mmHg ABG pO2 (83-108) mmHg ABG HCO3 (21-25) mmol/L ABG Total CO2 (19-24) mmol/L ABG O2 Saturation (94-97) % Carbon Dioxide (22-30) mmol/L BUN (7-17) mg/dL Creatinine (0.52-1.04) mg/dL Glucose (74-99) mg/dL POC Glucose (mg/dL) 167 H (70-110) mg/dL Hemoglobin A1c 6.9 H (0.0-6.0) % Calcium (8.4-10.2) mg/dL Magnesium (1.6-2.3) mg/dL AST (14-36) U/L ALT (4-34) U/L Total Protein (6.3-8.2) g/dL Albumin (3.5-5.0) g/dL Procalcitonin 1.17 H (0.02-0.09) ng/mL 05/22/22 05/22/22 05/22/22 Range/Units 12:28 15:47 17:59 WBC (3.8-10.6) k/uL RBC (3.80-5.40) m/uL Hgb (11.4-16.0) gm/dL Hct (34.0-46.0) % Neutrophils # (1.3-7.7) k/uL Lymphocytes # (1.0-4.8) k/uL Monocytes # (0-1.0) k/uL ABG pH 7.30 L (7.35-7.45) ABG pCO2 78 H* (35-45) mmHg ABG pO2 79 L (83-108) mmHg ABG HCO3 39 H (21-25) mmol/L ABG Total CO2 41 H (19-24) mmol/L ABG O2 Saturation (94-97) % Carbon Dioxide (22-30) mmol/L BUN (7-17) mg/dL Creatinine (0.52-1.04) mg/dL Glucose (74-99) mg/dL POC Glucose (mg/dL) 135 H 169 H (70-110) mg/dL Hemoglobin A1c (0.0-6.0) % Calcium (8.4-10.2) mg/dL Magnesium (1.6-2.3) mg/dL AST (14-36) U/L ALT (4-34) U/L Total Protein (6.3-8.2) g/dL Albumin (3.5-5.0) g/dL Procalcitonin (0.02-0.09) ng/mL 05/22/22 05/22/22 05/22/22 Range/Units 18:23 19:50 19:50 WBC 24.3 H (3.8-10.6) k/uL RBC 3.52 L (3.80-5.40) m/uL Hgb 10.3 L (11.4-16.0) gm/dL Hct 33.3 L (34.0-46.0) % Neutrophils # 21.9 H (1.3-7.7) k/uL Lymphocytes # 0.7 L (1.0-4.8) k/uL Monocytes # 1.4 H (0-1.0) k/uL ABG pH (7.35-7.45) ABG pCO2 63 H (35-45) mmHg ABG pO2 110 H (83-108) mmHg ABG HCO3 35 H (21-25) mmol/L ABG Total CO2 37 H (19-24) mmol/L ABG O2 Saturation 97.1 H (94-97) % Carbon Dioxide 34 H (22-30) mmol/L BUN 20 H (7-17) mg/dL Creatinine 0.50 L (0.52-1.04) mg/dL Glucose 201 H (74-99) mg/dL POC Glucose (mg/dL) (70-110) mg/dL Hemoglobin A1c (0.0-6.0) % Calcium 7.8 L (8.4-10.2) mg/dL Magnesium (1.6-2.3) mg/dL AST (14-36) U/L ALT (4-34) U/L Total Protein (6.3-8.2) g/dL Albumin (3.5-5.0) g/dL Procalcitonin (0.02-0.09) ng/mL 05/22/22 05/23/22 05/23/22 Range/Units 22:11 01:37 05:24 WBC (3.8-10.6) k/uL RBC (3.80-5.40) m/uL Hgb (11.4-16.0) gm/dL Hct (34.0-46.0) % Neutrophils # (1.3-7.7) k/uL Lymphocytes # (1.0-4.8) k/uL Monocytes # (0-1.0) k/uL ABG pH (7.35-7.45) ABG pCO2 59 H (35-45) mmHg ABG pO2 (83-108) mmHg ABG HCO3 35 H (21-25) mmol/L ABG Total CO2 36 H (19-24) mmol/L ABG O2 Saturation (94-97) % Carbon Dioxide (22-30) mmol/L BUN (7-17) mg/dL Creatinine (0.52-1.04) mg/dL Glucose (74-99) mg/dL POC Glucose (mg/dL) 177 H 120 H (70-110) mg/dL Hemoglobin A1c (0.0-6.0) % Calcium (8.4-10.2) mg/dL Magnesium (1.6-2.3) mg/dL AST (14-36) U/L ALT (4-34) U/L Total Protein (6.3-8.2) g/dL Albumin (3.5-5.0) g/dL Procalcitonin (0.02-0.09) ng/mL 05/23/22 05/23/22 Range/Units 05:50 05:50 WBC 21.4 H (3.8-10.6) k/uL RBC 3.28 L (3.80-5.40) m/uL Hgb 9.7 L (11.4-16.0) gm/dL Hct 30.9 L (34.0-46.0) % Neutrophils # (1.3-7.7) k/uL Lymphocytes # (1.0-4.8) k/uL Monocytes # (0-1.0) k/uL ABG pH (7.35-7.45) ABG pCO2 (35-45) mmHg ABG pO2 (83-108) mmHg ABG HCO3 (21-25) mmol/L ABG Total CO2 (19-24) mmol/L ABG O2 Saturation (94-97) % Carbon Dioxide 35 H (22-30) mmol/L BUN 22 H (7-17) mg/dL Creatinine (0.52-1.04) mg/dL Glucose 147 H (74-99) mg/dL POC Glucose (mg/dL) (70-110) mg/dL Hemoglobin A1c (0.0-6.0) % Calcium 8.1 L (8.4-10.2) mg/dL Magnesium 2.4 H (1.6-2.3) mg/dL AST 68 H (14-36) U/L ALT 61 H (4-34) U/L Total Protein 5.1 L (6.3-8.2) g/dL Albumin 2.7 L (3.5-5.0) g/dL Procalcitonin (0.02-0.09) ng/mL Microbiology - Last 24 Hours (Table) 05/22/22 19:55 Sputum Culture - Preliminary Sputum 05/21/22 16:00 Blood Culture - Preliminary Blood No Growth after 24 hours 05/21/22 16:20 Blood Culture - Preliminary Blood No Growth after 24 hours
--- NOTE | 2022-05-23 10:56 | P.PN ---
Subjective Progress Note Date: 05/23/22 Principal diagnosis: Sepsis. Pulmonary/critical care consult dated 05/22/2022. 61-year-old female who presented to the emergency department, on May 21, complaining of abdominal pain. The pain began about 12 hours or so prior to her admission to the emergency department. She also had nausea, with dry heaves. The pain apparently was in the upper quadrant of the abdomen. She does have a history of severe COPD, and she uses oxygen 24/7, at 45 L/m. She has a CO2 retainer. Anyway, she was admitted to the floor, with abdominal discomfort. She has a history of known gallstone disease, but has not had a cholecystectomy in the past. She was evaluated, and had a nuclear scan, and was found to have acute cholecystitis, with sepsis. Apparently, a rapid response was called last Saturday 3:30, and, it was determined that the patient likely had sepsis from her gallbladder disease. She was placed on BiPAP at 14/7 and 40%, and blood gases at that time showed a pO2 of 69, a P CO2 of 69, and a pH is 7.32. This would suggest that her baseline PaCO2 is 60. She's getting saline at 130 mL an hour, IV Flagyl and Rocephin. We will ask to see her for preoperative clearance. I asked for another blood gas, and her repeat blood gas showed a pO2 of 79, CO2 of 78, pH is 7.30. This again was on BiPAP. Her room air saturations are 68%. Current vital signs include a blood pressure 106/67, heart rate 107, respiratory rate 20, saturation 92%, and temperature 90.8 degrees. White count 25.4, hemoglobin 11.4, hematocrit 38, platelet count 283,000. Sodium 141, potassium 3.7, chlorides 99, CO2 37, anion gap 5, BUN 15, creatinine 0.44. Pro-calcitonin level is elevated at 1.17. Chest x-ray shows some basilar atelectasis, and cardiomegaly. Computed tomography scan of the abdomen and pelvis suggested acute cholecystitis, sigmoid diverticulosis, low lung volumes, and hepatomegaly. The patient's hepatobiliary scan was suggestive of cholecystitis. Progress note dated 05/23/2022. The patient is seen in room 252, in the intensive care unit. She is postop day #1, status post open cholecystectomy. She has a Sai-Bush drain in place. She remains on the ventilator. She is on volume assist control, rate 18, tidal volume 450, FiO2 55%, and PEEP of 5. Blood gases show pO2 of 91, pCO2 59, pH is 7.38. She's getting propofol at 45 mcg/kg/m, lactated Ringer's at 135 mL an hour, and norepinephrine at 6.24 mcg/m. She remains on Rocephin and Flagyl. We will attempt a daily interruption of sedation today and a spontaneous breathing trial. White count 21.4, hemoglobin 9.7, hematocrit 30.9, with a normal platelet count. Sodium 139, potassium 3.6, chloride 103, CO2 35, BUN 22, and creatinine 0.52. Microbiologic studies are thus far negative. Chest x-ray shows cardiomegaly, with pulmonary vascular congestion and bilateral effusions. Objective - Vital Signs Vital signs: Vital Signs Temp 98.7 F 05/23/22 08:00 Pulse 87 05/23/22 10:44 Resp 18 05/23/22 10:00 BP 118/63 05/23/22 10:00 Pulse Ox 93 L 05/23/22 10:00 FiO2 55 05/23/22 10:37 Intake & Output 05/22/22 05/23/22 05/23/22 18:59 06:59 18:59 Intake Total 9501.944 6662.663 414 Output Total 625 645 250 Balance 413.512 9657.663 164 Weight 156.4 kg Intake: IV 1500 2179 414 0.9 154 39 ACETAMINOPHEN IV (For NPO 400 ) 1,000 mg In Empty Bag 1 bag @ 400 mls/hr IVPB Q6HR R[facility]EN Rx#:[id number] LR 1625 375 Intake, IV Titration 10.034 694.663 Amount Magnesium Sulfate-D5w Pmx 200 1 gm In Dextrose/Water 1 100ml.bag @ 100 mls/hr IVPB Q1H R[facility] Rx#: [id number] Norepinephrine 4 mg In 79.36 Sodium Chloride 0.9% 250 ml @ 0.03 MCG/KG/MIN 14. 517 mls/hr IV .[id number] RUBEN Rx#:[id number] Potassium Chloride 10 meq 200 In Water For Injection 1 100ml.bag @ 100 mls/hr IVPB Q1H R[facility]EN Rx#: [id number] propofoL 1,000 mg In 10.034 215.303 Empty Bag 1 bag @ 15 MCG/ KG/MIN 11.431 mls/hr IV . Q8H45M RUBEN Rx#:[id number] Output: Drainage 110 Right Abdomen 110 Urine 425 535 250 Estimated Blood Loss 200 Other: Voiding Method External Catheter Indwelling Catheter ABP, PAP, CO, CI - Last Documented Arterial Blood Pressure 124/66 - Exam No acute distress, sedated, with an orally placed endotracheal tube. HEENT examination is grossly unremarkable. Neck supple. Full range of motion. No adenopathy thyromegaly or neck vein d istention. Cardiovascular examination reveals regular rhythm rate. S1-S2 normal. No S3 or S4. No discernible murmur noted. Heart rate 87 bpm. Lungs reveal scattered rhonchi. No wheezes or crackles. Breath sounds equal bilaterally. Abdomen soft bowel sounds are heard. No masses or tenderness. Extremities are intact. No cyanosis clubbing or edema. Skin is without rash or lesion. Neurologic examination cannot be properly assessed as the patient's currently sedated. - Labs CBC & Chem 7: 05/23/22 05:50 05/23/22 05:50 Labs: Abnormal Lab Results - Last 24 Hours (Table) 05/22/22 05/22/22 05/22/22 Range/Units 06:40 06:40 11:31 WBC (3.8-10.6) k/uL RBC (3.80-5.40) m/uL Hgb (11.4-16.0) gm/dL Hct (34.0-46.0) % Neutrophils # (1.3-7.7) k/uL Lymphocytes # (1.0-4.8) k/uL Monocytes # (0-1.0) k/uL ABG pH (7.35-7.45) ABG pCO2 (35-45) mmHg ABG pO2 (83-108) mmHg ABG HCO3 (21-25) mmol/L ABG Total CO2 (19-24) mmol/L ABG O2 Saturation (94-97) % Carbon Dioxide (22-30) mmol/L BUN (7-17) mg/dL Creatinine (0.52-1.04) mg/dL Glucose (74-99) mg/dL POC Glucose (mg/dL) 167 H (70-110) mg/dL Hemoglobin A1c 6.9 H (0.0-6.0) % Calcium (8.4-10.2) mg/dL Magnesium (1.6-2.3) mg/dL AST (14-36) U/L ALT (4-34) U/L Total Protein (6.3-8.2) g/dL Albumin (3.5-5.0) g/dL Procalcitonin 1.17 H (0.02-0.09) ng/mL 05/22/22 05/22/22 05/22/22 Range/Units 12:28 15:47 17:59 WBC (3.8-10.6) k/uL RBC (3.80-5.40) m/uL Hgb (11.4-16.0) gm/dL Hct (34.0-46.0) % Neutrophils # (1.3-7.7) k/uL Lymphocytes # (1.0-4.8) k/uL Monocytes # (0-1.0) k/uL ABG pH 7.30 L (7.35-7.45) ABG pCO2 78 H* (35-45) mmHg ABG pO2 79 L (83-108) mmHg ABG HCO3 39 H (21-25) mmol/L ABG Total CO2 41 H (19-24) mmol/L ABG O2 Saturation (94-97) % Carbon Dioxide (22-30) mmol/L BUN (7-17) mg/dL Creatinine (0.52-1.04) mg/dL Glucose (74-99) mg/dL POC Glucose (mg/dL) 135 H 169 H (70-110) mg/dL Hemoglobin A1c (0.0-6.0) % Calcium (8.4-10.2) mg/dL Magnesium (1.6-2.3) mg/dL AST (14-36) U/L ALT (4-34) U/L Total Protein (6.3-8.2) g/dL Albumin (3.5-5.0) g/dL Procalcitonin (0.02-0.09) ng/mL 05/22/22 05/22/22 05/22/22 Range/Units 18:23 19:50 19:50 WBC 24.3 H (3.8-10.6) k/uL RBC 3.52 L (3.80-5.40) m/uL Hgb 10.3 L (11.4-16.0) gm/dL Hct 33.3 L (34.0-46.0) % Neutrophils # 21.9 H (1.3-7.7) k/uL Lymphocytes # 0.7 L (1.0-4.8) k/uL Monocytes # 1.4 H (0-1.0) k/uL ABG pH (7.35-7.45) ABG pCO2 63 H (35-45) mmHg ABG pO2 110 H (83-108) mmHg ABG HCO3 35 H (21-25) mmol/L ABG Total CO2 37 H (19-24) mmol/L ABG O2 Saturation 97.1 H (94-97) % Carbon Dioxide 34 H (22-30) mmol/L BUN 20 H (7-17) mg/dL Creatinine 0.50 L (0.52-1.04) mg/dL Glucose 201 H (74-99) mg/dL POC Glucose (mg/dL) (70-110) mg/dL Hemoglobin A1c (0.0-6.0) % Calcium 7.8 L (8.4-10.2) mg/dL Magnesium (1.6-2.3) mg/dL AST (14-36) U/L ALT (4-34) U/L Total Protein (6.3-8.2) g/dL Albumin (3.5-5.0) g/dL Procalcitonin (0.02-0.09) ng/mL 05/22/22 05/23/22 05/23/22 Range/Units 22:11 01:37 05:24 WBC (3.8-10.6) k/uL RBC (3.80-5.40) m/uL Hgb (11.4-16.0) gm/dL Hct (34.0-46.0) % Neutrophils # (1.3-7.7) k/uL Lymphocytes # (1.0-4.8) k/uL Monocytes # (0-1.0) k/uL ABG pH (7.35-7.45) ABG pCO2 59 H (35-45) mmHg ABG pO2 (83-108) mmHg ABG HCO3 35 H (21-25) mmol/L ABG Total CO2 36 H (19-24) mmol/L ABG O2 Saturation (94-97) % Carbon Dioxide (22-30) mmol/L BUN (7-17) mg/dL Creatinine (0.52-1.04) mg/dL Glucose (74-99) mg/dL POC Glucose (mg/dL) 177 H 120 H (70-110) mg/dL Hemoglobin A1c (0.0-6.0) % Calcium (8.4-10.2) mg/dL Magnesium (1.6-2.3) mg/dL AST (14-36) U/L ALT (4-34) U/L Total Protein (6.3-8.2) g/dL Albumin (3.5-5.0) g/dL Procalcitonin (0.02-0.09) ng/mL 05/23/22 05/23/22 Range/Units 05:50 05:50 WBC 21.4 H (3.8-10.6) k/uL RBC 3.28 L (3.80-5.40) m/uL Hgb 9.7 L (11.4-16.0) gm/dL Hct 30.9 L (34.0-46.0) % Neutrophils # (1.3-7.7) k/uL Lymphocytes # (1.0-4.8) k/uL Monocytes # (0-1.0) k/uL ABG pH (7.35-7.45) ABG pCO2 (35-45) mmHg ABG pO2 (83-108) mmHg ABG HCO3 (21-25) mmol/L ABG Total CO2 (19-24) mmol/L ABG O2 Saturation (94-97) % Carbon Dioxide 35 H (22-30) mmol/L BUN 22 H (7-17) mg/dL Creatinine (0.52-1.04) mg/dL Glucose 147 H (74-99) mg/dL POC Glucose (mg/dL) (70-110) mg/dL Hemoglobin A1c (0.0-6.0) % Calcium 8.1 L (8.4-10.2) mg/dL Magnesium 2.4 H (1.6-2.3) mg/dL AST 68 H (14-36) U/L ALT 61 H (4-34) U/L Total Protein 5.1 L (6.3-8.2) g/dL Albumin 2.7 L (3.5-5.0) g/dL Procalcitonin (0.02-0.09) ng/mL Microbiology - Last 24 Hours (Table) 05/22/22 19:55 Sputum Culture - Preliminary Sputum 05/21/22 16:00 Blood Culture - Preliminary Blood No Growth after 24 hours 05/21/22 16:20 Blood Culture - Preliminary Blood No Growth after 24 hours Assessment and Plan Assessment: Acute cholecystitis with sepsis, status post open cholecystectomy, 05/22/2022. Routine postoperative ventilator management. Severe COPD, with chronic hypoxemic and hypercapnic respiratory failure. Obesity. History of gastroesophageal reflux disease. History of osteoarthritis. History of migraine cephalgia. Prior history of tobacco use. Plan: Plan dated 05/22/2022. The patient will likely go to the operating room today. The patient will likely come back to the intensive care unit on the ventilator. Additional recommendations and suggestions are forthcoming. The patient has received both Flagyl and Rocephin. She's getting saline at 130 mL an hour. It appears that her baseline PaCO2 is right around between 60-65 mmHg. She does have chronic hypoxemic respiratory failure along with chronic hypercapnic respiratory failure. Additional recommendations and suggestions are forthcoming. Plan dated 05/23/2022. We attempted a daily interruption of sedation today and a spontaneous breathing trial. Unfortunately, the patient was quite agitated, and her vital signs were unstable during the daily interruption of sedation. Hence, she had to be sedated again. She was tachycardic, tachypnea, not following commands, and hypertensive. Labs, x-rays, and medications are reviewed. We will attempt this again tomorrow. Prognosis is guarded. Time with Patient: Greater than 30
[2022-05-23 11:23] LABS: Glucose,Whole Blood 164 mg/dL (70-110)
--- NOTE | 2022-05-23 12:52 | P.PN ---
Subjective Progress Note Date: 05/23/22 CHIEF COMPLAINT: Acute gangrenous cholecystitis HISTORY OF PRESENT ILLNESS: Patient is postop day #1 status post diagnostic laparoscopy and open cholecystectomy. Patient is currently in the ICU intubated and on mechanical ventilation. She is followed closely by Critical care service. Per Critical care service patient is not ready for extubation today patient scheduled to undergo a spontaneous breathing trial today. Afebrile. Heart rate improved. Patient is on small amount of Levophed on propofol. WBC is down from 24.3-21.4 hemoglobin is 9.7 platelets 182 sodium is 139 potassium 3.6 creatinine 0.52 magnesium is 2.4 total bili 0.5 AST is up at 68 ALT elevated at 61 alk phos 105 blood cultures negative so far. Urine output adequate. Chest x-ray cardiomegaly, pulmonary vascular congestion and bilateral pleural effusions. PHYSICAL EXAM: VITAL SIGNS: Reviewed. GENERAL: Well-developed in no acute distress. ABDOMEN: Soft. Nondistended. Dressing clean dry and intact. KIANA drains serosa nguineous 80ml output NEUROLOGIC: Intubated and sedated ASSESSMENT: 1. Acute gangrenous cholecystitis status post open cholecystectomy 2. Acute diverticulitis 3. Sepsis 4. History of COPD on home O2 PLAN: -Continue ICU management -Continue supportive care -Continue IV fluids -Continue antibiotics -Keep patient nothing by mouth -Follow up on labs in a.m. 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 Signing provider agrees with the documented findings, assessment, and plan of care. Objective - Vital Signs Vital signs: Vital Signs Temp 98.7 F 05/23/22 08:00 Pulse 87 05/23/22 10:44 Resp 18 05/23/22 10:00 BP 118/63 05/23/22 10:00 Pulse Ox 93 L 05/23/22 10:00 FiO2 55 05/23/22 10:37 Intake & Output 05/22/22 05/23/22 05/23/22 18:59 06:59 18:59 Intake Total 4837.109 9776.663 414 Output Total 625 645 250 Balance 675.822 5882.663 164 Weight 156.4 kg Intake: IV 1500 2179 414 0.9 154 39 ACETAMINOPHEN IV (For NPO 400 ) 1,000 mg In Empty Bag 1 bag @ 400 mls/hr IVPB Q6HR [facility] Rx#:[id number] LR 1625 375 Intake, IV Titration 10.034 694.663 Amount Magnesium Sulfate-D5w Pmx 200 1 gm In Dextrose/Water 1 100ml.bag @ 100 mls/hr IVPB Q1H [facility] Rx#: [id number] Norepinephrine 4 mg In 79.36 Sodium Chloride 0.9% 250 ml @ 0.03 MCG/KG/MIN 14. 517 mls/hr IV .[id number] R[facility]EN Rx#:[id number] Potassium Chloride 10 meq 200 In Water For Injection 1 100ml.bag @ 100 mls/hr IVPB Q1H [facility] Rx#: [id number] propofoL 1,000 mg In 10.034 215.303 Empty Bag 1 bag @ 15 MCG/ KG/MIN 11.431 mls/hr IV . Q8H45M R[facility]EN Rx#:[id number] Output: Drainage 110 Right Abdomen 110 Urine 425 535 250 Estimated Blood Loss 200 Other: Voiding Method External Catheter Indwelling Catheter ABP, PAP, CO, CI - Last Documented Arterial Blood Pressure 124/66 - Labs CBC & Chem 7: 05/23/22 05:50 05/23/22 05:50 Labs: Abnormal Lab Results - Last 24 Hours (Table) 05/22/22 05/22/22 05/22/22 Range/Units 06:40 06:40 11:31 WBC (3.8-10.6) k/uL RBC (3.80-5.40) m/uL Hgb (11.4-16.0) gm/dL Hct (34.0-46.0) % Neutrophils # (1.3-7.7) k/uL Lymphocytes # (1.0-4.8) k/uL Monocytes # (0-1.0) k/uL ABG pH (7.35-7.45) ABG pCO2 (35-45) mmHg ABG pO2 (83-108) mmHg ABG HCO3 (21-25) mmol/L ABG Total CO2 (19-24) mmol/L ABG O2 Saturation (94-97) % Carbon Dioxide (22-30) mmol/L BUN (7-17) mg/dL Creatinine (0.52-1.04) mg/dL Glucose (74-99) mg/dL POC Glucose (mg/dL) 167 H (70-110) mg/dL Hemoglobin A1c 6.9 H (0.0-6.0) % Calcium (8.4-10.2) mg/dL Magnesium (1.6-2.3) mg/dL AST (14-36) U/L ALT (4-34) U/L Total Protein (6.3-8.2) g/dL Albumin (3.5-5.0) g/dL Procalcitonin 1.17 H (0.02-0.09) ng/mL 05/22/22 05/22/22 05/22/22 Range/Units 12:28 15:47 17:59 WBC (3.8-10.6) k/uL RBC (3.80-5.40) m/uL Hgb (11.4-16.0) gm/dL Hct (34.0-46.0) % Neutrophils # (1.3-7.7) k/uL Lymphocytes # (1.0-4.8) k/uL Monocytes # (0-1.0) k/uL ABG pH 7.30 L (7.35-7.45) ABG pCO2 78 H* (35-45) mmHg ABG pO2 79 L (83-108) mmHg ABG HCO3 39 H (21-25) mmol/L ABG Total CO2 41 H (19-24) mmol/L ABG O2 Saturation (94-97) % Carbon Dioxide (22-30) mmol/L BUN (7-17) mg/dL Creatinine (0.52-1.04) mg/dL Glucose (74-99) mg/dL POC Glucose (mg/dL) 135 H 169 H (70-110) mg/dL Hemoglobin A1c (0.0-6.0) % Calcium (8.4-10.2) mg/dL Magnesium (1.6-2.3) mg/dL AST (14-36) U/L ALT (4-34) U/L Total Protein (6.3-8.2) g/dL Albumin (3.5-5.0) g/dL Procalcitonin (0.02-0.09) ng/mL 05/22/22 05/22/22 05/22/22 Range/Units 18:23 19:50 19:50 WBC 24.3 H (3.8-10.6) k/uL RBC 3.52 L (3.80-5.40) m/uL Hgb 10.3 L (11.4-16.0) gm/dL Hct 33.3 L (34.0-46.0) % Neutrophils # 21.9 H (1.3-7.7) k/uL Lymphocytes # 0.7 L (1.0-4.8) k/uL Monocytes # 1.4 H (0-1.0) k/uL ABG pH (7.35-7.45) ABG pCO2 63 H (35-45) mmHg ABG pO2 110 H (83-108) mmHg ABG HCO3 35 H (21-25) mmol/L ABG Total CO2 37 H (19-24) mmol/L ABG O2 Saturation 97.1 H (94-97) % Carbon Dioxide 34 H (22-30) mmol/L BUN 20 H (7-17) mg/dL Creatinine 0.50 L (0.52-1.04) mg/dL Glucose 201 H (74-99) mg/dL POC Glucose (mg/dL) (70-110) mg/dL Hemoglobin A1c (0.0-6.0) % Calcium 7.8 L (8.4-10.2) mg/dL Magnesium (1.6-2.3) mg/dL AST (14-36) U/L ALT (4-34) U/L Total Protein (6.3-8.2) g/dL Albumin (3.5-5.0) g/dL Procalcitonin (0.02-0.09) ng/mL 05/22/22 05/23/22 05/23/22 Range/Units 22:11 01:37 05:24 WBC (3.8-10.6) k/uL RBC (3.80-5.40) m/uL Hgb (11.4-16.0) gm/dL Hct (34.0-46.0) % Neutrophils # (1.3-7.7) k/uL Lymphocytes # (1.0-4.8) k/uL Monocytes # (0-1.0) k/uL ABG pH (7.35-7.45) ABG pCO2 59 H (35-45) mmHg ABG pO2 (83-108) mmHg ABG HCO3 35 H (21-25) mmol/L ABG Total CO2 36 H (19-24) mmol/L ABG O2 Saturation (94-97) % Carbon Dioxide (22-30) mmol/L BUN (7-17) mg/dL Creatinine (0.52-1.04) mg/dL Glucose (74-99) mg/dL POC Glucose (mg/dL) 177 H 120 H (70-110) mg/dL Hemoglobin A1c (0.0-6.0) % Calcium (8.4-10.2) mg/dL Magnesium (1.6-2.3) mg/dL AST (14-36) U/L ALT (4-34) U/L Total Protein (6.3-8.2) g/dL Albumin (3.5-5.0) g/dL Procalcitonin (0.02-0.09) ng/mL 05/23/22 05/23/22 Range/Units 05:50 05:50 WBC 21.4 H (3.8-10.6) k/uL RBC 3.28 L (3.80-5.40) m/uL Hgb 9.7 L (11.4-16.0) gm/dL Hct 30.9 L (34.0-46.0) % Neutrophils # (1.3-7.7) k/uL Lymphocytes # (1.0-4.8) k/uL Monocytes # (0-1.0) k/uL ABG pH (7.35-7.45) ABG pCO2 (35-45) mmHg ABG pO2 (83-108) mmHg ABG HCO3 (21-25) mmol/L ABG Total CO2 (19-24) mmol/L ABG O2 Saturation (94-97) % Carbon Dioxide 35 H (22-30) mmol/L BUN 22 H (7-17) mg/dL Creatinine (0.52-1.04) mg/dL Glucose 147 H (74-99) mg/dL POC Glucose (mg/dL) (70-110) mg/dL Hemoglobin A1c (0.0-6.0) % Calcium 8.1 L (8.4-10.2) mg/dL Magnesium 2.4 H (1.6-2.3) mg/dL AST 68 H (14-36) U/L ALT 61 H (4-34) U/L Total Protein 5.1 L (6.3-8.2) g/dL Albumin 2.7 L (3.5-5.0) g/dL Procalcitonin (0.02-0.09) ng/mL Microbiology - Last 24 Hours (Table) 05/22/22 19:55 Sputum Culture - Preliminary Sputum 05/21/22 16:00 Blood Culture - Preliminary Blood No Growth after 24 hours 05/21/22 16:20 Blood Culture - Preliminary Blood No Growth after 24 hours
[2022-05-23] MEDS: HEPARIN SODIUM,PORCINE/PF 5,000 UNIT/0.5 ML SYRINGE SQ SCH ×2 (13:23→21:35)
[2022-05-23 17:16] LABS: Glucose,Whole Blood 124 mg/dL (70-110)
[2022-05-23 18:12] LABS: Glucose,Whole Blood 134 mg/dL (70-110)
[2022-05-23] MEDS: ATORVASTATIN 80 MG TAB PO SCH (20:18)
[2022-05-23] MEDS: MONTELUKAST 10 MG TAB PO SCH (20:18)
[2022-05-23 23:23] LABS: Glucose,Whole Blood 114 mg/dL (70-110)
[2022-05-24] MEDS: LACTATED RINGERS 1,000 ML IV SCH ×2 (02:06→11:25)
[2022-05-24] MEDS: HYDROmorphone 1 MG/ML 1 ML SYRINGE IVP PRN ×5 (02:09→23:45)
[2022-05-24 04:29] LABS: Basophils % (A) 0 %; Eosinophils # (A) 0.1 k/uL (0-0.7); Eosinophils % (A) 1 %; HCT 28.6 % (34.0-46.0); HGB 8.6 gm/dL (11.4-16.0); Hypochromasia Marked; Lymphocytes # (A) 1.6 k/uL (1.0-4.8); Lymphocytes % (A) 14 %; MCH 28.4 pg (25.0-35.0); MCHC 30.1 g/dL (31.0-37.0); MCV 94.3 fL (80.0-100.0); Mean Platelet Volume 10.6; Monocytes # (A) 0.8 k/uL (0-1.0); Monocytes % (A) 7 %; Neutrophils # (A) 8.9 k/uL (1.3-7.7); Neutrophils % (A) 77 %; Platelet Count 162 k/uL (150-450); RBC 3.03 m/uL (3.80-5.40); RDW 14.4 % (11.5-15.5); WBC 11.6 k/uL (3.8-10.6)
[2022-05-24 04:45] LABS: ALT 51 U/L (4-34); AST 48 U/L (14-36); African American GFR (CKD) >90 (>60 ml/min/1.73 sqM); Albumin 2.4 g/dL (3.5-5.0); Alkaline Phosphatase 97 U/L (38-126); Anion Gap 1 mmol/L; Blood Urea Nitrogen 16 mg/dL (7-17); Calcium 8.1 mg/dL (8.4-10.2); Carbon Dioxide 35 mmol/L (22-30); Chloride 101 mmol/L (98-107); Glucose 108 mg/dL (74-99); Magnesium 1.8 mg/dL (1.6-2.3); Non-African American GFR(CKD) >90 (>60 ml/min/1.73 sqM); Potassium 3.6 mmol/L (3.5-5.1); Sodium 137 mmol/L (137-145); Total Bilirubin 0.2 mg/dL (0.2-1.3); Total Protein 4.8 g/dL (6.3-8.2)
[2022-05-24] MEDS: MAGNESIUM SULFATE-D5W PMX 1 GM in DEXTROSE/WATER 1 100ML.BAG IVPB SCH ×2 (04:52→05:58)
[2022-05-24] MEDS: POTASSIUM CHLORIDE 10 MEQ in WATER FOR INJECTION 1 100ML.BAG IVPB SCH ×2 (04:53→05:58)
[2022-05-24 05:25] LABS: Glucose,Whole Blood 116 mg/dL (70-110)
[2022-05-24] MEDS: INSULIN ASPART (NovoLOG) 100 UNIT/ML VIAL SQ SCH ×4 (05:44→23:42)
[2022-05-24] MEDS: LEVOTHYROXINE 50 MCG TAB PO SCH (05:45)
[2022-05-24 05:54] LABS: ABG HCO3 36 mmol/L (21-25); ABG Oxygen Saturation 94.6 % (94-97); ABG PCO2 60 mmHg (35-45); ABG PH 7.39 (7.35-7.45); ABG PO2 70 mmHg (83-108); ABG TCO2 38 mmol/L (19-24); Allen Test Performed? Yes
[2022-05-24] MEDS: IPRATROPIUM-ALBUTEROL 3 ML NEB INHALATION SCH ×4 (07:37→19:05)
[2022-05-24] MEDS: NOREPINEPHRINE 4 MG in SODIUM CHLORIDE 0.9% 250 ML IV SCH (07:42)
--- NOTE | 2022-05-24 07:46 | XR ---
EXAMINATION TYPE: XR chest 1V portable DATE OF EXAM: 05/24/2022 COMPARISON: 05/23/2022 HISTORY: Shortness of breath FINDINGS: There are bilateral pleural effusions with cardiomegaly and bibasilar infiltrate. There is a diffuse interstitial pattern. Atherosclerotic change aorta. ET and NG tube stable. Mediastinum is widened. IMPRESSION: 1. Diffuse pleural-parenchymal changes correlate for CHF. Findings are progressed from prior exam. 2. There is prominence of the mediastinum particularly along the left suprahilar region. Underlying m ass or adenopathy not excluded correlate clinically.
[2022-05-24] MEDS: metroNIDAZOLE-NS PMX 500 MG in SALINE 1 100ML.BAG IVPB SCH ×3 (07:50→23:45)
[2022-05-24] MEDS: HEPARIN SODIUM,PORCINE/PF 5,000 UNIT/0.5 ML SYRINGE SQ SCH ×2 (08:04→20:17)
[2022-05-24] MEDS: CHLORHEXIDINE GLUCONATE 15 ML CUP MUCOUS MEM SCH (08:04)
[2022-05-24] MEDS: CITALOPRAM HYDROBROMIDE 10 MG TAB PO SCH (08:05)
[2022-05-24] MEDS: PANTOPRAZOLE 40 MG TABLET PO SCH (08:05)
[2022-05-24] MEDS: FLUTICASONE 50MCG/SPRAY NASAL 16GM EA NOSTRIL SCH (08:05)
[2022-05-24] MEDS: GABAPENTIN 100 MG CAP PO SCH ×2 (08:05→20:17)
[2022-05-24] MEDS ORDERED: FUROSEMIDE 10 MG/ML 10 ML VIAL IV STA (08:28)
--- NOTE | 2022-05-24 10:25 | P.PN ---
Subjective Progress Note Date: 05/24/22 Principal diagnosis: Sepsis. Pulmonary/critical care consult dated 05/22/2022. 61-year-old female who presented to the emergency department, on May 21, complaining of abdominal pain. The pain began about 12 hours or so prior to her admission to the emergency department. She also had nausea, with dry heaves. The pain apparently was in the upper quadrant of the abdomen. She does have a history of severe COPD, and she uses oxygen 24/7, at 45 L/m. She has a CO2 retainer. Anyway, she was admitted to the floor, with abdominal discomfort. She has a history of known gallstone disease, but has not had a cholecystectomy in the past. She was evaluated, and had a nuclear scan, and was found to have acute cholecystitis, with sepsis. Apparently, a rapid response was called last Saturday 3:30, and, it was determined that the patient likely had sepsis from her gallbladder disease. She was placed on BiPAP at 14/7 and 40%, and blood gases at that time showed a pO2 of 69, a P CO2 of 69, and a pH is 7.32. This would suggest that her baseline PaCO2 is 60. She's getting saline at 130 mL an hour, IV Flagyl and Rocephin. We will ask to see her for preoperative clearance. I asked for another blood gas, and her repeat blood gas showed a pO2 of 79, CO2 of 78, pH is 7.30. This again was on BiPAP. Her room air saturations are 68%. Current vital signs include a blood pressure 106/67, heart rate 107, respiratory rate 20, saturation 92%, and temperature 90.8 degrees. White count 25.4, hemoglobin 11.4, hematocrit 38, platelet count 283,000. Sodium 141, potassium 3.7, chlorides 99, CO2 37, anion gap 5, BUN 15, creatinine 0.44. Pro-calcitonin level is elevated at 1.17. Chest x-ray shows some basilar atelectasis, and cardiomegaly. Computed tomography scan of the abdomen and pelvis suggested acute cholecystitis, sigmoid diverticulosis, low lung volumes, and hepatomegaly. The patient's hepatobiliary scan was suggestive of cholecystitis. Progress note dated 05/23/2022. The patient is seen in room 252, in the intensive care unit. She is postop day #1, status post open cholecystectomy. She has a Sai-Bush drain in place. She remains on the ventilator. She is on volume assist control, rate 18, tidal volume 450, FiO2 55%, and PEEP of 5. Blood gases show pO2 of 91, pCO2 59, pH is 7.38. She's getting propofol at 45 mcg/kg/m, lactated Ringer's at 135 mL an hour, and norepinephrine at 6.24 mcg/m. She remains on Rocephin and Flagyl. We will attempt a daily interruption of sedation today and a spontaneous breathing trial. White count 21.4, hemoglobin 9.7, hematocrit 30.9, with a normal platelet count. Sodium 139, potassium 3.6, chloride 103, CO2 35, BUN 22, and creatinine 0.52. Microbiologic studies are thus far negative. Chest x-ray shows cardiomegaly, with pulmonary vascular congestion and bilateral effusions. Progress note dated 05/24/2022. The patient is seen in room 252. We attempted a daily interruption of sedation yesterday, with spontaneous breathing trial, but she did poorly. We ended up recent dating her yesterday. She remains on the volume assist control, rate 18, tidal volume 450, FiO2 55%, with a PEEP of 5. Blood gases show pO2 70, pCO2 of 60, pH is 7.39. Today's postop day #2. The patient is getting propofol at 45 mcg/kg/m, and lactated Ringer's at 1 25 mL an hour, which will be decreased to 50 mL an hour. We'll also give the patient 1 dose of Lasix, 60 mg IV push. We will attempt another a daily interruption of sedation and a spontaneous breathing trial. Microbiology is negative. Chest x-ray stable. The patient is currently on Rocephin and Flagyl. She was an open cholecystectomy. White count 11.6, hemoglobin 8.6, hematocrit 28.6, and platelet count 262,000. Sodium 137, potassium 3.6, chlorides 101, CO2 35, BUN 16, creatinine 0.47. Objective - Vital Signs Vital signs: Vital Signs Temp 98.0 F 05/24/22 08:00 Pulse 101 H 05/24/22 10:00 Resp 20 05/24/22 10:00 BP 98/59 05/24/22 10:00 Pulse Ox 88 L 05/24/22 10:00 FiO2 55 05/24/22 08:00 Intake & Output 05/23/22 05/24/22 05/24/22 18:59 06:59 18:59 Intake Total 7268.418 0511.689 646.307 Output Total 565 1235 2195 Balance 3660.448 5510.689 -1548.693 Weight 156.6 kg Intake: IV 1518 1626 532 0.9 143 93 40 REGINALD 33 12 LR 1375 1500 330 cefTRIAXone 2 gm In 50 Sodium Chloride 0.9% 50 ml @ 100 mls/hr IVPB Q24HR [facility] Rx#:[id number] metroNIDAZOLE-NS PMX 500 100 mg In Saline 1 100ml.bag @ 100 mls/hr IVPB Q8HR [facility] Rx#:[id number] Intake, IV Titration 323.233 993.689 114.307 Amount Magnesium Sulfate-D5w Pmx 200 1 gm In Dextrose/Water 1 100ml.bag @ 100 mls/hr IVPB Q1H [facility] Rx#: [id number] Norepinephrine 4 mg In 123.233 69.359 Sodium Chloride 0.9% 250 ml @ 0.03 MCG/KG/MIN 14. 517 mls/hr IV .[id number] [facility] Rx#:[id number] Potassium Chloride 10 meq 200 In Water For Injection 1 100ml.bag @ 100 mls/hr IVPB Q1H [facility] Rx#: [id number] metroNIDAZOLE-NS PMX 500 100 mg In Saline 1 100ml.bag @ 100 mls/hr IVPB Q8HR [facility] Rx#:[id number] propofoL 1,000 mg In 200 424.330 114.307 Empty Bag 1 bag @ 15 MCG/ KG/MIN 11.431 mls/hr IV . Q8H45M [facility] Rx#:[id number] Output: Gastric Drainage 300 Drainage 230 50 Right Abdomen 230 50 Urine [phone] Other: Voiding Method Indwelling Catheter Indwelling Catheter Indwelling Catheter ABP, PAP, CO, CI - Last Documented Arterial Blood Pressure 123/70 - Exam No acute distress, sedated, with an orally placed endotracheal tube. HEENT examination is grossly unremarkable. Neck supple. Full range of motion. No adenopathy thyromegaly or neck vein distention. Cardiovascular examination reveals regular rhythm rate. S1-S2 normal. No S3 or S4. No discernible murmur noted. Heart rate 100 bpm. Lungs reveal scattered rhonchi. No wheezes or crackles. Breath sounds equal bilaterally. Saturations are 92%. Abdomen soft bowel sounds are heard. No masses or tenderness. Extremities are intact. No cyanosis clubbing or edema. Skin is without rash or lesion. Neurologic examination cannot be properly assessed as the patient's currently sedated. - Labs CBC & Chem 7: 05/24/22 04:17 05/24/22 04:17 Labs: Abnormal Lab Results - Last 24 Hours (Table) 05/23/22 05/23/22 05/23/22 Range/Units 11: 17:14 18:10 WBC (3.8-10.6) k/uL RBC (3.80-5.40) m/uL Hgb (11.4-16.0) gm/dL Hct (34.0-46.0) % MCHC (31.0-37.0) g/dL Neutrophils # (1.3-7.7) k/uL ABG pCO2 (35-45) mmHg ABG pO2 (83-108) mmHg ABG HCO3 (21-25) mmol/L ABG Total CO2 (19-24) mmol/L Carbon Dioxide (22-30) mmol/L Creatinine (0.52-1.04) mg/dL Glucose (74-99) mg/dL POC Glucose (mg/dL) 164 H 124 H 134 H (70-110) mg/dL Calcium (8.4-10.2) mg/dL AST (14-36) U/L ALT (4-34) U/L Total Protein (6.3-8.2) g/dL Albumin (3.5-5.0) g/dL 05/23/22 05/24/22 05/24/22 Range/Units 23:21 04:17 04:17 WBC 11.6 H (3.8-10.6) k/uL RBC 3.03 L (3.80-5.40) m/uL Hgb 8.6 L (11.4-16.0) gm/dL Hct 28.6 L (34.0-46.0) % MCHC 30.1 L (31.0-37.0) g/dL Neutrophils # 8.9 H (1.3-7.7) k/uL ABG pCO2 (35-45) mmHg ABG pO2 (83-108) mmHg ABG HCO3 (21-25) mmol/L ABG Total CO2 (19-24) mmol/L Carbon Dioxide 35 H (22-30) mmol/L Creatinine 0.47 L (0.52-1.04) mg/dL Glucose 108 H (74-99) mg/dL POC Glucose (mg/dL) 114 H (70-110) mg/dL Calcium 8.1 L (8.4-10.2) mg/dL AST 48 H (14-36) U/L ALT 51 H (4-34) U/L Total Protein 4.8 L (6.3-8.2) g/dL Albumin 2.4 L (3.5-5.0) g/dL 05/24/22 05/24/22 Range/Units 05:23 05:49 WBC (3.8-10.6) k/uL RBC (3.80-5.40) m/uL Hgb (11.4-16.0) gm/dL Hct (34.0-46.0) % MCHC (31.0-37.0) g/dL Neutrophils # (1.3-7.7) k/uL ABG pCO2 60 H (35-45) mmHg ABG pO2 70 L (83-108) mmHg ABG HCO3 36 H (21-25) mmol/L ABG Total CO2 38 H (19-24) mmol/L Carbon Dioxide (22-30) mmol/L Creatinine (0.52-1.04) mg/dL Glucose (74-99) mg/dL POC Glucose (mg/dL) 116 H (70-110) mg/dL Calcium (8.4-10.2) mg/dL AST (14-36) U/L ALT (4-34) U/L Total Protein (6.3-8.2) g/dL Albumin (3.5-5.0) g/dL Microbiology - Last 24 Hours (Table) 05/22/22 19:55 Gram Stain - Preliminary Sputum Sputum Culture - Preliminary 05/21/22 16:00 Blood Culture - Preliminary Blood No Growth after 48 hours 05/21/22 16:20 Blood Culture - Preliminary Blood No Growth after 48 hours Assessment and Plan Assessment: Acute cholecystitis with sepsis, status post open cholecystectomy, 05/22/2022, postop day #2. Routine postoperative ventilator management. Severe COPD, with chronic hypoxemic and hypercapnic respiratory failure. Obesity. History of gastroesophageal reflux disease. History of osteoarthritis. History of migraine cephalgia. Prior history of tobacco use. Plan: Plan dated 05/22/2022. The patient will likely go to the operating room today. The patient will likely come back to the intensive care unit on the ventilator. Additional recommendations and suggestions are forthcoming. The patient has received both Flagyl and Rocephin. She's getting saline at 130 mL an hour. It appears that her baseline PaCO2 is right around between 60-65 mmHg. She does have chronic hypoxemic respiratory failure along with chronic hypercapnic respiratory failure. Additional recommendations and suggestions are forthcoming. Plan dated 05/23/2022. We attempted a daily interruption of sedation today and a spontaneous breathing trial. Unfortunately, the patient was quite agitated, and her vital signs were unstable during the daily interruption of sedation. Hence, she had to be sedated again. She was tachycardic, tachypnea, not following commands, and hypertensive. Labs, x-rays, and medications are reviewed. We will attempt this again tomorrow. Prognosis is guarded. Plan dated 05/24/2022. Today is postop day #2. Labs, x-rays, and medications are reviewed. The patient is currently on Rocephin and Flagyl. We will attempt another daily interruption of sedation and spontaneous breathing trial. The patient's lactated Ringer's will be decreased from 125 mL an hour down to 50 mL an hour. Also, the patient will get Lasix 60 mg IV push. Additional recommendations and suggestions are forthcoming. Prognosis is certainly guarded. Time with Patient: Greater than 30
[2022-05-24 11:55] LABS: Glucose,Whole Blood 152 mg/dL (70-110)
[2022-05-24] MEDS: KETOROLAC 15 MG/ML 1 ML VIAL IVP PRN (12:18)
--- NOTE | 2022-05-24 15:12 | P.PN ---
Subjective Progress Note Date: 05/24/22 (delayed charting seen at 1105) Patient is a 61-year-old female with diabetes, hypothyroidism, COPD, dyslipidemia, and chronic hypoxic respiratory failure on 5 L nasal cannula who presented with complaints of abdominal pain. In the ER she was noted to be tachycardic. CT abdomen and pelvis showed hydropic gallbladder with hazy densities and possible early acute cholecystitis with mild acute diverticulitis and a 3 cm density in the posterior left intrahilar region possible atelectasis versus underlying mass recommending repeat CT chest in 2-3 weeks. She was started on Rocephin and Flagyl as well as IV fluids. Surgery was consulted. She is admitted for further monitoring. She underwent a HIDA scan on 05/22 with the gallbladder was not seen at 120 minutes suggestive of cholecystitis. She developed acute urinary retention requiring a Anderson catheter. She underwent laparoscopic cholecystectomy on 05/22 with a finding of acute gangrenous cholecystitis. She did require vasopressors. She returned to the ICU intubated and was extubated on 05/24. Patient seen and examined at bedside. She shakes her head yes to feeling short of breath. She is interested had noted abdominal pain. She is not talking and she was just extubated 5 minutes ago. General: Ill appearing, mild distress appears at stated age Derm: warm, dry Head: atraumatic, normocephalic, symmetric Eyes: EOMI, no lid lag, anicteric sclera Mouth: no lip lesion, mucus membranes dry Cardiovascular: S1S2 reg, no murmur, positive posterior tibial pulse bilateral, Lungs: Decreased breath sounds bilateral bases, no rhonchi, no rales , no accessory muscle use Abdominal: soft, [tender to palpation diffusely, no guarding, no appreciable organomegaly, KIANA drain with brown/green thin fluid Ext: no gross muscle atrophy, no edema, no contractures Neuro: CN II-XI grossly intact, no focal neuro deficits Psych: Alert, oriented to self and situation, appropriate affect Assessment/plan: Acute cholecystitis s/p lap carmen Severe sepsis with lactic acidosis, resolved Mild acute diverticulitis -Blood cultures negative to date -Continue ceftriaxone and Flagyl -IV fluids -Surgery recommendations -Pain control Acute on chronic hypoxic respiratory failure Severe COPD -Pulmonary recommendations -Bronchodilators -Pulmonary hygiene Acute Urinary retention -Anderson catheter Diabetes Mellitus type II -A1c 6.9 -Sliding-scale insulin -Hold metformin resolved: Hypomagnesemia Chronic medical problems: Hypothyroidism Dyslipidemia DVT prophylaxis: Heparin Discussed with: Patient, nursing Anticipated discharge: pending clinical course Anticipated discharge place: pending clinical course A total of 35 minutes was spent on the care of this complex patient more than 50% of the time was spent in counseling and care coordination. Objective - Vital Signs Vital signs: Vital Signs Temp 98.3 F 05/24/22 12:00 Pulse 102 H 05/24/22 14:00 Resp 15 05/24/22 14:00 BP 98/59 05/24/22 14:00 Pulse Ox 94 L 05/24/22 14:00 FiO2 55 05/24/22 10:35 Intake & Output 05/23/22 05/24/22 05/24/22 18:59 06:59 18:59 Intake Total 2937.793 9967.689 870.563 Output Total 565 1235 3760 Balance 6454.443 9958.689 -2889.437 Weight 156.6 kg Intake: IV 1518 1626 744 0.9 143 93 80 REGINALD 33 24 LR 1375 1500 490 cefTRIAXone 2 gm In 50 Sodium Chloride 0.9% 50 ml @ 100 mls/hr IVPB Q24HR [facility] Rx#:[id number] metroNIDAZOLE-NS PMX 500 100 mg In Saline 1 100ml.bag @ 100 mls/hr IVPB Q8HR [facility] Rx#:[id number] Intake, IV Titration 323.233 993.689 126.563 Amount Magnesium Sulfate-D5w Pmx 200 1 gm In Dextrose/Water 1 100ml.bag @ 100 mls/hr IVPB Q1H [facility] Rx#: [id number] Norepinephrine 4 mg In 123.233 69.359 Sodium Chloride 0.9% 250 ml @ 0.03 MCG/KG/MIN 14. 517 mls/hr IV .[id number] [facility] Rx#:[id number] Potassium Chloride 10 meq 200 In Water For Injection 1 100ml.bag @ 100 mls/hr IVPB Q1H [facility] Rx#: [id number] metroNIDAZOLE-NS PMX 500 100 mg In Saline 1 100ml.bag @ 100 mls/hr IVPB Q8HR [facility] Rx#:[id number] propofoL 1,000 mg In 200 424.330 126.563 Empty Bag 1 bag @ 15 MCG/ KG/MIN 11.431 mls/hr IV . Q8H45M [facility] Rx#:[id number] Output: Gastric Drainage 300 200 Drainage 230 50 Right Abdomen 230 50 Urine [phone] Other: Voiding Method Indwelling Catheter Indwelling Catheter Indwelling Catheter ABP, PAP, CO, CI - Last Documented Arterial Blood Pressure 119/57 - Labs CBC & Chem 7: 05/24/22 04:17 05/24/22 04:17 Labs: Abnormal Lab Results - Last 24 Hours (Table) 05/23/22 05/23/22 05/23/22 Range/Units 17:14 18:10 23:21 WBC (3.8-10.6) k/uL RBC (3.80-5.40) m/uL Hgb (11.4-16.0) gm/dL Hct (34.0-46.0) % MCHC (31.0-37.0) g/dL Neutrophils # (1.3-7.7) k/uL ABG pCO2 (35-45) mmHg ABG pO2 (83-108) mmHg ABG HCO3 (21-25) mmol/L ABG Total CO2 (19-24) mmol/L Carbon Dioxide (22-30) mmol/L Creatinine (0.52-1.04) mg/dL Glucose (74-99) mg/dL POC Glucose (mg/dL) 124 H 134 H 114 H (70-110) mg/dL Calcium (8.4-10.2) mg/dL AST (14-36) U/L ALT (4-34) U/L Total Protein (6.3-8.2) g/dL Albumin (3.5-5.0) g/dL 05/24/22 05/24/22 05/24/22 Range/Units 04:17 04:17 05:23 WBC 11.6 H (3.8-10.6) k/uL RBC 3.03 L (3.80-5.40) m/uL Hgb 8.6 L (11.4-16.0) gm/dL Hct 28.6 L (34.0-46.0) % MCHC 30.1 L (31.0-37.0) g/dL Neutrophils # 8.9 H (1.3-7.7) k/uL ABG pCO2 (35-45) mmHg ABG pO2 (83-108) mmHg ABG HCO3 (21-25) mmol/L ABG Total CO2 (19-24) mmol/L Carbon Dioxide 35 H (22-30) mmol/L Creatinine 0.47 L (0.52-1.04) mg/dL Glucose 108 H (74-99) mg/dL POC Glucose (mg/dL) 116 H (70-110) mg/dL Calcium 8.1 L (8.4-10.2) mg/dL AST 48 H (14-36) U/L ALT 51 H (4-34) U/L Total Protein 4.8 L (6.3-8.2) g/dL Albumin 2.4 L (3.5-5.0) g/dL 05/24/22 05/24/22 Range/Units 05:49 11:53 WBC (3.8-10.6) k/uL RBC (3.80-5.40) m/uL Hgb (11.4-16.0) gm/dL Hct (34.0-46.0) % MCHC (31.0-37.0) g/dL Neutrophils # (1.3-7.7) k/uL ABG pCO2 60 H (35-45) mmHg ABG pO2 70 L (83-108) mmHg ABG HCO3 36 H (21-25) mmol/L ABG Total CO2 38 H (19-24) mmol/L Carbon Dioxide (22-30) mmol/L Creatinine (0.52-1.04) mg/dL Glucose (74-99) mg/dL POC Glucose (mg/dL) 152 H (70-110) mg/dL Calcium (8.4-10.2) mg/dL AST (14-36) U/L ALT (4-34) U/L Total Protein (6.3-8.2) g/dL Albumin (3.5-5.0) g/dL Microbiology - Last 24 Hours (Table) 05/22/22 19:55 Gram Stain - Preliminary Sputum Sputum Culture - Preliminary 05/21/22 16:00 Blood Culture - Preliminary Blood No Growth after 48 hours 05/21/22 16:20 Blood Culture - Preliminary Blood No Growth after 48 hours
--- NOTE | 2022-05-24 15:13 | P.PN ---
Subjective Progress Note Date: 05/24/22 CHIEF COMPLAINT: Acute gangrenous cholecystitis HISTORY OF PRESENT ILLNESS: Patient is postop day #2 status post diagnostic laparoscopy and open cholecystectomy. Patient is currently in the ICU. Patient was extubated this morning. She reports her pain is controlled. Denies any nausea or vomiting. Afebrile. Mild tachycardia. She's currently on 5 L at 94%. WBC is down from 21.4-11.6 hemoglobin is down from 9.7-8.6 platelets 162 sodium is 137 potassium 3.6 creatinine is 0.47 AST 48 ALT 51 total bilirubin 0.2 KIANA drain with 230 ML out during the night and 400 mL out this morning of sanguineous output. Critical care service hep-locked fluids and give a dose of IV Lasix. Patient seen and examined with Dr. smith. PHYSICAL EXAM: VITAL SIGNS: Reviewed. GENERAL: Well-developed in no acute distress. ABDOMEN: Soft. Nondistended. Incision clean dry and intact. KIANA drain output serosanguineous NEUROLOGIC: Awake and lying in bed comfortably ASSESSMENT: 1. Acute gangrenous cholecystitis status post open cholecystectomy 2. Acute diverticulitis 3. Sepsis 4. History of COPD on home O2 PLAN: -When patient is more awake and alert and passed a bedside swallow start full liquid -Continue ICU management -Continue supportive care -Continue antibiotics -Continue monitor KIANA drain output -DVT prophylaxis subcu heparin and GI prophylaxis Protonix Physician Medical Education Coordinator note has been reviewed by physician. Signing provider agrees with the documented findings, assessment, and plan of care. Objective - Vital Signs Vital signs: Vital Signs Temp 98.3 F 05/24/22 12:00 Pulse 102 H 05/24/22 14:00 Resp 15 05/24/22 14:00 BP 98/59 05/24/22 14:00 Pulse Ox 94 L 05/24/22 14:00 FiO2 55 05/24/22 10:35 Intake & Output 05/23/22 05/24/22 05/24/22 18:59 06:59 18:59 Intake Total 6285.963 7362.689 870.563 Output Total 565 1235 3760 Balance 7724.237 3516.689 -2889.437 Weight 156.6 kg Intake: IV 1518 1626 744 0.9 143 93 80 REGINALD 33 24 LR 1375 1500 490 cefTRIAXone 2 gm In 50 Sodium Chloride 0.9% 50 ml @ 100 mls/hr IVPB Q24HR [facility] Rx#:[id number] metroNIDAZOLE-NS PMX 500 100 mg In Saline 1 100ml.bag @ 100 mls/hr IVPB Q8HR [facility] Rx#:[id number] Intake, IV Titration 323.233 993.689 126.563 Amount Magnesium Sulfate-D5w Pmx 200 1 gm In Dextrose/Water 1 100ml.bag @ 100 mls/hr IVPB Q1H [facility] Rx#: [id number] Norepinephrine 4 mg In 123.233 69.359 Sodium Chloride 0.9% 250 ml @ 0.03 MCG/KG/MIN 14. 517 mls/hr IV .[id number] [facility] Rx#:[id number] Potassium Chloride 10 meq 200 In Water For Injection 1 100ml.bag @ 100 mls/hr IVPB Q1H [facility] Rx#: [id number] metroNIDAZOLE-NS PMX 500 100 mg In Saline 1 100ml.bag @ 100 mls/hr IVPB Q8HR [facility] Rx#:[id number] propofoL 1,000 mg In 200 424.330 126.563 Empty Bag 1 bag @ 15 MCG/ KG/MIN 11.431 mls/hr IV . Q8H45M [facility] Rx#:[id number] Output: Gastric Drainage 300 200 Drainage 230 50 Right Abdomen 230 50 Urine [phone] Other: Voiding Method Indwelling Catheter Indwelling Catheter Indwelling Catheter ABP, PAP, CO, CI - Last Documented Arterial Blood Pressure 119/57 - Labs CBC & Chem 7: 05/24/22 04:17 05/24/22 04:17 Labs: Abnormal Lab Results - Last 24 Hours (Table) 05/23/22 05/23/22 05/23/22 Range/Units 17:14 18:10 23:21 WBC (3.8-10.6) k/uL RBC (3.80-5.40) m/uL Hgb (11.4-16.0) gm/dL Hct (34.0-46.0) % MCHC (31.0-37.0) g/dL Neutrophils # (1.3-7.7) k/uL ABG pCO2 (35-45) mmHg ABG pO2 (83-108) mmHg ABG HCO3 (21-25) mmol/L ABG Total CO2 (19-24) mmol/L Carbon Dioxide (22-30) mmol/L Creatinine (0.52-1.04) mg/dL Glucose (74-99) mg/dL POC Glucose (mg/dL) 124 H 134 H 114 H (70-110) mg/dL Calcium (8.4-10.2) mg/dL AST (14-36) U/L ALT (4-34) U/L Total Protein (6.3-8.2) g/dL Albumin (3.5-5.0) g/dL 05/24/22 05/24/22 05/24/22 Range/Units 04:17 04:17 05:23 WBC 11.6 H (3.8-10.6) k/uL RBC 3.03 L (3.80-5.40) m/uL Hgb 8.6 L (11.4-16.0) gm/dL Hct 28.6 L (34.0-46.0) % MCHC 30.1 L (31.0-37.0) g/dL Neutrophils # 8.9 H (1.3-7.7) k/uL ABG pCO2 (35-45) mmHg ABG pO2 (83-108) mmHg ABG HCO3 (21-25) mmol/L ABG Total CO2 (19-24) mmol/L Carbon Dioxide 35 H (22-30) mmol/L Creatinine 0.47 L (0.52-1.04) mg/dL Glucose 108 H (74-99) mg/dL POC Glucose (mg/dL) 116 H (70-110) mg/dL Calcium 8.1 L (8.4-10.2) mg/dL AST 48 H (14-36) U/L ALT 51 H (4-34) U/L Total Protein 4.8 L (6.3-8.2) g/dL Albumin 2.4 L (3.5-5.0) g/dL 05/24/22 05/24/22 Range/Units 05:49 11:53 WBC (3.8-10.6) k/uL RBC (3.80-5.40) m/uL Hgb (11.4-16.0) gm/dL Hct (34.0-46.0) % MCHC (31.0-37.0) g/dL Neutrophils # (1.3-7.7) k/uL ABG pCO2 60 H (35-45) mmHg ABG pO2 70 L (83-108) mmHg ABG HCO3 36 H (21-25) mmol/L ABG Total CO2 38 H (19-24) mmol/L Carbon Dioxide (22-30) mmol/L Creatinine (0.52-1.04) mg/dL Glucose (74-99) mg/dL POC Glucose (mg/dL) 152 H (70-110) mg/dL Calcium (8.4-10.2) mg/dL AST (14-36) U/L ALT (4-34) U/L Total Protein (6.3-8.2) g/dL Albumin (3.5-5.0) g/dL Microbiology - Last 24 Hours (Table) 05/22/22 19:55 Gram Stain - Preliminary Sputum Sputum Culture - Preliminary 05/21/22 16:00 Blood Culture - Preliminary Blood No Growth after 48 hours 05/21/22 16:20 Blood Culture - Preliminary Blood No Growth after 48 hours
[2022-05-24 17:37] LABS: Glucose,Whole Blood 112 mg/dL (70-110)
[2022-05-24] MEDS: ATORVASTATIN 80 MG TAB PO SCH (20:17)
[2022-05-24] MEDS: MONTELUKAST 10 MG TAB PO SCH (22:31)
[2022-05-24 23:40] LABS: Glucose,Whole Blood 120 mg/dL (70-110)
[2022-05-25] MEDS: NOREPINEPHRINE 4 MG in SODIUM CHLORIDE 0.9% 250 ML IV SCH (00:27)
[2022-05-25] MEDS: HYDROmorphone 1 MG/ML 1 ML SYRINGE IVP PRN ×2 (02:36→04:13)
[2022-05-25 04:36] LABS: ALT 46 U/L (4-34); AST 41 U/L (14-36); African American GFR (CKD) >90 (>60 ml/min/1.73 sqM); Albumin 2.7 g/dL (3.5-5.0); Alkaline Phosphatase 105 U/L (38-126); Blood Urea Nitrogen 13 mg/dL (7-17); Calcium 8.2 mg/dL (8.4-10.2); Chloride 98 mmol/L (98-107); Glucose 130 mg/dL (74-99); Magnesium 1.8 mg/dL (1.6-2.3); Non-African American GFR(CKD) >90 (>60 ml/min/1.73 sqM); Potassium 3.5 mmol/L (3.5-5.1); Sodium 142 mmol/L (137-145); Total Bilirubin 0.3 mg/dL (0.2-1.3); Total Protein 5.2 g/dL (6.3-8.2)
[2022-05-25 04:42] LABS: Anion Gap 3 mmol/L
[2022-05-25 04:45] LABS: Carbon Dioxide 41 mmol/L (22-30)
[2022-05-25 05:02] LABS: Basophils # (A) 0.1 k/uL (0-0.2); Basophils % (A) 1 %; Eosinophils # (A) 0.2 k/uL (0-0.7); Eosinophils % (A) 2 %; HCT 31.7 % (34.0-46.0); HGB 9.2 gm/dL (11.4-16.0); Hypochromasia Marked; Lymphocytes # (A) 1.3 k/uL (1.0-4.8); Lymphocytes % (A) 14 %; MCH 27.8 pg (25.0-35.0); MCV 96.2 fL (80.0-100.0); Mean Platelet Volume 9.1; Monocytes # (A) 0.6 k/uL (0-1.0); Monocytes % (A) 7 %; Neutrophils # (A) 6.9 k/uL (1.3-7.7); Neutrophils % (A) 74 %; Platelet Count 212 k/uL (150-450); RBC 3.29 m/uL (3.80-5.40); RDW 14.6 % (11.5-15.5); WBC 9.4 k/uL (3.8-10.6)
[2022-05-25] MEDS: MAGNESIUM SULFATE-D5W PMX 1 GM in DEXTROSE/WATER 1 100ML.BAG IVPB SCH ×2 (05:08→06:07)
[2022-05-25] MEDS: POTASSIUM CHLORIDE 10 MEQ in WATER FOR INJECTION 1 100ML.BAG IVPB SCH ×4 (05:09→08:06)
[2022-05-25 05:32] LABS: ABG Base Excess 12.8 mmol/L; ABG Oxygen Saturation 93.8 % (94-97); ABG PH 7.21 (7.35-7.45); ABG PO2 81 mmHg (83-108); ABG TCO2 44 mmol/L (19-24); Allen Test Performed? Yes
[2022-05-25 05:34] LABS: ABG HCO3 41 mmol/L (21-25); ABG PCO2 101 mmHg (35-45)
[2022-05-25 05:40] LABS: Glucose,Whole Blood 182 mg/dL (70-110)
[2022-05-25 05:55] LABS: Glucose,Whole Blood 182 mg/dL (70-110)
[2022-05-25] MEDS: INSULIN ASPART (NovoLOG) 100 UNIT/ML VIAL SQ SCH ×4 (05:59→21:23)
[2022-05-25] MEDS: LEVOTHYROXINE 50 MCG TAB PO SCH (06:15)
--- NOTE | 2022-05-25 07:21 | XR ---
EXAMINATION TYPE: XR chest 1V portable DATE OF EXAM: 05/25/2022 5:55 AM COMPARISON: Chest radiograph from one day prior. TECHNIQUE: XR chest 1V portable Portable AP radiograph of the chest. CLINICAL INDICATION:Female, 61 years old with history of Tube placement; FINDINGS: Lungs/Pleura: There is no evidence of pleural effusion, focal consolidation, or pneumothorax. Pulmonary vascularity: Mild pulmonary vascular congestion. Heart/mediastinum: Cardiomediastinal silhouette is prominent in size. Atherosclerotic calcifications are seen in the aorta. Musculoskeletal: No acute osseous pathology. Lines/Tubes: Interval removal of endotracheal and nasogastric tubes. IMPRESSION: Interval removal of endotracheal and nasogastric tubes. There remains pulmonary vascular congestion a nd cardiomegaly.
[2022-05-25] MEDS: IPRATROPIUM-ALBUTEROL 3 ML NEB INHALATION SCH ×4 (07:47→19:29)
[2022-05-25] MEDS: LACTATED RINGERS 1,000 ML IV SCH (08:02)
[2022-05-25] MEDS ORDERED: FUROSEMIDE 10 MG/ML 10 ML VIAL IV STA (08:33)
[2022-05-25] MEDS ORDERED: ACETAMINOPHEN IV (For NPO) 1,000 MG in EMPTY BAG 1 BAG IVPB PRN (08:37)
[2022-05-25] MEDS: HEPARIN SODIUM,PORCINE/PF 5,000 UNIT/0.5 ML SYRINGE SQ SCH ×2 (09:09→20:14)
[2022-05-25] MEDS: metroNIDAZOLE-NS PMX 500 MG in SALINE 1 100ML.BAG IVPB SCH ×2 (09:09→15:59)
[2022-05-25] MEDS: GABAPENTIN 100 MG CAP PO SCH ×2 (09:58→20:14)
[2022-05-25] MEDS: CITALOPRAM HYDROBROMIDE 10 MG TAB PO SCH (09:58)
[2022-05-25] MEDS: PANTOPRAZOLE 40 MG TABLET PO SCH (09:58)
--- NOTE | 2022-05-25 10:49 | P.PN ---
Subjective Progress Note Date: 05/25/22 Principal diagnosis: Sepsis. Pulmonary/critical care consult dated 05/22/2022. 61-year-old female who presented to the emergency department, on May 21, complaining of abdominal pain. The pain began about 12 hours or so prior to her admission to the emergency department. She also had nausea, with dry heaves. The pain apparently was in the upper quadrant of the abdomen. She does have a history of severe COPD, and she uses oxygen 24/7, at 45 L/m. She has a CO2 retainer. Anyway, she was admitted to the floor, with abdominal discomfort. She has a history of known gallstone disease, but has not had a cholecystectomy in the past. She was evaluated, and had a nuclear scan, and was found to have acute cholecystitis, with sepsis. Apparently, a rapid response was called last Saturday 3:30, and, it was determined that the patient likely had sepsis from her gallbladder disease. She was placed on BiPAP at 14/7 and 40%, and blood gases at that time showed a pO2 of 69, a P CO2 of 69, and a pH is 7.32. This would suggest that her baseline PaCO2 is 60. She's getting saline at 130 mL an hour, IV Flagyl and Rocephin. We will ask to see her for preoperative clearance. I asked for another blood gas, and her repeat blood gas showed a pO2 of 79, CO2 of 78, pH is 7.30. This again was on BiPAP. Her room air saturations are 68%. Current vital signs include a blood pressure 106/67, heart rate 107, respiratory rate 20, saturation 92%, and temperature 90.8 degrees. White count 25.4, hemoglobin 11.4, hematocrit 38, platelet count 283,000. Sodium 141, potassium 3.7, chlorides 99, CO2 37, anion gap 5, BUN 15, creatinine 0.44. Pro-calcitonin level is elevated at 1.17. Chest x-ray shows some basilar atelectasis, and cardiomegaly. Computed tomography scan of the abdomen and pelvis suggested acute cholecystitis, sigmoid diverticulosis, low lung volumes, and hepatomegaly. The patient's hepatobiliary scan was suggestive of cholecystitis. Progress note dated 05/23/2022. The patient is seen in room 252, in the intensive care unit. She is postop day #1, status post open cholecystectomy. She has a Sai-Bush drain in place. She remains on the ventilator. She is on volume assist control, rate 18, tidal volume 450, FiO2 55%, and PEEP of 5. Blood gases show pO2 of 91, pCO2 59, pH is 7.38. She's getting propofol at 45 mcg/kg/m, lactated Ringer's at 135 mL an hour, and norepinephrine at 6.24 mcg/m. She remains on Rocephin and Flagyl. We will attempt a daily interruption of sedation today and a spontaneous breathing trial. White count 21.4, hemoglobin 9.7, hematocrit 30.9, with a normal platelet count. Sodium 139, potassium 3.6, chloride 103, CO2 35, BUN 22, and creatinine 0.52. Microbiologic studies are thus far negative. Chest x-ray shows cardiomegaly, with pulmonary vascular congestion and bilateral effusions. Progress note dated 05/24/2022. The patient is seen in room 252. We attempted a daily interruption of sedation yesterday, with spontaneous breathing trial, but she did poorly. We ended up recent dating her yesterday. She remains on the volume assist control, rate 18, tidal volume 450, FiO2 55%, with a PEEP of 5. Blood gases show pO2 70, pCO2 of 60, pH is 7.39. Today's postop day #2. The patient is getting propofol at 45 mcg/kg/m, and lactated Ringer's at 1 25 mL an hour, which will be decreased to 50 mL an hour. We'll also give the patient 1 dose of Lasix, 60 mg IV push. We will attempt another a daily interruption of sedation and a spontaneous breathing trial. Microbiology is negative. Chest x-ray stable. The patient is currently on Rocephin and Flagyl. She was an open cholecystectomy. White count 11.6, hemoglobin 8.6, hematocrit 28.6, and platelet count 262,000. Sodium 137, potassium 3.6, chlorides 101, CO2 35, BUN 16, creatinine 0.47. Progress note dated 05/25/2022. The patient is again seen today in room 252. The patient was extubated, she is postop day #3. Unfortunately, last night, she developed hypercapnic respiratory failure, and blood gases revealed a PaO2 of 81, pCO2 of 101, and a pH is 7.21. We placed the patient on BiPAP, with settings of 14/5 and 30%. I told the n machelle to make sure that the saturations were between 88 and 92%, and to discontinue all sedatives, hypnotics, narcotics, etc. The patient's getting lactated Ringer's at 50 mL an hour, and saline at 10 mL an hour. She continues on both Rocephin and Flagyl. Today, we will give her Solu-Medrol 40 mg every 6 hours, budesonide and formoterol updrafts twice a day, and Lasix, 60 mg IV push once. Labs today include a white count 9.4, hemoglobin 9.2, hematocrit 31.7, and platelet count 212,000. Sodium 142, potassium 3.5, chlorides 98, CO2 41, BUN 13, and creatinine 0.47. Microbiologic studies are thus far negative. Chest x-ray shows some mild pulmonary vascular congestion. Objective - Vital Signs Vital signs: Vital Signs Temp 98.4 F 05/25/22 04:00 Pulse 85 05/25/22 07:59 Resp 10 L 05/25/22 07:00 BP 127/87 05/25/22 06:00 Pulse Ox 92 L 05/25/22 07:30 FiO2 30 05/25/22 07:30 Intake & Output 05/24/22 05/25/22 05/25/22 18:59 06:59 18:59 Intake Total 1182.563 856 83 Output Total 4005 820 130 Balance -2822.437 36 -47 Weight 153.8 kg Intake: IV 1056 736 53 0.9 120 120 10 REGINALD 36 36 3 LR 650 480 40 cefTRIAXone 2 gm In 50 Sodium Chloride 0.9% 50 ml @ 100 mls/hr IVPB Q24HR RUBEN Rx#:[id number] metroNIDAZOLE-NS PMX 500 200 100 mg In Saline 1 100ml.bag @ 100 mls/hr IVPB Q8HR RUBEN Rx#:[id number] Intake, IV Titration 126.563 Amount propofoL 1,000 mg In 126.563 Empty Bag 1 bag @ 15 MCG/ KG/MIN 11.431 mls/hr IV . Q8H45M RUBEN Rx#:[id number] Oral 120 30 Output: Gastric Drainage 200 Drainage 90 70 30 Right Abdomen 90 70 30 Urine 3715 750 100 Other: Voiding Method Indwelling Catheter Indwelling Catheter ABP, PAP, CO, CI - Last Documented Arterial Blood Pressure 133/62 - Exam No acute distress, opens eyes, currently on BiPAP. HEENT examination is grossly unremarkable. Neck supple. Full range of motion. No adenopathy thyromegaly or neck vein distention. Cardiovascular examination reveals regular rhythm rate. S1-S2 normal. No S3 or S4. No discernible murmur noted. Heart rate 85 bpm. Lungs reveal scattered rhonchi. No wheezes or crackles. Breath sounds equal bi laterally. Saturations are 92%. Abdomen soft bowel sounds are heard. No masses or tenderness. Extremities are intact. No cyanosis clubbing or edema. Skin is without rash or lesion. Neurologic examination reveals an extubated patient, currently on BiPAP. - Labs CBC & Chem 7: 05/25/22 04:01 05/25/22 04:01 Labs: Abnormal Lab Results - Last 24 Hours (Table) 05/24/22 05/24/22 05/24/22 Range/Units 11:53 17:35 23:38 RBC (3.80-5.40) m/uL Hgb (11.4-16.0) gm/dL Hct (34.0-46.0) % MCHC (31.0-37.0) g/dL ABG pH (7.35-7.45) ABG pCO2 (35-45) mmHg ABG pO2 (83-108) mmHg ABG HCO3 (21-25) mmol/L ABG Total CO2 (19-24) mmol/L ABG O2 Saturation (94-97) % Carbon Dioxide (22-30) mmol/L Creatinine (0.52-1.04) mg/dL Glucose (74-99) mg/dL POC Glucose (mg/dL) 152 H 112 H 120 H (70-110) mg/dL Calcium (8.4-10.2) mg/dL AST (14-36) U/L ALT (4-34) U/L Total Protein (6.3-8.2) g/dL Albumin (3.5-5.0) g/dL 05/25/22 05/25/22 05/25/22 Range/Units 04:01 04:01 05:29 RBC 3.29 L (3.80-5.40) m/uL Hgb 9.2 L (11.4-16.0) gm/dL Hct 31.7 L (34.0-46.0) % MCHC 29.0 L (31.0-37.0) g/dL ABG pH 7.21 L (7.35-7.45) ABG pCO2 101 H* (35-45) mmHg ABG pO2 81 L (83-108) mmHg ABG HCO3 41 H* (21-25) mmol/L ABG Total CO2 44 H (19-24) mmol/L ABG O2 Saturation 93.8 L (94-97) % Carbon Dioxide 41 H* (22-30) mmol/L Creatinine 0.47 L (0.52-1.04) mg/dL Glucose 130 H (74-99) mg/dL POC Glucose (mg/dL) (70-110) mg/dL Calcium 8.2 L (8.4-10.2) mg/dL AST 41 H (14-36) U/L ALT 46 H (4-34) U/L Total Protein 5.2 L (6.3-8.2) g/dL Albumin 2.7 L (3.5-5.0) g/dL 05/25/22 05/25/22 Range/Units 05:38 05:53 RBC (3.80-5.40) m/uL Hgb (11.4-16.0) gm/dL Hct (34.0-46.0) % MCHC (31.0-37.0) g/dL ABG pH (7.35-7.45) ABG pCO2 (35-45) mmHg ABG pO2 (83-108) mmHg ABG HCO3 (21-25) mmol/L ABG Total CO2 (19-24) mmol/L ABG O2 Saturation (94-97) % Carbon Dioxide (22-30) mmol/L Creatinine (0.52-1.04) mg/dL Glucose (74-99) mg/dL POC Glucose (mg/dL) 182 H 182 H (70-110) mg/dL Calcium (8.4-10.2) mg/dL AST (14-36) U/L ALT (4-34) U/L Total Protein (6.3-8.2) g/dL Albumin (3.5-5.0) g/dL Microbiology - Last 24 Hours (Table) 05/21/22 16:00 Blood Culture - Preliminary Blood No Growth after 72 hours 05/21/22 16:20 Blood Culture - Preliminary Blood No Growth after 72 hours 05/22/22 19:55 Gram Stain - Preliminary Sputum Sputum Culture - Preliminary Assessment and Plan Assessment: Acute cholecystitis with sepsis, status post open cholecystectomy, 05/22/2022, postop day #3. Acute on chronic hypercapnic respiratory failure, requiring BiPAP therapy. Routine postoperative ventilator management, status post extubation on 05/24/2022. Severe COPD, with chronic hypoxemic and hypercapnic respiratory failure. Obesity. History of gastroesophageal reflux disease. History of osteoarthritis. History of migraine cephalgia. Prior history of tobacco use. Plan: Plan dated 05/22/2022. The patient will likely go to the operating room today. The patient will likely come back to the intensive care unit on the ventilator. Additional recommendations and suggestions are forthcoming. The patient has received both Flagyl and Rocephin. She's getting saline at 130 mL an hour. It appears that her baseline PaCO2 is right around between 60-65 mmHg. She does have chronic hypoxemic respiratory failure along with chronic hypercapnic respiratory failure. Additional recommendations and suggestions are forthcoming. Plan dated 05/23/2022. We attempted a daily interruption of sedation today and a spontaneous breathing trial. Unfortunately, the patient was quite agitated, and her vital signs were unstable during the daily interruption of sedation. Hence, she had to be sedated again. She was tachycardic, tachypnea, not following commands, and hypertensive. Labs, x-rays, and medications are reviewed. We will attempt this again tomorrow. Prognosis is guarded. Plan dated 05/24/2022. Today is postop day #2. Labs, x-rays, and medications are reviewed. The patient is currently on Rocephin and Flagyl. We will attempt another daily interruption of sedation and spontaneous breathing trial. The patient's lactated Ringer's will be decreased from 125 mL an hour down to 50 mL an hour. Also, the patient will get Lasix 60 mg IV push. Additional recommendations and suggestions are forthcoming. Prognosis is certainly guarded. Plan dated 05/25/2022. Today is postoperative day #3. The patient was extubated yesterday. She developed hypercapnic respiratory failure, acute on chronic, and is currently on BiPAP therapy. We are currently aiming for saturations between 88-92%. She remains on lactated Ringer's at 50 mL an hour, and saline at 10. The patient is getting Rocephin and Flagyl. Microbiologic studies are thus far negative. The patient will get Solu-Medrol 40 mg every 6 hours, and Lasix 60 mg IV push once. In addition, we'll add budesonide 1 mg and formoterol 20 g twice a day. Time with Patient: Greater than 30
[2022-05-25] MEDS: BUDESONIDE 1 MG/2 ML NEBU INHALATION SCH ×2 (11:08→19:29)
[2022-05-25] MEDS: FORMOTEROL FUMARATE 20 MCG/2 ML NEBU INHALATION SCH ×2 (11:08→19:29)
[2022-05-25] MEDS: PANTOPRAZOLE 40 MG/10 ML VIAL IVP SCH (11:21)
--- NOTE | 2022-05-25 11:29 | P.PN ---
Subjective Progress Note Date: 05/25/22 (delayed charting seen at 0830) Patient is a 61-year-old female with diabetes, hypothyroidism, COPD, dyslipidemia, and chronic hypoxic respiratory failure on 5 L nasal cannula who presented with complaints of abdominal pain. In the ER she was noted to be tachycardic. CT abdomen and pelvis showed hydropic gallbladder with hazy densities and possible early acute cholecystitis with mild acute diverticulitis and a 3 cm density in the posterior left intrahilar region possible atelectasis versus underlying mass recommending repeat CT chest in 2-3 weeks. She was started on Rocephin and Flagyl as well as IV fluids. Surgery was consulted. She is admitted for further monitoring. She underwent a HIDA scan on 05/22 with the gallbladder was not seen at 120 minutes suggestive of cholecystitis. She developed acute urinary retention requiring a Anderson catheter. She underwent laparoscopic cholecystectomy on 05/22 with a finding of acute gangrenous cholecystitis. She did require vasopressors. She returned to the ICU intubated and was extubated on 05/24. Overnight on 05/24 she developed some difficult breathing and was acidotic on ABG requiring bipap. Patient seen and examined at bedside. She denies shortness of breath, no nausea, some abdominal pain. Denies passing gas. General: Ill appearing, no distress appears at stated age Derm: warm, dry Head: atraumatic, normocephalic, symmetric Eyes: EOMI, no lid lag, anicteric sclera Mouth: no lip lesion, mucus membranes dry Cardiovascular: S1S2 reg, no murmur, positive posterior tibial pulse bilateral, Lungs: Decreased breath sounds bilateral bases, no rhonchi, no rales , no accessory muscle use, on BiPap Abdominal: soft, tender to palpation diffusely, no guarding, no appreciable organomegaly, KIANA drain with brown/green thin fluid Ext: no gross muscle atrophy, no edema, no contractures Neuro: CN II-XI grossly intact, no focal neuro deficits Psych: lethargic but awakes to touch, answeres yes/no questions appropriately. Assessment/plan: Acute cholecystitis s/p lap caremn Severe sepsis with lactic acidosis, resolved Mild acute diverticulitis -Blood cultures negative to date -Continue ceftriaxone and Flagyl -IV fluids -Surgery recommendations -Pain control Acute on chronic hypoxic respiratory failure Severe COPD -Pulmonary recommendations -Bronchodilators -Pulmonary hygiene Anemia - anticipated outcome - follow CBC - Transfuse as needed Transaminitis - suspect reactive - repeat in AM Acute Urinary retention -Anderson catheter Diabetes Mellitus type II -A1c 6.9 -Sliding-scale insulin -Hold metformin resolved: Hypomagnesemia Chronic medical problems: Hypothyroidism Dyslipidemia DVT prophylaxis: Heparin Discussed with: Patient, nursing Anticipated discharge: pending clinical course Anticipated discharge place: pending clinical course A total of 35 minutes was spent on the care of this complex patient more than 50% of the time was spent in counseling and care coordination. Active Medications Generic Name Dose Route Start Last Admin Trade Name Freq PRN Reason Stop Dose Admin Albuterol/Ipratropium 3 ml 05/21/22 16:00 05/25/22 11:08 Ipratropium-Albuterol 3 Ml Neb INHALATION 3 ml RT-QID RUBEN Administration Atorvastatin Calcium 80 mg 05/21/22 21:00 05/24/22 20:17 Atorvastatin 80 Mg Tab PO 80 mg HS RUBEN Administration Budesonide 1 mg 05/25/22 09:00 05/25/22 11:08 Budesonide 1 Mg/2 Ml Nebu INHALATION Not Given RT-BID RUBEN Citalopram Hydrobromide 10 mg 05/22/22 09:00 05/25/22 09:58 Citalopram Hydrobromide 10 Mg Tab PO Not Given DAILY RUBEN Dextrose/Water 25 ml 05/21/22 16:08 Dextrose 50% Syringe 50 Ml IVP PER PROTOCOL PRN Hypoglycemia Protocol Dextrose/Water 50 ml 05/21/22 16:08 Dextrose 50% Syringe 50 Ml IVP PER PROTOCOL PRN Hypoglycemia Protocol Ergocalciferol 1,250 mcg 05/27/22 09:00 Ergocalciferol 1,250 Mcg (50,000 Iu) Capsule PO MARCELINO RUBEN Formoterol Fumarate 20 mcg 05/25/22 09:00 05/25/22 11:08 Formoterol Fumarate 20 Mcg/2 Ml Nebu INHALATION Not Given RT-BID RUBEN Gabapentin 200 mg 05/21/22 21:00 05/25/22 09:58 Gabapentin 100 Mg Cap PO Not Given BID RUBEN Heparin Sodium (Porcine) 5,000 unit 05/23/22 13:15 05/25/22 09:09 Heparin Sodium,Porcine/Pf 5,000 Unit/0.5 Ml Syringe SQ 5,000 unit Q12HR RUBEN Administration Metronidazole 500 mg/ IV 100 mls @ 100 mls/hr 05/21/22 16:00 05/25/22 09:09 Solution IVPB 100 mls/hr Q8HR RUBEN Administration Protocol Ceftriaxone Sodium 2 gm/ 50 mls @ 100 mls/hr 05/22/22 10:00 05/25/22 11:19 Sodium Chloride IVPB 100 mls/hr Q24HR RUBEN Administration Lactated Ringer's 1,000 mls @ 50 mls/hr 05/22/22 17:45 05/25/22 08:02 Lactated Ringers IV Not Given .Q20H RUBEN Acetaminophen 1,000 mg/ IV 100 mls @ 400 mls/hr 05/25/22 08:37 Solution IVPB 05/26/22 06:01 Q6HR PRN Breakthrough Pain Insulin Aspart 0 unit 05/25/22 12:30 Insulin Aspart (Novolog) 100 Unit/Ml Vial SQ ACHS [facility] Protocol Insulin Detemir 10 unit 05/25/22 21:00 Insulin Detemir (Levemir) 100 Unit/Ml Syr SQ HS [facility] Ketorolac Tromethamine 15 mg 05/25/22 12:00 Ketorolac 15 Mg/Ml 1 Ml Vial IVP 05/30/22 23:00 Q6HR RUBEN Levothyroxine Sodium 50 mcg 05/22/22 06:30 05/25/22 06:15 Levothyroxine 50 Mcg Tab PO 50 mcg 0630 [facility] Administration Methylprednisolone Sodium Succinate 40 mg 05/25/22 12:00 Methylprednisolone Sod Succi 40 Mg/Ml 1 Ml Vial IV Q6HR [facility] Miscellaneous Information 1 each 05/22/22 20:30 Magnesium Replacement Protocol 1 Each Misc MISCELLANE DAILY PRN Per Protocol Protocol Miscellaneous Information 1 each 05/22/22 21:25 Potassium Replacement Protocol 1 Each Misc MISCELLANE DAILY PRN Per Protocol Protocol Montelukast Sodium 10 mg 05/21/22 21:00 05/24/22 22:31 Montelukast 10 Mg Tab PO 10 mg HS RUBEN Administration Pantoprazole Sodium 40 mg 05/25/22 10:30 05/25/22 11:21 Pantoprazole 40 Mg/10 Ml Vial IVP 40 mg DAILY RUBEN Administration Objective - Vital Signs Vital signs: Vital Signs Temp 98.4 F 05/25/22 04:00 Pulse 94 05/25/22 11:08 Resp 10 L 05/25/22 07:00 BP 127/87 05/25/22 06:00 Pulse Ox 92 L 05/25/22 07:30 FiO2 30 05/25/22 11:08 Intake & Output 05/24/22 05/25/22 05/25/22 18:59 06:59 18:59 Intake Total 1182.563 856 83 Output Total 4005 820 130 Balance -2822.437 36 -47 Weight 153.8 kg Intake: IV 1056 736 53 0.9 120 120 10 REGINALD 36 36 3 LR 650 480 40 cefTRIAXone 2 gm In 50 Sodium Chloride 0.9% 50 ml @ 100 mls/hr IVPB Q24HR RUBEN Rx#:[id number] metroNIDAZOLE-NS PMX 500 200 100 mg In Saline 1 100ml.bag @ 100 mls/hr IVPB Q8HR RUBEN Rx#:[id number] Intake, IV Titration 126.563 Amount propofoL 1,000 mg In 126.563 Empty Bag 1 bag @ 15 MCG/ KG/MIN 11.431 mls/hr IV . Q8H45M RUBEN Rx#:[id number] Oral 120 30 Output: Gastric Drainage 200 Drainage 90 70 30 Right Abdomen 90 70 30 Urine 3715 750 100 Other: Voiding Method Indwelling Catheter Indwelling Catheter ABP, PAP, CO, CI - Last Documented Arterial Blood Pressure 133/62 - Labs CBC & Chem 7: 05/25/22 04:01 05/25/22 04:01 Labs: Abnormal Lab Results - Last 24 Hours (Table) 05/24/22 05/24/22 05/24/22 Range/Units 11:53 17:35 23:38 RBC (3.80-5.40) m/uL Hgb (11.4-16.0) gm/dL Hct (34.0-46.0) % MCHC (31.0-37.0) g/dL ABG pH (7.35-7.45) ABG pCO2 (35-45) mmHg ABG pO2 (83-108) mmHg ABG HCO3 (21-25) mmol/L ABG Total CO2 (19-24) mmol/L ABG O2 Saturation (94-97) % Carbon Dioxide (22-30) mmol/L Creatinine (0.52-1.04) mg/dL Glucose (74-99) mg/dL POC Glucose (mg/dL) 152 H 112 H 120 H (70-110) mg/dL Calcium (8.4-10.2) mg/dL AST (14-36) U/L ALT (4-34) U/L Total Protein (6.3-8.2) g/dL Albumin (3.5-5.0) g/dL 05/25/22 05/25/22 05/25/22 Range/Units 04:01 04:01 05:29 RBC 3.29 L (3.80-5.40) m/uL Hgb 9.2 L (11.4-16.0) gm/dL Hct 31.7 L (34.0-46.0) % MCHC 29.0 L (31.0-37.0) g/dL ABG pH 7.21 L (7.35-7.45) ABG pCO2 101 H* (35-45) mmHg ABG pO2 81 L (83-108) mmHg ABG HCO3 41 H* (21-25) mmol/L ABG Total CO2 44 H (19-24) mmol/L ABG O2 Saturation 93.8 L (94-97) % Carbon Dioxide 41 H* (22-30) mmol/L Creatinine 0.47 L (0.52-1.04) mg/dL Glucose 130 H (74-99) mg/dL POC Glucose (mg/dL) (70-110) mg/dL Calcium 8.2 L (8.4-10.2) mg/dL AST 41 H (14-36) U/L ALT 46 H (4-34) U/L Total Protein 5.2 L (6.3-8.2) g/dL Albumin 2.7 L (3.5-5.0) g/dL 05/25/22 05/25/22 Range/Units 05:38 05:53 RBC (3.80-5.40) m/uL Hgb (11.4-16.0) gm/dL Hct (34.0-46.0) % MCHC (31.0-37.0) g/dL ABG pH (7.35-7.45) ABG pCO2 (35-45) mmHg ABG pO2 (83-108) mmHg ABG HCO3 (21-25) mmol/L ABG Total CO2 (19-24) mmol/L ABG O2 Saturation (94-97) % Carbon Dioxide (22-30) mmol/L Creatinine (0.52-1.04) mg/dL Glucose (74-99) mg/dL POC Glucose (mg/dL) 182 H 182 H (70-110) mg/dL Calcium (8.4-10.2) mg/dL AST (14-36) U/L ALT (4-34) U/L Total Protein (6.3-8.2) g/dL Albumin (3.5-5.0) g/dL Microbiology - Last 24 Hours (Table) 05/21/22 16:00 Blood Culture - Preliminary Blood No Growth after 72 hours 05/21/22 16:20 Blood Culture - Preliminary Blood No Growth after 72 hours 05/22/22 19:55 Gram Stain - Preliminary Sputum Sputum Culture - Preliminary
[2022-05-25 12:12] LABS: Glucose,Whole Blood 129 mg/dL (70-110)
[2022-05-25] MEDS: methylPREDNISolone SOD SUCCI 40 MG/ML 1 ML VIAL IV SCH ×2 (12:17→17:51)
[2022-05-25] MEDS: KETOROLAC 15 MG/ML 1 ML VIAL IVP SCH ×2 (12:17→17:52)
--- NOTE | 2022-05-25 13:26 | P.PN ---
Subjective Progress Note Date: 05/25/22 CHIEF COMPLAINT: Acute gangrenous cholecystitis HISTORY OF PRESENT ILLNESS: Patient is postop day #3 status post diagnostic laparoscopy and open cholecystectomy. Patient is currently in the ICU. Patient was extubated yesterday morning. Had been on nasal cannula. Throughout the day she had increased oxygen requirements and had become more lethargic. She was placed on BiPAP. Patient remains on BiPAP. She does complain of some abdominal pain. We're trying to avoid narcotics. She's currently on IV Tylenol and Toradol. Afebrile. WBC is 9.4 hemoglobin 9.2total bilirubin 0.3 AST 41 ALT 46 potassium 3.5 creatinine 0.47 KIANA drain was 100 mL bile tinged output this morning. Patient receiving another dose of IV Lasix. Chest x-ray had shown pulmonary vascular congestion. Patient seen and examined with Dr. smith. PHYSICAL EXAM: VITAL SIGNS: Reviewed. GENERAL: Well-developed in no acute distress. ABDOMEN: Soft. Nondistended. Incision clean dry and intact. KIANA drain output bile tinged NEUROLOGIC: Awake but sleepy. Able to answer questions. ASSESSMENT: 1. Acute gangrenous cholecystitis status post open cholecystectomy 2. Acute diverticulitis 3. Sepsis 4. History of COPD on home O2 PLAN: -Continue ICU management -Continue supportive care -Continue antibiotics -Continue Toradol and IV Tylenol for pain -Continue monitor KIANA drain output. Output is bile tinged -DVT prophylaxis subcu heparin and GI prophylaxis Protonix Physician Drapery Inspector note has been reviewed by physician. Signing provider agrees with the documented findings, assessment, and plan of care. Objective - Vital Signs Vital signs: Vital Signs Temp 97.0 F L 05/25/22 12:00 Pulse 101 H 05/25/22 13:00 Resp 16 05/25/22 13:00 BP 107/63 05/25/22 10:00 Pulse Ox 96 05/25/22 13:00 FiO2 30 05/25/22 11:08 Intake & Output 05/24/22 05/25/22 05/25/22 18:59 06:59 18:59 Intake Total 1182.563 856 741 Output Total 4005 820 3795 Balance -2822.437 36 -3054 Weight 153.8 kg Intake: IV 1056 736 581 0.9 120 120 70 REGINALD 36 36 21 LR 650 480 340 cefTRIAXone 2 gm In 50 50 Sodium Chloride 0.9% 50 ml @ 100 mls/hr IVPB Q24HR [facility] Rx#:[id number] metroNIDAZOLE-NS PMX 500 200 100 100 mg In Saline 1 100ml.bag @ 100 mls/hr IVPB Q8HR [facility] Rx#:[id number] Intake, IV Titration 126.563 Amount propofoL 1,000 mg In 126.563 Empty Bag 1 bag @ 15 MCG/ KG/MIN 11.431 mls/hr IV . Q8H45M [facility] Rx#:[id number] Oral 120 160 Output: Gastric Drainage 200 Drainage 90 70 50 Right Abdomen 90 70 50 Urine 3715 750 3745 Other: Voiding Method Indwelling Catheter Indwelling Catheter Indwelling Catheter ABP, PAP, CO, CI - Last Documented Arterial Blood Pressure 127/59 - Labs CBC & Chem 7: 05/25/22 04:01 05/25/22 04:01 Labs: Abnormal Lab Results - Last 24 Hours (Table) 05/24/22 05/24/22 05/25/22 Range/Units 17:35 23:38 04:01 RBC (3.80-5.40) m/uL Hgb (11.4-16.0) gm/dL Hct (34.0-46.0) % MCHC (31.0-37.0) g/dL ABG pH (7.35-7.45) ABG pCO2 (35-45) mmHg ABG pO2 (83-108) mmHg ABG HCO3 (21-25) mmol/L ABG Total CO2 (19-24) mmol/L ABG O2 Saturation (94-97) % Carbon Dioxide 41 H* (22-30) mmol/L Creatinine 0.47 L (0.52-1.04) mg/dL Glucose 130 H (74-99) mg/dL POC Glucose (mg/dL) 112 H 120 H (70-110) mg/dL Calcium 8.2 L (8.4-10.2) mg/dL AST 41 H (14-36) U/L ALT 46 H (4-34) U/L Total Protein 5.2 L (6.3-8.2) g/dL Albumin 2.7 L (3.5-5.0) g/dL 05/25/22 05/25/22 05/25/22 Range/Units 04:01 05:29 05:38 RBC 3.29 L (3.80-5.40) m/uL Hgb 9.2 L (11.4-16.0) gm/dL Hct 31.7 L (34.0-46.0) % MCHC 29.0 L (31.0-37.0) g/dL ABG pH 7.21 L (7.35-7.45) ABG pCO2 101 H* (35-45) mmHg ABG pO2 81 L (83-108) mmHg ABG HCO3 41 H* (21-25) mmol/L ABG Total CO2 44 H (19-24) mmol/L ABG O2 Saturation 93.8 L (94-97) % Carbon Dioxide (22-30) mmol/L Creatinine (0.52-1.04) mg/dL Glucose (74-99) mg/dL POC Glucose (mg/dL) 182 H (70-110) mg/dL Calcium (8.4-10.2) mg/dL AST (14-36) U/L ALT (4-34) U/L Total Protein (6.3-8.2) g/dL Albumin (3.5-5.0) g/dL 05/25/22 05/25/22 Range/Units 05:53 12:10 RBC (3.80-5.40) m/uL Hgb (11.4-16.0) gm/dL Hct (34.0-46.0) % MCHC (31.0-37.0) g/dL ABG pH (7.35-7.45) ABG pCO2 (35-45) mmHg ABG pO2 (83-108) mmHg ABG HCO3 (21-25) mmol/L ABG Total CO2 (19-24) mmol/L ABG O2 Saturation (94-97) % Carbon Dioxide (22-30) mmol/L Creatinine (0.52-1.04) mg/dL Glucose (74-99) mg/dL POC Glucose (mg/dL) 182 H 129 H (70-110) mg/dL Calcium (8.4-10.2) mg/dL AST (14-36) U/L ALT (4-34) U/L Total Protein (6.3-8.2) g/dL Albumin (3.5-5.0) g/dL Microbiology - Last 24 Hours (Table) 05/22/22 19:55 Gram Stain - Final Sputum Sputum Culture - Final 05/21/22 16:00 Blood Culture - Preliminary Blood No Growth after 72 hours 05/21/22 16:20 Blood Culture - Preliminary Blood No Growth after 72 hours
[2022-05-25 17:46] LABS: Glucose,Whole Blood 179 mg/dL (70-110)
[2022-05-25] MEDS: MONTELUKAST 10 MG TAB PO SCH (20:14)
[2022-05-25] MEDS: ATORVASTATIN 80 MG TAB PO SCH (20:14)
[2022-05-25 21:21] LABS: Glucose,Whole Blood 198 mg/dL (70-110)
[2022-05-25] MEDS: INSULIN DETEMIR (LEVEMIR) 100 UNIT/ML SYR SQ SCH (21:23)
[2022-05-26] MEDS: KETOROLAC 15 MG/ML 1 ML VIAL IVP SCH ×4 (05:33→17:53)
[2022-05-26] MEDS: methylPREDNISolone SOD SUCCI 40 MG/ML 1 ML VIAL IV SCH ×4 (05:33→17:53)
[2022-05-26] MEDS: LACTATED RINGERS 1,000 ML IV SCH (05:34)
[2022-05-26] MEDS: metroNIDAZOLE-NS PMX 500 MG in SALINE 1 100ML.BAG IVPB SCH ×3 (05:34→17:52)
[2022-05-26] MEDS: LEVOTHYROXINE 50 MCG TAB PO SCH (05:40)
[2022-05-26 06:33] LABS: HCT 30.7 % (34.0-46.0); HGB 9.4 gm/dL (11.4-16.0); Hypochromasia Marked; MCH 28.4 pg (25.0-35.0); MCHC 30.5 g/dL (31.0-37.0); MCV 93.2 fL (80.0-100.0); Platelet Count 272 k/uL (150-450); RDW 14.3 % (11.5-15.5); WBC 8.9 k/uL (3.8-10.6)
[2022-05-26 06:46] LABS: ALT 39 U/L (4-34); AST 31 U/L (14-36); African American GFR (CKD) >90 (>60 ml/min/1.73 sqM); Albumin 2.9 g/dL (3.5-5.0); Alkaline Phosphatase 102 U/L (38-126); Blood Urea Nitrogen 18 mg/dL (7-17); Calcium 8.7 mg/dL (8.4-10.2); Chloride 93 mmol/L (98-107); Glucose 170 mg/dL (74-99); Magnesium 1.9 mg/dL (1.6-2.3); Non-African American GFR(CKD) >90 (>60 ml/min/1.73 sqM); Potassium 4.1 mmol/L (3.5-5.1); Sodium 140 mmol/L (137-145); Total Bilirubin 0.2 mg/dL (0.2-1.3); Total Protein 5.6 g/dL (6.3-8.2)
[2022-05-26 06:46] LABS: Glucose,Whole Blood 171 mg/dL (70-110)
[2022-05-26 06:52] LABS: Anion Gap 4 mmol/L
[2022-05-26] MEDS: INSULIN ASPART (NovoLOG) 100 UNIT/ML VIAL SQ SCH ×4 (06:52→20:09)
[2022-05-26 06:53] LABS: Carbon Dioxide 43 mmol/L (22-30)
[2022-05-26] MEDS: FORMOTEROL FUMARATE 20 MCG/2 ML NEBU INHALATION SCH ×2 (07:38→19:04)
[2022-05-26] MEDS: IPRATROPIUM-ALBUTEROL 3 ML NEB INHALATION SCH ×4 (07:39→19:04)
[2022-05-26] MEDS: BUDESONIDE 1 MG/2 ML NEBU INHALATION SCH ×2 (07:39→19:04)
[2022-05-26] MEDS: HEPARIN SODIUM,PORCINE/PF 5,000 UNIT/0.5 ML SYRINGE SQ SCH ×2 (08:02→20:09)
[2022-05-26] MEDS: GABAPENTIN 100 MG CAP PO SCH ×2 (08:02→20:08)
[2022-05-26] MEDS: CITALOPRAM HYDROBROMIDE 10 MG TAB PO SCH (08:02)
[2022-05-26] MEDS: PANTOPRAZOLE 40 MG/10 ML VIAL IVP SCH (08:02)
--- NOTE | 2022-05-26 09:55 | P.PN ---
Progress Note - Text Progress Note Date: 05/26/22 The patient is resting comfortably in bed. She does not appear to be short of breath. On exam vital signs are stable. Abdomen soft. Incisions clean dry intact. KIANA drain has some serosanguineous drainage. There is a very minimal bilious tinged fluid. Status post open cholecystectomy for severe acute gangrenous cholecystitis. Patient will continue to be observed closely. We'll continue supportive care. She will have her diet advanced.
--- NOTE | 2022-05-26 10:54 | P.PN ---
Subjective Progress Note Date: 05/26/22 Patient's breathing is improved. Now requiring 4 L nasal cannula, using BiPAP at night appropriately. Recovering well following her procedure, no longer requiring pressors in the last 48 hours. Gen: awake, alert, obese HEENT: normocephalic, atraumatic, good hearing acuity, moist mucous membranes Resp: Impaired air exchange, breathing comfortably with no accessory muscle use, symmetric chest expansion CVS: good distal perfusion x 4, GI: soft, NTTP, ND : no SPT, no CVAT, mendoza catheter is present MSK: Bilateral pitting edema, no clubbing Neuro: non-focal, moving all extremities Psych: cooperative, euthymic mood Assessment/plan: Acute cholecystitis s/p lap carmen Severe sepsis with lactic acidosis, resolved Mild acute diverticulitis -Blood cultures negative to date -Continue ceftriaxone and Flagyl -IV fluids -Surgery recommendations -Pain control Acute on chronic hypoxic and hypercarbic respiratory failure Severe COPD BONITA Suspect OHS -Pulmonary recommendations -Bronchodilators -Pulmonary hygiene -BIPAP at night Anemia - anticipated outcome - follow CBC - Transfuse as needed Transaminitis - suspect reactive - repeat in AM Acute Urinary retention -Mendoza catheter Diabetes Mellitus type II -A1c 6.9 -Sliding-scale insulin -Hold metformin resolved: Hypomagnesemia Chronic medical problems: Hypothyroidism Dyslipidemia DVT prophylaxis: Heparin Discussed with: Patient, nursing Anticipated discharge: pending clinical course Anticipated discharge place: pending clinical course Objective - Vital Signs Vital signs: Vital Signs Temp 96.8 F L 05/26/22 08:00 Pulse 80 05/26/22 10:00 Resp 12 05/26/22 10:00 BP 107/63 05/26/22 10:00 Pulse Ox 94 L 05/26/22 10:00 FiO2 30 05/26/22 07:39 Intake & Output 05/25/22 05/26/22 05/26/22 18:59 06:59 18:59 Intake Total 1256 819 319 Output Total 4205 1185 185 Balance -9299 -366 134 Weight 151.3 kg Intake: IV 1096 819 319 0.9 120 130 10 ACETAMINOPHEN IV (For NPO 100 ) 1,000 mg In Empty Bag 1 bag @ 400 mls/hr IVPB Q6HR PRN Rx#:[id number] REGINALD 36 39 9 LR 590 120 150 cefTRIAXone 2 gm In 50 50 Sodium Chloride 0.9% 50 ml @ 100 mls/hr IVPB Q24HR [facility] Rx#:[id number] metroNIDAZOLE-NS PMX 500 200 100 mg In Saline 1 100ml.bag @ 100 mls/hr IVPB Q8HR [facility] Rx#:[id number] Oral 160 Output: Drainage 50 35 Right Abdomen 50 35 Urine 4155 1150 185 Other: Voiding Method Indwelling Catheter Indwelling Catheter Indwelling Catheter ABP, PAP, CO, CI - Last Documented Arterial Blood Pressure 140/61 - Labs CBC & Chem 7: 05/26/22 05:50 05/26/22 05:50 Labs: Abnormal Lab Results - Last 24 Hours (Table) 05/25/22 05/25/22 05/25/22 Range/Units 12:10 17:44 21:20 RBC (3.80-5.40) m/uL Hgb (11.4-16.0) gm/dL Hct (34.0-46.0) % MCHC (31.0-37.0) g/dL Chloride (98-107) mmol/L Carbon Dioxide (22-30) mmol/L BUN (7-17) mg/dL Glucose (74-99) mg/dL POC Glucose (mg/dL) 129 H 179 H 198 H (70-110) mg/dL ALT (4-34) U/L Total Protein (6.3-8.2) g/dL Albumin (3.5-5.0) g/dL 05/26/22 05/26/22 05/26/22 Range/Units 05:50 05:50 06:44 RBC 3.30 L (3.80-5.40) m/uL Hgb 9.4 L (11.4-16.0) gm/dL Hct 30.7 L (34.0-46.0) % MCHC 30.5 L (31.0-37.0) g/dL Chloride 93 L (98-107) mmol/L Carbon Dioxide 43 H* (22-30) mmol/L BUN 18 H (7-17) mg/dL Glucose 170 H (74-99) mg/dL POC Glucose (mg/dL) 171 H (70-110) mg/dL ALT 39 H (4-34) U/L Total Protein 5.6 L (6.3-8.2) g/dL Albumin 2.9 L (3.5-5.0) g/dL Microbiology - Last 24 Hours (Table) 05/21/22 16:20 Blood Culture - Preliminary Blood No Growth after 96 hours 05/21/22 16:00 Blood Culture - Preliminary Blood No Growth after 96 hours 05/22/22 19:55 Gram Stain - Final Sputum Sputum Culture - Final
[2022-05-26 11:37] LABS: Glucose,Whole Blood 150 mg/dL (70-110)
--- NOTE | 2022-05-26 11:58 | P.PN ---
Subjective Progress Note Date: 05/26/22 Principal diagnosis: Sepsis. Pulmonary/critical care consult dated 05/22/2022. 61-year-old female who presented to the emergency department, on May 21, complaining of abdominal pain. The pain began about 12 hours or so prior to her admission to the emergency department. She also had nausea, with dry heaves. The pain apparently was in the upper quadrant of the abdomen. She does have a history of severe COPD, and she uses oxygen 24/7, at 45 L/m. She has a CO2 retainer. Anyway, she was admitted to the floor, with abdominal discomfort. She has a history of known gallstone disease, but has not had a cholecystectomy in the past. She was evaluated, and had a nuclear scan, and was found to have acute cholecystitis, with sepsis. Apparently, a rapid response was called last Saturday 3:30, and, it was determined that the patient likely had sepsis from her gallbladder disease. She was placed on BiPAP at 14/7 and 40%, and blood gases at that time showed a pO2 of 69, a P CO2 of 69, and a pH is 7.32. This would suggest that her baseline PaCO2 is 60. She's getting saline at 130 mL an hour, IV Flagyl and Rocephin. We will ask to see her for preoperative clearance. I asked for another blood gas, and her repeat blood gas showed a pO2 of 79, CO2 of 78, pH is 7.30. This again was on BiPAP. Her room air saturations are 68%. Current vital signs include a blood pressure 106/67, heart rate 107, respiratory rate 20, saturation 92%, and temperature 90.8 degrees. White count 25.4, hemoglobin 11.4, hematocrit 38, platelet count 283,000. Sodium 141, potassium 3.7, chlorides 99, CO2 37, anion gap 5, BUN 15, creatinine 0.44. Pro-calcitonin level is elevated at 1.17. Chest x-ray shows some basilar atelectasis, and cardiomegaly. Computed tomography scan of the abdomen and pelvis suggested acute cholecystitis, sigmoid diverticulosis, low lung volumes, and hepatomegaly. The patient's hepatobiliary scan was suggestive of cholecystitis. Progress note dated 05/23/2022. The patient is seen in room 252, in the intensive care unit. She is postop day #1, status post open cholecystectomy. She has a Sai-Bush drain in place. She remains on the ventilator. She is on volume assist control, rate 18, tidal volume 450, FiO2 55%, and PEEP of 5. Blood gases show pO2 of 91, pCO2 59, pH is 7.38. She's getting propofol at 45 mcg/kg/m, lactated Ringer's at 135 mL an hour, and norepinephrine at 6.24 mcg/m. She remains on Rocephin and Flagyl. We will attempt a daily interruption of sedation today and a spontaneous breathing trial. White count 21.4, hemoglobin 9.7, hematocrit 30.9, with a normal platelet count. Sodium 139, potassium 3.6, chloride 103, CO2 35, BUN 22, and creatinine 0.52. Microbiologic studies are thus far negative. Chest x-ray shows cardiomegaly, with pulmonary vascular congestion and bilateral effusions. Progress note dated 05/24/2022. The patient is seen in room 252. We attempted a daily interruption of sedation yesterday, with spontaneous breathing trial, but she did poorly. We ended up recent dating her yesterday. She remains on the volume assist control, rate 18, tidal volume 450, FiO2 55%, with a PEEP of 5. Blood gases show pO2 70, pCO2 of 60, pH is 7.39. Today's postop day #2. The patient is getting propofol at 45 mcg/kg/m, and lactated Ringer's at 1 25 mL an hour, which will be decreased to 50 mL an hour. We'll also give the patient 1 dose of Lasix, 60 mg IV push. We will attempt another a daily interruption of sedation and a spontaneous breathing trial. Microbiology is negative. Chest x-ray stable. The patient is currently on Rocephin and Flagyl. She was an open cholecystectomy. White count 11.6, hemoglobin 8.6, hematocrit 28.6, and platelet count 262,000. Sodium 137, potassium 3.6, chlorides 101, CO2 35, BUN 16, creatinine 0.47. Progress note dated 05/25/2022. The patient is again seen today in room 252. The patient was extubated, she is postop day #3. Unfortunately, last night, she developed hypercapnic respiratory failure, and blood gases revealed a PaO2 of 81, pCO2 of 101, and a pH is 7.21. We placed the patient on BiPAP, with settings of 14/5 and 30%. I told the n machelle to make sure that the saturations were between 88 and 92%, and to discontinue all sedatives, hypnotics, narcotics, etc. The patient's getting lactated Ringer's at 50 mL an hour, and saline at 10 mL an hour. She continues on both Rocephin and Flagyl. Today, we will give her Solu-Medrol 40 mg every 6 hours, budesonide and formoterol updrafts twice a day, and Lasix, 60 mg IV push once. Labs today include a white count 9.4, hemoglobin 9.2, hematocrit 31.7, and platelet count 212,000. Sodium 142, potassium 3.5, chlorides 98, CO2 41, BUN 13, and creatinine 0.47. Microbiologic studies are thus far negative. Chest x-ray shows some mild pulmonary vascular congestion. Progress note dated 05/26/2022. 61-year-old female seen in room 252. She is postop day #4. Currently, the patient's on 4 L nasal cannula. She's getting lactated Ringer's at 50 mL an hour. She didn't use BiPAP last night at 14/5 and 30%. I told the nurse, that I wanted her sats between 88 and 92%. Clinically she looks well. White count is 8.9, hemoglobin 9.4, hematocrit 30.7, and platelet count 272,000. Sodium 140, potassium 5.1, chlorides 93, CO2 43, BUN 18, creatinine 0.52. No chest x- ray today. Microbiologic studies are negative. Objective - Vital Signs Vital signs: Vital Signs Temp 96.8 F L 05/26/22 08:00 Pulse 90 05/26/22 11:46 Resp 22 05/26/22 11:46 BP 107/63 05/26/22 10:00 Pulse Ox 92 L 05/26/22 11:00 FiO2 30 05/26/22 07:39 Intake & Output 05/25/22 05/26/22 05/26/22 18:59 06:59 18:59 Intake Total 1256 819 382 Output Total 9331 1185 230 Balance -6378 -366 152 Weight 151.3 kg Intake: IV 1096 819 382 0.9 120 130 20 ACETAMINOPHEN IV (For NPO 100 ) 1,000 mg In Empty Bag 1 bag @ 400 mls/hr IVPB Q6HR PRN Rx#:[id number] REGINALD 36 39 12 LR 590 650 200 cefTRIAXone 2 gm In 50 50 Sodium Chloride 0.9% 50 ml @ 100 mls/hr IVPB Q24HR [facility] Rx#:[id number] metroNIDAZOLE-NS PMX 500 200 100 mg In Saline 1 100ml.bag @ 100 mls/hr IVPB Q8HR [facility] Rx#:[id number] Oral 160 Output: Drainage 50 35 Right Abdomen 50 35 Urine 4155 1150 230 Other: Voiding Method Indwelling Catheter Indwelling Catheter Indwelling Catheter ABP, PAP, CO, CI - Last Documented Arterial Blood Pressure 154/67 - Exam No acute distress, opens eyes, currently on 4 L nasal cannula. HEENT examination is grossly unremarkable. Neck supple. Full range of motion. No adenopathy thyromegaly or neck vein distention. Cardiovascular examination reveals regular rhythm rate. S1-S2 normal. No S3 or S4. No discernible murmur noted. Heart rate 90 bpm. Lungs reveal scattered rhonchi. No wheezes or crackles. Breath sounds equal bilaterally. Saturations are 96 %. Abdomen soft bowel sounds are heard. No masses or tenderness. Extremities are intact. No cyanosis clubbing or edema. Skin is without rash or lesion. Neurologic examination reveals a sleepy patient on 4 L. - Labs CBC & Chem 7: 05/26/22 05:50 05/26/22 05:50 Labs: Abnormal Lab Results - Last 24 Hours (Table) 05/25/22 05/25/22 05/25/22 Range/Units 12:10 17:44 21:20 RBC (3.80-5.40) m/uL Hgb (11.4-16.0) gm/dL Hct (34.0-46.0) % MCHC (31.0-37.0) g/dL Chloride (98-107) mmol/L Carbon Dioxide (22-30) mmol/L BUN (7-17) mg/dL Glucose (74-99) mg/dL POC Glucose (mg/dL) 129 H 179 H 198 H (70-110) mg/dL ALT (4-34) U/L Total Protein (6.3-8.2) g/dL Albumin (3.5-5.0) g/dL 05/26/22 05/26/22 05/26/22 Range/Units 05:50 05:50 06:44 RBC 3.30 L (3.80-5.40) m/uL Hgb 9.4 L (11.4-16.0) gm/dL Hct 30.7 L (34.0-46.0) % MCHC 30.5 L (31.0-37.0) g/dL Chloride 93 L (98-107) mmol/L Carbon Dioxide 43 H* (22-30) mmol/L BUN 18 H (7-17) mg/dL Glucose 170 H (74-99) mg/dL POC Glucose (mg/dL) 171 H (70-110) mg/dL ALT 39 H (4-34) U/L Total Protein 5.6 L (6.3-8.2) g/dL Albumin 2.9 L (3.5-5.0) g/dL 05/26/22 Range/Units 11:35 RBC (3.80-5.40) m/uL Hgb (11.4-16.0) gm/dL Hct (34.0-46.0) % MCHC (31.0-37.0) g/dL Chloride (98-107) mmol/L Carbon Dioxide (22-30) mmol/L BUN (7-17) mg/dL Glucose (74-99) mg/dL POC Glucose (mg/dL) 150 H (70-110) mg/dL ALT (4-34) U/L Total Protein (6.3-8.2) g/dL Albumin (3.5-5.0) g/dL Microbiology - Last 24 Hours (Table) 05/21/22 16:20 Blood Culture - Preliminary Blood No Growth after 96 hours 05/21/22 16:00 Blood Culture - Preliminary Blood No Growth after 96 hours 05/22/22 19:55 Gram Stain - Final Sputum Sputum Culture - Final Assessment and Plan Assessment: Acute cholecystitis with sepsis, status post open cholecystectomy, 05/22/2022, postop day #4. Acute on chronic hypercapnic respiratory failure, requiring BiPAP therapy. Routine postoperative ventilator management, status post extubation on 05/24/2022. Severe COPD, with chronic hypoxemic and hypercapnic respiratory failure. Obesity. History of gastroesophageal reflux disease. History of osteoarthritis. History of migraine cephalgia. Prior history of tobacco use. Plan: Plan dated 05/22/2022. The patient will likely go to the operating room today. The patient will likely come back to the intensive care unit on the ventilator. Additional recommendations and suggestions are forthcoming. The patient has received both Flagyl and Rocephin. She's getting saline at 130 mL an hour. It appears that h er baseline PaCO2 is right around between 60-65 mmHg. She does have chronic hypoxemic respiratory failure along with chronic hypercapnic respiratory failure. Additional recommendations and suggestions are forthcoming. Plan dated 05/23/2022. We attempted a daily interruption of sedation today and a spontaneous breathing trial. Unfortunately, the patient was quite agitated, and her vital signs were unstable during the daily interruption of sedation. Hence, she had to be sedated again. She was tachycardic, tachypnea, not following commands, and hypertensive. Labs, x-rays, and medications are reviewed. We will attempt this again tomorrow. Prognosis is guarded. Plan dated 05/24/2022. Today is postop day #2. Labs, x-rays, and medications are reviewed. The patient is currently on Rocephin and Flagyl. We will attempt another daily interruption of sedation and spontaneous breathing trial. The patient's lactated Ringer's will be decreased from 125 mL an hour down to 50 mL an hour. Also, the patient will get Lasix 60 mg IV push. Additional recommendations and suggestions are forthcoming. Prognosis is certainly guarded. Plan dated 05/25/2022. Today is postoperative day #3. The patient was extubated yesterday. She developed hypercapnic respiratory failure, acute on chronic, and is currently on BiPAP therapy. We are currently aiming for saturations between 88-92%. She remains on lactated Ringer's at 50 mL an hour, and saline at 10. The patient is getting Rocephin and Flagyl. Microbiologic studies are thus far negative. The patient will get Solu-Medrol 40 mg every 6 hours, and Lasix 60 mg IV push once. In addition, we'll add budesonide 1 mg and formoterol 20 g twice a day. Plan dated 05/26/2022. Today's postop day #4. Labs, x-rays, and medications are reviewed. The patient didn't use BiPAP last night. Currently she is on 4 L. I told the nurses to maintain saturations between 88 and 92%. Labs, and x-rays are reviewed. Medications are reviewed. Microbiologic studies are negative. The patient continues on Rocephin and Flagyl. We will continue to follow and make recommendations along the way. Prognosis is guarded. Time with Patient: Less than 30
[2022-05-26 17:59] LABS: Glucose,Whole Blood 214 mg/dL (70-110)
[2022-05-26 19:58] LABS: Glucose,Whole Blood 211 mg/dL (70-110)
[2022-05-26] MEDS: INSULIN DETEMIR (LEVEMIR) 100 UNIT/ML SYR SQ SCH (20:09)
[2022-05-26] MEDS: MONTELUKAST 10 MG TAB PO SCH (20:10)
[2022-05-26] MEDS: ATORVASTATIN 80 MG TAB PO SCH (20:10)
[2022-05-27] MEDS: KETOROLAC 15 MG/ML 1 ML VIAL IVP SCH ×5 (01:18→23:49)
[2022-05-27] MEDS: methylPREDNISolone SOD SUCCI 40 MG/ML 1 ML VIAL IV SCH ×5 (01:19→23:52)
[2022-05-27] MEDS: metroNIDAZOLE-NS PMX 500 MG in SALINE 1 100ML.BAG IVPB SCH ×4 (01:19→23:46)
[2022-05-27] MEDS: LACTATED RINGERS 1,000 ML IV SCH (01:19)
[2022-05-27 05:07] LABS: Basophils % (A) 0 %; Eosinophils # (A) 0.1 k/uL (0-0.7); Eosinophils % (A) 1 %; HCT 30.6 % (34.0-46.0); HGB 9.3 gm/dL (11.4-16.0); Hypochromasia Marked; Lymphocytes # (A) 0.9 k/uL (1.0-4.8); Lymphocytes % (A) 9 %; MCH 28.1 pg (25.0-35.0); MCHC 30.5 g/dL (31.0-37.0); MCV 92.3 fL (80.0-100.0); Mean Platelet Volume 8.4; Monocytes # (A) 0.8 k/uL (0-1.0); Monocytes % (A) 7 %; Neutrophils # (A) 8.7 k/uL (1.3-7.7); Neutrophils % (A) 82 %; Platelet Count 322 k/uL (150-450); RBC 3.32 m/uL (3.80-5.40); RDW 14.3 % (11.5-15.5); WBC 10.7 k/uL (3.8-10.6)
[2022-05-27 05:17] LABS: African American GFR (CKD) >90 (>60 ml/min/1.73 sqM); Blood Urea Nitrogen 24 mg/dL (7-17); Calcium 8.7 mg/dL (8.4-10.2); Chloride 97 mmol/L (98-107); Glucose 171 mg/dL (74-99); Non-African American GFR(CKD) >90 (>60 ml/min/1.73 sqM); Potassium 4.1 mmol/L (3.5-5.1); Sodium 141 mmol/L (137-145)
[2022-05-27 05:23] LABS: Anion Gap 0 mmol/L
[2022-05-27 05:26] LABS: Carbon Dioxide 44 mmol/L (22-30)
[2022-05-27] MEDS: LEVOTHYROXINE 50 MCG TAB PO SCH (05:32)
[2022-05-27] MEDS: INSULIN ASPART (NovoLOG) 100 UNIT/ML VIAL SQ SCH ×4 (06:00→20:32)
[2022-05-27] MEDS: IPRATROPIUM-ALBUTEROL 3 ML NEB INHALATION SCH ×4 (08:00→20:47)
[2022-05-27] MEDS: FORMOTEROL FUMARATE 20 MCG/2 ML NEBU INHALATION SCH ×2 (08:00→20:48)
[2022-05-27] MEDS: BUDESONIDE 1 MG/2 ML NEBU INHALATION SCH ×2 (08:00→20:47)
[2022-05-27] MEDS: HEPARIN SODIUM,PORCINE/PF 5,000 UNIT/0.5 ML SYRINGE SQ SCH ×2 (08:01→20:32)
[2022-05-27] MEDS: GABAPENTIN 100 MG CAP PO SCH ×2 (08:01→20:32)
[2022-05-27] MEDS: CITALOPRAM HYDROBROMIDE 10 MG TAB PO SCH (08:01)
[2022-05-27] MEDS: PANTOPRAZOLE 40 MG/10 ML VIAL IVP SCH (08:01)
[2022-05-27] MEDS ORDERED: ERGOCALCIFEROL 1,250 MCG (50,000 IU) CAPSULE PO SCH (09:00)
[2022-05-27 11:15] LABS: Glucose,Whole Blood 173 mg/dL (70-110)
--- NOTE | 2022-05-27 11:37 | P.PN ---
Subjective Progress Note Date: 05/27/22 Principal diagnosis: Sepsis. Pulmonary/critical care consult dated 05/22/2022. 61-year-old female who presented to the emergency department, on May 21, complaining of abdominal pain. The pain began about 12 hours or so prior to her admission to the emergency department. She also had nausea, with dry heaves. The pain apparently was in the upper quadrant of the abdomen. She does have a history of severe COPD, and she uses oxygen 24/7, at 45 L/m. She has a CO2 retainer. Anyway, she was admitted to the floor, with abdominal discomfort. She has a history of known gallstone disease, but has not had a cholecystectomy in the past. She was evaluated, and had a nuclear scan, and was found to have acute cholecystitis, with sepsis. Apparently, a rapid response was called last Saturday 3:30, and, it was determined that the patient likely had sepsis from her gallbladder disease. She was placed on BiPAP at 14/7 and 40%, and blood gases at that time showed a pO2 of 69, a P CO2 of 69, and a pH is 7.32. This would suggest that her baseline PaCO2 is 60. She's getting saline at 130 mL an hour, IV Flagyl and Rocephin. We will ask to see her for preoperative clearance. I asked for another blood gas, and her repeat blood gas showed a pO2 of 79, CO2 of 78, pH is 7.30. This again was on BiPAP. Her room air saturations are 68%. Current vital signs include a blood pressure 106/67, heart rate 107, respiratory rate 20, saturation 92%, and temperature 90.8 degrees. White count 25.4, hemoglobin 11.4, hematocrit 38, platelet count 283,000. Sodium 141, potassium 3.7, chlorides 99, CO2 37, anion gap 5, BUN 15, creatinine 0.44. Pro-calcitonin level is elevated at 1.17. Chest x-ray shows some basilar atelectasis, and cardiomegaly. Computed tomography scan of the abdomen and pelvis suggested acute cholecystitis, sigmoid diverticulosis, low lung volumes, and hepatomegaly. The patient's hepatobiliary scan was suggestive of cholecystitis. Progress note dated 05/23/2022. The patient is seen in room 252, in the intensive care unit. She is postop day #1, status post open cholecystectomy. She has a Sai-Bush drain in place. She remains on the ventilator. She is on volume assist control, rate 18, tidal volume 450, FiO2 55%, and PEEP of 5. Blood gases show pO2 of 91, pCO2 59, pH is 7.38. She's getting propofol at 45 mcg/kg/m, lactated Ringer's at 135 mL an hour, and norepinephrine at 6.24 mcg/m. She remains on Rocephin and Flagyl. We will attempt a daily interruption of sedation today and a spontaneous breathing trial. White count 21.4, hemoglobin 9.7, hematocrit 30.9, with a normal platelet count. Sodium 139, potassium 3.6, chloride 103, CO2 35, BUN 22, and creatinine 0.52. Microbiologic studies are thus far negative. Chest x-ray shows cardiomegaly, with pulmonary vascular congestion and bilateral effusions. Progress note dated 05/24/2022. The patient is seen in room 252. We attempted a daily interruption of sedation yesterday, with spontaneous breathing trial, but she did poorly. We ended up recent dating her yesterday. She remains on the volume assist control, rate 18, tidal volume 450, FiO2 55%, with a PEEP of 5. Blood gases show pO2 70, pCO2 of 60, pH is 7.39. Today's postop day #2. The patient is getting propofol at 45 mcg/kg/m, and lactated Ringer's at 1 25 mL an hour, which will be decreased to 50 mL an hour. We'll also give the patient 1 dose of Lasix, 60 mg IV push. We will attempt another a daily interruption of sedation and a spontaneous breathing trial. Microbiology is negative. Chest x-ray stable. The patient is currently on Rocephin and Flagyl. She was an open cholecystectomy. White count 11.6, hemoglobin 8.6, hematocrit 28.6, and platelet count 262,000. Sodium 137, potassium 3.6, chlorides 101, CO2 35, BUN 16, creatinine 0.47. Progress note dated 05/25/2022. The patient is again seen today in room 252. The patient was extubated, she is postop day #3. Unfortunately, last night, she developed hypercapnic respiratory failure, and blood gases revealed a PaO2 of 81, pCO2 of 101, and a pH is 7.21. We placed the patient on BiPAP, with settings of 14/5 and 30%. I told the eric carty to make sure that the saturations were between 88 and 92%, and to discontinue all sedatives, hypnotics, narcotics, etc. The patient's getting lactated Ringer's at 50 mL an hour, and saline at 10 mL an hour. She continues on both Rocephin and Flagyl. Today, we will give her Solu-Medrol 40 mg every 6 hours, budesonide and formoterol updrafts twice a day, and Lasix, 60 mg IV push once. Labs today include a white count 9.4, hemoglobin 9.2, hematocrit 31.7, and platelet count 212,000. Sodium 142, potassium 3.5, chlorides 98, CO2 41, BUN 13, and creatinine 0.47. Microbiologic studies are thus far negative. Chest x-ray shows some mild pulmonary vascular congestion. Progress note dated 05/26/2022. 61-year-old female seen in room 252. She is postop day #4. Currently, the patient's on 4 L nasal cannula. She's getting lactated Ringer's at 50 mL an hour. She didn't use BiPAP last night at 14/5 and 30%. I told the nurse, that I wanted her sats between 88 and 92%. Clinically she looks well. White count is 8.9, hemoglobin 9.4, hematocrit 30.7, and platelet count 272,000. Sodium 140, potassium 5.1, chlorides 93, CO2 43, BUN 18, creatinine 0.52. No chest x- ray today. Microbiologic studies are negative. Progress note dated 05/27/2022. 61-year-old female again seen in room 252. She is postop day #5, and doing better today. She down to 2 L of oxygen. Lactated Ringer's and saline can be discontinued. We can also discontinue the arterial line. The patient uses the BiPAP device from midnight to 5 AM. Her settings included 14/5 and 30%. She's a bit more awake today than yesterday. She could be considered for possible transfer out of the intensive care unit, but her overall condition is somewhat tenuous. White count 10.7, hemoglobin 9.3, hematocrit 30.6, with a platelet count of 322,000. Sodium 141, potassium 4.1, chlorides 97, CO2 44, BUN 24, creatinine 0.47. Microbiologic studies are negative. No chest x-ray today. Objective - Vital Signs Vital signs: Vital Signs Temp 98.1 F 05/27/22 08:00 Pulse 86 05/27/22 11:27 Resp 18 05/27/22 11:27 BP 107/63 05/27/22 11:00 Pulse Ox 90 L 05/27/22 11:00 FiO2 30 05/27/22 08:01 Intake & Output 05/26/22 05/27/22 05/27/22 18:59 06:59 18:59 Intake Total 823 819 296 Output Total 610 710 450 Balance 213 109 -154 Weight 148.9 kg Intake: IV 823 819 296 0.9 90 130 40 REGINALD 33 39 6 LR 550 650 100 cefTRIAXone 2 gm In 50 50 Sodium Chloride 0.9% 50 ml @ 100 mls/hr IVPB Q24HR [facility] Rx#:[id number] metroNIDAZOLE-NS PMX 500 100 100 mg In Saline 1 100ml.bag @ 100 mls/hr IVPB Q8HR [facility] Rx#:[id number] Output: Drainage 25 Right Abdomen 25 Urine 610 685 450 Other: Voiding Method Indwelling Catheter Indwelling Catheter Indwelling Catheter # Bowel Movements 1 1 ABP, PAP, CO, CI - Last Documented Arterial Blood Pressure 150/76 - Exam No acute distress, opens eyes, currently on 2 L nasal cannula. HEENT examination is grossly unremarkable. Neck supple. Full range of motion. No adenopathy thyromegaly or neck vein distention. Cardiovascular examination reveals regular rhythm rate. S1-S2 normal. No S3 or S4. No discernible murmur noted. Heart rate 86 bpm. Lungs reveal scattered rhonchi. No wheezes or crackles. Breath sounds equal bilaterally. Saturations are 91 %. Abdomen soft bowel sounds are heard. No masses or tenderness. Extremities are intact. No cyanosis clubbing or edema. Skin is without rash or lesion. Neurologic examination reveals a patient a bit more awake and interactive. - Labs CBC & Chem 7: 05/27/22 05:00 05/27/22 05:00 Labs: Abnormal Lab Results - Last 24 Hours (Table) 05/26/22 05/26/22 05/26/22 Range/Units 11:35 17:47 19:57 WBC (3.8-10.6) k/uL RBC (3.80-5.40) m/uL Hgb (11.4-16.0) gm/dL Hct (34.0-46.0) % MCHC (31.0-37.0) g/dL Neutrophils # (1.3-7.7) k/uL Lymphocytes # (1.0-4.8) k/uL Chloride (98-107) mmol/L Carbon Dioxide (22-30) mmol/L BUN (7-17) mg/dL Creatinine (0.52-1.04) mg/dL Glucose (74-99) mg/dL POC Glucose (mg/dL) 150 H 214 H 211 H (70-110) mg/dL 05/27/22 05/27/22 05/27/22 Range/Units 05:00 05:00 11:13 WBC 10.7 H (3.8-10.6) k/uL RBC 3.32 L (3.80-5.40) m/uL Hgb 9.3 L (11.4-16.0) gm/dL Hct 30.6 L (34.0-46.0) % MCHC 30.5 L (31.0-37.0) g/dL Neutrophils # 8.7 H (1.3-7.7) k/uL Lymphocytes # 0.9 L (1.0-4.8) k/uL Chloride 97 L (98-107) mmol/L Carbon Dioxide 44 H* (22-30) mmol/L BUN 24 H (7-17) mg/dL Creatinine 0.47 L (0.52-1.04) mg/dL Glucose 171 H (74-99) mg/dL POC Glucose (mg/dL) 173 H (70-110) mg/dL Microbiology - Last 24 Hours (Table) 05/21/22 16:20 Blood Culture - Preliminary Blood No Growth after 120 hours 05/21/22 16:00 Blood Culture - Preliminary Blood No Growth after 120 hours Assessment and Plan Assessment: Acute cholecystitis with sepsis, status post open cholecystectomy, 05/22/2022, postop day #5. Acute on chronic hypercapnic respiratory failure, requiring BiPAP therapy. Routine postoperative ventilator management, status post extubation on 05/24/2022. Severe COPD, with chronic hypoxemic and hypercapnic respiratory failure. Obesity. History of gastroesophageal reflux disease. History of osteoarthritis. History of migraine cephalgia. Prior history of tobacco use. Plan: Plan dated 05/22/2022. The patient will likely go to the operating room today. The patient will likely come back to the intensive care unit on the ventilator. Additional recommendations and suggestions are forthcoming. The patient has received both Flagyl and Rocephin. She's getting saline at 130 mL an hour. It appears that her baseline PaCO2 is right around between 60-65 mmHg. She does have chronic hypoxemic respiratory failure along with chronic hypercapnic respiratory failure. Additional recommendations and suggestions are forthcoming. Plan dated 05/23/2022. We attempted a daily interruption of sedation today and a spontaneous breathing trial. Unfortunately, the patient was quite agitated, and her vital signs were unstable during the daily interruption of sedation. Hence, she had to be sedated again. She was tachycardic, tachypnea, not following commands, and hypertensive. Labs, x-rays, and medications are reviewed. We will attempt this again tomorrow. Prognosis is guarded. Plan dated 05/24/2022. Today is postop day #2. Labs, x-rays, and medications are reviewed. The patient is currently on Rocephin and Flagyl. We will attempt another daily interruption of sedation and spontaneous breathing trial. The patient's lacta jo ann Ringer's will be decreased from 125 mL an hour down to 50 mL an hour. Also, the patient will get Lasix 60 mg IV push. Additional recommendations and suggestions are forthcoming. Prognosis is certainly guarded. Plan dated 05/25/2022. Today is postoperative day #3. The patient was extubated yesterday. She developed hypercapnic respiratory failure, acute on chronic, and is currently on BiPAP therapy. We are currently aiming for saturations between 88-92%. She remains on lactated Ringer's at 50 mL an hour, and saline at 10. The patient is getting Rocephin and Flagyl. Microbiologic studies are thus far negative. The patient will get Solu-Medrol 40 mg every 6 hours, and Lasix 60 mg IV push once. In addition, we'll add budesonide 1 mg and formoterol 20 g twice a day. Plan dated 05/26/2022. Today's postop day #4. Labs, x-rays, and medications are reviewed. The patient didn't use BiPAP last night. Currently she is on 4 L. I told the nurses to maintain saturations between 88 and 92%. Labs, and x-rays are reviewed. Medications are reviewed. Microbiologic studies are negative. The patient continues on Rocephin and Flagyl. We will continue to follow and make recomme ndations along the way. Prognosis is guarded. Plan dated 05/27/2022. The patient is postop day #5. The patient's labs, x-rays, and medications are reviewed. She did use BiPAP from midnight to 5 AM. The arterial line can be discontinued. Likewise, lactated Ringer's IV and saline IV can also be discontinued. We will continue to follow the patient and make recommendations along the way. The patient's overall prognosis remains guarded. Microbiologic studies are thus far negative. She remains on Rocephin and Flagyl. They are up for renewal. We'll leave that up to the primary service. Time with Patient: Less than 30
--- NOTE | 2022-05-27 12:07 | P.PN ---
Progress Note - Text Progress Note Date: 05/27/22 The patient continues to improve. She states she feels better. On exam vital signs appear stable. The patient is not short of breath. Abdomen is soft. Right subcostal incision is clean dry intact. KIANA drain has some serosanguineous drainage. There appears to be no significant bile drainage. Status post open colon resection for gangrenous cholecystitis. Patient is improving. She'll be transferred out of the ICU once cleared by Dr. Iglesias
--- NOTE | 2022-05-27 12:52 | P.PN ---
Subjective Progress Note Date: 05/27/22 Patient's breathing is improved. Now requiring 4 L nasal cannula, using BiPAP at night appropriately. Patient states she feels almost back to normal and wants to know when she can go home. Gen: awake, alert, obese HEENT: normocephalic, atraumatic, good hearing acuity, moist mucous membranes Resp: Impaired air exchange, breathing comfortably with no accessory muscle use, symmetric chest expansion CVS: good distal perfusion x 4, GI: soft, NTTP, ND : no SPT, no CVAT, mendoza catheter is present MSK: Bilateral pitting edema, no clubbing Neuro: non-focal, moving all extremities Psych: cooperative, euthymic mood Assessment/plan: Acute cholecystitis s/p lap carmen Severe sepsis with lactic acidosis, resolved Mild acute diverticulitis -Blood cultures negative to date -Continue ceftriaxone and Flagyl -IV fluids -Surgery recommendations -Pain control Acute on chronic hypoxic and hypercarbic respiratory failure Severe COPD BONITA Suspect OHS -Pulmonary recommendations -Bronchodilators -Pulmonary hygiene -BIPAP at night Anemia - anticipated outcome - follow CBC - Transfuse as needed Transaminitis - suspect reactive - repeat in AM Acute Urinary retention -Mendoza catheter Diabetes Mellitus type II -A1c 6.9 -Sliding-scale insulin -Hold metformin resolved: Hypomagnesemia Chronic medical problems: Hypothyroidism Dyslipidemia DVT prophylaxis: Heparin Discussed with: Patient, nursing Anticipated discharge: pending clinical course Anticipated discharge place: pending clinical course Objective - Vital Signs Vital signs: Vital Signs Temp 97.1 F L 05/27/22 12:00 Pulse 75 05/27/22 12:00 Resp 18 05/27/22 12:00 BP 119/87 05/27/22 12:00 Pulse Ox 90 L 05/27/22 12:00 FiO2 30 05/27/22 08:01 Intake & Output 05/26/22 05/27/22 05/27/22 18:59 06:59 18:59 Intake Total 823 819 306 Output Total 610 710 600 Balance 213 109 -294 Weight 148.9 kg Intake: IV 823 819 306 0.9 90 130 50 REGINALD 33 39 6 LR 550 650 100 cefTRIAXone 2 gm In 50 50 Sodium Chloride 0.9% 50 ml @ 100 mls/hr IVPB Q24HR [facility] Rx#:[id number] metroNIDAZOLE-NS PMX 500 100 100 mg In Saline 1 100ml.bag @ 100 mls/hr IVPB Q8HR [facility] Rx#:[id number] Output: Drainage 25 Right Abdomen 25 Urine 610 685 600 Other: Voiding Method Indwelling Catheter Indwelling Catheter Indwelling Catheter # Bowel Movements 1 1 ABP, PAP, CO, CI - Last Documented Arterial Blood Pressure 150/76 - Labs CBC & Chem 7: 05/27/22 05:00 05/27/22 05:00 Labs: Abnormal Lab Results - Last 24 Hours (Table) 05/26/22 05/26/22 05/27/22 Range/Units 17:47 19:57 05:00 WBC 10.7 H (3.8-10.6) k/uL RBC 3.32 L (3.80-5.40) m/uL Hgb 9.3 L (11.4-16.0) gm/dL Hct 30.6 L (34.0-46.0) % MCHC 30.5 L (31.0-37.0) g/dL Neutrophils # 8.7 H (1.3-7.7) k/uL Lymphocytes # 0.9 L (1.0-4.8) k/uL Chloride (98-107) mmol/L Carbon Dioxide (22-30) mmol/L BUN (7-17) mg/dL Creatinine (0.52-1.04) mg/dL Glucose (74-99) mg/dL POC Glucose (mg/dL) 214 H 211 H (70-110) mg/dL 05/27/22 05/27/22 Range/Units 05:00 11:13 WBC (3.8-10.6) k/uL RBC (3.80-5.40) m/uL Hgb (11.4-16.0) gm/dL Hct (34.0-46.0) % MCHC (31.0-37.0) g/dL Neutrophils # (1.3-7.7) k/uL Lymphocytes # (1.0-4.8) k/uL Chloride 97 L (98-107) mmol/L Carbon Dioxide 44 H* (22-30) mmol/L BUN 24 H (7-17) mg/dL Creatinine 0.47 L (0.52-1.04) mg/dL Glucose 171 H (74-99) mg/dL POC Glucose (mg/dL) 173 H (70-110) mg/dL Microbiology - Last 24 Hours (Table) 05/21/22 16:20 Blood Culture - Preliminary Blood No Growth after 120 hours 05/21/22 16:00 Blood Culture - Preliminary Blood No Growth after 120 hours
[2022-05-27 16:39] LABS: Glucose,Whole Blood 218 mg/dL (70-110)
[2022-05-27 20:10] LABS: Glucose,Whole Blood 210 mg/dL (70-110)
[2022-05-27] MEDS: ATORVASTATIN 80 MG TAB PO SCH (20:32)
[2022-05-27] MEDS: MONTELUKAST 10 MG TAB PO SCH (20:32)
[2022-05-27] MEDS: INSULIN DETEMIR (LEVEMIR) 100 UNIT/ML SYR SQ SCH (20:32)
[2022-05-28] MEDS: KETOROLAC 15 MG/ML 1 ML VIAL IVP SCH ×2 (05:29→12:01)
[2022-05-28] MEDS: methylPREDNISolone SOD SUCCI 40 MG/ML 1 ML VIAL IV SCH (05:53)
[2022-05-28 06:15] LABS: Glucose,Whole Blood 180 mg/dL (70-110)
[2022-05-28] MEDS: LEVOTHYROXINE 50 MCG TAB PO SCH (06:29)
[2022-05-28] MEDS: INSULIN ASPART (NovoLOG) 100 UNIT/ML VIAL SQ SCH ×2 (06:29→12:01)
[2022-05-28] MEDS: FORMOTEROL FUMARATE 20 MCG/2 ML NEBU INHALATION SCH (08:15)
[2022-05-28] MEDS: BUDESONIDE 1 MG/2 ML NEBU INHALATION SCH (08:15)
[2022-05-28] MEDS: IPRATROPIUM-ALBUTEROL 3 ML NEB INHALATION SCH ×3 (08:15→15:40)
[2022-05-28 08:30] LABS: Basophils % (A) 0 %; Eosinophils % (A) 0 %; HCT 34.8 % (34.0-46.0); HGB 10.3 gm/dL (11.4-16.0); Hypochromasia Marked; Lymphocytes # (A) 1.2 k/uL (1.0-4.8); Lymphocytes % (A) 13 %; MCH 27.6 pg (25.0-35.0); MCHC 29.7 g/dL (31.0-37.0); MCV 92.9 fL (80.0-100.0); Mean Platelet Volume 8.2; Monocytes # (A) 0.8 k/uL (0-1.0); Monocytes % (A) 8 %; Neutrophils # (A) 7.4 k/uL (1.3-7.7); Neutrophils % (A) 78 %; Platelet Count 419 k/uL (150-450); RBC 3.75 m/uL (3.80-5.40); RDW 14.2 % (11.5-15.5); WBC 9.6 k/uL (3.8-10.6)
[2022-05-28 08:50] LABS: African American GFR (CKD) >90 (>60 ml/min/1.73 sqM); Blood Urea Nitrogen 19 mg/dL (7-17); Chloride 95 mmol/L (98-107); Glucose 166 mg/dL (74-99); Non-African American GFR(CKD) >90 (>60 ml/min/1.73 sqM); Potassium 4.4 mmol/L (3.5-5.1); Sodium 140 mmol/L (137-145)
--- NOTE | 2022-05-28 08:53 | P.PN ---
Subjective Progress Note Date: 05/28/22 On 05/28/2022, the patient is postoperative day #6. The patient underwent open cholecystectomy. The patient is passing gas. No significant issues with pain. She is hemodynamically stable and she is on oxygen at 3 L nasal cannula. She has severe COPD and she is also being worked up for obstructive sleep apnea. She has an appointment and she hasn't had her sleep study yet. She is in the ICU for hypercapnic respiratory failure that occurred postop. She has a BiPAP that she is using pressures of 14/5 cm of water with an FiO2 of 30%. White cell count today's of 9.6 with a hemoglobin of 10 and a platelet count of 419. Electrolytes from yesterday were within normal limits. She has chronic meta bolic alkalosis secondary to chronic hypercapnic respiratory failure. Most recent blood. From 05/25/2022 showed a pH of 7.21 with a pCO2 of 101 and pO2 of 81. No blood gases since. She remains on a combination of Rocephin and Flagyl. IV fluids are currently at KVO. She is using the incentive spirometer. Surgical one-sided is clean and the KIANA drain output is minimal at this point in time. Objective - Vital Signs Vital signs: Vital Signs Temp 98.2 F 05/28/22 04:00 Pulse 90 05/28/22 08:36 Resp 13 05/28/22 04:00 BP 149/84 05/28/22 04:00 Pulse Ox 95 05/28/22 04:00 FiO2 30 05/28/22 04:00 Intake & Output 05/27/22 05/28/22 05/28/22 18:59 06:59 18:59 Intake Total 306 280 Output Total 600 2220 Balance -294 -1940 Weight 145.9 kg Intake: IV 306 160 0.9 50 160 REGINALD 6 LR 100 cefTRIAXone 2 gm In 50 Sodium Chloride 0.9% 50 ml @ 100 mls/hr IVPB Q24HR [facility] Rx#:[id number] metroNIDAZOLE-NS PMX 500 100 mg In Saline 1 100ml.bag @ 100 mls/hr IVPB Q8HR [facility] Rx#:[id number] Oral 120 Output: Drainage 20 Right Abdomen 20 Urine 600 2200 Other: Voiding Method Indwelling Catheter Indwelling Catheter # Bowel Movements 1 ABP, PAP, CO, CI - Last Documented Arterial Blood Pressure 150/76 - Exam No acute distress, opens eyes, currently on 2 L nasal cannula. HEENT examination is grossly unremarkable. Neck supple. Full range of motion. No adenopathy thyromegaly or neck vein distention. Cardiovascular examination reveals regular rhythm rate. S1-S2 normal. No S3 or S4. No discernible murmur noted. Heart rate 86 bpm. Lungs reveal scattered rhonchi. No wheezes or crackles. Breath sounds equal bilaterally. Saturations are 91 %. Abdomen soft bowel sounds are heard. No masses or tenderness. The patient has a KIANA drain in her left lower abdominal area. Surgical one-sided dry-cleaning and intact. Output from the KIANA drain is minimal at this point in time the daughter opacities over the past shift. Extremities are intact. No cyanosis clubbing or edema. Skin is without rash or lesion. Neurologic examination reveals a patient a bit more awake and interactive. - Labs CBC & Chem 7: 05/28/22 07:47 05/27/22 05:00 Labs: Abnormal Lab Results - Last 24 Hours (Table) 05/27/22 05/27/22 05/27/22 Range/Units 11:13 16:38 20:07 RBC (3.80-5.40) m/uL Hgb (11.4-16.0) gm/dL MCHC (31.0-37.0) g/dL POC Glucose (mg/dL) 173 H 218 H 210 H (70-110) mg/dL 05/28/22 05/28/22 Range/Units 06:13 07:47 RBC 3.75 L (3.80-5.40) m/uL Hgb 10.3 L (11.4-16.0) gm/dL MCHC 29.7 L (31.0-37.0) g/dL POC Glucose (mg/dL) 180 H (70-110) mg/dL Microbiology - Last 24 Hours (Table) 05/21/22 16:00 Blood Culture - Final Blood No Growth after 144 hours 05/21/22 16:20 Blood Culture - Final Blood No Growth after 144 hours Assessment and Plan Plan: Acute cholecystitis with sepsis, status post open cholecystectomy, 05/22/2022, postop day #6 Acute on chronic hypercapnic respiratory failure, requiring BiPAP therapy. Routine postoperative ventilator management, status post extubation on 05/24/2022. Severe COPD, with chronic hypoxemic and hypercapnic respiratory failure. Obesity. History of gastroesophageal reflux disease. History of osteoarthritis. History of migraine cephalgia. Prior history of tobacco use. Diabetes mellitus, maintained on metformin an outpatient basis, currently on Levemir insulin 10 units along with a sliding scale coverage Hyperlipidemia, maintained on statins on outpatient basis Hypothyroidism Plan: Keep the patient on Rocephin and Flagyl Advance diet as tolerated The patient up on a chair Continue using the incentive spirometer BiPAP overnight at the same setting, pressures of 14/5 with an FiO2 of 30%, and currently the patient is on 2 L of oxygen by nasal cannula. Discontinue the IV Solu-Medrol and put the patient on prednisone burst taper starting with 20 mg and will taper down by 10 mg every 3 days Continue bronchodilators Advance diet She may potentially transfer outside intensive care unit
[2022-05-28 08:57] LABS: Anion Gap 7 mmol/L
[2022-05-28] MEDS ORDERED: predniSONE 20 MG TAB PO SCH (09:00)
[2022-05-28 09:02] LABS: Carbon Dioxide 38 mmol/L (22-30)
[2022-05-28] MEDS: HEPARIN SODIUM,PORCINE/PF 5,000 UNIT/0.5 ML SYRINGE SQ SCH (09:39)
[2022-05-28] MEDS: metroNIDAZOLE-NS PMX 500 MG in SALINE 1 100ML.BAG IVPB SCH (09:39)
[2022-05-28] MEDS: CITALOPRAM HYDROBROMIDE 10 MG TAB PO SCH (09:40)
[2022-05-28] MEDS: PANTOPRAZOLE 40 MG/10 ML VIAL IVP SCH (09:40)
[2022-05-28] MEDS: GABAPENTIN 100 MG CAP PO SCH (09:40)
[2022-05-28 10:24] VITALS: BMI 50.3
--- NOTE | 2022-05-28 11:10 | P.PN ---
Subjective Progress Note Date: 05/28/22 CHIEF COMPLAINT: Acute gangrenous cholecystitis HISTORY OF PRESENT ILLNESS: Patient is postop day #6 status post diagnostic laparoscopy and open cholecystectomy. Patient is currently in the ICU as MedSurg overflow. Patient lying in bed comfortably. She reports her pain is controlled. She is having bowel movements and flatus. Denies any nausea or vomiting. Tolerating regular diet. KIANA drain 10 mL serosanguineous output. Afebrile. WBC is down from 10.7-9.6. Patient is now on 3 L of oxygen. Patient seen and examined with Dr. smith. PHYSICAL EXAM: VITAL SIGNS: Reviewed. GENERAL: Well-developed in no acute distress. ABDOMEN: Soft. Nondistended. Incision clean dry and intact. KIANA drain serosanguineous output NEUROLOGIC: Awake and alert and orientated 3 ASSESSMENT: 1. Acute gangrenous cholecystitis status post open cholecystectomy 2. Acute diverticulitis 3. Sepsis 4. History of COPD on home O2 PLAN: -Patient can be discharged from surgical standpoint when medically cleared -Continue her home pain medication -Continue oral antibiotics at discharge -Patient to be discharged with KIANA drain -Patient will likely require rehab placement -DVT prophylaxis subcu heparin and GI prophylaxis Protonix Physician Relationship Banker note has been reviewed by physician. Signing provider agrees with the documented findings, assessment, and plan of care. Objective - Vital Signs Vital signs: Vital Signs Temp 98.2 F 05/28/22 04:00 Pulse 90 05/28/22 08:36 Resp 13 05/28/22 04:00 BP 149/84 05/28/22 04:00 Pulse Ox 95 05/28/22 04:00 FiO2 30 05/28/22 04:00 Intake & Output 05/27/22 05/28/22 05/28/22 18:59 06:59 18:59 Intake Total 306 280 20 Output Total 600 2220 225 Balance -294 -1939 -205 Weight 145.9 kg 145.9 kg Intake: IV 306 160 20 0.9 50 160 20 REGINALD 6 LR 100 cefTRIAXone 2 gm In 50 Sodium Chloride 0.9% 50 ml @ 100 mls/hr IVPB Q24HR RUBEN Rx#:[id number] metroNIDAZOLE-NS PMX 500 100 mg In Saline 1 100ml.bag @ 100 mls/hr IVPB Q8HR RUBEN Rx#:[id number] Oral 120 Output: Drainage 20 Right Abdomen 20 Urine 600 2200 225 Other: Voiding Method Indwelling Catheter Indwelling Catheter # Bowel Movements 1 1 ABP, PAP, CO, CI - Last Documented Arterial Blood Pressure 150/76 - Labs CBC & Chem 7: 05/28/22 07:47 05/28/22 07:47 Labs: Abnormal Lab Results - Last 24 Hours (Table) 05/27/22 05/27/22 05/27/22 Range/Units 11:13 16:38 20:07 RBC (3.80-5.40) m/uL Hgb (11.4-16.0) gm/dL MCHC (31.0-37.0) g/dL Chloride (98-107) mmol/L Carbon Dioxide (22-30) mmol/L BUN (7-17) mg/dL Glucose (74-99) mg/dL POC Glucose (mg/dL) 173 H 218 H 210 H (70-110) mg/dL 05/28/22 05/28/22 05/28/22 Range/Units 06:13 07:47 07:47 RBC 3.75 L (3.80-5.40) m/uL Hgb 10.3 L (11.4-16.0) gm/dL MCHC 29.7 L (31.0-37.0) g/dL Chloride 95 L (98-107) mmol/L Carbon Dioxide 38 H (22-30) mmol/L BUN 19 H (7-17) mg/dL Glucose 166 H (74-99) mg/dL POC Glucose (mg/dL) 180 H (70-110) mg/dL Microbiology - Last 24 Hours (Table) 05/21/22 16:00 Blood Culture - Final Blood No Growth after 144 hours 05/21/22 16:20 Blood Culture - Final Blood No Growth after 144 hours
[2022-05-28 11:26] LABS: Glucose,Whole Blood 200 mg/dL (70-110)
[2022-05-28 12:11] VITALS: BP 155/92; PULSE 84; RESP 16; TEMP 98.1
--- NOTE | 2022-05-28 13:05 | P.DS ---
Providers Date of admission: 05/21/22 15:30 Expected date of discharge: 05/28/22 Attending physician: Oscar Dawson MD Consults: 05/21/22 16:16 Consult Physician Routine Consulting Provider: Richard Guardado Consult Reason/Comments: possible cholecystitis Do you want consulting provider notified?: Yes 05/22/22 10:12 Consult Physician Routine Consulting Provider: Joe Xiong Consult Reason/Comments: here for cholecystitis, chronic hypoxia 5L, needs surgical clearance Do you want consulting provider notified?: Yes Primary care physician: [facility] Course: Acute cholecystitis s/p lap carmen Severe sepsis with lactic acidosis, resolved Mild acute diverticulitis Acute on chronic hypoxic respiratory failure Severe COPD Anemia Transaminitis Acute Urinary retention Diabetes Mellitus type II Hypothyroidism Dyslipidemia Patient is a 61-year-old female with diabetes, hypothyroidism, COPD, dyslipidemia, and chronic hypoxic respiratory failure on 5 L nasal cannula who presented with complaints of abdominal pain. In the ER she was noted to be tachycardic. CT abdomen and pelvis showed hydropic gallbladder with hazy densities and possible early acute cholecystitis with mild acute diverticulitis and a 3 cm density in the posterior left intrahilar region possible atelectasis versus underlying mass recommending repeat CT chest in 2-3 weeks. She was started on Rocephin and Flagyl as well as IV fluids. Surgery was consulted. She is admitted for further monitoring. She underwent a HIDA scan on 05/22 with the gallbladder was not seen at 120 minutes suggestive of cholecystitis. She developed acute urinary retention requiring a Mendoza catheter. She underwent laparoscopic cholecystectomy on 05/22 with a finding of acute gangrenous cholecystitis. She did require vasopressors. She returned to the ICU intubated and was extubated on 05/24. Overnight on 05/24 she developed some difficult breathing and was acidotic on ABG requiring bipap. She was gradually weaned back to her home O2 requirement between 2-5L NC. She was discharged home with home care services. Will receive 4 more days of cefdinir/flagyl to complete 10 day course. I spent 40 minutes coordinating this discharge. Gen: awake, alert, obese HEENT: normocephalic, atraumatic, good hearing acuity, moist mucous membranes Resp: Impaired air exchange, breathing comfortably with no accessory muscle use, symmetric chest expansion CVS: good distal perfusion x 4, GI: soft, NTTP, ND : no SPT, no CVAT, mendoza catheter is present MSK: Bilateral pitting edema, no clubbing Neuro: non-focal, moving all extremities Psych: cooperative, euthymic mood Patient Condition at Discharge: Good Plan - Discharge Summary New Discharge Prescriptions: New Cefdinir 300 mg PO Q12HR 4 Days #8 cap metroNIDAZOLE [Flagyl] 500 mg PO TID 4 Days #12 tab Budesonide/Formoterol Fumarate [Symbicort 80-4.5 Mcg Inhaler] 1 puff INHALATION BID #10.2 gm predniSONE [Deltasone] 20 mg PO DIRECTED #5 tab Continue Omeprazole [PriLOSEC] 40 mg PO DAILY metFORMIN HCL [Glucophage] 500 mg PO BID HYDROcodone/APAP 5-325MG [Agency 5-325] 1 tab PO Q4H PRN PRN Reason: Pain Atorvastatin Calcium [Lipitor] 80 mg PO HS Levothyroxine Sodium [Synthroid] 50 mcg PO DAILY Potassium Chloride ER [K-Dur 20] 20 meq PO TID Montelukast [Singulair] 10 mg PO HS Gabapentin [Neurontin] 200 mg PO BID #8 cap Ergocalciferol [Vitamin D2 (1250 Mcg = 42154 Iu)] 1,250 mcg PO MARCELINO Citalopram Hydrobromide [Citalopram HBr] 10 mg PO DAILY Discharge Medication List Omeprazole [PriLOSEC] 40 mg PO DAILY 07/05/20 [History] Montelukast [Singulair] 10 mg PO HS 10/30/20 [History] Gabapentin [Neurontin] 200 mg PO BID #8 cap 08/25/21 [Rx] Atorvastatin Calcium [Lipitor] 80 mg PO HS 05/21/22 [History] Citalopram Hydrobromide [Citalopram HBr] 10 mg PO DAILY 05/21/22 [History] Ergocalciferol [Vitamin D2 (1250 Mcg = 14845 Iu)] 1,250 mcg PO MARCELINO 05/21/22 [History] HYDROcodone/APAP 5-325MG [Agency 5-325] 1 tab PO Q4H PRN 05/21/22 [History] Levothyroxine Sodium [Synthroid] 50 mcg PO DAILY 05/21/22 [History] Potassium Chloride ER [K-Dur 20] 20 meq PO TID 05/21/22 [History] metFORMIN HCL [Glucophage] 500 mg PO BID 05/21/22 [History] Budesonide/Formoterol Fumarate [Symbicort 80-4.5 Mcg Inhaler] 1 puff INHALATION BID #10.2 gm 05/28/22 [Rx] Cefdinir 300 mg PO Q12HR 4 Days #8 cap 05/28/22 [Rx] metroNIDAZOLE [Flagyl] 500 mg PO TID 4 Days #12 tab 05/28/22 [Rx] predniSONE [Deltasone] 20 mg PO DIRECTED #5 tab 05/28/22 [Rx] Follow up Appointment(s)/Referral(s): José Lacy DO [Primary Care Provider] - 1-2 days Richard Guardado MD [STAFF PHYSICIAN] - 1 Week Activity/Diet/Wound Care/Special Instructions: No driving while taking Agency No lifting over 10 pounds Shower daily. No soaking or tub baths for 2 weeks Very light activity until you are reevaluated at your follow up appointment with your surgeon Keep a log of KIANA drain output and bring with you to your follow-up appointment Milk/strip drains 2-3 times a day
--- NOTE | 2022-05-31 20:54 | CDI ---
Documentation Clarification Form Date: 05/31/2022 08:37:12 PM From: Yuli Todd Phone: Admit Date: 05/21/2022 03:30:00 PM Patient Name: Chante Boston Visit Number: [id number] Discharge Date: 05/28/2022 03:54:00 PM ATTENTION: The Clinical Documentation Specialists (CDI) and [facility] Coding Staff appreciate your assistance in clarifying documentation. Please respond to the clarification below the line at the bottom and electronically sign. The CDI & [facility] Coding staff will review the response and follow-up if needed. Please note: Queries are made part of the Legal Health Record. If you have any questions, please contact the author of this message via ITS. Dr. Joe Xiong Unspecified anemia is documented per Dr Rosanna Oliver Progress Note 05/25/22. Additional specificity regarding the type and acuity of anemia is requested. History/Risk Factors: 61yo F, Acute on chronic cholecystitis, Severe sepsis, lactic acidosis, diverticulitis, ACH/HRF, COPD, Anemia, Transaminases, Urinary retention, DMII, HLD, Hypothyroidism Clinical indicators: Hemoglobin: 12 05/21 10.3 05/23 8.6 05/24 9.2 05/25 10.3 05/28 Hematocrit: 37.9 05/21 33.3 05/23 28.6 05/24 31.7 05/25 30.6 05/27 Treatment: follow CBC; transfuse as needed Please clarify the type and acuity of anemia: [x ] Acute blood loss anemia [ ] Unable to determine [ ] Other, please specify (Template Last Revised: August 2020) MTDD
== END 2022-05-28 15:54 | disposition home or self-care (01) | DRG 853 ==
LOC: EC 13:04 → 3SCARD 15:30 → 2SICU 05-22 17:46
PROVIDERS: ADMIT Student in an Organized Health Care Education/Training Program; ATTEND Student in an Organized Health Care Education/Training Program
PROC: 0FT40ZZ Resection of Gallbladder, Open Approach (ICD-10-PCS; 2022-05-22)
PROC: 5A09357 Assistance with Respiratory Ventilation, Less than 24 Consecutive Hours, Continuous Positive Airway Pressure (ICD-10-PCS; 2022-05-22)
PROC: 0FJ44ZZ Inspection of Gallbladder, Percutaneous Endoscopic Approach (ICD-10-PCS; principal; 2022-05-22 07:30)
DX: A41.9 Sepsis, unspecified organism (principal); J96.21 Acute and chronic respiratory failure with hypoxia; J96.22 Acute and chronic respiratory failure with hypercapnia; K82.1 Hydrops of gallbladder; E87.20 Acidosis, unspecified; J90 Pleural effusion, not elsewhere classified; E66.2 Morbid (severe) obesity with alveolar hypoventilation; K80.12 Calculus of gallbladder with acute and chronic cholecystitis without obstruction; Z68.43 Body mass index [BMI] 50.0-59.9, adult; J84.9 Interstitial pulmonary disease, unspecified; K57.32 Diverticulitis of large intestine without perforation or abscess without bleeding; J98.11 Atelectasis; D62 Acute posthemorrhagic anemia; K76.0 Fatty (change of) liver, not elsewhere classified; E03.9 Hypothyroidism, unspecified; J44.9 Chronic obstructive pulmonary disease, unspecified; E11.9 Type 2 diabetes mellitus without complications; K82.A1 Gangrene of gallbladder in cholecystitis; R16.0 Hepatomegaly, not elsewhere classified; Z99.81 Dependence on supplemental oxygen; Z53.31 Laparoscopic surgical procedure converted to open procedure; G43.909 Migraine, unspecified, not intractable, without status migrainosus; I51.7 Cardiomegaly; K21.9 Gastro-esophageal reflux disease without esophagitis; E83.42 Hypomagnesemia; E78.5 Hyperlipidemia, unspecified; F41.9 Anxiety disorder, unspecified; K44.9 Diaphragmatic hernia without obstruction or gangrene; H91.93 Unspecified hearing loss, bilateral; M17.0 Bilateral primary osteoarthritis of knee; R65.20 Severe sepsis without septic shock; S82.891A Other fracture of right lower leg, initial encounter for closed fracture; R33.9 Retention of urine, unspecified; Z20.822 Contact with and (suspected) exposure to COVID-19; Z79.899 Other long term (current) drug therapy; Z79.890 Hormone replacement therapy; Z79.84 Long term (current) use of oral hypoglycemic drugs; Z28.311 Partially vaccinated for COVID-19; Z91.199 Patient's noncompliance with other medical treatment and regimen due to unspecified reason; Z87.891 Personal history of nicotine dependence
CPT/HCPCS: 36415; 36600; 71045; 71046; 74176; 78226; 80048; 80053; 81001; 82150; 82803; 82805; 83036; 83605; 83690; 83735; 84145; 85025; 85027; 85610; 85730; 87040; 87070; 87205; 87636; 88304; 94002; 94003; 94640; 94660; 94760; 96361; 96365; 96375; 99285

== ENCOUNTER → 2022-06-15 | Outpatient (CLI) | payer MEDICARE, OTHER ==
[2022-06-15 14:24] LABS: African American GFR (CKD) >90 (>60 ml/min/1.73 sqM); Blood Urea Nitrogen 12 mg/dL (7-17); Calcium 8.8 mg/dL (8.4-10.2); Chloride 98 mmol/L (98-107); Glucose 171 mg/dL (74-99); Non-African American GFR(CKD) >90 (>60 ml/min/1.73 sqM); Potassium 4.9 mmol/L (3.5-5.1); Sodium 141 mmol/L (137-145)
[2022-06-15 14:30] LABS: Anion Gap 5 mmol/L
[2022-06-15 14:36] LABS: Carbon Dioxide 38 mmol/L (22-30)
--- NOTE | 2022-06-15 15:45 | CT ---
EXAMINATION TYPE: CT chest w con CT DLP: 637.6 mGycm, Automated exposure control for dose reduction was used. DATE OF EXAM: 06/15/2022 3:25 PM COMPARISON: CTA chest 10/30/2020. CLINICAL INDICATION:Female, 61 years old with history of R9389 ABNORMAL FINDINGS ON DX IMAGING; PHH, abnormal cxr. c/o SOB. TECHNIQUE: Multiple axial images were obtained through the chest following the administration of 100 cc of Isovue 300. FINDINGS: LUNGS/ PLEURA: No focal consolidation, pneumothorax, or pleural effusion. Left lower lobe minimal ate lectasis demonstrated. No suspicious mass or nodule. AIRWAY: Patent and unremarkable.. HEART: Mild to moderately enlarged. No pericardial effusion. . MEDIASTINUM: A few prominent mediastinal lymph nodes are redemonstrated and have slightly decreased i ncrease in size to prior examination measuring less than 1 cm short axis. VASCULATURE: Ascending thoracic aortic aneurysm measuring up to 4.5 cm. stable. Dilation of the main pulmonary artery measuring up to 4.9 cm redemonstrated. This can be seen in the setting of pulmonary arterial hypertension. MUSCULOSKELETAL: No acute osseous abnormalities. Scoliotic curvature. Multilevel degenerative disc di sease. SOFT TISSUES/LYMPH NODES: No axillary adenopathy. Left upper chest superficial 1.5 cm lesion likely r epresenting a benign process such as a sebaceous cyst. LOWER NECK: No significant findings. UPPER ABDOMEN: Partial visualization of a catheter within the right upper quadrant with distal tip ap pearing to terminate within the anterior abdominal wall. IMPRESSION: 1. No acute thoracic process. 2. Cardiomegaly redemonstrated. 3. Stable ascending thoracic aortic aneurysm measuring up to 4.5 cm. 4. Stable dilatation of the main pulmonary artery measuring up to 4.9 cm which can be seen in the set ting of pulmonary arterial hypertension. 5. Partial visualization of a catheter within the right upper quadrant with distal tip appearing to t erminate within the anterior abdominal wall. Clinical correlation is recommended.
== END | disposition home or self-care (01) ==
LOC: RADCTMAIN 13:39
PROVIDERS: ATTEND Family Medicine
DX: E11.9 Type 2 diabetes mellitus without complications (principal); I71.21 Aneurysm of the ascending aorta, without rupture; I51.7 Cardiomegaly; I27.20 Pulmonary hypertension, unspecified; R93.89 Abnormal findings on diagnostic imaging of other specified body structures
CPT/HCPCS: 80048; 71260; 36415; Q9967

== ENCOUNTER → 2022-12-24 | Outpatient (CLI) | payer MEDICARE, OTHER ==
--- NOTE | 2022-12-24 14:57 | XR ---
EXAMINATION TYPE: XR knee complete RT DATE OF EXAM: 12/24/2022 CLINICAL HISTORY: pain TECHNIQUE: Three views of the right knee are obtained. COMPARISON: None. FINDINGS: There is no acute fracture/dislocation. The tri-compartment joint spaces are moderately n arrowed. Intracondylar spur formation seen. Prepatellar soft tissue swelling noted. IMPRESSION: There is no acute fracture or dislocation. Extensive prepatellar soft tissue swelling.
--- NOTE | 2022-12-24 15:00 | XR ---
EXAMINATION TYPE: XR tibia fibula RT DATE OF EXAM: 12/24/2022 COMPARISON: NONE HISTORY: Pain TECHNIQUE: Frontal, lateral and oblique images of the right ankle are obtained. COMPARISON: None. FINDINGS: There is no acute fracture/dislocation evident. There appear to be nonacute fractures invo lving the medial malleolus with nonunion or partial nonunion as well as remote fracture of the fibula . The joint spaces appear within normal limits. The overlying soft tissue appears unremarkable. IMPRESSION: There is no acute fracture or dislocation seen.
== END | disposition home or self-care (01) ==
LOC: RADXRYALE 14:08
PROVIDERS: ATTEND Physician Assistant
DX: M79.89 Other specified soft tissue disorders (principal); M25.561 Pain in right knee; M79.661 Pain in right lower leg; W19.XXXA Unspecified fall, initial encounter

== ENCOUNTER → 2023-05-03 | Outpatient (CLI) | payer MEDICARE, OTHER ==
--- NOTE | 2023-05-03 15:56 | CT ---
EXAMINATION TYPE: CT abdomen pelvis wo con DATE OF EXAM: 05/03/2023 COMPARISON: None available. HISTORY: Generalized abdominal pain. CT DLP: 1181 mGycm Automated exposure control for dose reduction was used. TECHNIQUE: Helical acquisition of images was performed from the lung bases through the pelvis. FINDINGS: LOWER CHEST : The visualized lung bases are clear. There are no pleural or pericardial effusions. ABDOMEN: Liver and Biliary system: Normal. Adrenal glands: Normal. Kidneys and ureters: There are no renal stones or hydronephrosis. No ureteral stones are present.. Spleen: Normal. Pancreas: Normal. Gallbladder: Appears absent. Lymph nodes, Peritoneum and mesentery: There is no mesenteric or retroperitoneal lymphadenopathy. Gastrointestinal tract: There are no dilated loops of bowel or free intraperitoneal air. . The appe ndix is normal. There is mild sigmoid colonic diverticulosis with mild thickening of the sigmoid colo shirley wall and some mild inflammation which is compatible with mild diverticulitis. Aorta/IVC: Mild vascular calcification throughout the abdominal aorta without evidence of aneurysma l dilation. IVC normal. Abdominal wall: Small fat-containing umbilical hernia. PELVIS: Fluid: There is no free fluid in the pelvis. Lymph Nodes: There is no pelvic or inguinal lymphadenopathy.. Urinary bladder: Normal. BONES: Multilevel degenerative disc and facet changes are seen throughout the spine. There are no ac julianne osseous abnormalities. ADDITIONAL SIGNIFICANT FINDINGS: None. IMPRESSION: 1. No renal stones or hydronephrosis.. 2. No bowel obstruction or appendicitis. 3. Mild sigmoid diverticulitis.
== END | disposition home or self-care (01) ==
LOC: RADCTMAIN 13:47
PROVIDERS: ATTEND Family Medicine
DX: K57.32 Diverticulitis of large intestine without perforation or abscess without bleeding (principal); K62.5 Hemorrhage of anus and rectum; R10.84 Generalized abdominal pain
CPT/HCPCS: 74176

== ENCOUNTER → 2023-05-07 | Outpatient (CLI) | payer MEDICARE, OTHER ==
--- NOTE | 2023-05-07 12:18 | XR ---
EXAMINATION TYPE: XR ankle complete LT DATE OF EXAM: 05/07/2023 COMPARISON: NONE HISTORY: Pain FINDINGS: Three views of the ankle demonstrate the ankle mortise to be intact and symmetric. The joint spaces are preserved. Oblique fracture mildly displaced distal fibula. Small plantar calcaneal spur. Soft ti ssue edema. Mild osteopenia.. IMPRESSION: 1. Minimally displaced fracture oblique orientation distal diaphysis fibula. A Yellow level critical message alert has been initiated for José Lacy DO via the [employer] Critical Results System on 05/07/2023 12:15 PM. This message alert has been sent to José carreno DO via the preferences provided by the clinician for the receipt of Radiology Critical Finding s. Message ID [id number].
== END | disposition home or self-care (01) ==
LOC: RADXRYALE 11:15
PROVIDERS: ATTEND Family Medicine
DX: S82.432A Displaced oblique fracture of shaft of left fibula, initial encounter for closed fracture (principal); M25.572 Pain in left ankle and joints of left foot

== ENCOUNTER 2023-05-09 18:37 | Inpatient (IN) | payer MEDICARE, OTHER ==
--- NOTE | 2023-05-09 18:49 | ED ---
General Adult HPI - General Source: patient Mode of arrival: ambulatory Limitations: no limitations <Kavitha Stern - Last Filed: 05/09/23 18:48> <Adrianna Staley - Last Filed: 05/10/23 00:03> - General Chief complaint: Shortness of Breath Stated complaint: SOB Time Seen by Provider: 05/09/23 18:50 - History of Present Illness Initial comments: 62-year-old female with past medical history COPD presents emergency department chief complaint of shortness of breath. She generally uses 4 L of oxygen at home but states that she had to bump up her oxygen to 5L. She states that she has been satting in the 70s. This has been going on for around 3 days. She admits to chills. (Kavitha Stern) 62-year-old female past medical history of COPD who normally wears 4 L of home O2 who presents to the emergency department via private vehicle. States that for the past few days she has become more short of breath. She normally wears 4 L but has been turning up to 5. Her pulse ox has been as low as 30%. She admits to a mild nonproductive cough. Denies fevers however does have 1 upon hospital arrival. Denies any sick contacts with similar symptoms. She denies any chest pain or palpitations. Denies history of cardiac disease. States that she does have COPD but does not see a lung doctor. She does not use any breathing treatments as it makes her feel claustrophobic and states that she do es not wear her CPAP at night. She does not take any steroids. She denies any nausea or vomiting. No recent antibiotic use. Denies any lower extremity edema. Patient was wearing a boot. States that she just recently found out she broke her ankle but it does not require surgery. She denies history of DVT or PEs. Does not take any anticoagulation. No other alleviating, precipitating or modifying factors (Adrianna Staley) - Related Data Home Medications Medication Instructions Recorded Confirmed Omeprazole [PriLOSEC] 40 mg PO DAILY 07/05/20 05/09/23 Montelukast [Singulair] 10 mg PO HS 10/30/20 05/09/23 Ergocalciferol [Vitamin D2 (1250 1,250 mcg PO MARCELINO 05/21/22 05/09/23 Mcg = [id number] Iu)] Levothyroxine Sodium [Synthroid] 50 mcg PO DAILY 05/21/22 05/09/23 metFORMIN HCL [Glucophage] 500 mg PO BID 05/21/22 05/09/23 Aspirin EC [Ecotrin Low Dose] 81 mg PO DAILY 05/09/23 05/09/23 Ciprofloxacin HCl [Cipro] 500 mg PO Q12HR 05/09/23 05/09/23 HYDROcodone/APAP 7.5-325MG [[place] 1 tab PO Q4H PRN 05/09/23 05/09/23 7.5-325] Hydrocortisone Pr Cream 1 applic RECTAL TID PRN 05/09/23 05/09/23 [Proctosol-Hc 2.5%] Lidocaine Viscous 2% [Xylocaine 1 applic RECTAL QID PRN 05/09/23 05/09/23 Viscous] Multivitamins, Thera [Multivitamin 1 tab PO DAILY 05/09/23 05/09/23 (formulary)] Previous Rx's Medication Instructions Recorded Gabapentin [Neurontin] 200 mg PO BID #8 cap 08/25/21 Allergies Allergy/AdvReac Type Severity Reaction Status Date / Time No Known Allergies Allergy Verified 05/09/23 19:33 Review of Systems ROS Other: All systems not noted in ROS Statement are negative. <Kavitha Stern - Last Filed: 05/09/23 18:48> ROS Other: All systems not noted in ROS Statement are negative. <Adrianna Staley - Last Filed: 05/10/23 00:03> ROS Statement: Those systems with pertinent positive or pertinent negative responses have been documented in the HPI. Past Medical History Past Medical History: COPD, GERD/Reflux, Osteoarthritis (OA), Pneumonia Additional Past Medical History / Comment(s): migraines,, sinus and ear [id number] ear worse, severe arthritis bilateral knees, constipation, edema lower legs and feet, hemorrhoids, blood in stool at times, gallstones, History of Any Multi-Drug Resistant Organisms: None Reported Past Surgical History: Breast Surgery, Tubal Ligation Additional Past Surgical History / Comment(s): Rt breast biopsies, COLONOSCOPY Past Anesthesia/Blood Transfusion Reactions: Previous Problems w/ Anesthesia Additional Past Anesthesia/Blood Transfusion Reaction / Comment(s): states had diff waking up- "states stopped breathing for a couple seconds" with last colonocopy, "i need a pillow under my head" Past Psychological History: No Psychological Hx Reported Smoking Status: Former smoker Past Alcohol Use History: None Reported Past Drug Use History: None Reported - Past Family History Mother Family Medical History: No Reported History Additional Family Medical History / Comment(s): . Father History Unknown: Yes Family Medical History: Unable to Obtain <Kavitha Stern - Last Filed: 05/09/23 18:48> General Exam Limitations: no limitations <Kavitha Stern - Last Filed: 05/09/23 18:48> General appearance: alert, obese Head exam: Present: atraumatic, normocephalic, normal inspection Respiratory exam: Present: accessory muscle use, decreased breath sounds Cardiovascular Exam: Present: normal rhythm, tachycardia GI/Abdominal exam: Present: soft, normal bowel sounds. Absent: distended, tenderness, guarding, rebound, rigid Neurological exam: Present: alert, oriented X3, CN II-XII intact Psychiatric exam: Present: normal affect, normal mood Skin exam: Present: warm, dry, intact, normal color. Absent: rash <Adrianna Staley - Last Filed: 05/10/23 00:03> - General Exam Comments Initial Comments: Visual Physical Exam Vital signs reviewed General: Well-appearing, nontoxic, no acute distress. Head: Normocephalic, atraumatic Eyes: PERRLA, EOMI ENT: Airway patent Chest: Nonlabored breathing Skin: No visual rash, normal skin tone Neuro: Alert and oriented 3 Musculoskeletal: No gross abnormalities (Kavitha Stern) Course Vital Signs 05/09/23 05/09/23 05/09/23 18:42 19:38 22:00 Temperature 100.5 F H Pulse Rate 119 H 112 H 110 H Respiratory 26 H 22 22 Rate Blood Pressure 158/75 140/79 O2 Sat by Pulse 75 L 90 L 90 L Oximetry 05/09/23 05/09/23 22:55 23:07 Temperature Pulse Rate 88 88 Respiratory Rate Blood Pressure O2 Sat by Pulse Oximetry Medical Decision Making <Kavitha Stern - Last Filed: 05/09/23 18:48> - Lab Data Result diagrams: 05/09/23 19:17 05/09/23 19:17 <Adrianna Staley - Last Filed: 05/10/23 00:03> - Medical Decision Making I preformed the quick note portion of this chart. Electronically signed by Kavitha Stern PA-C (Kavitha Stern) Was pt. sent in by a medical professional or institution ([facility], ROAD [facility]ER, urgent care, hospital, or assisted...) When possible be specific @ -No Did you speak to anyone other than the patient for history (EMS, parent, family, police, friend...)? What history was obtained from this source @ -No Did you review nursing and triage notes (agree or disagree)? Why? @ -I reviewed and agree with nursing and triage notes Were old charts reviewed (outside hosp., previous admission, EMS record, old EKG, old radiological studies, urgent care reports/EKG's, assisted records)? Report findings @ -No old charts were reviewed Differential Diagnosis (chest pain, altered mental status, abdominal pain women, abdominal pain men, vaginal bleeding, weakness, fever, dyspnea, syncope, hea dache, dizziness, GI bleed, back pain, seizure, CVA, palpatations, mental health, musculoskeletal)? @ -Differential Dyspnea: Coronary syndrome, arrhythmia, tamponade, asthma, COPD, pulmonary embolism, pneumonia, pneumothorax, pulmonary effusion, anaphylaxis, diabetic ketoacidosis, flailed chest, pulmonary contusion, diaphragmatic rupture, anemia, neuromuscular, this is not meant to be an all-inclusive list. EKG interpreted by me (3pts min.). @ -yes and demonstrates sinus tachycardia with a rate of 112. PA interval 158. QRS 88. QTC 355. No acute ST segment elevations or depressions X-rays interpreted by me (1pt min.). @ -Yes and demonstrates pulmonary vascular congestion CT interpreted by me (1pt min.). @ -Yes and does not demonstrate a PE U/S interpreted by me (1pt. min.). @ -None done What testing was considered but not performed or refused? (CT, X-rays, U/S, labs)? Why? @ -None What meds were considered but not given or refused? Why? @ -I did request to provide the patient with a breathing treatment however she originally denied as she states that they make her feel claustrophobic Did you discuss the management of the patient with other professionals (professionals i.e. , PA, ROAD MARKER, lab, RT, psych nurse, social insurance analyst, recreation therapy aides teacher, teacher, aoc aad[employer] operations staff officer, case advocate)? Give summary @ -Spoke with Dr. Knapp who will admit the patient Was smoking cessation discussed for >3mins.? @ -No Was critical care preformed (if so, how long)? @ -No Were there social determinants of health that impacted care today? How? (Homelessness, low income, unemployed, alcoholism, drug addiction, transportation, low edu. Level, literacy, decrease access to med. care, long-term, rehab)? @ -No Was there de-escalation of care discussed even if they declined (Discuss DNR or withdrawal of care, Hospice)? DNR status @ -No What co-morbidities impacted this encounter? (DM, HTN, Smoking, COPD, CAD, Cancer, CVA, ARF, Chemo, Hep., AIDS, mental health diagnosis, sleep apnea, morbid obesity)? @ -COPD, obstructive sleep apnea Was patient admitted / discharged? Hospital course, mention meds given and route, prescriptions, significant lab abnormalities, going to OR and other pertinent info. @ -Upon arrival patient was placed into room 1. Thorough history and physical exam was performed. Patient is saturating in the 70s on 5 L. We did discuss using a BiPAP on the patient however she refused. I offered a breathing treatment however she also refused this. She is placed on continuous pulse ox and cardiac monitoring. IV is established and laboratory studies are conducted. D-dimer is elevated and therefore she does go for CT of her chest. It does not demonstrate a PE. There is interstitial edema with chronic interstitial changes. Patient was given a dose of steroids and a dose of Lasix. Even though she does have a fever and elevated heart rate, she is not given any IV fluids as her chest x-ray does demonstrate concern for congestive heart failure. I recommended admission due to patient's extremely low oxygen saturations on her normal oxygen and the patient was agreeable. She is agreeable to a breathing treatment at this time. Will order breathing treatments every 4 hours as well as every 8 hour steroids. Patient is currently awaiting a bed on the floor in stable condition. I did speak with Dr. Knapp for admission Undiagnosed new problem with uncertain prognosis? @ -No Drug Therapy requiring intensive monitoring for toxicity (Heparin, Nitro, Insulin, Cardizem)? @ -No Were any procedures done? @ -No Diagnosis/symptom? @ -Acute hypoxic respiratory failure, acute exacerbation of COPD, interstitial edema, chronic respiratory insufficiency, tachycardia, pyrexia Acute, or Chronic, or Acute on Chronic? @ -Acute Uncomplicated (without systemic symptoms) or Complicated (systemic symptoms)? @ -Complicated Side effects of treatment? @ -No Exacerbation, Progression, or Severe Exacerbation? @ -No Poses a threat to life or bodily function? How? (Chest pain, [place], [place], pneumonia, PE, COPD, DKA, ARF, appy, cholecystitis, CVA, Diverticulitis, Homicidal, Suicidal, threat to staff... and all critical care pts) @ -Yes, patient is hypoxic upon hospital arrival (Adrianna Staley) - Lab Data Lab Results 05/09/23 05/09/23 05/09/23 Range/Units 19:17 19:17 19:17 WBC 10.7 H (3.8-10.6) k/uL RBC 4.05 (3.80-5.40) m/uL Hgb 11.7 (11.4-16.0) gm/dL Hct 37.7 (34.0-46.0) % MCV 93.0 (80.0-100.0) fL MCH 28.9 (25.0-35.0) pg MCHC 31.1 (31.0-37.0) g/dL RDW 14.7 (11.5-15.5) % Plt Count 410 (150-450) k/uL MPV 7.9 Neutrophils % 77 % Lymphocytes % 13 % Monocytes % 7 % Eosinophils % 1 % Basophils % 0 % Neutrophils # 8.2 H (1.3-7.7) k/uL Lymphocytes # 1.4 (1.0-4.8) k/uL Monocytes # 0.8 (0-1.0) k/uL Eosinophils # 0.2 (0-0.7) k/uL Basophils # 0.0 (0-0.2) k/uL Hypochromasia Marked PT 10.3 (10.0-12.5) sec INR 0.9 (<1.2) APTT 27.1 (22.0-30.0) sec D-Dimer 1.98 H (<0.60) mg/L FEU Sodium 139 (137-145) mmol/L Potassium 4.0 (3.5-5.1) mmol/L Chloride 92 L (98-107) mmol/L Carbon Dioxide 37 H (22-30) mmol/L Anion Gap 10 mmol/L BUN 11 (7-17) mg/dL Creatinine 0.50 L (0.52-1.04) mg/dL Est GFR (CKD-EPI)AfAm >90 (>60 ml/min/1.73 sqM) Est GFR (CKD-EPI)NonAf >90 (>60 ml/min/1.73 sqM) Glucose 180 H (74-99) mg/dL Plasma Lactic Acid [place] (0.7-2.0) mmol/L Calcium 8.8 (8.4-10.2) mg/dL Total Bilirubin 0.4 (0.2-1.3) mg/dL AST 31 (14-36) U/L ALT 27 (4-34) U/L Alkaline Phosphatase 137 H (38-126) U/L Troponin I (0.000-0.034) ng/mL NT-Pro-B Natriuret Pep pg/mL Total Protein 6.5 (6.3-8.2) g/dL Albumin 3.3 L (3.5-5.0) g/dL Influenza Type A (PCR) (Not Detectd) Influenza Type B (PCR) (Not Detectd) RSV (PCR) (Not Detectd) SARS-CoV-2 (PCR) (Not Detectd) 05/09/23 05/09/23 05/09/23 Range/Units 19:17 19:17 19:17 WBC (3.8-10.6) k/uL RBC (3.80-5.40) m/uL Hgb (11.4-16.0) gm/dL Hct (34.0-46.0) % MCV (80.0-100.0) fL MCH (25.0-35.0) pg MCHC (31.0-37.0) g/dL RDW (11.5-15.5) % Plt Count (150-450) k/uL MPV Neutrophils % % Lymphocytes % % Monocytes % % Eosinophils % % Basophils % % Neutrophils # (1.3-7.7) k/uL Lymphocytes # (1.0-4.8) k/uL Monocytes # (0-1.0) k/uL Eosinophils # (0-0.7) k/uL Basophils # (0-0.2) k/uL Hypochromasia PT (10.0-12.5) sec INR (<1.2) APTT (22.0-30.0) sec D-Dimer (<0.60) mg/L FEU Sodium (137-145) mmol/L Potassium (3.5-5.1) mmol/L Chloride (98-107) mmol/L Carbon Dioxide (22-30) mmol/L Anion Gap mmol/L BUN (7-17) mg/dL Creatinine (0.52-1.04) mg/dL Est GFR (CKD-EPI)AfAm (>60 ml/min/1.73 sqM) Est GFR (CKD-EPI)NonAf (>60 ml/min/1.73 sqM) Glucose (74-99) mg/dL Plasma Lactic Acid [place] 2.0 (0.7-2.0) mmol/L Calcium (8.4-10.2) mg/dL Total Bilirubin (0.2-1.3) mg/dL AST (14-36) U/L ALT (4-34) U/L Alkaline Phosphatase (38-126) U/L Troponin I <0.012 (0.000-0.034) ng/mL NT-Pro-B Natriuret Pep pg/mL Total Protein (6.3-8.2) g/dL Albumin (3.5-5.0) g/dL Influenza Type A (PCR) Not Detected (Not Detectd) Influenza Type B (PCR) Not Detected (Not Detectd) RSV (PCR) Not Detected (Not Detectd) SARS-CoV-2 (PCR) Not Detected (Not Detectd) 05/09/23 Range/Units 20:36 WBC (3.8-10.6) k/uL RBC (3.80-5.40) m/uL Hgb (11.4-16.0) gm/dL Hct (34.0-46.0) % MCV (80.0-100.0) fL MCH (25.0-35.0) pg MCHC (31.0-37.0) g/dL RDW (11.5-15.5) % Plt Count (150-450) k/uL MPV Neutrophils % % Lymphocytes % % Monocytes % % Eosinophils % % Basophils % % Neutrophils # (1.3-7.7) k/uL Lymphocytes # (1.0-4.8) k/uL Monocytes # (0-1.0) k/uL Eosinophils # (0-0.7) k/uL Basophils # (0-0.2) k/uL Hypochromasia PT (10.0-12.5) sec INR (<1.2) APTT (22.0-30.0) sec D-Dimer (<0.60) mg/L FEU Sodium (137-145) mmol/L Potassium (3.5-5.1) mmol/L Chloride (98-107) mmol/L Carbon Dioxide (22-30) mmol/L Anion Gap mmol/L BUN (7-17) mg/dL Creatinine (0.52-1.04) mg/dL Est GFR (CKD-EPI)AfAm (>60 ml/min/1.73 sqM) Est GFR (CKD-EPI)NonAf (>60 ml/min/1.73 sqM) Glucose (74-99) mg/dL Plasma Lactic Acid [place] (0.7-2.0) mmol/L Calcium (8.4-10.2) mg/dL Total Bilirubin (0.2-1.3) mg/dL AST (14-36) U/L ALT (4-34) U/L Alkaline Phosphatase (38-126) U/L Troponin I (0.000-0.034) ng/mL NT-Pro-B Natriuret Pep 293 pg/mL Total Protein (6.3-8.2) g/dL Albumin (3.5-5.0) g/dL Influenza Type A (PCR) (Not Detectd) Influenza Type B (PCR) (Not Detectd) RSV (PCR) (Not Detectd) SARS-CoV-2 (PCR) (Not Detectd) Disposition <Kavitha Stern - Last Filed: 05/09/23 18:48> Is patient prescribed a controlled substance at d/c from ED?: No Time of Disposition: 22:46 Decision to Admit Reason: Admit from EC Decision Date: 05/09/23 Decision Time: 22:46 <Adrianna Staley - Last Filed: 05/10/23 00:03> Clinical Impression: Congestive heart failure, COPD exacerbation, Fever, Hypoxia Disposition: ADMITTED IP TO THIS HOSP Condition: Serious
[2023-05-09 20:01] LABS: Basophils % (A) 0 %; Eosinophils # (A) 0.2 k/uL (0-0.7); Eosinophils % (A) 1 %; HCT 37.7 % (34.0-46.0); HGB 11.7 gm/dL (11.4-16.0); Hypochromasia Marked; Lymphocytes # (A) 1.4 k/uL (1.0-4.8); Lymphocytes % (A) 13 %; MCH 28.9 pg (25.0-35.0); MCHC 31.1 g/dL (31.0-37.0); Mean Platelet Volume 7.9; Monocytes # (A) 0.8 k/uL (0-1.0); Monocytes % (A) 7 %; Neutrophils # (A) 8.2 k/uL (1.3-7.7); Neutrophils % (A) 77 %; Platelet Count 410 k/uL (150-450); RBC 4.05 m/uL (3.80-5.40); RDW 14.7 % (11.5-15.5); WBC 10.7 k/uL (3.8-10.6)
--- NOTE | 2023-05-09 20:01 | XR ---
EXAMINATION: XR chest 2V: 05/09/2023 7:35 PM CLINICAL INDICATION: difficulty breathing TECHNIQUE: Departmental protocol COMPARISON: 05/25/2022 FINDINGS: There is silhouetting of the pulmonary vasculature throughout the lungs by a fine reticular pattern o f increased density reaching the periphery is occasional septal lines. The findings are consistent wi th a clinical diagnosis of advanced interstitial phase pulmonary edema, presumably cardiogenic etiolo gy given the moderately enlarged cardiac silhouette. The pleural spaces are negative. The skeletal structures and soft tissues are negative for acute findings. IMPRESSION: Pulmonary edema.
[2023-05-09 20:05] LABS: ALT 27 U/L (4-34); AST 31 U/L (14-36); African American GFR (CKD) >90 (>60 ml/min/1.73 sqM); Albumin 3.3 g/dL (3.5-5.0); Alkaline Phosphatase 137 U/L (38-126); Blood Urea Nitrogen 11 mg/dL (7-17); Calcium 8.8 mg/dL (8.4-10.2); Chloride 92 mmol/L (98-107); Glucose 180 mg/dL (74-99); Non-African American GFR(CKD) >90 (>60 ml/min/1.73 sqM); Sodium 139 mmol/L (137-145); Total Bilirubin 0.4 mg/dL (0.2-1.3); Total Protein 6.5 g/dL (6.3-8.2)
[2023-05-09 20:06] LABS: INR 0.9 (<1.2); Partial Thromboplastin Time 27.1 sec (22.0-30.0); Prothrombin Time 10.3 sec (10.0-12.5)
[2023-05-09 20:13] LABS: Anion Gap 10 mmol/L
[2023-05-09 20:25] LABS: Carbon Dioxide 37 mmol/L (22-30)
--- NOTE | 2023-05-09 22:08 | CT ---
EXAMINATION TYPE: CT chest angio for PE DATE OF EXAM: 05/09/2023 COMPARISON: 10/30/2020 HISTORY: SOB, COPD CT DLP: 915.2 mGycm. Automated Exposure Control for Dose Reduction was Utilized. CONTRAST: CTA scan of the thorax is performed with IV Contrast, patient injected with 100 CC mL of Is ovue 370. MIP Images are created on CT scanner and reviewed. 3D reconstructed images are created on an independent workstation and reviewed. FINDINGS: LUNGS: There is a diffuse and prominent interstitial pattern throughout the lungs, a pattern which co uld represent baseline chronic interstitial lung change but a component of acute interstitial phase p ulmonary edema is evident. There is no lung consolidation or major atelectasis. PLEURAL SPACES: Negative. MEDIASTINUM: There is only mild/moderate contrast-enhancement of the pulmonary artery and its branche s. There does not appear to be a filling defect out to the segmental branches, as can be seen, and so there is no CT evidence for pulmonary embolism. The pulmonary arterial system is prominently dilated and there is right ventricular dilation and right atrial enlargement. There is mild cardiomegaly, but no pericardial effusion. Coronary calcifications are noted. There are mildly enlarged bilateral hilar, right upper and lower paratracheal position, precarinal, a nd subcarinal positions. OTHER: No additional significant abnormality is seen. IMPRESSION: 1. Moderately limited CT PE study, with no evidence for PE. 2. Prominent diffuse lung interstitial pattern. 3. Pulmonary system which can correlate with pulmonary hypertension. 4. Bilateral hilar and multifocal mediastinal mild adenopathy.
[2023-05-09] MEDS ORDERED: IPRATROPIUM-ALBUTEROL 3 ML NEB INHALATION STA (22:37)
[2023-05-09] MEDS ORDERED: methylPREDNISolone SOD SUCCI 125 MG/2 ML VIAL IV STA (22:39)
[2023-05-09] MEDS ORDERED: FUROSEMIDE 10 MG/ML 4 ML VIAL IV STA (22:44)
[2023-05-09] MEDS ORDERED: MAGNESIUM SULFATE-D5W PMX 1 GM in DEXTROSE/WATER 1 100ML.BAG IVPB ONE (22:44)
[2023-05-09] MEDS ORDERED: NALOXONE 0.4 MG/ML 1 ML VIAL IV PRN (22:46)
[2023-05-09] MEDS ORDERED: IPRATROPIUM-ALBUTEROL 3 ML NEB INHALATION PRN (22:48)
[2023-05-10 02:54] LABS: ABG Base Excess 20.7 mmol/L; ABG Oxygen Saturation 84.6 % (94-97); ABG PH 7.41 (7.35-7.45); ABG TCO2 48 mmol/L (19-24); Allen Test Performed? Yes
[2023-05-10 03:16] LABS: ABG PCO2 72 mmHg (35-45); ABG PO2 54 mmHg (83-108)
[2023-05-10 03:17] LABS: ABG HCO3 45 mmol/L (21-25)
[2023-05-10] MEDS ORDERED: HYDROcodone/APAP 7.5-325MG 1 EACH TAB PO PRN (05:24)
--- NOTE | 2023-05-10 05:28 | P.HPIM ---
History of Present Illness H&P Date: 05/10/23 Chief Complaint: shortness of breath 62 year old female with morbid obesity, and COPD on home oxygen 4L patient coming in with sudden onset shortness of breath , she was home , relaxing , when suddenly felt low oxygen , she measured it and was very low, and started having a panic attack and could not breath any more, and decided to come in for evaluation. she reports that this has been going on for couple days, where she had to crank up her oxygen to 5 L and was feeling better, then today suddenly she was very SOB. denies any fever, chills, cough, hemoptysis , denies any nausea vomiting, abd pain , or changes with bowel or urinary habits. denies any recent travel or hospital stay , denies any cardiac history , or history of blood clots she denies smoking or illicit drugs patient admits that she is not compliant with her breathing treatments , or wearing any masks , or CPAP as she cant tolerate them . again she denies any sore throat, muscle aches, runny nose, or known sick contacts. review of systems Pertinent positives as noted in HPI. All other systems were reviewed and are negative on exam Constitutional: No acute distress, conversant, pleasant Eyes: Anicteric sclerae, moist conjunctiva, Pupils equal round reactive to light ENMT: NC/AT Oropharynx clear, no erythema, or exudates Neck: Supple, no masses, or JVD No carotid bruits No thyromegaly Lungs: Clear to auscultation Clear to percussion Normal respiratory effort, no accessory muscle use Cardiovascular: Heart regular in rate and rhythm, No murmurs, gallops, or rubs No peripheral edema Abdominal: Soft Nontender, no guarding, rebound or rigidity Abdomen moving with respiration Normoactive bowel sounds No hepatomegaly, No splenomegaly No palpable mass No abdominal wall hernia noted Extremities: No digital cyanosis No clubbing Pedal pulses intact and symmetrical Radial pulses intact and symmetrical No calf tenderness Psychiatric: Alert and oriented to person, place and time Appropriate affect fair judgement Neuro Muscles Strength 5/5 in all 4 extremities Sensation to light touch grossly present throughout Cranial nerves II-XII grossly intact Lymphatics: no palpable cervical or supraclavicular lymph nodes Past Medical History Past Medical History: COPD, GERD/Reflux, Osteoarthritis (OA), Pneumonia Additional Past Medical History / Comment(s): migraines,, sinus and ear [id number] ear worse, severe arthritis bilateral knees, constipation, edema lower legs and feet, hemorrhoids, blood in stool at times, gallstones, History of Any Multi-Drug Resistant Organisms: None Reported Past Surgical History: Breast Surgery, Tubal Ligation Additional Past Surgical History / Comment(s): Rt breast biopsies, COLONOSCOPY Past Anesthesia/Blood Transfusion Reactions: Previous Problems w/ Anesthesia Additional Past Anesthesia/Blood Transfusion Reaction / Comment(s): states had diff waking up- "states stopped breathing for a couple seconds" with last colonocopy, "i need a pillow under my head" Past Psychological History: No Psychological Hx Reported Smoking Status: Former smoker Past Alcohol Use History: None Reported Past Drug Use History: None Reported - Past Family History Mother Family Medical History: No Reported History Additional Family Medical History / Comment(s): . Father History Unknown: Yes Family Medical History: Unable to Obtain Medications and Allergies Home Medications Medication Instructions Recorded Confirmed Type Omeprazole [PriLOSEC] 40 mg PO DAILY 07/05/20 05/09/23 History Montelukast [Singulair] 10 mg PO HS 10/30/20 05/09/23 History Gabapentin [Neurontin] 200 mg PO BID #8 cap 08/25/21 05/09/23 Rx Ergocalciferol [Vitamin D2 (1250 1,250 mcg PO MARCELINO 05/21/22 05/09/23 History Mcg = 01981 Iu)] Levothyroxine Sodium [Synthroid] 50 mcg PO DAILY 05/21/22 05/09/23 History metFORMIN HCL [Glucophage] 500 mg PO BID 05/21/22 05/09/23 History Aspirin EC [Ecotrin Low Dose] 81 mg PO DAILY 05/09/23 05/09/23 History Ciprofloxacin HCl [Cipro] 500 mg PO Q12HR 05/09/23 05/09/23 History HYDROcodone/APAP 7.5-325MG [[place] 1 tab PO Q4H PRN 05/09/23 05/09/23 History 7.5-325] Hydrocortisone Pr Cream 1 applic RECTAL TID PRN 05/09/23 05/09/23 History [Proctosol-Hc 2.5%] Lidocaine Viscous 2% [Xylocaine 1 applic RECTAL QID PRN 05/09/23 05/09/23 History Viscous] Multivitamins, Thera [Multivitamin 1 tab PO DAILY 05/09/23 05/09/23 History (formulary)] Allergies Allergy/AdvReac Type Severity Reaction Status Date / Time No Known Allergies Allergy Verified 05/09/23 19:33 Physical Exam Vitals: Vital Signs Temp Pulse Resp BP Pulse Ox 05/10/23 03:00 98.1 F 95 24 113/81 90 L 05/10/23 00:00 113 H 26 H 142/74 89 L 05/09/23 23:07 88 05/09/23 22:55 88 05/09/23 22:00 110 H 22 90 L 05/09/23 19:38 112 H 22 140/79 90 L 05/09/23 18:42 100.5 F H 119 H 26 H 158/75 75 L Intake and Output 05/09/23 05/09/23 05/10/23 14:59 22:59 06:59 Other: Weight 127.006 kg Results CBC & Chem 7: 05/09/23 19:17 05/09/23 19:17 Labs: Abnormal Lab Results - Last 24 Hours (Table) 05/09/23 05/09/23 05/09/23 Range/Units 19:17 19:17 19:17 WBC 10.7 H (3.8-10.6) k/uL Neutrophils # 8.2 H (1.3-7.7) k/uL D-Dimer 1.98 H (<0.60) mg/L FEU ABG pCO2 (35-45) mmHg ABG pO2 (83-108) mmHg ABG HCO3 (21-25) mmol/L ABG Total CO2 (19-24) mmol/L ABG O2 Saturation (94-97) % Chloride 92 L (98-107) mmol/L Carbon Dioxide 37 H (22-30) mmol/L Creatinine 0.50 L (0.52-1.04) mg/dL Glucose 180 H (74-99) mg/dL Alkaline Phosphatase 137 H (38-126) U/L Albumin 3.3 L (3.5-5.0) g/dL 05/10/23 Range/Units 02:52 WBC (3.8-10.6) k/uL Neutrophils # (1.3-7.7) k/uL D-Dimer (<0.60) mg/L FEU ABG pCO2 72 H* (35-45) mmHg ABG pO2 54 L* (83-108) mmHg ABG HCO3 45 H* (21-25) mmol/L ABG Total CO2 48 H (19-24) mmol/L ABG O2 Saturation 84.6 L (94-97) % Chloride (98-107) mmol/L Carbon Dioxide (22-30) mmol/L Creatinine (0.52-1.04) mg/dL Glucose (74-99) mg/dL Alkaline Phosphatase (38-126) U/L Albumin (3.5-5.0) g/dL Assessment and Plan Assessment: 62 year old female with morbid obesity, COPD on 4L , coming in with worsening SOB despite supplemental oxygen , she admits not being compliant with CPAP and i nhalers. 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
[2023-05-10] MEDS ORDERED: DEXTROSE 50% SYRINGE 50 ML IVP PRN ×2 (05:31)
[2023-05-10] MEDS: LEVOTHYROXINE 50 MCG TAB PO SCH (06:11)
[2023-05-10 07:17] LABS: Basophils % (A) 0 %; Eosinophils % (A) 1 %; HCT 39.7 % (34.0-46.0); HGB 11.7 gm/dL (11.4-16.0); Hypochromasia Marked; Lymphocytes # (A) 0.9 k/uL (1.0-4.8); Lymphocytes % (A) 9 %; MCH 27.8 pg (25.0-35.0); MCHC 29.5 g/dL (31.0-37.0); MCV 94.4 fL (80.0-100.0); Mean Platelet Volume 8.2; Monocytes # (A) 0.2 k/uL (0-1.0); Monocytes % (A) 2 %; Neutrophils # (A) 8.1 k/uL (1.3-7.7); Neutrophils % (A) 88 %; Platelet Count 426 k/uL (150-450); RBC 4.21 m/uL (3.80-5.40); RDW 14.6 % (11.5-15.5); WBC 9.2 k/uL (3.8-10.6)
[2023-05-10 07:31] LABS: African American GFR (CKD) >90 (>60 ml/min/1.73 sqM); Blood Urea Nitrogen 13 mg/dL (7-17); Chloride 90 mmol/L (98-107); Glucose 257 mg/dL (74-99); Non-African American GFR(CKD) >90 (>60 ml/min/1.73 sqM); Potassium 3.8 mmol/L (3.5-5.1); Sodium 141 mmol/L (137-145)
[2023-05-10 07:38] LABS: Anion Gap 14 mmol/L
[2023-05-10 07:56] LABS: Carbon Dioxide 37 mmol/L (22-30)
[2023-05-10 08:51] LABS: Glucose,Whole Blood 254 mg/dL (70-110)
[2023-05-10] MEDS: INSULIN ASPART (NovoLOG) 100 UNIT/ML VIAL SQ SCH ×3 (09:03→17:01)
[2023-05-10] MEDS: ASPIRIN 81 MG PO SCH (09:04)
[2023-05-10] MEDS: HEPARIN SODIUM,PORCINE 5,000 UNIT/ML 1 ML VIAL SQ SCH ×2 (09:04→17:01)
[2023-05-10] MEDS: GABAPENTIN 100 MG CAP PO SCH (09:04)
[2023-05-10] MEDS: PANTOPRAZOLE 40 MG TABLET PO SCH (09:04)
[2023-05-10] MEDS: methylPREDNISolone SOD SUCCI 40 MG/ML 1 ML VIAL IV SCH ×2 (09:27→17:01)
[2023-05-10 12:24] LABS: Glucose,Whole Blood 227 mg/dL (70-110)
--- NOTE | 2023-05-10 12:53 | P.CNPUL ---
History of Present Illness Consult date: 05/10/23 Requesting physician: Dwaine Knapp Reason for consult: dyspnea, cough, abnormal CXR/CT Chief complaint: Shortness of breath, cough History of present illness: This is a 62-year-old female patient with a history of morbid obesity, oxygen dependent chronic obstructive pulmonary disease, , 40+ years of chronic tobacco dependence however quit 3 years ago, gastroesophageal reflux disease, osteo arthritis. She presented here to the emergency room last evening with a 1 week history of shortness of breath. Chest x-ray revealed evidence of pulmonary edema. CT angiogram revealed no evidence of PE. There is prominent diffuse lung interstitial pattern. Pulmonary system and can correlate with pulmonary hypertension. Bilateral hilar and multifocal mediastinal mild adenopathy. Labs revealed a d-dimer 1.98. White count of 9.2. Hemoglobin 11.7. Platelets 426. Sodium 141. Potassium 3.8. Bicarb 37. BUN 13. Creatinine 0.45. We'll close to 57. ProBNP 293. Pro-calcitonin 0.09. Influenza screen negative. RSV screen negative. COVID-19 screen negative. Arterial blood gases on 50% FiO2 revealed a PaO2 of 54, pCO2 72 and a pH of 7.41. She is seen today in consultation in the emergency department. She is currently sitting up in a stretcher. Awake and alert in no acute distress. She is currently on 4 L nasal cannula maintaining O2 saturations in the 90s. Afebrile. Hemodynamically stable. She is feeling a bit better today compared to yesterday. She denies any fever or chills. No hemoptysis. Review of Systems REVIEW OF SYSTEMS: CONSTITUTIONAL: Denies any recent significant weight loss or weight gain. EYES: Denies change in vision. EARS, NOSE, MOUTH, THROAT: Denies headaches, denies sore throat. CARDIOVASCULAR: Denies chest pain, palpitations or syncopal episodes. RESPIRATORY: Positive for shortness of breath, cough, congestion no hemoptysis. GASTROINTESTINAL: Denies change in appetite, denies abdominal pain GENITOURINARY: Denies hematuria, denies infections. MUSKULOSKELETAL: Denies pain, denies swelling. INTEGUMENTARY: Denies rash, denies eczema. NEUROLOGICAL: Denies recent memory loss, no recent seizure activity. PSYCHIATRIC: Denies anxiety, denies depression. HEMATOLOGIC/LYMPHATIC: Denies anemia, denies enlarged lymph nodes. Past Medical History Past Medical History: COPD, GERD/Reflux, Osteoarthritis (OA), Pneumonia Additional Past Medical History / Comment(s): migraines,, sinus and ear [id number] ear worse, severe arthritis bilateral knees, constipation, edema lower legs and feet, hemorrhoids, blood in stool at times, gallstones, History of Any Multi-Drug Resistant Organisms: None Reported Past Surgical History: Breast Surgery, Tubal Ligation Additional Past Surgical History / Comment(s): Rt breast biopsies, COLONOSCOPY Past Anesthesia/Blood Transfusion Reactions: Previous Problems w/ Anesthesia Additional Past Anesthesia/Blood Transfusion Reaction / Comment(s): states had diff waking up- "states stopped breathing for a couple seconds" with last colonocopy, "i need a pillow under my head" Past Psychological History: No Psychological Hx Reported Smoking Status: Former smoker Past Alcohol Use History: None Reported Past Drug Use History: None Reported - Past Family History Mother Family Medical History: No Reported History Additional Family Medical History / Comment(s): . Father History Unknown: Yes Family Medical History: Unable to Obtain Medications and Allergies Home Medications Medication Instructions Recorded Confirmed Type Omeprazole [PriLOSEC] 40 mg PO DAILY 07/05/20 05/09/23 History Montelukast [Singulair] 10 mg PO HS 10/30/20 05/09/23 History Gabapentin [Neurontin] 200 mg PO BID #8 cap 08/25/21 05/09/23 Rx Ergocalciferol [Vitamin D2 (1250 1,250 mcg PO MARCELINO 05/21/22 05/09/23 History Mcg = 60983 Iu)] Levothyroxine Sodium [Synthroid] 50 mcg PO DAILY 05/21/22 05/09/23 History metFORMIN HCL [Glucophage] 500 mg PO BID 05/21/22 05/09/23 History Aspirin EC [Ecotrin Low Dose] 81 mg PO DAILY 05/09/23 05/09/23 History Ciprofloxacin HCl [Cipro] 500 mg PO Q12HR 05/09/23 05/09/23 History HYDROcodone/APAP 7.5-325MG [[place] 1 tab PO Q4H PRN 05/09/23 05/09/23 History 7.5-325] Hydrocortisone Pr Cream 1 applic RECTAL TID PRN 05/09/23 05/09/23 History [Proctosol-Hc 2.5%] Lidocaine Viscous 2% [Xylocaine 1 applic RECTAL QID PRN 05/09/23 05/09/23 History Viscous] Multivitamins, Thera [Multivitamin 1 tab PO DAILY 05/09/23 05/09/23 History (formulary)] Allergies Allergy/AdvReac Type Severity Reaction Status Date / Time No Known Allergies Allergy Verified 05/09/23 19:33 Physical Exam Vitals: Vital Signs Temp Pulse Resp BP Pulse Ox 05/10/23 11:32 105 H 18 151/94 90 L 05/10/23 09:00 97.8 F 112 H 20 122/88 87 L 05/10/23 07:44 93 L 05/10/23 06:00 93 L 05/10/23 03:00 98.1 F 95 24 113/81 90 L 05/10/23 00:00 113 H 26 H 142/74 89 L 05/09/23 23:07 88 05/09/23 22:55 88 05/09/23 22:00 110 H 22 90 L 05/09/23 19:38 112 H 22 140/79 90 L 05/09/23 18:42 100.5 F H 119 H 26 H 158/75 75 L Intake and Output 05/09/23 05/10/23 05/10/23 22:59 06:59 14:59 Other: Weight 127.006 kg GENERAL EXAM: Alert, pleasant, morbidly obese 62-year-old female, 4 L nasal cannula, fairly comfortable in no apparent distress. HEAD: Normocephalic. EYES: Normal reaction of pupils, equal size. NOSE: Clear with pink turbinates. THROAT: No erythema or exudates. NECK: No masses, no JVD. CHEST: No chest wall deformity. LUNGS: Equal air entry with no crackles, wheeze, rhonchi or dullness. CVS: S1 and S2 normal with no audible murmur, regular rhythm. ABDOMEN: Obese, unable to appreciate abdominal organs, normal bowel sounds, no guarding or rigidity. SPINE: No scoliosis or deformity SKIN: No rashes CENTRAL NERVOUS SYSTEM: No focal deficits, tone is normal in all 4 extremities. EXTREMITIES: There is 1+ peripheral edema. No clubbing, no cyanosis. Peripheral pulses are intact. Results - Laboratory Findings CBC and BMP: 05/10/23 06:57 05/10/23 06:57 ABG ABG pH 7.41 (7.35-7.45) 05/10/23 02:52 ABG pCO2 72 mmHg (35-45) H* 05/10/23 02:52 ABG pO2 54 mmHg (83-108) L* 05/10/23 02:52 ABG O2 Saturation 84.6 % (94-97) L 05/10/23 02:52 PT/INR, D-dimer PT 10.3 sec (10.0-12.5) 05/09/23 19:17 INR 0.9 (<1.2) 05/09/23 19:17 D-Dimer 1.98 mg/L FEU (<0.60) H 05/09/23 19:17 Abnormal lab findings: Abnormal Labs 05/09/23 05/09/23 05/09/23 19:17 19:17 19:17 WBC 10.7 H MCHC Neutrophils # 8.2 H Lymphocytes # D-Dimer 1.98 H ABG pCO2 ABG pO2 ABG HCO3 ABG Total CO2 ABG O2 Saturation Chloride 92 L Carbon Dioxide 37 H Creatinine 0.50 L Glucose 180 H POC Glucose (mg/dL) Alkaline Phosphatase 137 H Albumin 3.3 L 05/10/23 05/10/23 05/10/23 02:52 06:57 06:57 WBC MCHC 29.5 L Neutrophils # 8.1 H Lymphocytes # 0.9 L D-Dimer ABG pCO2 72 H* ABG pO2 54 L* ABG HCO3 45 H* ABG Total CO2 48 H ABG O2 Saturation 84.6 L Chloride 90 L Carbon Dioxide 37 H Creatinine 0.45 L Glucose 257 H POC Glucose (mg/dL) Alkaline Phosphatase Albumin 05/10/23 08:47 WBC MCHC Neutrophils # Lymphocytes # D-Dimer ABG pCO2 ABG pO2 ABG HCO3 ABG Total CO2 ABG O2 Saturation Chloride Carbon Dioxide Creatinine Glucose POC Glucose (mg/dL) 254 H Alkaline Phosphatase Albumin - Diagnostic Findings Chest x-ray: image reviewed CT scan - chest: image reviewed Assessment and Plan Assessment: Acute on chronic hypoxemic respiratory failure secondary to an acute exacerbation of chronic obstructive pulmonary disease. Pro-calcitonin 0.06. Influenza screen negative, RSV screen negative, COVID-19 screen negative. Acute hypercapnic respiratory failure secondary to above Morbid obesity BMI of 44 kg per metered square Obesity/hypoventilation syndrome Former smoker of greater than 40 years, quit 3 years ago Diabetes mellitus, type II Hypothyroidism Gastroesophageal reflux disease Osteoarthritis Plan: The patient was seen and evaluated CT angiogram, chest x-ray, labs, ABGs and medications reviewed Add DuoNeb inhalations, Symbicort, Solu-Medrol Heparin for DVT prophylaxis Titrate the FiO2 as tolerated BiPAP support if needed We will continue to follow and make further recommendations based on her clinical status I have personally seen and examined the patient, performed the documentation and the assessment and plan as written. Number of minutes spent on the visit: 20.
[2023-05-10] MEDS: IPRATROPIUM-ALBUTEROL 3 ML NEB INHALATION SCH ×2 (15:07→19:18)
[2023-05-10 16:52] LABS: Glucose,Whole Blood 247 mg/dL (70-110)
[2023-05-10] MEDS: SYMBICORT 160-4.5 MCG INHALER INHALATION SCH ×2 (19:19→19:21)
[2023-05-10 20:46] LABS: Glucose,Whole Blood 273 mg/dL (70-110)
[2023-05-10] MEDS ORDERED: MONTELUKAST 10 MG TAB PO SCH (21:00)
[2023-05-11] MEDS: HEPARIN SODIUM,PORCINE 5,000 UNIT/ML 1 ML VIAL SQ SCH ×2 (00:36→07:54)
[2023-05-11] MEDS: GABAPENTIN 100 MG CAP PO SCH ×2 (00:36→07:55)
[2023-05-11] MEDS: methylPREDNISolone SOD SUCCI 40 MG/ML 1 ML VIAL IV SCH ×2 (00:36→08:42)
[2023-05-11] MEDS: INSULIN ASPART (NovoLOG) 100 UNIT/ML VIAL SQ SCH ×2 (00:36→07:55)
[2023-05-11] MEDS: LEVOTHYROXINE 50 MCG TAB PO SCH (06:22)
[2023-05-11 06:59] LABS: Glucose,Whole Blood 233 mg/dL (70-110)
[2023-05-11 07:34] VITALS: BP 116/70; RESP 22; TEMP 97.7
[2023-05-11] MEDS: PANTOPRAZOLE 40 MG TABLET PO SCH (07:55)
[2023-05-11] MEDS: ASPIRIN 81 MG PO SCH (07:55)
[2023-05-11] MEDS: IPRATROPIUM-ALBUTEROL 3 ML NEB INHALATION SCH (08:45)
[2023-05-11] MEDS: SYMBICORT 160-4.5 MCG INHALER INHALATION SCH (08:45)
[2023-05-11 09:04] VITALS: PULSE 80
--- NOTE | 2023-05-11 09:43 | P.DS ---
Providers Date of admission: 05/09/23 22:49 Expected date of discharge: 05/11/23 Attending physician: Dwaine Knapp MD Consults: 05/09/23 22:46 Consult Physician Urgent Consulting Provider: Tammy Ryder Consult Reason/Comments: acute hypoxic resp failure, aecopd, chronic resp insuff Do you want consulting provider notified?: Yes Primary care physician: Jsoé Lacy Hospital Course: Discharge Diagnosis: Acute exacerbation of COPD Acute on chronic hypoxic respiratory failure Obesity hypoventilation syndrome Class III obesity with BMI 49.2 DM 2 Hypothyroidism Hospital Course: Patient is a 62-year-old female with COPD on home O2 at 4 L, GERD, osteoarthritis, and history of sinus problems who Gen. hospital due to worsening shortness of breath. On arrival to the ER her vital signs were remarkable for temperature of 100.5, pulse of 119, respirations of 26, and O2 sat of 75% on 5 L nasal cannula. Labs were remarkable for white blood cell count of 10.7, glucose 180. COVID-19, RSV, and influenza testing was negative. Chest x-ray showed pulmonary edema. CT of the chest was a slightly limited study with no evidence of pulmonary embolism but diffuse interstitial pattern consistent with pulmonary hypertension as well as bilateral hilar and multifocal mediastinal lymphadenopathy. In the ER she received 1 dose of IV Lasix. She was started on bronchodilators and steroids. She was admitted for further monitoring. She was continued on steroids. She was seen by pulmonary and her inhaler regimen was optimized. By the morning of 05/11 she was feeling back to baseline and was asking for discharge home. Follow-up: Patient refusing and inhalers. Duoneb 4 times daily, albuterol 2 puffs 6 hours as needed for shortness of breath. Follow-up with Dr. Freed next week and Dr. Ryder in 1 -2 weeks . Prednisone 50 mg daily for the next 5 days. Complete 2 more days of cipro. Patient seen and examined at bedside. Feeling well, wanting to go home, breathing back to baseline. Vital signs reviewed and stable. General: nontoxic, no distress, appears at stated age Cardiovascular: S1S2 reg, no murmur, positive posterior tibial pulse bilateral, Lungs: Decreased breath sounds bilaterally with no wheezing, no accessory muscle use Abdominal: soft, nontender to palpation, no guarding, no appreciable organomegaly Ext: no gross muscle atrophy, no edema b/l lower extremities, no contractures Neuro: CN II-XI grossly intact, no focal neuro deficits Psych: Alert, oriented, appropriate affect A total of 37 minutes of time were spent preparing this complex discharge summary. Patient was discharged on 05/11/23. This dictation was prepared using [employer] voice recognition software. Though every attempt is made to correct errors during dictation some may still exist. Patient Condition at Discharge: Stable Plan - Discharge Summary Discharge Rx Participant: No New Discharge Prescriptions: New predniSONE 50 mg PO DAILY #5 tablet Albuterol Sulfate [Albuterol Sulfate Hfa] 2 puff PO Q6H PRN #8.5 gm PRN Reason: Shortness Of Breath Ipratropium-Albuterol Nebulize [Duoneb 0.5 mg-3 mg/3 ml Soln] 3 ml INHALATION RT-QID #120 each Continue Omeprazole [PriLOSEC] 40 mg PO DAILY metFORMIN HCL [Glucophage] 500 mg PO BID Levothyroxine Sodium [Synthroid] 50 mcg PO DAILY Hydrocortisone Pr Cream [Proctosol-Hc 2.5%] 1 applic RECTAL TID PRN PRN Reason: Hemorrhoids Multivitamins, Thera [Multivitamin (formulary)] 1 tab PO DAILY Aspirin EC [Ecotrin Low Dose] 81 mg PO DAILY Montelukast [Singulair] 10 mg PO HS Gabapentin [Neurontin] 200 mg PO BID #8 cap Ergocalciferol [Vitamin D2 (1250 Mcg = 84035 Iu)] 1,250 mcg PO MARCELINO HYDROcodone/APAP 7.5-325MG [[place] 7.5-325] 1 tab PO Q4H PRN PRN Reason: Pain Lidocaine Viscous 2% [Xylocaine Viscous] 1 applic RECTAL QID PRN PRN Reason: Hemorrhoids Discontinued Ciprofloxacin HCl [Cipro] 500 mg PO Q12HR Discharge Medication List Omeprazole [PriLOSEC] 40 mg PO DAILY 07/05/20 [History] Montelukast [Singulair] 10 mg PO HS 10/30/20 [History] Gabapentin [Neurontin] 200 mg PO BID #8 cap 08/25/21 [Rx] Ergocalciferol [Vitamin D2 (1250 Mcg = 45697 Iu)] 1,250 mcg PO MARCELINO 05/21/22 [History] Levothyroxine Sodium [Synthroid] 50 mcg PO DAILY 05/21/22 [History] metFORMIN HCL [Glucophage] 500 mg PO BID 05/21/22 [History] Aspirin EC [Ecotrin Low Dose] 81 mg PO DAILY 05/09/23 [History] HYDROcodone/APAP 7.5-325MG [[place] 7.5-325] 1 tab PO Q4H PRN 05/09/23 [History] Hydrocortisone Pr Cream [Proctosol-Hc 2.5%] 1 applic RECTAL TID PRN 05/09/23 [History] Lidocaine Viscous 2% [Xylocaine Viscous] 1 applic RECTAL QID PRN 05/09/23 [History] Multivitamins, Thera [Multivitamin (formulary)] 1 tab PO DAILY 05/09/23 [History] Albuterol Sulfate [Albuterol Sulfate Hfa] 2 puff PO Q6H PRN #8.5 gm 05/11/23 [Rx] Ipratropium-Albuterol Nebulize [Duoneb 0.5 mg-3 mg/3 ml Soln] 3 ml INHALATION RT-QID #120 each 05/11/23 [Rx] predniSONE 50 mg PO DAILY #5 tablet 05/11/23 [Rx] Follow up Appointment(s)/Referral(s): Tammy Ryder MD [STAFF PHYSICIAN] - 1 Week José Lacy DO [Primary Care Provider] - 1-2 days Activity/Diet/Wound Care/Special Instructions: Activity: as tolerated Diet: consistent carb Special Instructions: Please keep follow up with Dr. Ryder. Consider getting a list of the inhalers that you have tried, ones without steroids typically do not cause as much thrush. Complete 2 more days of the Cipro that Dr. Lacy prescribed. You had some enlarged lymphnodes on your CT of the chest, this should be repeated in 3 months to make sure they improve. Discharge Disposition: HOME SELF-CARE
--- NOTE | 2023-05-11 12:16 | P.PN ---
Subjective Progress Note Date: 05/11/23 This is a 62-year-old female patient with a history of morbid obesity, oxygen dependent chronic obstructive pulmonary disease, , 40+ years of chronic tobacco dependence however quit 3 years ago, gastroesophageal reflux disease, osteoarthritis. She presented here to the emergency room last evening with a 1 week history of shortness of breath. Chest x-ray revealed evidence of pulmonary edema. CT angiogram revealed no evidence of PE. There is prominent diffuse lung interstitial pattern. Pulmonary system and can correlate with pulmonary hypertension. Bilateral hilar and multifocal mediastinal mild adenopathy. Labs revealed a d-dimer 1.98. White count of 9.2. Hemoglobin 11.7. Platelets 426. Sodium 141. Potassium 3.8. Bicarb 37. BUN 13. Creatinine 0.45. We'll close to 57. ProBNP 293. Pro-calcitonin 0.09. Influenza screen negative. RSV screen negative. COVID-19 screen negative. Arterial blood gases on 50% FiO2 revealed a PaO2 of 54, pCO2 72 and a pH of 7.41. She is seen today in consultation in the emergency department. She is currently sitting up in a stretcher. Awake and alert in no acute distress. She is currently on 4 L nasal cannula maintaining O2 saturations in the 90s. Afebrile. Hemodynamically stable. She is feeling a bit better today compared to yesterday. She denies any fever or chills. No hemoptysis. The patient is seen today 05/11/2023 in follow-up on the regular medical floor. She is currently sitting up at the bedside. Awake and alert in no acute distress. She denies any worsening shortness of breath, cough or congestion. She is feeling back to her baseline. She is maintaining O2 saturations in the 90s on 5 L/m per nasal cannula. Afebrile. Hemodynamically stable. Glucose 233. She is continued on DuoNeb inhalations, Symbicort, Solu-Medrol and Singulair. Heparin for DVT prophylaxis. She has been declining her Symbicort and stated most of the inhalers she has trialed has given her thrush. Objective - Vital Signs Vital signs: Vital Signs Temp 97.7 F 05/11/23 07:05 Pulse 80 05/11/23 08:58 Resp 22 05/11/23 07:05 BP 116/70 05/11/23 07:05 Pulse Ox 92 L 05/11/23 07:05 FiO2 Intake & Output 05/10/23 05/11/23 05/11/23 18:59 06:59 18:59 Weight 142.5 kg Other: # Voids 1 1 # Bowel Movements 1 - Exam GENERAL EXAM: Alert, morbidly obese 62-year-old female, sitting up in bed, 5 L nasal cannula, comfortable in no apparent distress. HEAD: Normocephalic. EYES: Normal reaction of pupils, equal size. NOSE: Clear with pink turbinates. THROAT: No erythema or exudates. NECK: No masses, no JVD. CHEST: No chest wall deformity. LUNGS: Equal air entry with no crackles, wheeze, rhonchi or dullness. CVS: S1 and S2 normal with no audible murmur, regular rhythm. ABDOMEN: Obese, unable to appreciate abdominal organs, normal bowel sounds, no guarding or rigidity. SPINE: No scoliosis or deformity SKIN: No rashes CENTRAL NERVOUS SYSTEM: No focal deficits, tone is normal in all 4 extremities. EXTREMITIES: There is 1+ peripheral edema. No clubbing, no cyanosis. Peripheral pulses are intact. - Labs CBC & Chem 7: 05/10/23 06:57 05/10/23 06:57 Labs: Abnormal Lab Results - Last 24 Hours (Table) 05/10/23 05/10/23 05/10/23 Range/Units 06:57 12:23 16:51 POC Glucose (mg/dL) 227 H 247 H (70-110) mg/dL Hemoglobin A1c 7.5 H (<=6.0) % 05/10/23 05/11/23 Range/Units 20:44 06:58 POC Glucose (mg/dL) 273 H 233 H (70-110) mg/dL Hemoglobin A1c (<=6.0) % Assessment and Plan Assessment: Acute on chronic hypoxemic respiratory failure secondary to an acute exacerbation of chronic obstructive pulmonary disease. Pro-calcitonin 0.06. Influenza screen negative, RSV screen negative, COVID-19 screen negative. Acute hypercapnic respiratory failure secondary to above Morbid obesity BMI of 44 kg per metered square Obesity/hypoventilation syndrome Former smoker of greater than 40 years, quit 3 years ago Diabetes mellitus, type II Hypothyroidism Gastroesophageal reflux disease Osteoarthritis Plan: The patient was seen and evaluated Medications reviewed Improved and back to her baseline Continue home DuoNeb inhalations and oxygen Complete a prednisone taper Recommend follow-up in our office in 1 week I have personally seen and examined the patient, performed the documentation and the assessment and plan as written. Number of minutes spent on the visit: 10.
== END 2023-05-11 11:24 | disposition home or self-care (01) | DRG 189 ==
LOC: EC 18:37 → 3SCARD 22:49 → 5NMEDONC 05-10 14:27
PROVIDERS: ADMIT Internal Medicine; ATTEND Internal Medicine
DX: J96.21 Acute and chronic respiratory failure with hypoxia (principal); J44.1 Chronic obstructive pulmonary disease with (acute) exacerbation; E66.2 Morbid (severe) obesity with alveolar hypoventilation; Z68.42 Body mass index [BMI] 45.0-49.9, adult; J96.22 Acute and chronic respiratory failure with hypercapnia; E11.9 Type 2 diabetes mellitus without complications; E03.9 Hypothyroidism, unspecified; F40.240 Claustrophobia; K21.9 Gastro-esophageal reflux disease without esophagitis; M17.0 Bilateral primary osteoarthritis of knee; H91.93 Unspecified hearing loss, bilateral; R59.0 Localized enlarged lymph nodes; T48.6X6A Underdosing of antiasthmatics, initial encounter; Z20.822 Contact with and (suspected) exposure to COVID-19; Z99.81 Dependence on supplemental oxygen; Z91.128 Patient's intentional underdosing of medication regimen for other reason; Z87.891 Personal history of nicotine dependence; Z91.198 Patient's noncompliance with other medical treatment and regimen for other reason; Z79.899 Other long term (current) drug therapy; Z79.890 Hormone replacement therapy; Z79.84 Long term (current) use of oral hypoglycemic drugs; Z79.82 Long term (current) use of aspirin
CPT/HCPCS: 36415; 36600; 71046; 71275; 80048; 80053; 82805; 83036; 83605; 83880; 84145; 84484; 85025; 85379; 85610; 85730; 87636; 93005; 94640; 94760; 96365; 96375; 99285

== ENCOUNTER → 2024-01-16 | Outpatient (CLI) | payer MEDICARE ==
--- NOTE | 2024-01-17 12:54 | CA ---
Transthoracic Echo Report Name: Chante Boston Age: 63 Gender: F : 1960 Exam Date: 01/16/2024 13:25 Exam Location: [facility] Ht (in): 67 Wt (lb): 300 Ordering Physician: José Lacy DO Attending/Referring Phys: Real Estate Manager Jud William RDCS Procedure CPT: Indications: R60.9 Edema, unspecified Cardiac Hx: Technical Quality: Poor Contrast 1: Total Dose (mL): Contrast 2: Total Dose (mL): MEASUREMENTS (Male / Female) Normal Values 2D ECHO LV Diastolic Diameter PLAX 4.0 cm 4.2 - 5.9 / 3.9 - 5.3 cm LV Systolic Diameter PLAX 3.3 cm IVS Diastolic Thickness 1.6 cm 0.6 - 1.0 / 0.6 - 0.9 cm LVPW Diastolic Thickness 1.5 cm 0.6 - 1.0 / 0.6 - 0.9 cm LV Relative Wall Thickness 0.8 RV Internal Dim ED PLAX 4.0 cm LA Systolic Diameter LX 3.5 cm 3.0 - 4.0 / 2.7 - 3.8 cm LA Volume 39.8 cm??? 18 - 58 / 22 - 52 cm??? LA Volume Index 15.3 cm???/m??? 16 - 28 cm???/m??? M-MODE Aortic Root Diameter MM 4.2 cm AV Cusp Separation MM 2.5 cm DOPPLER AV Peak Velocity 158.4 cm/s AV Peak Gradient 10.0 mmHg MV Area PHT 3.6 cm??? Mitral E Point Velocity 43.9 cm/s Mitral A Point Velocity 50.3 cm/s Mitral E to A Ratio 0.9 MV Deceleration Time 211.8 ms FINDINGS Left Ventricle Left ventricular ejection fraction is estimated at 55-60 %. Left ventricular cavity size normal. Moderately increased septal wall thickness. Moderately increased posterior wall thickness. No obvious regional wall motion abnormalities. Right Ventricle Severe right ventricular dilatation. Unable to estimate the right ventricular systolic pressure. Right Atrium Right atrium not well visualized. Left Atrium Normal left atrial size. No left atrial thrombus or mass present. Mitral Valve Mitral valve thickened. Mild mitral annular calcification. No mitral regurgitation. Aortic Valve Aortic valve sclerosis. No aortic valve stenosis or regurgitation. Tricuspid Valve Tricuspid valve not well visualized. No tricuspid regurgitation. Pulmonic Valve Structurally normal pulmonic valve. No pulmonic regurgitation. Pericardium No pericardial effusion. Aorta Moderately dilated aortic annulus. Moderately dilated proximal ascending aorta 44 mm CONCLUSIONS Left ventricular ejection fraction 55-60% Moderately increased left ventricular wall thickness No mitral regurgitation No tricuspid regurgitation No pericardial effusion Ascending aortic aneurysm measuring 4.4 cm. Consider CTA if clinically indicated Previewed by: Dr. Irving Paz DO (Electronically Signed) Final Date: 17 January 2024 12:54
== END | disposition home or self-care (01) ==
LOC: RADECHMAIN 13:08
PROVIDERS: ATTEND Family Medicine
DX: I71.21 Aneurysm of the ascending aorta, without rupture (principal); R60.9 Edema, unspecified; M79.661 Pain in right lower leg; M79.662 Pain in left lower leg
CPT/HCPCS: 93306

== ENCOUNTER 2024-09-16 13:21 | Emergency (ER) | payer MEDICARE ==
[2024-09-16 13:37] VITALS: TEMP 97.6
--- NOTE | 2024-09-16 13:52 | ED ---
General Adult HPI - General Chief complaint: Abdominal Pain Stated complaint: abd pain Time Seen by Provider: 09/16/24 13:25 Source: patient Mode of arrival: ambulatory Limitations: no limitations - History of Present Illness Initial comments: Dictation was produced using [employer] dictation software. please excuse any grammatical, word or spelling errors. Chief Complaint: 63-year-old female with abdominal pain History of Present Illness: Patient 63-year-old female with history of open cholecystectomy. She states that for the last several hours she has had sudden severe abdominal pain said it is 11 out of 10. Denies any fever. She does complain of nausea and poor appetite. Not sure if she has been passing gas since abdominal pain started. Denies any fever or constitutional symptoms. The ROS documented in this emergency department record has been reviewed and confirmed by me. Those systems with pertinent positive or negative responses have been documented in the HPI. All other systems are other negative and/or noncontributory. - Related Data Home Medications Medication Instructions Recorded Confirmed RX: Omeprazole [PriLOSEC] 40 mg PO DAILY 07/05/20 05/09/23 RX: Montelukast [Singulair] 10 mg PO HS 10/30/20 05/09/23 RX: Ergocalciferol [Vitamin D2 1,250 mcg PO MARCELINO 05/21/22 05/09/23 (1250 Mcg = 00735 Iu)] RX: Levothyroxine Sodium 50 mcg PO DAILY 05/21/22 05/09/23 [Synthroid] RX: metFORMIN HCL [Glucophage] 500 mg PO BID 05/21/22 05/09/23 RX: Aspirin EC [Ecotrin Low Dose] 81 mg PO DAILY 05/09/23 05/09/23 RX: HYDROcodone/APAP 7.5-325MG 1 tab PO Q4H PRN 05/09/23 05/09/23 [[employer] 7.5-325] RX: Hydrocortisone Pr Cream 1 applic RECTAL TID PRN 05/09/23 05/09/23 [Proctosol-Hc 2.5%] RX: Lidocaine Viscous 2% 1 applic RECTAL QID PRN 05/09/23 05/09/23 [Xylocaine Viscous] RX: Multivitamins, Thera 1 tab PO DAILY 05/09/23 05/09/23 [Multivitamin (formulary)] Previous Rx's Medication Instructions Recorded RX: Gabapentin [Neurontin] 200 mg PO BID #8 cap 08/25/21 Albuterol Sulfate [Albuterol 2 puff PO Q6H PRN #8.5 gm 05/11/23 Sulfate Hfa] RX: Ipratropium-Albuterol Nebulize 3 ml INHALATION RT-QID #120 each 05/11/23 [Duoneb 0.5 mg-3 mg/3 ml Soln] RX: predniSONE 50 mg PO DAILY #5 tablet 05/11/23 Amoxic-Pot Clav 875-125Mg 1 tab PO Q8H 5 Days #15 tab 09/16/24 [Augmentin 875-125] HYDROcodone/APAP 5-325MG [[employer] 1 tab PO Q6HR PRN 3 Days #12 tab 09/16/24 5-325] Allergies Allergy/AdvReac Type Severity Reaction Status Date / Time morphine Allergy Itching Verified 09/16/24 13:37 Review of Systems ROS Statement: Those systems with pertinent positive or pertinent negative responses have been documented in the HPI. ROS Other: All systems not noted in ROS Statement are negative. Past Medical History Past Medical History: COPD, GERD/Reflux, Osteoarthritis (OA), Pneumonia Additional Past Medical History / Comment(s): migraines,, sinus and ear [id number] ear worse, severe arthritis bilateral knees, constipation, edema lower legs and feet, hemorrhoids, blood in stool at times, gallstones, History of Any Multi-Drug Resistant Organisms: None Reported Past Surgical History: Breast Surgery, Tubal Ligation Additional Past Surgical History / Comment(s): Rt breast biopsies, COLONOSCOPY Past Anesthesia/Blood Transfusion Reactions: Previous Problems w/ Anesthesia Additional Past Anesthesia/Blood Transfusion Reaction / Comment(s): states had diff waking up- "states stopped breathing for a couple seconds" with last colonocopy, "i need a pillow under my head" Past Psychological History: No Psychological Hx Reported Smoking Status: Former smoker Past Alcohol Use History: None Reported Past Drug Use History: None Reported - Past Family History Mother Family Medical History: No Reported History Additional Family Medical History / Comment(s): . Father History Unknown: Yes Family Medical History: Unable to Obtain General Exam - General Exam Comments Initial Comments: PHYSICAL EXAM: General Impression: Alert and oriented x3, mild distress secondary to pain HEENT: Normocephalic atraumatic, extra-ocular movements intact, pupils equal and reactive to light bilaterally, mucous membranes moist. Cardiovascular: Heart regular rate and rhythm Chest: Able to complete full sentences, no retractions, no tachypnea Abdomen: abdomen soft, diffuse abdominal palpatory tenderness, non-distended, no organomegaly Musculoskeletal: Pulses present and equal in all extremities, no peripheral edema Motor: no focal deficits noted Neurological: CN II-XII grossly intact, no focal motor or sensory deficits noted Skin: Intact with no visualized rashes Psych: Normal affect and mood Limitations: no limitations Course Vital Signs 09/16/24 09/16/24 13:29 14:43 Temperature 97.6 F Pulse Rate 94 97 Respiratory 17 20 Rate Blood Pressure 117/76 100/69 O2 Sat by Pulse 92 L 94 L Oximetry Medical Decision Making - Medical Decision Making Was pt. sent in by a medical professional or institution (, PA, TRAVELING CRANE OPERATOR, urgent care, hospital, or intermediate...) When possible be specific @ -No Did you speak to anyone other than the patient for history (EMS, parent, family, police, friend...)? What history was obtained from this source @ -No Did you review nursing and triage notes (agree or disagree)? Why? @ -I reviewed and agree with nursing and triage notes Were old charts reviewed (outside hosp., previous admission, EMS record, old EKG, old radiological studies, urgent care reports/EKG's, intermediate records)? Report findings @ -No old charts were reviewed Differential Diagnosis (chest pain, altered mental status, abdominal pain women, abdominal pain men, vaginal bleeding, musculoskeletal, weakness, fever, dyspnea, syncope, headache, dizziness, GI bleed, back pain, seizure, CVA, palpatations, mental health)? @ -Differential Abdominal Pain Women: Appendicitis, Cholecystitis, diverticulosis, ischemic bowel, pancreatitis, hepatitis, UTI, gastroenteritis, AAA, incarcerated hernia, bowel obstruction, constipation, inflammatory bowel, hepatitis, peptic ulcer disease, splenic infarction, perforated viscus, vulvitis, ovarian torsion, PID, kidney stone, placenta abruption, this is not meant to be an all-inclusive list EKG interpreted by me (3pts min.). @ -None done X-rays interpreted by me (1pt min.). @ -None done CT interpreted by me (1pt min.). @ -CT abdomen shows uncomplicated diverticulitis. Close appears to be a ventral hernia U/S interpreted by me (1pt. min.). @ -None done What testing was considered but not performed or refused? (CT, X-rays, U/S, labs)? Why? @ -None What meds were considered but not given or refused? Why? @ -None Was smoking cessation discussed for >3mins.? @ -No Were there social determinants of health that impacted care today? How? (Homelessness, low income, unemployed, alcoholism, drug addiction, transportation, low edu. Level, literacy, decrease access to med. care, senior care, rehab)? @ -No Was there de-escalation of care discussed even if they declined (Discuss DNR or withdrawal of care, Hospice)? DNR status @ -No What co-morbidities impacted this encounter? (DM, HTN, Smoking, COPD, CAD, Cancer, CVA, ARF, Chemo, Hep., AIDS, mental health diagnosis, sleep apnea, morbid obesity)? @ -Chronic hernia Was patient admitted / discharged? Hospital course, mention meds given and route, prescriptions, significant lab abnormalities, going to OR and other pertinent info. @ -Patient 63-year-old female with chronic hernia presents to the ER for abdominal pain. Vital signs are stable. Laboratory evaluation obtained. Labs are within acceptable limits. Patient has chronic hernia after having had gallbladder surgery years ago. CT shows uncomplicated sigmoid diverticulitis. Disposition options were discussed with patient. States she feels well enough to go home. Patient given return precautions. Patient has no drug allergies. Prescribed Augmentin. Did you discuss the management of the patient with other professionals (professionals i.e. , PA, TRAVELING CRANE OPERATOR, lab, RT, psych nurse, social services technician, scraper hand, teacher, chief operating officer, wrapper caser)? Give summary @ -No Was critical care preformed (if so, how long)? @ -No Undiagnosed new problem with uncertain prognosis? @ -No Drug Therapy requiring intensive monitoring for toxicity (Heparin, Nitro, Insulin, Cardizem)? @ -No Were any procedures done? @ -No Diagnosis/symptom? Acute, or Chronic, or Acute on Chronic? Uncomplicated (without systemic symptoms) or Complicated (systemic symptoms)? @ -Diverticulitis Side effects of treatment? @ -No Exacerbation, Progression, or Severe Exacerbation? @ -No Poses a threat to life or bodily function? How? (Chest pain, [place], [place], pneumonia, PE, COPD, DKA, ARF, appy, cholecystitis, CVA, Diverticulitis, Homicidal, Suicidal, threat to staff... and all critical care pts) @ -yes - Lab Data Result diagrams: 09/16/24 13:48 09/16/24 13:48 Lab Results 09/16/24 09/16/24 09/16/24 Range/Units 13:48 13:48 15:49 WBC 11.2 H (3.8-10.6) k/uL RBC 4.30 (3.80-5.40) m/uL Hgb 12.0 (11.4-16.0) gm/dL Hct 39.9 (34.0-46.0) % MCV 93.0 (80.0-100.0) fL MCH 28.0 (25.0-35.0) pg MCHC 30.1 L (31.0-37.0) g/dL RDW 16.1 H (11.5-15.5) % Plt Count 230 (150-450) k/uL MPV 7.9 Neutrophils % 83 % Lymphocytes % 10 % Monocytes % 5 % Eosinophils % 2 % Basophils % 0 % Neutrophils # 9.3 H (1.3-7.7) k/uL Lymphocytes # 1.1 (1.0-4.8) k/uL Monocytes # 0.5 (0-1.0) k/uL Eosinophils # 0.2 (0-0.7) k/uL Basophils # 0.0 (0-0.2) k/uL Hypochromasia Marked Anisocytosis Slight Sodium 136 L (137-145) mmol/L Potassium 4.5 (3.5-5.1) mmol/L Chloride 90 L (98-107) mmol/L Carbon Dioxide 35 H (22-30) mmol/L Anion Gap 11 mmol/L BUN 20 H (7-17) mg/dL Creatinine 0.44 L (0.52-1.04) mg/dL Est GFR (CKD-EPI)AfAm >90 (>60 ml/min/1.73 sqM) Est GFR (CKD-EPI)NonAf >90 (>60 ml/min/1.73 sqM) Glucose 198 H (74-99) mg/dL Calcium 9.2 (8.4-10.2) mg/dL Total Bilirubin 0.7 (0.2-1.3) mg/dL AST 45 H (14-36) U/L ALT 30 (4-34) U/L Alkaline Phosphatase 87 (38-126) U/L Total Protein 7.9 (6.3-8.2) g/dL Albumin 4.3 (3.5-5.0) g/dL Amylase 48 (30-110) U/L Lipase 97 (23-300) U/L Urine Color Colorless Urine Appearance Clear (Clear) Urine pH 6.0 (5.0-8.0) Ur Specific [place] 1.023 (1.001-1.035) Urine Protein Negative (Negative) Urine Glucose (UA) Negative (Negative) Urine Ketones Trace H (Negative) Urine Blood Negative (Negative) Urine Nitrite Negative (Negative) Urine Bilirubin Negative (Negative) Urine Urobilinogen <2.0 (<2.0) mg/dL Ur Leukocyte Esterase Negative (Negative) Disposition Clinical Impression: Diverticulitis Disposition: HOME SELF-CARE Condition: Fair Prescriptions: Amoxic-Pot Clav 875-125Mg [Augmentin 875-125] 1 tab PO Q8H 5 Days #15 tab HYDROcodone/APAP 5-325MG [[employer] 5-325] 1 tab PO Q6HR PRN 3 Days #12 tab PRN Reason: abdominal pain Is patient prescribed a controlled substance at d/c from ED?: Yes If prescribed controlled substance>3 days was MAPS reviewed?: Prescribed <3 Days Referrals: José Lacy DO [Primary Care Provider] - 1-2 days Time of Disposition: 16:24
[2024-09-16 13:56] LABS: Anisocytosis Slight; Basophils % (A) 0 %; Eosinophils # (A) 0.2 k/uL (0-0.7); Eosinophils % (A) 2 %; HCT 39.9 % (34.0-46.0); Hypochromasia Marked; Lymphocytes # (A) 1.1 k/uL (1.0-4.8); Lymphocytes % (A) 10 %; MCHC 30.1 g/dL (31.0-37.0); Mean Platelet Volume 7.9; Monocytes # (A) 0.5 k/uL (0-1.0); Monocytes % (A) 5 %; Neutrophils # (A) 9.3 k/uL (1.3-7.7); Neutrophils % (A) 83 %; Platelet Count 230 k/uL (150-450); RDW 16.1 % (11.5-15.5); WBC 11.2 k/uL (3.8-10.6)
[2024-09-16 14:09] LABS: ALT 30 U/L (4-34); African American GFR (CKD) >90 (>60 ml/min/1.73 sqM); Amylase 48 U/L (30-110); Anion Gap 11 mmol/L; Blood Urea Nitrogen 20 mg/dL (7-17); Calcium 9.2 mg/dL (8.4-10.2); Carbon Dioxide 35 mmol/L (22-30); Chloride 90 mmol/L (98-107); Glucose 198 mg/dL (74-99); Lipase 97 U/L (23-300); Non-African American GFR(CKD) >90 (>60 ml/min/1.73 sqM); Sodium 136 mmol/L (137-145); Total Bilirubin 0.7 mg/dL (0.2-1.3)
[2024-09-16 14:13] LABS: Potassium 4.5 mmol/L (3.5-5.1)
[2024-09-16 14:14] LABS: AST 45 U/L (14-36); Albumin 4.3 g/dL (3.5-5.0); Alkaline Phosphatase 87 U/L (38-126); Total Protein 7.9 g/dL (6.3-8.2)
[2024-09-16 14:45] VITALS: BP 100/69; PULSE 97; RESP 20
--- NOTE | 2024-09-16 15:53 | CT ---
EXAMINATION TYPE: CT abdomen pelvis w con DATE OF EXAM: 09/16/2024 COMPARISON: 05/03/2023 CLINICAL INDICATION: Female, 63 years old with history of abdominal pain; PHH, Pt arrives in today for sudden generalized abdominal pain with nausea. TECHNIQUE: Performed without Oral Contrast and with IV Contrast, patient injected with 100ml mL of Isovue 300. CT DLP: 3390.[address] CTDI: mGy Automated exposure control for dose reduction was used. FINDINGS: Mild chronic interstitial density in the left lung base mild interstitial density left lung base poss ibly related to atelectasis or chronic interstitial fibrosis. The gallbladder is surgically absent. There is no biliary ductal dilatation. There is moderate to marked hepatomegaly. There are no focal liver lesions. There is no focal mass or organomegaly involving the pancreas, spleen and adrenal glands. There is no solid renal mass or hydronephrosis and there is homogeneous contrast enhancement of the r enal parenchyma. The caliber the abdominal aorta is normal is no retroperitoneal adenopathy or hemorr patel. There is ill definition of the sigmoid bowel wall with mild pericolic inflammation consistent with mi ld acute sigmoid diverticulitis. There is no free intraperitoneal air or fluid. There is no intra-abd ominal abscess. There is no bowel obstruction. There is a fat-containing 7.5 cm hernia in the anterior abdominal wall to the left of midline. No pelvic mass, free fluid, abscess or adenopathy. The osseous structures and soft tissues are intact. IMPRESSION: 1. Uncomplicated acute diverticulitis of the sigmoid colon. 2. Fat-containing ventral hernia as described above. 3. Marked hepatomegaly. 4. Interstitial changes in the left lung base as described above. [facility], , 09/16/2024 3:51 PM
[2024-09-16 16:16] LABS: Appearance,Urine Clear (Clear); Bilirubin,Urine Negative (Negative); Blood,Urine Negative (Negative); Color,Urine Colorless; Glucose,Urine (UA) Negative (Negative); Ketones,Urine Trace (Negative); Leukocyte Esterase,Urine Negative (Negative); Nitrite,Urine Negative (Negative); Protein,Urine Negative (Negative); Specific Gravity,Urine 1.023 (1.001-1.035); Urobilinogen,Urine <2.0 mg/dL (<2.0)
== END 2024-09-16 16:46 | disposition home or self-care (01) ==
LOC: EC 13:21
DX: K57.32 Diverticulitis of large intestine without perforation or abscess without bleeding (principal); K43.9 Ventral hernia without obstruction or gangrene; Z87.891 Personal history of nicotine dependence
CPT/HCPCS: 36415; 74177; 80053; 81003; 82150; 83690; 85025; 99285

== ENCOUNTER 2024-10-08 01:50 | Observation (INO) | payer MEDICARE ==
--- NOTE | 2024-10-08 02:07 | ED ---
Abdominal Pain HPI - General Source: patient, RN notes reviewed <Charisma Becerril - Last Filed: 10/08/24 03:19> <Italia Valenzuela - Last Filed: 10/08/24 06:12> - General Stated Complaint: abd pain Time Seen by Provider: 10/08/24 02:06 - History of Present Illness Initial Comments: 63-year-old female history of COPD with chronic hypoxia on 5 L nasal cannula presents emergency department via EMS for complaint of diffuse abdominal pain. Patient states that pain started at 11:00 while she was watching television. States the pain is diffuse with associated nausea. Denies associated chest pain , difficulty in breathing, diarrhea, constipation, hematochezia, melena, urinary complaints. Patient was provided with fentanyl en route and states that pain has now subsided. She reports that pain feels similar as when she was here about 2 weeks ago where she was diagnosed with diverticulitis. Patient said he completed full course of antibiotics for diverticulitis and symptoms resolved. (Charisma Becerril) - Related Data Home Medications Medication Instructions Recorded Confirmed Omeprazole [PriLOSEC] 40 mg PO DAILY 07/05/20 05/09/23 Montelukast [Singulair] 10 mg PO HS 10/30/20 05/09/23 Ergocalciferol [Vitamin D2 (1250 1,250 mcg PO MARCELINO 05/21/22 05/09/23 Mcg = [id number] Iu)] Levothyroxine Sodium [Synthroid] 50 mcg PO DAILY 05/21/22 05/09/23 metFORMIN HCL [Glucophage] 500 mg PO BID 05/21/22 05/09/23 Aspirin EC [Ecotrin Low Dose] 81 mg PO DAILY 05/09/23 05/09/23 HYDROcodone/APAP 7.5-325MG [[place] 1 tab PO Q4H PRN 05/09/23 05/09/23 7.5-325] Hydrocortisone Pr Cream 1 applic RECTAL TID PRN 05/09/23 05/09/23 [Proctosol-Hc 2.5%] Lidocaine Viscous 2% [Xylocaine 1 applic RECTAL QID PRN 05/09/23 05/09/23 Viscous] Multivitamins, Thera [Multivitamin 1 tab PO DAILY 05/09/23 05/09/23 (formulary)] Previous Rx's Medication Instructions Recorded Gabapentin [Neurontin] 200 mg PO BID #8 cap 08/25/21 Albuterol Sulfate [Albuterol 2 puff PO Q6H PRN #8.5 gm 05/11/23 Sulfate Hfa] Ipratropium-Albuterol Nebulize 3 ml INHALATION RT-QID #120 each 05/11/23 [Duoneb 0.5 mg-3 mg/3 ml Soln] predniSONE 50 mg PO DAILY #5 tablet 05/11/23 Amoxic-Pot Clav 875-125Mg 1 tab PO Q8H 5 Days #15 tab 09/16/24 [Augmentin 875-125] HYDROcodone/APAP 5-325MG [[place] 1 tab PO Q6HR PRN 3 Days #12 tab 09/16/24 5-325] Allergies Allergy/AdvReac Type Severity Reaction Status Date / Time morphine Allergy Itching Verified 10/08/24 02:17 Review of Systems ROS Other: All systems not noted in ROS Statement are negative. <Charisma Becerril - Last Filed: 10/08/24 03:19> ROS Other: All systems not noted in ROS Statement are negative. <Italia Valenzuela - Last Filed: 10/08/24 06:12> ROS Statement: Those systems with pertinent positive or pertinent negative responses have been documented in the HPI. Past Medical History Past Medical History: COPD, GERD/Reflux, Osteoarthritis (OA), Pneumonia Additional Past Medical History / Comment(s): migraines,, sinus and ear [id number] ear worse, severe arthritis bilateral knees, constipation, edema lower legs and feet, hemorrhoids, blood in stool at times, gallstones, History of Any Multi-Drug Resistant Organisms: None Reported Past Surgical History: Breast Surgery, Tubal Ligation Additional Past Surgical History / Comment(s): Rt breast biopsies, COLONOSCOPY Past Anesthesia/Blood Transfusion Reactions: Previous Problems w/ Anesthesia Additional Past Anesthesia/Blood Transfusion Reaction / Comment(s): states had diff waking up- "states stopped breathing for a couple seconds" with last colonocopy, "i need a pillow under my head" Past Psychological History: No Psychological Hx Reported Smoking Status: Former smoker Past Alcohol Use History: None Reported Past Drug Use History: None Reported - Past Family History Mother Family Medical History: No Reported History Additional Family Medical History / Comment(s): . Father History Unknown: Yes Family Medical History: Unable to Obtain <Charisma Becerril - Last Filed: 10/08/24 03:19> General Exam General appearance: alert, in no apparent distress ENT exam: Present: normal exam, mucous membranes moist Neck exam: Present: normal inspection. Absent: tenderness, meningismus, lymphadenopathy Respiratory exam: Present: normal lung sounds bilaterally. Absent: respiratory distress, wheezes, rales, rhonchi, stridor Cardiovascular Exam: Present: regular rate, normal rhythm, normal heart sounds. Absent: systolic murmur, diastolic murmur, rubs, gallop, clicks GI/Abdominal exam: Present: soft, distended, normal bowel sounds. Absent: tenderness, guarding, rebound, rigid Extremities exam: Present: normal inspection, full ROM, normal capillary refill. Absent: tenderness, pedal edema, joint swelling, calf tenderness Back exam: Present: normal inspection <Charisma Becerril - Last Filed: 10/08/24 03:19> Course Vital Signs 10/08/24 10/08/24 01:58 03:00 Temperature 97.8 F Pulse Rate 93 96 Respiratory 20 20 Rate Blood Pressure 129/82 138/88 O2 Sat by Pulse 97 96 Oximetry Medical Decision Making - Lab Data Result diagrams: 10/08/24 02:50 10/08/24 02:50 <Charisma Becerril - Last Filed: 10/08/24 03:19> - Lab Data Result diagrams: 10/08/24 02:50 10/08/24 02:50 <Italia Valenzuela - Last Filed: 10/08/24 06:12> - Medical Decision Making Was pt. sent in by a medical professional or institution (, PA, TITLE INSURANCE EXAMINER, urgent care, hospital, or fpc...) When possible be specific @ -[No] Did you speak to anyone other than the patient for history (EMS, parent, family, police, friend...)? What history was obtained from this source @ -[No] Did you review nursing and triage notes (agree or disagree)? Why? @ -[I reviewed and agree with nursing and triage notes] Were old charts reviewed (outside hosp., previous admission, EMS record, old EKG, old radiological studies, urgent care reports/EKG's, fpc records)? Report findings @ -Reviewed ER visit note from 09/16/2024 where she presented with sudden severe abdominal pain and CT scan findings were concerning for uncomplicated sigmoid diverticulitis and patient was discharged with Augmentin. Differential Diagnosis (chest pain, altered mental status, abdominal pain women, abdominal pain men, vaginal bleeding, weakness, fever, dyspnea, syncope, headache, dizziness, GI bleed, back pain, seizure, CVA, palpatations, mental health, musculoskeletal)? @ -Differential Abdominal Pain Women: Appendicitis, Cholecystitis, diverticulosis, ischemic bowel, pancreatitis, hepatitis, UTI, gastroenteritis, AAA, incarcerated hernia, bowel obstruction, constipation, inflammatory bowel, hepatitis, peptic ulcer disease, splenic infarction, perforated viscus, vulvitis, ovarian torsion, PID, kidney stone, placenta abruption, this is not meant to be an all-inclusive list EKG interpreted by me (3pts min.). @ -Completed at 216 sinus rhythm with a ventricular to 94, DE interval 184, QRS 88, QTc 409. X-rays interpreted by me (1pt min.). @ -[None done] CT interpreted by me (1pt min.). @ -[None done] U/S interpreted by me (1pt. min.). @ -[None done] What testing was considered but not performed or refused? (CT, X-rays, U/S, labs)? Why? @ -[None] What meds were considered but not given or refused? Why? @ -[None] Did you discuss the management of the patient with other professionals (professionals i.e. , PA, TITLE INSURANCE EXAMINER, lab, RT, psych nurse, adoption social worker, echocardiograph technician, teacher, credit administration officer, catalytic case operator)? Give summary @ -[No] Was smoking cessation discussed for >3mins.? @ -[No] Was critical care preformed (if so, how long)? @ -[No] Were there social determinants of health that impacted care today? How? (Homeles sness, low income, unemployed, alcoholism, drug addiction, transportation, low edu. Level, literacy, decrease access to med. care, fci, rehab)? @ -[No] Was there de-escalation of care discussed even if they declined (Discuss DNR or withdrawal of care, Hospice)? DNR status @ -[No] What co-morbidities impacted this encounter? (DM, HTN, Smoking, COPD, CAD, Cancer, CVA, ARF, Chemo, Hep., AIDS, mental health diagnosis, sleep apnea, morbid obesity)? @ -[None] Was patient admitted / discharged? Hospital course, mention meds given and route, prescriptions, significant lab abnormalities, going to OR and other pertinent info. @ -63-year-old female presenting via EMS for abdominal pain. Patient noted to have abdominal distention however states that this at her baseline. Additionally, patient is 5 L nasal cannula that is at her baseline as well and is satting at 97%. Laboratory testing remarkable for elevated CO2 of 38 that appears chronic for the patient likely secondary to chronic retention from COPD. Elevated glucose of 246. Undiagnosed new problem with uncertain prognosis? @ -[No] Drug Therapy requiring intensive monitoring for toxicity (Heparin, Nitro, Insulin, Cardizem)? @ -[No] Were any procedures done? @ -[No] Diagnosis/symptom? @ -[default] Acute, or Chronic, or Acute on Chronic? @ -[default] Uncomplicated (without systemic symptoms) or Complicated (systemic symptoms)? @ -[default] Side effects of treatment? @ -[No] Exacerbation, Progression, or Severe Exacerbation? @ -[No] Poses a threat to life or bodily function? How? (Chest pain, [place], [place], pneumonia, PE, COPD, DKA, ARF, appy, cholecystitis, CVA, Diverticulitis, Homicidal, Suicidal, threat to staff... and all critical care pts) @ -[No] (Charisma Becerril) Patient signed out to myself pending completion of CT scan. Briefly she is a 63-year-old female history of COPD on home 5 L oxygen nasal cannula presenting for abdominal pain. Recently completed 2 courses of antibiotic outpatient for diverticulitis. Lactic here 2.6, mild leukocytosis, CT scan continues to show diverticulitis. Plan for admission for failed outpatient treatment of diverticulitis, patient agreeable with POC. Ordered Zosyn. Case discussed with Dr. Knapp, kindly accepts patient for admission. (Italia Valenzuela) - Lab Data Lab Results 10/08/24 10/08/24 10/08/24 Range/Units 02:50 02:50 02:50 WBC 11.1 H (3.8-10.6) k/uL RBC 4.14 (3.80-5.40) m/uL Hgb 11.9 (11.4-16.0) gm/dL Hct 39.3 (34.0-46.0) % MCV 95.1 (80.0-100.0) fL MCH 28.8 (25.0-35.0) pg MCHC 30.3 L (31.0-37.0) g/dL RDW 15.9 H (11.5-15.5) % Plt Count 210 (150-450) k/uL MPV 7.7 Neutrophils % 84 % Lymphocytes % 9 % Monocytes % 5 % Eosinophils % 1 % Basophils % 1 % Neutrophils # 9.2 H (1.3-7.7) k/uL Lymphocytes # 1.0 (1.0-4.8) k/uL Monocytes # 0.6 (0-1.0) k/uL Eosinophils # 0.1 (0-0.7) k/uL Basophils # 0.1 (0-0.2) k/uL Hypochromasia Marked PT 10.4 (10.0-12.5) sec INR 0.9 (<1.2) APTT 22.3 (22.0-30.0) sec Sodium 139 (137-145) mmol/L Potassium 4.3 (3.5-5.1) mmol/L Chloride 95 L (98-107) mmol/L Carbon Dioxide 38 H (22-30) mmol/L Anion Gap 6 mmol/L BUN 25 H (7-17) mg/dL Creatinine 0.60 (0.52-1.04) mg/dL Est GFR (CKD-EPI)AfAm >90 (>60 ml/min/1.73 sqM) Est GFR (CKD-EPI)NonAf >90 (>60 ml/min/1.73 sqM) Glucose 246 H (74-99) mg/dL Lactic Ac Sepsis Rflx Plasma Lactic Acid [place] (0.7-2.0) mmol/L Calcium 9.3 (8.4-10.2) mg/dL Total Bilirubin 0.3 (0.2-1.3) mg/dL AST 20 (14-36) U/L ALT 31 (4-34) U/L Alkaline Phosphatase 115 (38-126) U/L Troponin I (0.000-0.034) ng/mL Total Protein 7.2 (6.3-8.2) g/dL Albumin 3.9 (3.5-5.0) g/dL Amylase 51 (30-110) U/L Lipase 141 (23-300) U/L Urine Color Urine Appearance (Clear) Urine pH (5.0-8.0) Ur Specific [place] (1.001-1.035) Urine Protein (Negative) Urine Glucose (UA) (Negative) Urine Ketones (Negative) Urine Blood (Negative) Urine Nitrite (Negative) Urine Bilirubin (Negative) Urine Urobilinogen (<2.0) mg/dL Ur Leukocyte Esterase (Negative) 10/08/24 10/08/24 10/08/24 Range/Units 02:50 02:50 03:31 WBC (3.8-10.6) k/uL RBC (3.80-5.40) m/uL Hgb (11.4-16.0) gm/dL Hct (34.0-46.0) % MCV (80.0-100.0) fL MCH (25.0-35.0) pg MCHC (31.0-37.0) g/dL RDW (11.5-15.5) % Plt Count (150-450) k/uL MPV Neutrophils % % Lymphocytes % % Monocytes % % Eosinophils % % Basophils % % Neutrophils # (1.3-7.7) k/uL Lymphocytes # (1.0-4.8) k/uL Monocytes # (0-1.0) k/uL Eosinophils # (0-0.7) k/uL Basophils # (0-0.2) k/uL Hypochromasia PT (10.0-12.5) sec INR (<1.2) APTT (22.0-30.0) sec Sodium (137-145) mmol/L Potassium (3.5-5.1) mmol/L Chloride (98-107) mmol/L Carbon Dioxide (22-30) mmol/L Anion Gap mmol/L BUN (7-17) mg/dL Creatinine (0.52-1.04) mg/dL Est GFR (CKD-EPI)AfAm (>60 ml/min/1.73 sqM) Est GFR (CKD-EPI)NonAf (>60 ml/min/1.73 sqM) Glucose (74-99) mg/dL Lactic Ac Sepsis Rflx Y Plasma Lactic Acid [place] 2.6 H* (0.7-2.0) mmol/L Calcium (8.4-10.2) mg/dL Total Bilirubin (0.2-1.3) mg/dL AST (14-36) U/L ALT (4-34) U/L Alkaline Phosphatase (38-126) U/L Troponin I <0.012 (0.000-0.034) ng/mL Total Protein (6.3-8.2) g/dL Albumin (3.5-5.0) g/dL Amylase (30-110) U/L Lipase (23-300) U/L Urine Color Urine Appearance (Clear) Urine pH (5.0-8.0) Ur Specific [place] (1.001-1.035) Urine Protein (Negative) Urine Glucose (UA) (Negative) Urine Ketones (Negative) Urine Blood (Negative) Urine Nitrite (Negative) Urine Bilirubin (Negative) Urine Urobilinogen (<2.0) mg/dL Ur Leukocyte Esterase (Negative) 10/08/24 Range/Units 04:15 WBC (3.8-10.6) k/uL RBC (3.80-5.40) m/uL Hgb (11.4-16.0) gm/dL Hct (34.0-46.0) % MCV (80.0-100.0) fL MCH (25.0-35.0) pg MCHC (31.0-37.0) g/dL RDW (11.5-15.5) % Plt Count (150-450) k/uL MPV Neutrophils % % Lymphocytes % % Monocytes % % Eosinophils % % Basophils % % Neutrophils # (1.3-7.7) k/uL Lymphocytes # (1.0-4.8) k/uL Monocytes # (0-1.0) k/uL Eosinophils # (0-0.7) k/uL Basophils # (0-0.2) k/uL Hypochromasia PT (10.0-12.5) sec INR (<1.2) APTT (22.0-30.0) sec Sodium (137-145) mmol/L Potassium (3.5-5.1) mmol/L Chloride (98-107) mmol/L Carbon Dioxide (22-30) mmol/L Anion Gap mmol/L BUN (7-17) mg/dL Creatinine (0.52-1.04) mg/dL Est GFR (CKD-EPI)AfAm (>60 ml/min/1.73 sqM) Est GFR (CKD-EPI)NonAf (>60 ml/min/1.73 sqM) Glucose (74-99) mg/dL Lactic Ac Sepsis Rflx Plasma Lactic Acid [place] (0.7-2.0) mmol/L Calcium (8.4-10.2) mg/dL Total Bilirubin (0.2-1.3) mg/dL AST (14-36) U/L ALT (4-34) U/L Alkaline Phosphatase (38-126) U/L Troponin I (0.000-0.034) ng/mL Total Protein (6.3-8.2) g/dL Albumin (3.5-5.0) g/dL Amylase (30-110) U/L Lipase (23-300) U/L Urine Color Light Yellow Urine Appearance Clear (Clear) Urine pH 5.5 (5.0-8.0) Ur Specific [place] 1.029 (1.001-1.035) Urine Protein Trace H (Negative) Urine Glucose (UA) 3+ H (Negative) Urine Ketones Trace H (Negative) Urine Blood Negative (Negative) Urine Nitrite Negative (Negative) Urine Bilirubin Negative (Negative) Urine Urobilinogen <2.0 (<2.0) mg/dL Ur Leukocyte Esterase Negative (Negative) Disposition <Charisma Becerril - Last Filed: 10/08/24 03:19> <Italia Valenzuela - Last Filed: 10/08/24 06:12> Clinical Impression: Acute diverticulitis Disposition: ADMITTED IP TO THIS HOSP Condition: Stable
[2024-10-08 03:03] LABS: Basophils # (A) 0.1 k/uL (0-0.2); Basophils % (A) 1 %; Eosinophils # (A) 0.1 k/uL (0-0.7); Eosinophils % (A) 1 %; HCT 39.3 % (34.0-46.0); HGB 11.9 gm/dL (11.4-16.0); Hypochromasia Marked; Lymphocytes % (A) 9 %; MCH 28.8 pg (25.0-35.0); MCHC 30.3 g/dL (31.0-37.0); MCV 95.1 fL (80.0-100.0); Mean Platelet Volume 7.7; Monocytes # (A) 0.6 k/uL (0-1.0); Monocytes % (A) 5 %; Neutrophils # (A) 9.2 k/uL (1.3-7.7); Neutrophils % (A) 84 %; Platelet Count 210 k/uL (150-450); RBC 4.14 m/uL (3.80-5.40); RDW 15.9 % (11.5-15.5); WBC 11.1 k/uL (3.8-10.6)
[2024-10-08 03:07] LABS: ALT 31 U/L (4-34); AST 20 U/L (14-36); African American GFR (CKD) >90 (>60 ml/min/1.73 sqM); Albumin 3.9 g/dL (3.5-5.0); Alkaline Phosphatase 115 U/L (38-126); Amylase 51 U/L (30-110); Anion Gap 6 mmol/L; Blood Urea Nitrogen 25 mg/dL (7-17); Calcium 9.3 mg/dL (8.4-10.2); Carbon Dioxide 38 mmol/L (22-30); Chloride 95 mmol/L (98-107); Glucose 246 mg/dL (74-99); Lipase 141 U/L (23-300); Non-African American GFR(CKD) >90 (>60 ml/min/1.73 sqM); Potassium 4.3 mmol/L (3.5-5.1); Sodium 139 mmol/L (137-145); Total Bilirubin 0.3 mg/dL (0.2-1.3); Total Protein 7.2 g/dL (6.3-8.2)
[2024-10-08 03:08] LABS: INR 0.9 (<1.2); Partial Thromboplastin Time 22.3 sec (22.0-30.0); Prothrombin Time 10.4 sec (10.0-12.5)
[2024-10-08] MEDS: SODIUM CHLORIDE 0.9% 1,000 ML IV STA (04:04)
[2024-10-08 04:18] LABS: Appearance,Urine Clear (Clear); Bilirubin,Urine Negative (Negative); Blood,Urine Negative (Negative); Color,Urine Light Yellow; Glucose,Urine (UA) 3+ (Negative); Ketones,Urine Trace (Negative); Leukocyte Esterase,Urine Negative (Negative); Nitrite,Urine Negative (Negative); PH, Urine 5.5 (5.0-8.0); Protein,Urine Trace (Negative); Specific Gravity,Urine 1.029 (1.001-1.035); Urobilinogen,Urine <2.0 mg/dL (<2.0)
--- NOTE | 2024-10-08 04:27 | CT ---
EXAM: CT Abdomen and Pelvis With Intravenous Contrast CLINICAL HISTORY: ITS.REASON CT Reason: abdominal pain TECHNIQUE: Axial computed tomography images of the abdomen and pelvis with intravenous contrast. CTDI is 67 mGy and DLP is 3529 mGy-cm. This CT exam was performed using one or more of the following dose reduction techniques: automated exposure control, adjustment of the mA and/or kV according to patient size, and/or use of iterative reconstruction technique. COMPARISON: No relevant prior studies available. FINDINGS: Lung bases: Unremarkable. No mass. No consolidation. Heart: Cardiomegaly. ABDOMEN: Liver: Unremarkable. No mass. Gallbladder and bile ducts: Unremarkable. No calcified stones. No ductal dilation. Pancreas: Unremarkable. No mass. No ductal dilation. Spleen: Unremarkable. No splenomegaly. Adrenals: Unremarkable. No mass. Kidneys and ureters: Unremarkable. No solid mass. No hydronephrosis. Stomach and bowel: Acute diverticulitis with diffuse annular thickening of the sigmoid colon with multiple inflamed diverticula and adjacent inflammatory change. No evidence of bowel obstruction or ileus. PELVIS: Appendix: Normal appendix. Bladder: Unremarkable. No mass. Reproductive: Unremarkable as visualized. ABDOMEN and PELVIS: Intraperitoneal space: Dependent fluid which is favored to be reactive in nature. No free air. Bones/joints: Degenerative changes in the spine. No acute fracture. No dislocation. Soft tissues: Umbilical hernia containing fat. Vasculature: Unremarkable. No abdominal aortic aneurysm. Lymph nodes: Unremarkable. No enlarged lymph nodes. Other findings: No evidence of perforation or abscess. IMPRESSION: 1. Acute diverticulitis with diffuse annular thickening of the sigmoid colon with multiple inflamed diverticula and adjacent inflammatory change. 2. No evidence of perforation or abscess. 3. Dependent fluid which is favored to be reactive in nature. 4. No evidence of bowel obstruction or ileus. 5. No other acute findings. <MYCVCSECTION> Communications: 10/08/24 04:44 Verify Receipt Verified receipt with RADHA Grover, given to Dr. Valenzuela on 10/08 04:43 (-04:00)
[2024-10-08] MEDS ORDERED: ALPRAZolam 0.25 MG TAB PO PRN (05:19)
[2024-10-08] MEDS ORDERED: ACETAMINOPHEN TAB 325 MG TAB PO PRN (05:19)
[2024-10-08] MEDS ORDERED: ONDANSETRON 4 MG/2 ML VIAL IVP PRN (05:19)
[2024-10-08] MEDS ORDERED: MAG HYDROX/AL HYDROX/SIMETH 30 ML CUP PO PRN (05:19)
[2024-10-08] MEDS ORDERED: NALOXONE 0.4 MG/ML 1 ML VIAL IV PRN (05:19)
[2024-10-08] MEDS ORDERED: fentaNYL (PF) 50 MCG/ML 2 ML AMP IVP PRN (05:21)
[2024-10-08] MEDS: PIPERACILLIN-TAZOBACTAM 3.375 GM in SODIUM CHLORIDE 0.9% 100 ML IVPB SCH (06:16)
[2024-10-08] MEDS: SODIUM CHLORIDE 0.9% 1,000 ML IV SCH (06:26)
[2024-10-08] MEDS ORDERED: DEXTROSE 50% SYRINGE 50 ML IVP PRN ×2 (08:08)
[2024-10-08] MEDS ORDERED: IPRATROPIUM-ALBUTEROL 3 ML NEB INHALATION PRN ×2 (08:09)
[2024-10-08] MEDS: HYDROmorphone 1 MG/ML 1 ML SYRINGE IVP PRN (08:35)
[2024-10-08] MEDS: ENOXAPARIN 40 MG/0.4 ML SYRINGE SQ SCH (08:36)
[2024-10-08] MEDS: MULTIVITAMINS, THERA 1 EACH TAB PO SCH (08:36)
[2024-10-08] MEDS: LEVOTHYROXINE 50 MCG TAB PO SCH (08:36)
[2024-10-08] MEDS: FAMOTIDINE 20 MG TAB PO SCH (08:36)
[2024-10-08] MEDS: PANTOPRAZOLE 40 MG TABLET PO SCH (08:36)
[2024-10-08] MEDS: MAGNESIUM OXIDE 400 MG TAB PO SCH (08:36)
[2024-10-08] MEDS: GABAPENTIN 100 MG CAP PO SCH (08:36)
[2024-10-08] MEDS: valACYclovir HCL 1,000 MG TABLET PO SCH (08:37)
[2024-10-08 11:45] LABS: Glucose,Whole Blood 137 mg/dL (70-110)
[2024-10-08] MEDS: INSULIN LISPRO (HumaLOG) 100 UNIT/ML 10 mL VL SQ SCH (11:53)
[2024-10-08] MEDS ORDERED: HYDROcodone/APAP 5-325MG 1 EACH TAB PO PRN (13:04)
--- NOTE | 2024-10-08 13:16 | P.HPIM ---
History of Present Illness H&P Date: 10/08/24 History of Presenting Illness: Patient is a very pleasant 63-year-old female with a past medical history of COPD with chronic hypoxic respiratory failure 5 L home oxygen dependent, obstructive sleep apnea but states refuses to wear CPAP/BiPAP, type II non-i nsulin-dependent diabetes mellitus, peripheral neuropathy, osteoarthritis in bilateral knees with chronic lower extremity edema on Lasix, GERD, and diverticulosis with previous episodes of diverticulitis. She presented to the emergency department with a complaint of diffuse abdominal pain accompanied by nausea. Patient reports symptoms similar to previous diagnosis of diverticulitis a few weeks ago in which she completed antibiotic course for followed by resolution of symptoms before again beginning last night. Upon arrival to our facility, patient underwent evaluation in the emergency depa rtment. Vital signs upon arrival show blood pressure 129/82, heart rate 93, respiratory rate 20, temp 97.8 F, and SpO2 of 97% on baseline 5 L O2. EKG was completed showing normal sinus rhythm at 96 bpm with T wave inversion in anterior leads V2 V3 otherwise no significant T wave or ST abnormalities noted. Labs completed and reviewed. CBC showing leukocytosis with WBC count of 11.1 otherwise normal findings. Coagulation profile normal findings. BMP showing metabolic alkalosis with chloride of 95, bicarb of 38, and anion gap of 6 and mild prerenal azotemia with BUN of 25 otherwise normal findings. Blood glucose was elevated at 246. An initial lactic acid elevated at 2.6. Liver profile was unremarkable. Amylase and lipase normal findings. Urinalysis negative for infection. CT abdomen and pelvis completed showing acute diverticulitis with diffuse annular thickening of the sigmoid colon with multiple inflamed diverticula and adjacent inflammatory changes with no evidence of perforation or abscess and dependent fluid which is favored to be reactive in nature no evidence of bowel obstruction or ileus and no other acute findings reported in the abdominal or pelvis region. Patient admitted under our services to observation unit. Patient tolerating clear liquid diet and denies any further episodes of nausea. Will advance to full liquid diet at this time and monitor how patient tolerates. Patient denies having any fevers, chills, diaphoresis, episodes of vomiting, hematemesis, melena, hematochezia, or experiencing any dizziness, lightheadedness, chest pain, palpitations, or shortness of breath. She denies having any urinary complaints. She reports improvement of abdominal pain since arrival to our facility and reports having a normal soft formed bowel movement t his morning. Review of systems: Pertinent positives and negatives as discussed in HPI, a complete review of systems was performed and all other systems are negative. Physical exam: Vital signs reviewed and stable. General: Nontoxic, no distress and appears stated age. Obese. Derm: Skin warm and dry, normal coloration for ethnicity. Head: Atraumatic, normocephalic and symmetric. Eyes: EOM's intact, no lid lag, and anicteric sclera Mouth: no lip lesions, mucus membranes moist Cardiovascular: regular rate and rhythm with normal S1S2, no murmur, positive posterior tibial pulses bilaterally, and cap refill < 2 seconds. Lungs: Respirations even, regular, and unlabored on room air. Lungs CTA bilaterally, no rhonchi, no rales, no wheezing, and no accessory muscle usage. Abdominal: soft distended, nontender to palpation, no guarding, no appreciable organomegaly. Large umbilical hernia. Ext: ROM intact. No gross muscle atrophy, no edema, no contractures Neuro: Speech clear, face symmetrical and CN II-XII grossly intact with no noted focal neuro deficits Psych: Alert and oriented to person, place, time, and situation. Appropriate and pleasant affect. Assessment and Plan of Care: Diverticulitis, failed outpatient treatment with Augmentin -Continue IV antibiotics with Zosyn 3.375 g every 8 hours and will plan on discharge home with Flagyl and ciprofloxacin. -Patient was tolerating clear liquid diet, diet advanced to full liquid and will monitor how patient tolerates and advance to low-fat diet prior to discharge. -Monitor output. -Symptomatic care and pain management. -Continue gentle IV fluid hydration with 0.9% normal saline at 75 cc/h will DC if patient tolerates full liquid diet. -GI prophylaxis with Protonix 40 mg daily. COPD with chronic hypoxic respiratory failure Obstructive sleep apnea -Patient reports using home Ventolin inhaler and states she has been prescribed other inhalers but refuses to use. -Patient reports obstructive sleep apnea but refuses to use CPAP/BiPAP because they make her feel claustrophobic. -Continue use of home oxygen 5 L and titrate as needed to maintain SpO2 of 90% or above. -Continue DuoNebs as needed for wheezing/shortness of breath. Type II [id number] diabetes mellitus with hyperglycemia -Hold metformin and patient placed on glycemic protocol with Humalog sliding scale. Chronic lower extremity pain secondary to severe osteoarthritis in knees Peripheral neuropathy -Continue current home pain medication regimen with [place] 5/325 mg tablets every 6 hours as needed for pain and gabapentin 200 mg twice daily. Morbid obesity with BMI of 47.0 kg/m -Recommend structured outpatient weight management program. Data and imaging reviewed: As stated above in HPI The patient is admitted with an anticipated less than 2 midnight stay for evaluation of diverticulitis CODE STATUS: Full code DVT prophylaxis: Lovenox Discussed with: ED provider, RN, and patient Anticipated discharge date: Likely within the next 24 hours pending how well patient tolerates advancement of diet and continued resolution of nausea Anticipated discharge place: Home Patient was seen independently by Nurse Practitioner. This document was prepared using [employer] dictation software. Please allow for errors in security trainer while rare they do occur. Joseph Curiel NP rendered care for this patient independently, reviewed the findings and plan as documented in the note above and agree with plan. I did not physically speak with or examine the patient on this date. Past Medical History Past Medical History: COPD, GERD/Reflux, Osteoarthritis (OA), Pneumonia Additional Past Medical History / Comment(s): migraines,, sinus and ear [id number] ear worse, severe arthritis bilateral knees, constipation, edema lower legs and feet, hemorrhoids, blood in stool at times, gallstones, History of Any Multi-Drug Resistant Organisms: None Reported Past Surgical History: Breast Surgery, Tubal Ligation Additional Past Surgical History / Comment(s): Rt breast biopsies, COLONOSCOPY Past Anesthesia/Blood Transfusion Reactions: Previous Problems w/ Anesthesia Additional Past Anesthesia/Blood Transfusion Reaction / Comment(s): states had diff waking up- "states stopped breathing for a couple seconds" with last colonocopy, "i need a pillow under my head" Past Psychological History: No Psychological Hx Reported Smoking Status: Former smoker Past Alcohol Use History: None Reported Past Drug Use History: None Reported - Past Family History Mother Family Medical History: No Reported History Additional Family Medical History / Comment(s): . Father History Unknown: Yes Family Medical History: Unable to Obtain Medications and Allergies Home Medications Medication Instructions Recorded Confirmed Type Omeprazole [PriLOSEC] 40 mg PO DAILY 07/05/20 10/08/24 History Gabapentin [Neurontin] 200 mg PO BID #8 cap 08/25/21 10/08/24 Rx Levothyroxine Sodium [Synthroid] 50 mcg PO DAILY 05/21/22 10/08/24 History metFORMIN HCL [Glucophage] 500 mg PO BID 05/21/22 10/08/24 History Multivitamins, Thera [Multivitamin 1 tab PO DAILY 05/09/23 10/08/24 History (formulary)] Furosemide [Lasix] 20 mg PO DAILY PRN 10/08/24 10/08/24 History HYDROcodone/APAP 5-325MG [[place] 1 tab PO QID PRN 10/08/24 10/08/24 History 5-325] Magnesium Oxide [Mag-Ox] 400 mg PO BID 10/08/24 10/08/24 History Nystatin 100,000Unit/gm Cream 1 applic TOPICAL BID PRN 10/08/24 10/08/24 History [Mycostatin Cream] Potassium Chloride ER [K-Dur 20] 20 meq PO BID 10/08/24 10/08/24 History valACYclovir HCL [Valtrex] 1,000 mg PO TID 10/08/24 10/08/24 History Allergies Allergy/AdvReac Type Severity Reaction Status Date / Time morphine Allergy Itching Verified 10/08/24 07:14 Physical Exam Vitals: Vital Signs Temp Pulse Resp BP Pulse Ox 10/08/24 06:29 98.6 F 98 18 147/82 95 10/08/24 03:00 96 20 138/88 96 10/08/24 01:58 97.8 F 93 20 129/82 97 Intake and Output 10/07/24 10/08/24 10/08/24 22:59 06:59 14:59 Other: Weight 136.078 kg Results CBC & Chem 7: 10/08/24 02:50 10/08/24 02:50 Labs: Abnormal Lab Results - Last 24 Hours (Table) 10/08/24 10/08/24 10/08/24 Range/Units 02:50 02:50 02:50 WBC 11.1 H (3.8-10.6) k/uL MCHC 30.3 L (31.0-37.0) g/dL RDW 15.9 H (11.5-15.5) % Neutrophils # 9.2 H (1.3-7.7) k/uL Chloride 95 L (98-107) mmol/L Carbon Dioxide 38 H (22-30) mmol/L BUN 25 H (7-17) mg/dL Glucose 246 H (74-99) mg/dL Plasma Lactic Acid [place] 2.6 H* (0.7-2.0) mmol/L Urine Protein (Negative) Urine Glucose (UA) (Negative) Urine Ketones (Negative) 10/08/24 Range/Units 04:15 WBC (3.8-10.6) k/uL MCHC (31.0-37.0) g/dL RDW (11.5-15.5) % Neutrophils # (1.3-7.7) k/uL Chloride (98-107) mmol/L Carbon Dioxide (22-30) mmol/L BUN (7-17) mg/dL Glucose (74-99) mg/dL Plasma Lactic Acid [place] (0.7-2.0) mmol/L Urine Protein Trace H (Negative) Urine Glucose (UA) 3+ H (Negative) Urine Ketones Trace H (Negative)
[2024-10-08 15:22] VITALS: BP 135/88; PULSE 84; RESP 20; TEMP 98.6
[2024-10-08 16:56] LABS: Glucose,Whole Blood 162 mg/dL (70-110)
--- NOTE | 2024-10-08 18:18 | P.DS ---
Providers Date of admission: 10/08/24 05:21 Expected date of discharge: 10/08/24 Attending physician: Dwaine Knapp MD Primary care physician: José Lacy [facility] Course: Discharge Diagnosis: Diverticulitis, failed outpatient treatment with Augmentin. Patient's diet was advanced to regular low-fat diet and she tolerated well. Upon follow-up at bedside, patient reported improvement of abdominal pain, normal bowel movement, and denied any further episodes of nausea or vomiting. Patient requested discharge. Patient discharged home on 10-day course of ciprofloxacin and Flagyl for treatment of acute diverticulitis after failing treatment with Augmentin. Patient instructed she will need to follow-up outpatient with her PCP in 1 to 2 days and recommend outpatient follow-up with strap machine operator automatic in 2 weeks. COPD with chronic hypoxic respiratory failure. Continue use of home oxygen at 5 L with Ventolin inhaler as needed for shortness of breath and/or wheezing. Obstructive sleep apnea. Patient states she refuses to use a CPAP/BiPAP because they make her feel claustrophobic, patient was up dated and educated on different masks including nasal mask and encouraged to follow-up with her tank cooper for evaluation. Type II ebu-dxgupjf-znnxcbdly diabetes mellitus with hyperglycemia. Resume metformin 500 mg twice daily. Chronic lower extremity pain secondary to severe osteoarthritis in knees. Continue current home pain medication regimen with [place] 5/325 mg tablets every 6 hours as needed for pain and gabapentin 200 mg twice daily. Peripheral neuropathy. Continue current home pain medication regimen with [place] 5/325 mg tablets every 6 hours as needed for pain and gabapentin 200 mg twice daily. Morbid obesity with BMI of 47.0 kg/m Recommend structured outpatient weight management program. Hospital Course: Patient is a very pleasant 63-year-old female with a past medical history of COPD with chronic hypoxic respiratory failure 5 L home oxygen dependent, obstructive sleep apnea but states refuses to wear CPAP/BiPAP, type II hou-jnmhxjl-tpyygwjev diabetes mellitus, peripheral neuropathy, osteoarthritis in bilateral knees with chronic lower extremity edema on Lasix, GERD, and diverticulosis with previous episodes of diverticulitis. She presented to the emergency department with a complaint of diffuse abdominal pain accompanied by nausea. Patient reports symptoms similar to previous diagnosis of diverticulitis a few weeks ago in which she completed antibiotic course for followed by resolution of symptoms before again beginning last night. Upon arrival to our facility, patient underwent evaluation in the emergency department. Vital signs upon arrival show blood pressure 129/82, heart rate 93, respiratory rate 20, temp 97.8 F, and SpO2 of 97% on baseline 5 L O2. EKG was completed showing normal sinus rhythm at 96 bpm with T wave inversion in anterior leads V2 V3 otherwise no significant T wave or ST abnormalities noted. Labs completed and reviewed. CBC showing leukocytosis with WBC count of 11.1 otherwise normal findings. Coagulation profile normal findings. BMP showing metabolic alkalosis with chloride of 95, bicarb of 38, and anion gap of 6 and mild prerenal azotemia with BUN of 25 otherwise normal findings. Blood glucose was elevated at 246. An initial lactic acid elevated at 2.6. Liver profile was unremarkable. Amylase and lipase normal findings. Urinalysis negative for infection. CT abdomen and pelvis completed showing acute diverticulitis with diffuse annular thickening of the sigmoid colon with multiple inflamed diverticula and adjacent inflammatory changes with no evidence of perforation or abscess and dependent fluid which is favored to be reactive in nature no evidence of bowel obstruction or ileus and no other acute findings reported in the abdominal or pelvis region. Patient admitted under our services to observation unit. Patient tolerating clear liquid diet and denies any further episodes of nausea. Requested to have diet advanced. Will advance to full liquid diet at this time and monitor how patient tolerates. Patient denies having any fevers, chills, diaphoresis, episodes of vomiting, hematemesis, melena, hematochezia, or experiencing any dizziness, lightheadedness, chest pain, palpitations, or shortness of breath. She denies having any urinary complaints. She reports improvement of abdominal pain since arrival to our facility and reports having a normal soft formed bowel movement this morning. Patient's diet was advanced to regular low-fat diet and she tolerated well. Upon follow-up at bedside, patient reported improvement of abdominal pain, normal bowel movement, and denied any further episodes of nausea or vomiting. Patient requested discharge. Patient discharged home on 10-day course of ciprofloxacin and Flagyl for treatment of acute diverticulitis after failing treatment with Augmentin. Patient instructed she will need to follow-up outpatient with her PCP in 1 to 2 days and recommend outpatient follow-up with strap machine operator automatic in 2 weeks. Physical exam: Vital signs reviewed and stable. General: Nontoxic, no distress and appears stated age. Obese. Derm: Skin warm and dry, normal coloration for ethnicity. Head: Atraumatic, normocephalic and symmetric. Eyes: EOM's intact, no lid lag, and anicteric sclera Mouth: no lip lesions, mucus membranes moist Cardiovascular: regular rate and rhythm with normal S1S2, no murmur, positive posterior tibial pulses bilaterally, and cap refill < 2 seconds. Lungs: Respirations even, regular, and unlabored on room air. Lungs CTA bilaterally, no rhonchi, no rales, no wheezing, and no accessory muscle usage. Abdominal: soft distended, nontender to palpation, no guarding, no appreciable organomegaly. Large umbilical hernia. Ext: ROM intact. No gross muscle atrophy, no edema, no contractures Neuro: Speech clear, face symmetrical and CN II-XII grossly intact with no noted focal neuro deficits Psych: Alert and oriented to person, place, time, and situation. Appropriate and pleasant affect. A total of 33 minutes of time were spent preparing this complex discharge summary. Pt was discharged on 10/08/24 at 5:37 PM. Patient was seen independently by Nurse Practitioner. This document was prepared using [employer] dictation software. Please allow for errors in account technician while rare they do occur. Joseph Curiel NP rendered care for this patient independently, reviewed the findings and plan as documented in the note above. I did not physically speak with or examine the patient on this date. Patient Condition at Discharge: Stable Plan - Discharge Summary Discharge Rx Participant: No New Discharge Prescriptions: New Ciprofloxacin HCl [Cipro] 500 mg PO Q12HR 10 Days #20 tab metroNIDAZOLE [Flagyl] 500 mg PO TID 10 Days #30 tab Continue Omeprazole [PriLOSEC] 40 mg PO DAILY metFORMIN HCL [Glucophage] 500 mg PO BID Levothyroxine Sodium [Synthroid] 50 mcg PO DAILY Multivitamins, Thera [Multivitamin (formulary)] 1 tab PO DAILY Potassium Chloride ER [K-Dur 20] 20 meq PO BID Magnesium Oxide [Mag-Ox] 400 mg PO BID valACYclovir HCL [Valtrex] 1,000 mg PO TID Nystatin 100,000Unit/gm Cream [Mycostatin Cream] 1 applic TOPICAL BID PRN PRN Reason: Skin Irritation HYDROcodone/APAP 5-325MG [[place] 5-325] 1 tab PO QID PRN PRN Reason: Pain Gabapentin [Neurontin] 200 mg PO BID #8 cap Furosemide [Lasix] 20 mg PO DAILY PRN PRN Reason: Edema Discharge Medication List Omeprazole [PriLOSEC] 40 mg PO DAILY 07/05/20 [History] Gabapentin [Neurontin] 200 mg PO BID #8 cap 08/25/21 [Rx] Levothyroxine Sodium [Synthroid] 50 mcg PO DAILY 05/21/22 [History] metFORMIN HCL [Glucophage] 500 mg PO BID 05/21/22 [History] Multivitamins, Thera [Multivitamin (formulary)] 1 tab PO DAILY 05/09/23 [History] Ciprofloxacin HCl [Cipro] 500 mg PO Q12HR 10 Days #20 tab 10/08/24 [Rx] Furosemide [Lasix] 20 mg PO DAILY PRN 10/08/24 [History] HYDROcodone/APAP 5-325MG [[place] 5-325] 1 tab PO QID PRN 10/08/24 [History] Magnesium Oxide [Mag-Ox] 400 mg PO BID 10/08/24 [History] Nystatin 100,000Unit/gm Cream [Mycostatin Cream] 1 applic TOPICAL BID PRN 10/08/24 [History] Potassium Chloride ER [K-Dur 20] 20 meq PO BID 10/08/24 [History] metroNIDAZOLE [Flagyl] 500 mg PO TID 10 Days #30 tab 10/08/24 [Rx] valACYclovir HCL [Valtrex] 1,000 mg PO TID 10/08/24 [History] Follow up Appointment(s)/Referral(s): Lillian Baeza MD [STAFF PHYSICIAN] - 2 Weeks José Lacy DO [Primary Care Provider] - 1-2 days Patient Instructions/Handouts: Diverticulitis (DC), Diverticulitis Diet (DC) Activity/Diet/Wound Care/Special Instructions: Activity: As tolerated. Diet: Please follow diverticulitis diet as attached consisting of low fiber foods, clear liquids, and recommend yogurt or cottage cheese to reintroduce healthy bacteria's to your bowels. Please wait at least 3 to 4 days prior to reintroducing raw vegetables, cooked grains, or red meat into your diet. Special Instructions: Take all of your medications as directed and remember to keep all of your doctor's appointments and follow-up as needed. Thank you for allowing us to participate in your care, it was truly a pleasure having you for our patient!!! Discharge Disposition: HOME SELF-CARE
== END 2024-10-08 18:33 | disposition home or self-care (01) ==
LOC: EC 01:50 → 1SOBS 05:21
PROVIDERS: ADMIT Internal Medicine; ATTEND Internal Medicine
DX: K57.32 Diverticulitis of large intestine without perforation or abscess without bleeding (principal); E11.40 Type 2 diabetes mellitus with diabetic neuropathy, unspecified; E11.65 Type 2 diabetes mellitus with hyperglycemia; E66.01 Morbid (severe) obesity due to excess calories; E87.3 Alkalosis; G47.33 Obstructive sleep apnea (adult) (pediatric); J44.9 Chronic obstructive pulmonary disease, unspecified; J96.11 Chronic respiratory failure with hypoxia; K21.9 Gastro-esophageal reflux disease without esophagitis; M17.0 Bilateral primary osteoarthritis of knee; R60.0 Localized edema; Z68.42 Body mass index [BMI] 45.0-49.9, adult; Z79.82 Long term (current) use of aspirin; Z79.84 Long term (current) use of oral hypoglycemic drugs; Z79.890 Hormone replacement therapy; Z79.899 Other long term (current) drug therapy; Z87.891 Personal history of nicotine dependence; Z99.81 Dependence on supplemental oxygen; Z88.5 Allergy status to narcotic agent
CPT/HCPCS: 96365; 96366; 96372; 96375; 96361; 99285; 36415; 93005; 80053; 82150; 83605; 83690; 84484; 85025; 85610; 85730; 81003; 87040; 74177; G0378; J2543; J1650; J1171; Q9967

== ENCOUNTER 2024-10-10 05:23 | Emergency (ER) | payer MEDICARE ==
[2024-10-10 05:29] VITALS: TEMP 98.1
[2024-10-10 05:43] LABS: Basophils % (A) 0 %; Eosinophils # (A) 0.2 k/uL (0-0.7); Eosinophils % (A) 3 %; HCT 38.6 % (34.0-46.0); HGB 11.8 gm/dL (11.4-16.0); Hypochromasia Marked; Lymphocytes # (A) 1.5 k/uL (1.0-4.8); Lymphocytes % (A) 18 %; MCH 28.2 pg (25.0-35.0); MCHC 30.4 g/dL (31.0-37.0); MCV 92.5 fL (80.0-100.0); Mean Platelet Volume 7.3; Monocytes # (A) 0.5 k/uL (0-1.0); Monocytes % (A) 6 %; Neutrophils # (A) 5.8 k/uL (1.3-7.7); Neutrophils % (A) 71 %; Platelet Count 206 k/uL (150-450); RBC 4.17 m/uL (3.80-5.40); RDW 15.9 % (11.5-15.5); WBC 8.2 k/uL (3.8-10.6)
--- NOTE | 2024-10-10 05:43 | ED ---
General Adult HPI - General Source: patient, EMS, RN notes reviewed, old records reviewed Mode of arrival: EMS Limitations: no limitations <Joe Desai - Last Filed: 10/10/24 06:20> <Constantino Abraham - Last Filed: 10/10/24 09:25> - General Chief complaint: Nausea/Vomiting/Diarrhea Stated complaint: Abd pain Time Seen by Provider: 10/10/24 05:24 - History of Present Illness Initial comments: 63-year-old female recently diagnosed with diverticulitis, discharged from this institution 1 day ago presents for evaluation of an episode of abdominal pain, cramping, nausea. Patient states this occurred after she ate. This was generalized and has currently resolved although she did receive Toradol by paramedics during transport. No fever. She is taking antibiotics as prescribed. (Joe Desai) - Related Data Home Medications Medication Instructions Recorded Confirmed Omeprazole [PriLOSEC] 40 mg PO DAILY 07/05/20 10/08/24 Levothyroxine Sodium [Synthroid] 50 mcg PO DAILY 05/21/22 10/08/24 metFORMIN HCL [Glucophage] 500 mg PO BID 05/21/22 10/08/24 Multivitamins, Thera [Multivitamin 1 tab PO DAILY 05/09/23 10/08/24 (formulary)] Furosemide [Lasix] 20 mg PO DAILY PRN 10/08/24 10/08/24 HYDROcodone/APAP 5-325MG [[place] 1 tab PO QID PRN 10/08/24 10/08/24 5-325] Magnesium Oxide [Mag-Ox] 400 mg PO BID 10/08/24 10/08/24 Nystatin 100,000Unit/gm Cream 1 applic TOPICAL BID PRN 10/08/24 10/08/24 [Mycostatin Cream] Potassium Chloride ER [K-Dur 20] 20 meq PO BID 10/08/24 10/08/24 valACYclovir HCL [Valtrex] 1,000 mg PO TID 10/08/24 10/08/24 Previous Rx's Medication Instructions Recorded Gabapentin [Neurontin] 200 mg PO BID #8 cap 08/25/21 Ciprofloxacin HCl [Cipro] 500 mg PO Q12HR 10 Days #20 tab 10/08/24 metroNIDAZOLE [Flagyl] 500 mg PO TID 10 Days #30 tab 10/08/24 Allergies Allergy/AdvReac Type Severity Reaction Status Date / Time morphine Allergy Itching Verified 10/10/24 05:29 Review of Systems ROS Other: All systems not noted in ROS Statement are negative. <Joe Desai Theresa - Last Filed: 10/10/24 06:20> ROS Other: All systems not noted in ROS Statement are negative. <Constantino Abraham - Last Filed: 10/10/24 09:25> ROS Statement: Those systems with pertinent positive or pertinent negative responses have been documented in the HPI. Past Medical History Past Medical History: COPD, Diabetes Mellitus, GERD/Reflux, Osteoarthritis (OA), Pneumonia Additional Past Medical History / Comment(s): migraines, sinus and ear [id number] ear worse, severe arthritis bilateral knees, constipation, edema lower legs and feet, hemorrhoids, blood in stool at times, gallstones, recent diverticulitis History of Any Multi-Drug Resistant Organisms: None Reported Past Surgical History: Breast Surgery, Tubal Ligation Additional Past Surgical History / Comment(s): Rt breast biopsies, COLONOSCOPY, mole removals Past Anesthesia/Blood Transfusion Reactions: Previous Problems w/ Anesthesia Additional Past Anesthesia/Blood Transfusion Reaction / Comment(s): states had diff waking up- "states stopped breathing for a couple seconds" with last colonocopy, "i need a pillow under my head" Past Psychological History: No Psychological Hx Reported Smoking Status: Former smoker Past Alcohol Use History: None Reported Past Drug Use History: None Reported - Past Family History Mother Family Medical History: No Reported History Additional Family Medical History / Comment(s): . Father History Unknown: Yes Family Medical History: Unable to Obtain <Joe Desai Theresa - Last Filed: 10/10/24 06:20> General Exam Limitations: no limitations General appearance: alert, in no apparent distress Head exam: Present: atraumatic, normocephalic Eye exam: Present: normal appearance, PERRL ENT exam: Present: normal exam Neck exam: Present: normal inspection. Absent: tenderness, meningismus Respiratory exam: Present: normal lung sounds bilaterally. Absent: respiratory distress, wheezes Cardiovascular Exam: Present: regular rate, normal rhythm GI/Abdominal exam: Present: soft, distended, hernia. Absent: tenderness, guarding, rebound Extremities exam: Present: normal inspection Neurological exam: Present: alert, oriented X3, CN II-XII intact. Absent: motor sensory deficit Psychiatric exam: Present: normal affect, normal mood Skin exam: Present: warm, dry, intact <Joe Desai - Last Filed: 10/10/24 06:20> Course Vital Signs 10/10/24 10/10/24 10/10/24 05:26 06:11 07:42 Temperature 98.1 F Pulse Rate 85 94 90 Respiratory 18 18 16 Rate Blood Pressure 136/83 121/78 130/81 O2 Sat by Pulse 96 94 L 96 Oximetry Medical Decision Making - Lab Data Result diagrams: 10/10/24 05:34 10/10/24 05:34 <Joe Desai Theresa - Last Filed: 10/10/24 06:20> - Lab Data Result diagrams: 10/10/24 05:34 10/10/24 05:34 <Constantino Abraham - Last Filed: 10/10/24 09:25> - Medical Decision Making Was pt. sent in by a medical professional or institution (Dr. PA, PANTOGRAPH MACHINE OPERATOR, urgent care, hospital, or longterm...) When possible be specific @ -No Did you speak to anyone other than the patient for history (EMS, parent, family, police, friend...)? What history was obtained from this source @ -No Did you review nursing and triage notes (agree or disagree)? Why? @ -I reviewed and agree with nursing and triage notes Were old charts reviewed (outside hosp., previous admission, EMS record, old EKG, old radiological studies, urgent care reports/EKG's, longterm records)? Report findings @ -No old charts were reviewed Differential Abdominal Pain Women: Appendicitis, Cholecystitis, diverticulosis, ischemic bowel, pancreatitis, hepatitis, UTI, gastroenteritis, AAA, incarcerated hernia, bowel obstruction, constipation, inflammatory bowel, hepatitis, peptic ulcer disease, splenic infarction, perforated viscus, vulvitis, ovarian torsion, PID, kidney stone, placenta abruption, this is not meant to be an all-inclusive list EKG interpreted by me (3pts min.). @ -As above X-rays interpreted by me (1pt min.). @ -None done CT interpreted by me (1pt min.). @ -CT abdomen pelvis ordered, results pending U/S interpreted by me (1pt. min.). @ -None done What testing was considered but not performed or refused? (CT, X-rays, U/S, labs)? Why? @ -None What meds were considered but not given or refused? Why? @ -None Did you discuss the management of the patient with other professionals (professionals i.e. , PA, PANTOGRAPH MACHINE OPERATOR, lab, RT, psych nurse, home health care social worker, batting machine operator insulation, teacher, optics technical officer, housing case manager)? Give summary @ -No Was smoking cessation discussed for >3mins.? @ -No Was critical care preformed (if so, how long)? @ -No Were there social determinants of health that impacted care today? How? (Homelessness, low income, unemployed, alcoholism, drug addiction, transportation, low edu. Level, literacy, decrease access to med. care, nursing home, rehab)? @ -No Was there de-escalation of care discussed even if they declined (Discuss DNR or withdrawal of care, Hospice)? DNR status @ -No What co-morbidities impacted this encounter? (DM, HTN, Smoking, COPD, CAD, Cancer, CVA, ARF, Chemo, Hep., AIDS, mental health diagnosis, sleep apnea, morbid obesity)? @Oxygen dependent, recent diagnosis of diverticulitis. Was patient admitted / discharged? Hospital course, mention meds given and route, prescriptions, significant lab abnormalities, going to OR and other pertinent info. @ -63-year-old female presenting for evaluation of abdominal pain, recent diagnosis of diverticulitis. Patient care signed out at shift change awaiting CT imaging and reevaluation. Undiagnosed new problem with uncertain prognosis? @ -No Drug Therapy requiring intensive monitoring for toxicity (Heparin, Nitro, Insulin, Cardizem)? @ -No Were any procedures done? @ -No Diagnosis/symptom? @ -Default Acute, or Chronic, or Acute on Chronic? @ -Default Uncomplicated (without systemic symptoms) or Complicated (systemic symptoms)? @ -Default Side effects of treatment? @ -No Exacerbation, Progression, or Severe Exacerbation? @ -No Poses a threat to life or bodily function? How? (Chest pain, USA, CA, pneumonia, PE, COPD, DKA, ARF, appy, cholecystitis, CVA, Diverticulitis, Homicidal, Suicidal, threat to staff... and all critical care pts) @ -No (Joe Desai) Was patient admitted / discharged? Hospital course, mention meds given and route, prescriptions, significant lab abnormalities, going to OR and other pertinent info. @ -Patient's CT scan was interpreted by myself that showed decreased inflammat ion and likely improvement of diverticulitis Undiagnosed new problem with uncertain prognosis? @ -No Drug Therapy requiring intensive monitoring for toxicity (Heparin, Nitro, Insulin, Cardizem)? @ -No Were any procedures done? @ -No Diagnosis/symptom? @ -Diverticulitis Acute, or Chronic, or Acute on Chronic? @ -Acute Uncomplicated (without systemic symptoms) or Complicated (systemic symptoms)? @ -Complicated Side effects of treatment? @ -No Exacerbation, Progression, or Severe Exacerbation? @ -No Poses a threat to life or bodily function? How? (Chest pain, USA, CA, pneumonia, PE, COPD, DKA, ARF, appy, cholecystitis, CVA, Diverticulitis, Homicidal, Suicidal, threat to staff... and all critical care nopts) @ -No (Constantino Abraham) - Lab Data Lab Results 10/10/24 10/10/24 10/10/24 Range/Units 05:34 05:34 05:34 WBC 8.2 (3.8-10.6) k/uL RBC 4.17 (3.80-5.40) m/uL Hgb 11.8 (11.4-16.0) gm/dL Hct 38.6 (34.0-46.0) % MCV 92.5 (80.0-100.0) fL MCH 28.2 (25.0-35.0) pg MCHC 30.4 L (31.0-37.0) g/dL RDW 15.9 H (11.5-15.5) % Plt Count 206 (150-450) k/uL MPV 7.3 Neutrophils % 71 % Lymphocytes % 18 % Monocytes % 6 % Eosinophils % 3 % Basophils % 0 % Neutrophils # 5.8 (1.3-7.7) k/uL Lymphocytes # 1.5 (1.0-4.8) k/uL Monocytes # 0.5 (0-1.0) k/uL Eosinophils # 0.2 (0-0.7) k/uL Basophils # 0.0 (0-0.2) k/uL Hypochromasia Marked Sodium 137 (137-145) mmol/L Potassium 4.2 (3.5-5.1) mmol/L Chloride 94 L (98-107) mmol/L Carbon Dioxide 39 H (22-30) mmol/L Anion Gap 4 mmol/L BUN 10 (7-17) mg/dL Creatinine 0.44 L (0.52-1.04) mg/dL Est GFR (CKD-EPI)AfAm >90 (>60 ml/min/1.73 sqM) Est GFR (CKD-EPI)NonAf >90 (>60 ml/min/1.73 sqM) Glucose 163 H (74-99) mg/dL Lactic Ac Sepsis Rflx Plasma Lactic Acid Sandoval 2.4 H* (0.7-2.0) mmol/L Calcium 9.6 (8.4-10.2) mg/dL Total Bilirubin 0.4 (0.2-1.3) mg/dL AST 24 (14-36) U/L ALT 30 (4-34) U/L Alkaline Phosphatase 96 (38-126) U/L Total Protein 7.1 (6.3-8.2) g/dL Albumin 4.0 (3.5-5.0) g/dL Lipase 115 (23-300) U/L 10/10/24 Range/Units 06:02 WBC (3.8-10.6) k/uL RBC (3.80-5.40) m/uL Hgb (11.4-16.0) gm/dL Hct (34.0-46.0) % MCV (80.0-100.0) fL MCH (25.0-35.0) pg MCHC (31.0-37.0) g/dL RDW (11.5-15.5) % Plt Count (150-450) k/uL MPV Neutrophils % % Lymphocytes % % Monocytes % % Eosinophils % % Basophils % % Neutrophils # (1.3-7.7) k/uL Lymphocytes # (1.0-4.8) k/uL Monocytes # (0-1.0) k/uL Eosinophils # (0-0.7) k/uL Basophils # (0-0.2) k/uL Hypochromasia Sodium (137-145) mmol/L Potassium (3.5-5.1) mmol/L Chloride (98-107) mmol/L Carbon Dioxide (22-30) mmol/L Anion Gap mmol/L BUN (7-17) mg/dL Creatinine (0.52-1.04) mg/dL Est GFR (CKD-EPI)AfAm (>60 ml/min/1.73 sqM) Est GFR (CKD-EPI)NonAf (>60 ml/min/1.73 sqM) Glucose (74-99) mg/dL Lactic Ac Sepsis Rflx Y Plasma Lactic Acid Sand[place] (0.7-2.0) mmol/L Calcium (8.4-10.2) mg/dL Total Bilirubin (0.2-1.3) mg/dL AST (14-36) U/L ALT (4-34) U/L Alkaline Phosphatase (38-126) U/L Total Protein (6.3-8.2) g/dL Albumin (3.5-5.0) g/dL Lipase (23-300) U/L Disposition <Joe Desai - Last Filed: 10/10/24 06:20> Is patient prescribed a controlled substance at d/c from ED?: No Time of Disposition: 09:25 <Constantino Abraham - Last Filed: 10/10/24 09:25> Clinical Impression: Diverticulitis Disposition: HOME SELF-CARE Condition: Good Instructions (If sedation given, give patient instructions): Diverticulitis (ED) Referrals: José Lacy DO [Primary Care Provider] - 1-2 days
[2024-10-10 05:54] LABS: ALT 30 U/L (4-34); AST 24 U/L (14-36); African American GFR (CKD) >90 (>60 ml/min/1.73 sqM); Alkaline Phosphatase 96 U/L (38-126); Anion Gap 4 mmol/L; Blood Urea Nitrogen 10 mg/dL (7-17); Calcium 9.6 mg/dL (8.4-10.2); Carbon Dioxide 39 mmol/L (22-30); Chloride 94 mmol/L (98-107); Glucose 163 mg/dL (74-99); Lipase 115 U/L (23-300); Non-African American GFR(CKD) >90 (>60 ml/min/1.73 sqM); Potassium 4.2 mmol/L (3.5-5.1); Sodium 137 mmol/L (137-145); Total Bilirubin 0.4 mg/dL (0.2-1.3); Total Protein 7.1 g/dL (6.3-8.2)
[2024-10-10] MEDS: SODIUM CHLORIDE 0.9% 500 ML 500 ML IV ONE (06:08)
[2024-10-10 07:46] VITALS: RESP 16
--- NOTE | 2024-10-10 08:10 | CT ---
EXAMINATION TYPE: CT abdomen pelvis w con DATE OF EXAM: 10/10/2024 7:54 AM COMPARISON: 10/08/2024 CLINICAL INDICATION: Female, 63 years old with history of Ab Pain, recent diverticulitis, Ab Pain and nausea, recent diverticulitis. TECHNIQUE: Axial images were obtained from above the diaphragm to the pubic rami in the axial plane a t 5 mm thick sections. Reconstructed images are reviewed on the computer in the coronal plane. CONTRAST: 100ml mL of Isovue 300. Study performed without Oral Contrast DLP: 3158 mGycm, Automated exposure control for dose reduction was used. FINDINGS: Limited CT sections are obtained the lung bases. The lung bases are clear. Coronary artery calcific ation is present. CT ABDOMEN: Anterior abdominal wall hernias are present in the epigastric region containing mesenteri c fat in the left periumbilical region containing mesenteric fat. No loops of bowel are involved Liver: Normal Spleen: Normal Pancreas: Normal Adrenal glands: The adrenal glands are normal. Gallbladder: Not clearly identified. This may be contracted correlate with the surgical history. Kidneys: No masses are evident. No hydronephrosis is present. No cysts are present. Delayed images were obtained through the kidneys, which remain unremarkable. Aorta: Normal Inferior vena cava: Normal. CT PELVIS: There is some diverticuli within the proximal sigmoid colon. Mild adjacent inflammatory changes are e vident. No free air is evident. No abscess formation is identified. Findings are improving from tyrone rison study remaining loops of bowel appear unremarkable. Study is without oral contrast limiting dell luation. Appendix: Normal as visualized. Urinary bladder: Normal. Genitourinary structures: Uterus is normal. Adnexa are unremarkable. Osseous structures: No suspicious lytic or sclerotic lesions. Mild grade 1 spondylolisthesis of L5 an terior to S1 is present. Degenerative disc changes are within the lumbar spine and lower thoracic spi ne. Scoliosis is present. IMPRESSION: 1. Improving mild diverticulitis proximal sigmoid colon. No free air or abscess formation evident. [facility], , 10/10/2024 8:07 AM
[2024-10-10 09:38] VITALS: BP 118/72; PULSE 101
== END 2024-10-10 09:38 | disposition home or self-care (01) ==
LOC: EC 05:23
DX: K57.32 Diverticulitis of large intestine without perforation or abscess without bleeding (principal); Z99.81 Dependence on supplemental oxygen; Z87.891 Personal history of nicotine dependence; Z88.5 Allergy status to narcotic agent
CPT/HCPCS: 36415; 80053; 83605; 83690; 85025; 74177; 99284; 96360; Q9967

== ENCOUNTER 2024-10-18 10:56 | Observation (INO) | payer MEDICARE, OTHER ==
--- NOTE | 2024-10-18 11:29 | ED ---
General Adult HPI - General Chief complaint: Abdominal Pain Stated complaint: Abd pain Time Seen by Provider: 10/18/24 11:09 Source: patient, RN notes reviewed Mode of arrival: wheelchair Limitations: no limitations - History of Present Illness Initial comments: 64-year-old female presents to the emergency department for evaluation of left lower abdominal pain. Patient states that this started this morning. She notes it is been a constant sharp stabbing pain. She denies any recent fever, chills. Admits to nausea without vomiting. She reports a normal bowel movement this morning. She does note that she has been dealing with diverticulitis frequently and just finished antibiotics for this today. She does note that the pain feels the same as her prior episodes of diverticulitis. She has a history of COPD and utilizes 5 L nasal cannula at baseline. - Related Data Home Medications Medication Instructions Recorded Confirmed Omeprazole [PriLOSEC] 40 mg PO DAILY 07/05/20 10/18/24 Levothyroxine Sodium [Synthroid] 50 mcg PO DAILY 05/21/22 10/18/24 metFORMIN HCL [Glucophage] 500 mg PO BID 05/21/22 10/18/24 Multivitamins, Thera [Multivitamin 1 tab PO DAILY 05/09/23 10/18/24 (formulary)] Furosemide [Lasix] 20 mg PO DAILY PRN 10/08/24 10/18/24 HYDROcodone/APAP 5-325MG [[place] 1 tab PO QID PRN 10/08/24 10/18/24 5-325] Magnesium Oxide [Mag-Ox] 400 mg PO BID 10/08/24 10/18/24 Nystatin 100,000Unit/gm Cream 1 applic TOPICAL BID PRN 10/08/24 10/18/24 [Mycostatin Cream] Potassium Chloride ER [K-Dur 20] 20 meq PO BID 10/08/24 10/18/24 valACYclovir HCL [Valtrex] 1,000 mg PO TID 10/08/24 10/18/24 Previous Rx's Medication Instructions Recorded Gabapentin [Neurontin] 200 mg PO BID #8 cap 08/25/21 Allergies Allergy/AdvReac Type Severity Reaction Status Date / Time morphine Allergy Itching Verified 10/18/24 11:16 Review of Systems ROS Statement: Those systems with pertinent positive or pertinent negative responses have been documented in the HPI. ROS Other: All systems not noted in ROS Statement are negative. Past Medical History Past Medical History: COPD, Diabetes Mellitus, GERD/Reflux, Osteoarthritis (OA), Pneumonia Additional Past Medical History / Comment(s): migraines, sinus and ear [id number] ear worse, severe arthritis bilateral knees, constipation, edema lower legs and feet, hemorrhoids, blood in stool at times, gallstones, recent diverticulitis History of Any Multi-Drug Resistant Organisms: None Reported Past Surgical History: Breast Surgery, Tubal Ligation Additional Past Surgical History / Comment(s): Rt breast biopsies, COLONOSCOPY, mole removals Past Anesthesia/Blood Transfusion Reactions: Previous Problems w/ Anesthesia Additional Past Anesthesia/Blood Transfusion Reaction / Comment(s): states had diff waking up- "states stopped breathing for a couple seconds" with last colonocopy, "i need a pillow under my head" Past Psychological History: No Psychological Hx Reported Smoking Status: Former smoker Past Alcohol Use History: None Reported Past Drug Use History: None Reported - Past Family History Mother Family Medical History: No Reported History Additional Family Medical History / Comment(s): . Father History Unknown: Yes Family Medical History: Unable to Obtain General Exam Limitations: no limitations General appearance: alert, in no apparent distress Head exam: Present: atraumatic, normocephalic, normal inspection Eye exam: Present: normal appearance, PERRL, EOMI. Absent: scleral icterus, conjunctival injection, periorbital swelling ENT exam: Present: normal exam, mucous membranes moist Neck exam: Present: normal inspection. Absent: tenderness, meningismus, lymphadenopathy Respiratory exam: Present: normal lung sounds bilaterally. Absent: respiratory distress, wheezes, rales, rhonchi, stridor Cardiovascular Exam: Present: regular rate, normal rhythm, normal heart sounds. Absent: systolic murmur, diastolic murmur, rubs, gallop, clicks GI/Abdominal exam: Present: tenderness (Left lower quadrant abdominal tenderness to palpation), normal bowel sounds, hernia (Reducible hernia in the epigastric region). Absent: distended, guarding, rebound, rigid Extremities exam: Present: normal inspection, full ROM, normal capillary refill. Absent: tenderness, pedal edema, joint swelling, calf tenderness Back exam: Present: normal inspection Neurological exam: Present: alert, oriented X3 Psychiatric exam: Present: normal affect, normal mood Skin exam: Present: warm, dry, intact, normal color. Absent: rash Course Vital Signs 10/18/24 10/18/24 10:57 12:19 Temperature 97.7 F Pulse Rate 99 Respiratory 17 Rate Blood Pressure 132/81 O2 Sat by Pulse 87 L 96 Oximetry Medical Decision Making - Medical Decision Making Was pt. sent in by a medical professional or institution (, DAISY, SALES COMPENSATION ANALYST, urgent care, hospital, or longterm...) When possible be specific @ -[No] Did you speak to anyone other than the patient for history (EMS, parent, family, police, friend...)? What history was obtained from this source @ -[No] Did you review nursing and triage notes (agree or disagree)? Why? @ -[I reviewed and agree with nursing and triage notes] Were old charts reviewed (outside hosp., previous admission, EMS record, old EKG, old radiological studies, urgent care reports/EKG's, longterm records)? Report findings @ -[No old charts were reviewed] Differential Diagnosis (chest pain, altered mental status, abdominal pain women, abdominal pain men, vaginal bleeding, weakness, fever, dyspnea, syncope, headache, dizziness, GI bleed, back pain, seizure, CVA, palpatations, mental health, musculoskeletal)? @ -[Differential Abdominal Pain Women: Appendicitis, Cholecystitis, diverticulosis, ischemic bowel, pancreatitis, hepatitis, UTI, gastroenteritis, AAA, incarcerated hernia, bowel obstruction, constipation, inflammatory bowel, hepatitis, peptic ulcer disease, splenic infarction, perforated viscus, vulvitis, ovarian torsion, PID, kidney stone, placenta abruption, this is not meant to be an all-inclusive list ] EKG interpreted by me (3pts min.). @ -[As above] X-rays interpreted by me (1pt min.). @ -[None done] CT interpreted by me (1pt min.). @ -[None done] U/S interpreted by me (1pt. min.). @ -[None done] What testing was considered but not performed or refused? (CT, X-rays, U/S, labs)? Why? @ -[None] What meds were considered but not given or refused? Why? @ -[None] Did you discuss the management of the patient with other professionals (professionals i.e. , PA, SALES COMPENSATION ANALYST, lab, RT, psych nurse, social worker clinical, general service technician, teacher, safety security officer, social work case manager)? Give summary @ -[No] Was smoking cessation discussed for >3mins.? @ -[No] Was critical care preformed (if so, how long)? @ -[No] Were there social determinants of health that impacted care today? How? (Homelessness, low income, unemployed, alcoholism, drug addiction, transpor tation, low edu. Level, literacy, decrease access to med. care, intermediate, rehab)? @ -[No] Was there de-escalation of care discussed even if they declined (Discuss DNR or withdrawal of care, Hospice)? DNR status @ -[No] What co-morbidities impacted this encounter? (DM, HTN, Smoking, COPD, CAD, Cancer, CVA, ARF, Chemo, Hep., AIDS, mental health diagnosis, sleep apnea, morbid obesity)? @ -[None] Was patient admitted / discharged? Hospital course, mention meds given and route, prescriptions, significant lab abnormalities, going to OR and other pertinent info. @ -[hospital course] Undiagnosed new problem with uncertain prognosis? @ -[No] Drug Therapy requiring intensive monitoring for toxicity (Heparin, Nitro, Insulin, Cardizem)? @ -[No] Were any procedures done? @ -[No] Diagnosis/symptom? @ -[default] Acute, or Chronic, or Acute on Chronic? @ -[default] Uncomplicated (without systemic symptoms) or Complicated (systemic symptoms)? @ -[default] Side effects of treatment? @ -[No] Exacerbation, Progression, or Severe Exacerbation? @ -[No] Poses a threat to life or bodily function? How? (Chest pain, [place], [place], pneumonia, PE, COPD, DKA, ARF, appy, cholecystitis, CVA, Diverticulitis, Homicidal, Suicidal, threat to staff... and all critical care pts) @ -[No] - Lab Data Result diagrams: 10/18/24 11:42 10/18/24 11:42 Lab Results 10/18/24 10/18/24 10/18/24 Range/Units 11:42 11:42 11:42 WBC 7.60 (4.50-10.00) 10*3/uL RBC 4.26 (4.10-5.20) 10*6/uL Hgb 12.5 (12.0-15.0) g/dL Hct 40.5 (37.2-46.3) % MCV 95.1 (80.0-97.0) fL MCH 29.3 (27.0-32.0) pg MCHC 30.9 L (32.0-37.0) g/dL Plt Count 220 (140-440) 10*3/uL MPV 9.6 (9.5-12.2) fL Immature Gran % (Auto) 0.7 % Neutrophils % 69.9 % Lymphocytes % 19.2 % Monocytes % 8.6 % Eosinophils % 1.2 % Basophils % 0.4 % Immature Gran # 0.05 H (0.00-0.04) 10*3/uL Neutrophils # 5.32 (1.80-7.70) 10*3/uL Lymphocytes # 1.46 (0.90-5.00) 10*3/uL Monocytes # 0.65 (0.20-1.00) 10*3/uL Eosinophils # 0.09 (0.04-0.35) 10*3/uL Basophils # 0.03 (0.00-0.10) 10*3/uL Sodium 139 (137-145) mmol/L Potassium 4.3 (3.5-5.1) mmol/L Chloride 95 L (98-107) mmol/L Carbon Dioxide 39 H (22-30) mmol/L Anion Gap 5 mmol/L BUN 17 (7-17) mg/dL Creatinine 0.48 L (0.52-1.04) mg/dL Est GFR (CKD-EPI)AfAm >90 (>60 ml/min/1.73 sqM) Est GFR (CKD-EPI)NonAf >90 (>60 ml/min/1.73 sqM) Glucose 194 H (74-99) mg/dL Plasma Lactic Acid [place] 2.9 H* (0.7-2.0) mmol/L Calcium 9.7 (8.4-10.2) mg/dL Total Bilirubin 0.3 (0.2-1.3) mg/dL AST 25 (14-36) U/L ALT 32 (4-34) U/L Alkaline Phosphatase 95 (38-126) U/L Total Protein 7.5 (6.3-8.2) g/dL Albumin 4.2 (3.5-5.0) g/dL Amylase 48 (30-110) U/L Lipase 121 (23-300) U/L Urine Color Urine Appearance (Clear) Urine pH (5.0-8.0) Ur Specific [place] (1.001-1.035) Urine Protein (Negative) Urine Glucose (UA) (Negative) Urine Ketones (Negative) Urine Blood (Negative) Urine Nitrite (Negative) Urine Bilirubin (Negative) Urine Urobilinogen (<2.0) mg/dL Ur Leukocyte Esterase (Negative) 10/18/24 Range/Units 11:49 WBC (4.50-10.00) 10*3/uL RBC (4.10-5.20) 10*6/uL Hgb (12.0-15.0) g/dL Hct (37.2-46.3) % MCV (80.0-97.0) fL MCH (27.0-32.0) pg MCHC (32.0-37.0) g/dL Plt Count (140-440) 10*3/uL MPV (9.5-12.2) fL Immature Gran % (Auto) % Neutrophils % % Lymphocytes % % Monocytes % % Eosinophils % % Basophils % % Immature Gran # (0.00-0.04) 10*3/uL Neutrophils # (1.80-7.70) 10*3/uL Lymphocytes # (0.90-5.00) 10*3/uL Monocytes # (0.20-1.00) 10*3/uL Eosinophils # (0.04-0.35) 10*3/uL Basophils # (0.00-0.10) 10*3/uL Sodium (137-145) mmol/L Potassium (3.5-5.1) mmol/L Chloride (98-107) mmol/L Carbon Dioxide (22-30) mmol/L Anion Gap mmol/L BUN (7-17) mg/dL Creatinine (0.52-1.04) mg/dL Est GFR (CKD-EPI)AfAm (>60 ml/min/1.73 sqM) Est GFR (CKD-EPI)NonAf (>60 ml/min/1.73 sqM) Glucose (74-99) mg/dL Plasma Lactic Acid [place] (0.7-2.0) mmol/L Calcium (8.4-10.2) mg/dL Total Bilirubin (0.2-1.3) mg/dL AST (14-36) U/L ALT (4-34) U/L Alkaline Phosphatase (38-126) U/L Total Protein (6.3-8.2) g/dL Albumin (3.5-5.0) g/dL Amylase (30-110) U/L Lipase (23-300) U/L Urine Color Light Yellow Urine Appearance Clear (Clear) Urine pH 5.5 (5.0-8.0) Ur Specific [place] 1.026 (1.001-1.035) Urine Protein Negative (Negative) Urine Glucose (UA) Negative (Negative) Urine Ketones Negative (Negative) Urine Blood Negative (Negative) Urine Nitrite Negative (Negative) Urine Bilirubin Negative (Negative) Urine Urobilinogen <2.0 (<2.0) mg/dL Ur Leukocyte Esterase Negative (Negative) Disposition Clinical Impression: Diverticulitis Disposition: ADMITTED IP TO THIS [facility] Condition: Stable Is patient prescribed a controlled substance at d/c from ED?: No Referrals: José Lacy DO [Primary Care Provider] - 1-2 days
[2024-10-18 12:02] LABS: Basophils # (A) 0.03 10*3/uL (0.00-0.10); Basophils % (A) 0.4 %; Eosinophils # (A) 0.09 10*3/uL (0.04-0.35); Eosinophils % (A) 1.2 %; HCT 40.5 % (37.2-46.3); HGB 12.5 g/dL (12.0-15.0); Lymphocytes # (A) 1.46 10*3/uL (0.90-5.00); Lymphocytes % (A) 19.2 %; MCH 29.3 pg (27.0-32.0); MCHC 30.9 g/dL (32.0-37.0); MCV 95.1 fL (80.0-97.0); Mean Platelet Volume 9.6 fL (9.5-12.2); Monocytes # (A) 0.65 10*3/uL (0.20-1.00); Monocytes % (A) 8.6 %; Neutrophils # (A) 5.32 10*3/uL (1.80-7.70); Neutrophils % (A) 69.9 %; Platelet Count 220 10*3/uL (140-440); RBC 4.26 10*6/uL (4.10-5.20); RDW 15.4 % (11.5-14.5)
[2024-10-18 12:11] LABS: Appearance,Urine Clear (Clear); Bilirubin,Urine Negative (Negative); Blood,Urine Negative (Negative); Color,Urine Light Yellow; Glucose,Urine (UA) Negative (Negative); Ketones,Urine Negative (Negative); Leukocyte Esterase,Urine Negative (Negative); Nitrite,Urine Negative (Negative); PH, Urine 5.5 (5.0-8.0); Protein,Urine Negative (Negative); Specific Gravity,Urine 1.026 (1.001-1.035); Urobilinogen,Urine <2.0 mg/dL (<2.0)
[2024-10-18] MEDS: SODIUM CHLORIDE 0.9% 1,000 ML IV ONE (12:13)
[2024-10-18 12:14] LABS: ALT 32 U/L (4-34); AST 25 U/L (14-36); African American GFR (CKD) >90 (>60 ml/min/1.73 sqM); Albumin 4.2 g/dL (3.5-5.0); Alkaline Phosphatase 95 U/L (38-126); Amylase 48 U/L (30-110); Anion Gap 5 mmol/L; Blood Urea Nitrogen 17 mg/dL (7-17); Calcium 9.7 mg/dL (8.4-10.2); Carbon Dioxide 39 mmol/L (22-30); Chloride 95 mmol/L (98-107); Glucose 194 mg/dL (74-99); Lipase 121 U/L (23-300); Non-African American GFR(CKD) >90 (>60 ml/min/1.73 sqM); Potassium 4.3 mmol/L (3.5-5.1); Sodium 139 mmol/L (137-145); Total Bilirubin 0.3 mg/dL (0.2-1.3); Total Protein 7.5 g/dL (6.3-8.2)
[2024-10-18] MEDS: KETOROLAC 15 MG/ML 1 ML VIAL IVP STA (12:14)
[2024-10-18] MEDS: ONDANSETRON 4 MG/2 ML VIAL IVP STA (12:14)
[2024-10-18] MEDS ORDERED: NALOXONE 0.4 MG/ML 1 ML VIAL IV PRN (13:36)
[2024-10-18] MEDS: SODIUM CHLORIDE 0.9% 1,000 ML IV SCH (14:23)
[2024-10-18] MEDS: metroNIDAZOLE-NS PMX 500 MG in SALINE 1 100ML.BAG IVPB STA (14:24)
[2024-10-18] MEDS ORDERED: DEXTROSE 50% SYRINGE 50 ML IVP PRN ×2 (14:42)
--- NOTE | 2024-10-18 14:45 | P.HPIM ---
History of Present Illness H&P Date: 10/18/24 Patient is a 63-year-old female with history of advanced COPD, chronic hypoxic respiratory failure on 5 L, BONITA, type 2 diabetes, peripheral neuropathy, osteoarthritis, lower extremity venous insufficiency, GERD, diverticulosis presenting with recurrent abdominal pain. Patient was recently admitted for diverticulitis with failed outpatient treatment, tried Augmentin, more recently on Flagyl and ciprofloxacin and still continues to have persistent abdominal pain. She claims that it mostly resolved previously but had since been coming and going. Today the pain was 10 out of 10 mostly located in the left lower quadrant. He was associated with some nausea. Denies any changes in bowel habits, or urinary complaints. She denies any difficulty eating or drinking. No fevers or chills. In the ED, temperature was 97.7, pulse 99, respiratory 17, blood pressure 132/81, saturating 96% on room air. WBC 7.6, hemoglobin 12.5, platelet 220, bicarb 39, creatinine 0.48, lactate 2.9, lipase 121, urinalysis negative. Last CT was done on 10/10/2024 which showed improving mild diverticulitis involving proximal sigmoid colon with no complications. No new imaging completed at this time. Patient received IV Toradol in the ED, IV Zofran, as well as 1 L of normal saline. Being admitted for persistent abdominal pain secondary to diverticulitis. General surgery was consulted. Pertinent positives and negatives as discussed in HPI, a complete review of systems was performed and all other systems are negative. Patient seen and examined at bedside. Vital signs reviewed General: nontoxic, no distress, appears at stated age, obese Derm: warm, dry Head: atraumatic, normocephalic, symmetric Eyes: EOMI, no lid lag, anicteric sclera, pupils equal round reactive to light ENT: Nose and ears atraumatic Neck: No thyromegaly, supple Mouth: no lip lesion, mucus membranes moist Cardiovascular: S1S2 reg, no murmur, 2+ pitting edema Lungs: clear to auscultation bilateral, no rhonchi, no rales, no wheeze, no accessory muscle use, supplemental oxygen Abdominal: soft, mild tenderness to palpation in the left lower quadrant, no guarding, no appreciable organomegaly Ext: no gross muscle atrophy, muscle strength muscle strength 5 out of 5 in all 4 extremities, no contractures Neuro: CN II-XII grossly intact Psych: Alert, oriented, appropriate affect Assessment/Plan: Active: Recurrent abdominal pain Persistent acute on chronic diverticulitis Dehydration Lactic acidosis - Patient completed course of Augmentin outpatient, was on Zosyn IV, now completed course of ciprofloxacin and Flagyl - Hold off any further antibiotics for now - Pain control with oral Tylenol as needed, oral [place] 5 4 times daily as needed, IV Toradol 15 every 6 hours as needed - Hold home Lasix - Continue normal saline 75 cc an hour - Repeat lactate - Patient hemodynamically stable - General Surgery consulted Type 2 diabetes - Hold home metformin - Sliding scale insulin, monitor for hypoglycemia Chronic: Neuropathy Hypothyroidism GERD Herpetic infection? Advanced COPD Chronic hypoxic respiratory failure on 5 L The patient is admitted with an anticipated less than 2 midnight stay as observation status for evaluation of abdominal pain. Surrogate decision-maker: Daughter CODE STATUS: Full code DVT prophylaxis: Lovenox Anticipated discharge date: Pending clinical course Anticipated discharge place: Pending clinical course A total of 65 minutes was spent on the care of this complex patient more than 50% of the time was spent in counseling and care coordination. Past Medical History Past Medical History: COPD, Diabetes Mellitus, GERD/Reflux, Osteoarthritis (OA), Pneumonia Additional Past Medical History / Comment(s): migraines, sinus and ear [id number] ear worse, severe arthritis bilateral knees, constipation, edema lower legs and feet, hemorrhoids, blood in stool at times, gallstones, recent diverticulitis History of Any Multi-Drug Resistant Organisms: None Reported Past Surgical History: Breast Surgery, Tubal Ligation Additional Past Surgical History / Comment(s): Rt breast biopsies, COLONOSCOPY, mole removals Past Anesthesia/Blood Transfusion Reactions: Previous Problems w/ Anesthesia Additional Past Anesthesia/Blood Transfusion Reaction / Comment(s): states had diff waking up- "states stopped breathing for a couple seconds" with last colonocopy, "i need a pillow under my head" Past Psychological History: No Psychological Hx Reported Smoking Status: Former smoker Past Alcohol Use History: None Reported Past Drug Use History: None Reported - Past Family History Mother Family Medical History: No Reported History Additional Family Medical History / Comment(s): . Father History Unknown: Yes Family Medical History: Unable to Obtain Medications and Allergies Home Medications Medication Instructions Recorded Confirmed Type Omeprazole [PriLOSEC] 40 mg PO DAILY 07/05/20 10/18/24 History Gabapentin [Neurontin] 200 mg PO BID #8 cap 08/25/21 10/18/24 Rx Levothyroxine Sodium [Synthroid] 50 mcg PO DAILY 05/21/22 10/18/24 History metFORMIN HCL [Glucophage] 500 mg PO BID 05/21/22 10/18/24 History Multivitamins, Thera [Multivitamin 1 tab PO DAILY 05/09/23 10/18/24 History (formulary)] Furosemide [Lasix] 20 mg PO DAILY PRN 10/08/24 10/18/24 History HYDROcodone/APAP 5-325MG [[place] 1 tab PO QID PRN 10/08/24 10/18/24 History 5-325] Magnesium Oxide [Mag-Ox] 400 mg PO BID 10/08/24 10/18/24 History Nystatin 100,000Unit/gm Cream 1 applic TOPICAL BID PRN 10/08/24 10/18/24 History [Mycostatin Cream] Potassium Chloride ER [K-Dur 20] 20 meq PO BID 10/08/24 10/18/24 History valACYclovir HCL [Valtrex] 1,000 mg PO TID 10/08/24 10/18/24 History Allergies Allergy/AdvReac Type Severity Reaction Status Date / Time morphine Allergy Itching Verified 10/18/24 11:16 Physical Exam Vitals: Vital Signs Temp Pulse Resp BP Pulse Ox 10/18/24 12:19 96 10/18/24 10:57 97.7 F 99 17 132/81 87 L Intake and Output 10/17/24 10/18/24 10/18/24 22:59 06:59 14:59 Other: Weight 136.078 kg Results CBC & Chem 7: 10/18/24 11:42 10/18/24 11:42 Labs: Abnormal Lab Results - Last 24 Hours (Table) 10/18/24 10/18/24 10/18/24 Range/Units 11:42 11:42 11:42 MCHC 30.9 L (32.0-37.0) g/dL Immature Gran # 0.05 H (0.00-0.04) 10*3/uL Chloride 95 L (98-107) mmol/L Carbon Dioxide 39 H (22-30) mmol/L Creatinine 0.48 L (0.52-1.04) mg/dL Glucose 194 H (74-99) mg/dL Plasma Lactic Acid [place] 2.9 H* (0.7-2.0) mmol/L
[2024-10-18 15:32] LABS: Glucose,Whole Blood 135 mg/dL (70-110)
[2024-10-18] MEDS: INSULIN LISPRO (HumaLOG) 100 UNIT/ML 10 mL VL SQ SCH (16:16)
[2024-10-18] MEDS: valACYclovir HCL 1,000 MG TABLET PO SCH (16:48)
[2024-10-18 19:32] LABS: Glucose,Whole Blood 158 mg/dL (70-110)
[2024-10-18] MEDS: GABAPENTIN 100 MG CAP PO SCH (20:53)
[2024-10-18] MEDS: MAGNESIUM OXIDE 400 MG TAB PO SCH (20:53)
[2024-10-18] MEDS: HYDROcodone/APAP 5-325MG 1 EACH TAB PO PRN (21:55)
[2024-10-18] MEDS: KETOROLAC 15 MG/ML 1 ML VIAL IVP PRN (23:15)
[2024-10-19 06:28] LABS: Glucose,Whole Blood 134 mg/dL (70-110)
[2024-10-19] MEDS: LEVOTHYROXINE 50 MCG TAB PO SCH (06:38)
[2024-10-19] MEDS: ENOXAPARIN 40 MG/0.4 ML SYRINGE SQ SCH (08:34)
[2024-10-19] MEDS: PANTOPRAZOLE 40 MG TABLET PO SCH (08:34)
[2024-10-19] MEDS: metroNIDAZOLE-NS PMX 500 MG in SALINE 1 100ML.BAG IVPB SCH (08:48)
[2024-10-19] MEDS: polyethylene glycoL 3350 17 GM POWD.PACK PO SCH (08:48)
[2024-10-19] MEDS: cefTRIAXone 2 GM in DEXTROSE 5% IN WATER 50 ML IVPB SCH (08:48)
[2024-10-19] MEDS: SENNOSIDES 8.6 MG TAB PO SCH (08:48)
[2024-10-19 10:50] LABS: Glucose,Whole Blood 143 mg/dL (70-110)
--- NOTE | 2024-10-19 12:08 | P.PN ---
Subjective Progress Note Date: 10/19/24 Hospital Course: 63-year-old female with history of advanced COPD, chronic hypoxic respiratory failure on 5 L, BONITA, type 2 diabetes, peripheral neuropathy, osteoarthritis, lower extremity venous insufficiency, GERD, diverticulosis presenting with recurrent abdominal pain. Patient was recently admitted for diverticulitis with failed outpatient treatment, tried Augmentin, more recently on Flagyl and ciprofloxacin and still continues to have persistent abdominal pain. In the ED, temperature was 97.7, pulse 99, respiratory 17, blood pressure 132/81, saturating 96% on room air. WBC 7.6, hemoglobin 12.5, platelet 220, bicarb 39, creatinine 0.48, lactate 2.9, lipase 121, urinalysis negative. Last CT was done on 10/10/2024 which showed improving mild diverticulitis involving proximal sigmoid colon with no complications. No new imaging completed at this time. Patient received IV Toradol in the ED, IV Zofran, as well as 1 L of normal saline. Being admitted for persistent abdominal pain secondary to diverticulitis. General surgery was consulted. Subjective: Patient seen and examined at bedside. No acute events overnight. Continues to have left lower quadrant abdominal pain. Also feeling constipated. Pertinent positives and negatives as discussed above, a complete review of systems was performed and all other systems are negative. Vitals Signs Reviewed. General: nontoxic, no distress, appears at stated age, obese Derm: warm, dry Head: atraumatic, normocephalic, symmetric Eyes: EOMI, no lid lag, anicteric sclera, pupils equal round reactive to light ENT: Nose and ears atraumatic Neck: No thyromegaly, supple Mouth: no lip lesion, mucus membranes moist Cardiovascular: S1S2 reg, no murmur, 2+ pitting edema Lungs: clear to auscultation bilateral, no rhonchi, no rales, no wheeze, no accessory muscle use, supplemental oxygen Abdominal: soft, mild tenderness to palpation in the left lower quadrant, no guarding, no appreciable organomegaly Ext: no gross muscle atrophy, muscle strength muscle strength 5 out of 5 in all 4 extremities, no contractures Neuro: CN II-XII grossly intact Psych: Alert, oriented, appropriate affect Data Reviewed Today: Pertinent Labs: Blood sugars range between 134-158, lactate 2 Imaging: No new imaging Assessment and Plan: Active: Recurrent abdominal pain Persistent acute on chronic diverticulitis Dehydration, resolved Lactic acidosis, resolved - Patient completed course of Augmentin outpatient, was on Zosyn IV, now comple jo ann course of ciprofloxacin and Flagyl - General Surgery restarted IV antibiotics, currently on ceftriaxone 2 g IV every 24 hours, Flagyl IV 500 every 8 hours - Pain control with oral Tylenol as needed, oral [place] 5 4 times daily as needed, IV Toradol 15 every 6 hours as needed - Hold home Lasix - DC IV fluids - Patient hemodynamically stable - General Surgery consulted, pending recommendations Type 2 diabetes - Hold home metformin - Sliding scale insulin, monitor for hypoglycemia Chronic: Neuropathy Hypothyroidism GERD Herpetic infection? Advanced COPD Chronic hypoxic respiratory failure on 5 L DVT ppx: Lovenox Code status: Full code Anticipated discharge place: Pending clinical course Anticipated discharge time: Pending clinical course Objective - Vital Signs Vital signs: Vital Signs Temp 97.7 F 10/19/24 07:48 Pulse 101 H 10/19/24 10:14 Resp 22 10/19/24 10:14 BP 119/69 10/19/24 07:48 Pulse Ox 96 10/19/24 07:48 FiO2 Intake & Output 10/18/24 10/19/24 10/19/24 18:59 06:59 18:59 Intake Total 100 900 333 Balance 100 900 333 Weight 136.078 kg Intake: Intake, IV Titration 900 Amount Sodium Chloride 0.9% 1, 900 000 ml @ 75 mls/hr IV . [id number] [facility] Rx#:[id number] Oral 100 333 Other: # Voids 4 5 # Bowel Movements 2 1 - Labs CBC & Chem 7: 10/18/24 11:42 10/18/24 11:42 Labs: Abnormal Lab Results - Last 24 Hours (Table) 10/18/24 10/18/24 10/18/24 Range/Units 11:42 11:42 15:30 Chloride 95 L (98-107) mmol/L Carbon Dioxide 39 H (22-30) mmol/L Creatinine 0.48 L (0.52-1.04) mg/dL Glucose 194 H (74-99) mg/dL POC Glucose (mg/dL) 135 H (70-110) mg/dL Plasma Lactic Acid [place] 2.9 H* (0.7-2.0) mmol/L 10/18/24 10/19/2410/19/25 Range/Units 19:31 06:25 10:48 Chloride (98-107) mmol/L Carbon Dioxide (22-30) mmol/L Creatinine (0.52-1.04) mg/dL Glucose (74-99) mg/dL POC Glucose (mg/dL) 158 H 134 H 143 H (70-110) mg/dL Plasma Lactic Acid [place] (0.7-2.0) mmol/L
[2024-10-19] MEDS ORDERED: IOPAMIDOL CONTRAST (ORAL USE) VIAL PO PRN (12:35)
--- NOTE | 2024-10-19 14:03 | P.GSCN ---
History of Present Illness Consult date: 10/19/24 History of present illness: CHIEF COMPLAINT: Abdominal pain HISTORY OF PRESENT ILLNESS: This is a 64-year-old female who presented the hospital with complaints of abdominal pain. Patient reports she has had 3 episodes of diverticulitis within the last month. She did require hospitalization earlier in October due to failing outpatient oral antibiotics. She has been on poantibiotics. She reports she just finished antibiotics yesterday. And she presents to the hospital with complaints of left lower quadrant pain and right upper quadrant abdominal pain that had started yesterday morning after she completed the antibiotics. She reports no nausea or vomiting. She reports her bowel movements have had mucus no blood. And she reports feeling constipated. Her last CT scan was done on October 10 and had reported improving diverticulitis. Her white count is normal at 7.6. Her last colonoscopy was in 2015 reporting diverticulosis and colon polyp. Abdominal surgeries does include a cholecystectomy in 2021 and hemorrhoidectomy. Patient does have severe COPD requires 5 L of oxygen at home. PAST MEDICAL HISTORY: See below PAST SURGICAL HISTORY: See below MEDICATIONS: See below ALLERGIES: See below SOCIAL HISTORY: No illicit drug use. REVIEW OF SYSTEMS: CONSTITUTIONAL: Denies fever or chills. HEENT: Denies blurred vision, vision changes, or eye pain. Denies hemoptysis CARDIOVASCULAR: Denies chest pain or pressure. RESPIRATORY: No shortness of breath. GASTROINTESTINAL: See HPI for pertinent findings HEMATOLOGIC: Denies bleeding disorders. GENITOURINARY: Denies any blood in urine or increased urinary frequency. SKIN: Denies pruitis. Denies rash. PHYSICAL EXAM: VITAL SIGNS: Reviewed GENERAL: Well-developed in no acute distress. HEENT: No sclera icterus. Extraocular movements grossly intact. Moist buccal mucosa. Head is atraumatic, normocephalic. No nasal drainage. ABDOMEN: Soft. Nondistended. Right upper quadrant healed old incision from open cholecystectomy with incisional hernia present and tenderness with palpation. Reducible. Umbilical hernia tender with palpation. Mild tenderness with palpation in the left lower quadrant. NEUROLOGIC: Alert and oriented. Cranial nerves II through XII grossly intact. LABORATORY DATA: WBC 7.6 Hgb 12.5 platelets 220 Sodium 139 potassium is 4.3 creatinine 0.48 Glucose 143 Lactic acid 2.9 down to 2.0 LFTs normal Lipase 121 Urinalysis negative IMAGING: ASSESSMENT: 1. Abdominal pain located in the right upper quadrant, umbilical area and left lower quadrant. Evidence of an incisional hernia right upper quadrant and umbilical hernia on exam 2. Diverticulitis with recent hospitalization earlier in October 08. Severe COPD PLAN: - CT scan abdomen pelvis with oral and IV contrast ordered for further evaluation of patient's abdominal pain - Resume antibiotics Rocephin and Flagyl - Further recommendations forthcoming depending on CT scan results - Continue clear liquid diet for now - Repeat CBC in a.m. Physician Automatic Mounter note has been reviewed by physician. Signing provider agrees with the documented findings, assessment, and plan of care. Past Medical History Past Medical History: COPD, Diabetes Mellitus, GERD/Reflux, Osteoarthritis (OA), Pneumonia Additional Past Medical History / Comment(s): migraines, sinus and ear [id number] ear worse, severe arthritis bilateral knees, constipation, edema lower legs and feet, hemorrhoids, blood in stool at times, gallstones, recent diverticulitis History of Any Multi-Drug Resistant Organisms: None Reported Past Surgical History: Breast Surgery, Tubal Ligation Additional Past Surgical History / Comment(s): Rt breast biopsies, COLONOSCOPY, mole removals Past Anesthesia/Blood Transfusion Reactions: Previous Problems w/ Anesthesia Additional Past Anesthesia/Blood Transfusion Reaction / Comm: states had diff waking up- "states stopped breathing for a couple seconds" with last colonocopy, "i need a pillow under my head" Past Psychological History: No Psychological Hx Reported Additional Psychological History / Comment(s): . Smoking Status: Former smoker Past Alcohol Use History: None Reported Additional Past Alcohol Use History / Comment(s): HAS BEEN SMOKING SINCE AGE 15, smokes 1 PPD Past Drug Use History: None Reported - Past Family History Mother Family Medical History: No Reported History Additional Family Medical History / Comment(s): . Father History Unknown: Yes Family Medical History: Unable to Obtain Medications and Allergies Home Medications Medication Instructions Recorded Confirmed Type Omeprazole [PriLOSEC] 40 mg PO DAILY 07/05/20 10/18/24 History Gabapentin [Neurontin] 200 mg PO BID #8 cap 08/25/21 10/18/24 Rx Levothyroxine Sodium [Synthroid] 50 mcg PO DAILY 05/21/22 10/18/24 History metFORMIN HCL [Glucophage] 500 mg PO BID 05/21/22 10/18/24 History Multivitamins, Thera [Multivitamin 1 tab PO DAILY 05/09/23 10/18/24 History (formulary)] Furosemide [Lasix] 20 mg PO DAILY PRN 10/08/24 10/18/24 History HYDROcodone/APAP 5-325MG [[place] 1 tab PO QID PRN 10/08/24 10/18/24 History 5-325] Magnesium Oxide [Mag-Ox] 400 mg PO BID 10/08/24 10/18/24 History Nystatin 100,000Unit/gm Cream 1 applic TOPICAL BID PRN 10/08/24 10/18/24 History [Mycostatin Cream] Potassium Chloride ER [K-Dur 20] 20 meq PO BID 10/08/24 10/18/24 History valACYclovir HCL [Valtrex] 1,000 mg PO TID 10/08/24 10/18/24 History Allergies Allergy/AdvReac Type Severity Reaction Status Date / Time morphine Allergy Itching Verified 10/18/24 11:16 Surgical - Exam Vital Signs Temp Pulse Resp BP Pulse Ox 97.7 F 99 17 132/81 87 L 10/18/24 10:57 10/18/24 10:57 10/18/24 10:57 10/18/24 10:57 10/18/24 10:57 Results - Labs 10/18/24 11:42 10/18/24 11:42 Abnormal Lab Results - Last 24 Hours (Table) 10/18/24 10/18/24 10/18/24 Range/Units 11:42 11:42 11:42 MCHC 30.9 L (32.0-37.0) g/dL Immature Gran # 0.05 H (0.00-0.04) 10*3/uL Chloride 95 L (98-107) mmol/L Carbon Dioxide 39 H (22-30) mmol/L Creatinine 0.48 L (0.52-1.04) mg/dL Glucose 194 H (74-99) mg/dL POC Glucose (mg/dL) (70-110) mg/dL Plasma Lactic Acid [place] 2.9 H* (0.7-2.0) mmol/L 10/18/24 10/18/24 10/19/24 Range/Units 15:30 19:31 06:25 MCHC (32.0-37.0) g/dL Immature Gran # (0.00-0.04) 10*3/uL Chloride (98-107) mmol/L Carbon Dioxide (22-30) mmol/L Creatinine (0.52-1.04) mg/dL Glucose (74-99) mg/dL POC Glucose (mg/dL) 135 H 158 H 134 H (70-110) mg/dL Plasma Lactic Acid [place] (0.7-2.0) mmol/L 10/19/24 Range/Units 10:48 MCHC (32.0-37.0) g/dL Immature Gran # (0.00-0.04) 10*3/uL Chloride (98-107) mmol/L Carbon Dioxide (22-30) mmol/L Creatinine (0.52-1.04) mg/dL Glucose (74-99) mg/dL POC Glucose (mg/dL) 143 H (70-110) mg/dL Plasma Lactic Acid [place] (0.7-2.0) mmol/L Diabetes panel 10/18/24 Range/Units 11:42 Sodium 139 (137-145) mmol/L Potassium 4.3 (3.5-5.1) mmol/L Chloride 95 L (98-107) mmol/L Carbon Dioxide 39 H (22-30) mmol/L BUN 17 (7-17) mg/dL Creatinine 0.48 L (0.52-1.04) mg/dL Glucose 194 H (74-99) mg/dL Calcium 9.7 (8.4-10.2) mg/dL AST 25 (14-36) U/L ALT 32 (4-34) U/L Alkaline Phosphatase 95 (38-126) U/L Total Protein 7.5 (6.3-8.2) g/dL Albumin 4.2 (3.5-5.0) g/dL Calcium panel 10/18/24 Range/Units 11:42 Calcium 9.7 (8.4-10.2) mg/dL Albumin 4.2 (3.5-5.0) g/dL Pituitary panel 10/18/24 Range/Units 11:42 Sodium 139 (137-145) mmol/L Potassium 4.3 (3.5-5.1) mmol/L Chloride 95 L (98-107) mmol/L Carbon Dioxide 39 H (22-30) mmol/L BUN 17 (7-17) mg/dL Creatinine 0.48 L (0.52-1.04) mg/dL Glucose 194 H (74-99) mg/dL Calcium 9.7 (8.4-10.2) mg/dL Adrenal panel 10/18/24 Range/Units 11:42 Sodium 139 (137-145) mmol/L Potassium 4.3 (3.5-5.1) mmol/L Chloride 95 L (98-107) mmol/L Carbon Dioxide 39 H (22-30) mmol/L BUN 17 (7-17) mg/dL Creatinine 0.48 L (0.52-1.04) mg/dL Glucose 194 H (74-99) mg/dL Calcium 9.7 (8.4-10.2) mg/dL Total Bilirubin 0.3 (0.2-1.3) mg/dL AST 25 (14-36) U/L ALT 32 (4-34) U/L Alkaline Phosphatase 95 (38-126) U/L Total Protein 7.5 (6.3-8.2) g/dL Albumin 4.2 (3.5-5.0) g/dL
--- NOTE | 2024-10-19 15:42 | CT ---
EXAMINATION TYPE: CT abdomen pelvis w con DATE OF EXAM: 10/19/2024 3:18 PM COMPARISON: 10/10/2024 CLINICAL INDICATION: Female, 64 years old with history of abdominal pain, diverticulitis, RUQ pain, A bdominal pain, diverticulitis, RUQ pain. TECHNIQUE: Axial images were obtained from above the diaphragm to the pubic rami in the axial plane a t 5 mm thick sections. Reconstructed images are reviewed on the computer in the coronal plane. CONTRAST: 100 ml mL of Isovue 300. Study performed with Oral Contrast DLP: 3131.2 mGycm, Automated exposure control for dose reduction was used. FINDINGS: Limited CT sections are obtained the lung bases. The lung bases are clear. CT ABDOMEN: Liver: Hepatomegaly measuring 21.1 centimeters craniocaudal. Spleen: Normal Pancreas: Normal Adrenal glands: The adrenal glands are normal. Gallbladder: Not visualized. Kidneys: No masses are evident. No hydronephrosis is present. No cysts are present. Delayed images were obtained through the kidneys, which remain unremarkable. Aorta: Mild Vascular calcification is within the aorta. Inferior vena cava: Normal. CT PELVIS: There is an anterior wall hernia with a loop of nonobstructed bowel. Opening is approximat jerod 4 cm. Small amount of subcutaneous air is within the right anterior pelvis. Correlate for recent subcutaneous injections. There is thickening through the sigmoid colon. A few diverticuli are present. Some minimal adjacent i nflammatory change may be present. This is mildly improved from comparison. Persistent mild acute div erticulitis mid sigmoid colon. No free air is evident. No abscess formation is identified. There are loops of bowel which are incompletely distended or lack oral contrast limiting their evaluation. Appendix: Normal as visualized. Urinary bladder: Normal. Genitourinary structures: Uterus appears normal. Adnexa are unremarkable. Osseous structures: No suspicious lytic or sclerotic lesions. Mild grade 1 spondylolisthesis of L5 an teriorly on S1 is present. There is degenerative disc change especially noted L2-3 and L5-S1 and L1-2 . IMPRESSION: 1. Mild improvement of the mild acute diverticulitis sigmoid colon. 2. No new abnormality to account for right upper quadrant pain. 3. Hepatomegaly [facility], , 10/19/2024 3:40 PM
[2024-10-19 16:51] LABS: Glucose,Whole Blood 141 mg/dL (70-110)
[2024-10-19 20:06] LABS: Glucose,Whole Blood 120 mg/dL (70-110)
[2024-10-19 22:19] VITALS: RESP 18
[2024-10-20] MEDS: ONDANSETRON 4 MG/2 ML VIAL IVP PRN (04:27)
[2024-10-20 06:32] LABS: Glucose,Whole Blood 154 mg/dL (70-110)
[2024-10-20 06:38] LABS: Basophils # (A) 0.03 10*3/uL (0.00-0.10); Basophils % (A) 0.5 %; Eosinophils # (A) 0.13 10*3/uL (0.04-0.35); Eosinophils % (A) 2.3 %; HCT 36.9 % (37.2-46.3); HGB 10.7 g/dL (12.0-15.0); Lymphocytes % (A) 21.3 %; MCH 28.4 pg (27.0-32.0); MCV 97.9 fL (80.0-97.0); Mean Platelet Volume 9.5 fL (9.5-12.2); Monocytes # (A) 0.64 10*3/uL (0.20-1.00); Monocytes % (A) 11.4 %; Neutrophils # (A) 3.62 10*3/uL (1.80-7.70); Neutrophils % (A) 64.3 %; Platelet Count 197 10*3/uL (140-440); RBC 3.77 10*6/uL (4.10-5.20); RDW 15.1 % (11.5-14.5); WBC 5.63 10*3/uL (4.50-10.00)
[2024-10-20 11:35] LABS: Glucose,Whole Blood 142 mg/dL (70-110)
--- NOTE | 2024-10-20 12:18 | P.DS ---
Providers Date of admission: 10/18/24 14:40 Expected date of discharge: 10/20/24 Attending physician: Oscar Dawson Consults: 10/18/24 13:36 Consult Physician Routine Consulting Provider: Ramiro Wright Consult Reason/Comments: abd pain, diverticulitis Do you want consulting provider notified?: Yes Primary care physician: [facility] Hospital Course: Discharge Diagnosis: Recurrent abdominal pain Persistent acute on chronic diverticulitis Dehydration Lactic acidosis Type 2 diabetes Neuropathy Hypothyroidism GERD Herpetic infection? Advanced COPD Chronic hypoxic respiratory failure on 5 L Hospital Course: 63-year-old female with history of advanced COPD, chronic hypoxic respiratory failure on 5 L, BONITA, type 2 diabetes, peripheral neuropathy, osteoarthritis, lower extremity venous insufficiency, GERD, diverticulosis presenting with recurrent abdominal pain. Patient was recently admitted for diverticulitis with failed outpatient treatment, tried Augmentin, more recently on Flagyl and ciprofloxacin and still continues to have persistent abdominal pain. In the ED, temperature was 97.7, pulse 99, respiratory 17, blood pressure 132/81, saturating 96% on room air. WBC 7.6, hemoglobin 12.5, platelet 220, bicarb 39, creatinine 0.48, lactate 2.9, lipase 121, urinalysis negative. Last CT was done on 10/10/2024 which showed improving mild diverticulitis involving proximal sigmoid colon with no complications. No new imaging completed at this time. Patient received IV Toradol in the ED, IV Zofran, as well as 1 L of normal saline. Being admitted for persistent abdominal pain secondary to diverticulitis. General surgery was consulted. Repeat CT abdomen pelvis showed resolving acute diverticulitis involving sigmoid colon. Also showed hep atomegaly. Patient being discharged home with follow-up with PCP and general surgery. She will need outpatient colonoscopy once diverticulitis resolves. Patient seen and examined at bedside. Vital signs reviewed and stable. General: nontoxic, no distress, appears at stated age, obese Derm: warm, dry Head: atraumatic, normocephalic, symmetric Eyes: EOMI, no lid lag, anicteric sclera, pupils equal round reactive to light ENT: Nose and ears atraumatic Neck: No thyromegaly, supple Mouth: no lip lesion, mucus membranes moist Cardiovascular: S1S2 reg, no murmur, 2+ pitting edema Lungs: clear to auscultation bilateral, no rhonchi, no rales, no wheeze, no accessory muscle use, supplemental oxygen Abdominal: soft, mild tenderness to palpation in the left lower quadrant, no guarding, no appreciable organomegaly Ext: no gross muscle atrophy, muscle strength muscle strength 5 out of 5 in all 4 extremities, no contractures Neuro: CN II-XII grossly intact Psych: Alert, oriented, appropriate affect A total of 36 minutes of time were spent preparing this complex discharge summary. Patient was discharged on 10/20/24 at 1125. Patient Condition at Discharge: Stable Plan - Discharge Summary Discharge Rx Participant: Yes New Discharge Prescriptions: New polyethylene glycoL 3350 [Miralax] 17 gm PO DAILY #60 packet Sennosides [Senokot] 8.6 mg PO DAILY #60 tab Continue Omeprazole [PriLOSEC] 40 mg PO DAILY metFORMIN HCL [Glucophage] 500 mg PO BID Levothyroxine Sodium [Synthroid] 50 mcg PO DAILY Multivitamins, Thera [Multivitamin (formulary)] 1 tab PO DAILY Potassium Chloride ER [K-Dur 20] 20 meq PO BID Magnesium Oxide [Mag-Ox] 400 mg PO BID valACYclovir HCL [Valtrex] 1,000 mg PO TID Nystatin 100,000Unit/gm Cream [Mycostatin Cream] 1 applic TOPICAL BID PRN PRN Reason: Skin Irritation HYDROcodone/APAP 5-325MG [[place] 5-325] 1 tab PO QID PRN PRN Reason: Pain Gabapentin [Neurontin] 200 mg PO BID #8 cap Furosemide [Lasix] 20 mg PO DAILY PRN PRN Reason: Edema Discharge Medication List Omeprazole [PriLOSEC] 40 mg PO DAILY 07/05/20 [History] Gabapentin [Neurontin] 200 mg PO BID #8 cap 08/25/21 [Rx] Levothyroxine Sodium [Synthroid] 50 mcg PO DAILY 05/21/22 [History] metFORMIN HCL [Glucophage] 500 mg PO BID 05/21/22 [History] Multivitamins, Thera [Multivitamin (formulary)] 1 tab PO DAILY 05/09/23 [History] Furosemide [Lasix] 20 mg PO DAILY PRN 10/08/24 [History] HYDROcodone/APAP 5-325MG [[place] 5-325] 1 tab PO QID PRN 10/08/24 [History] Magnesium Oxide [Mag-Ox] 400 mg PO BID 10/08/24 [History] Nystatin 100,000Unit/gm Cream [Mycostatin Cream] 1 applic TOPICAL BID PRN 10/08/24 [History] Potassium Chloride ER [K-Dur 20] 20 meq PO BID 10/08/24 [History] valACYclovir HCL [Valtrex] 1,000 mg PO TID 10/08/24 [History] Sennosides [Senokot] 8.6 mg PO DAILY #60 tab 10/20/24 [Rx] polyethylene glycoL 3350 [Miralax] 17 gm PO DAILY #60 packet 10/20/24 [Rx] Follow up Appointment(s)/Referral(s): José Lacy DO [Primary Care Provider] - 1-2 days Ramiro Wright DO [Doctor of Osteopathic Medicine] - 1 Week Patient Instructions/Handouts: Diverticulitis (DC) Activity/Diet/Wound Care/Special Instructions: Please see PCP and surgery. You will need colonoscopy once diverticulitis resolves. Discharge Disposition: HOME SELF-CARE
[2024-10-20 14:26] VITALS: BP 119/73; PULSE 89; TEMP 98.3
--- NOTE | 2024-10-20 15:16 | P.PN ---
Subjective Progress Note Date: 10/20/24 SURGICAL PROGRESS NOTE CHIEF COMPLAINT: Diverticulitis HISTORY OF PRESENT ILLNESS: Patient reports pain is doing better. However, during the night last night she had another episode of sharp pain in the left lower quadrant. The pain is now resolved. She is tolerated clear liquids. She is hungry and she wants to eat. CT scan abdomen pelvis reports mild improvement of the mild acute diverticulitis sigmoid colon. No new abnormality in the right upper quadrant. Hepatomegaly. Anterior wall hernia with a loop of nonobstructed bowel. Afebrile. WBC normal at 5.63 PHYSICAL EXAM: VITAL SIGNS: Reviewed. GENERAL: Well-developed in no acute distress. ABDOMEN: Soft. Nondistended. obese. Right upper quadrant incisional hernia reducible. Mild tenderness with palpation. Umbilical hernia tenderness with palpation. Minimal tenderness with palpation left lower quadrant NEUROLOGIC: Alert and oriented. Cranial nerves II through XII grossly intact. ASSESSMENT: 1. Abdominal pain located in the right upper quadrant, umbilical area and left lower quadrant. Evidence of an incisional hernia right upper quadrant and umbilical hernia on exam 2. Diverticulitis and treated with antibiotics 3. Severe COPD PLAN: - Advance diet to regular - Patient can be discharged from surgical standpoint - Patient has received multiple antibiotics over the past month. Discussed with surgeon. No need for antibiotics at discharge - Recommend outpatient follow-up regarding hernias. - Patient will need outpatient colonoscopy Physician Bog Worker note has been reviewed by physician. Signing provider agrees with the documented findings, assessment, and plan of care. Attestation Patient seen and examined at bedside. Complain of abdominal pain that is improving. She states that she continues to have episodes of left lower quadrant abdominal pain and abdominal wall pain at site of previous hernia. She is tolerating diet. At this point she is surgically stable for discharge. I did recommend follow-up in the outpatient clinic for evaluation of the hernia for surgical intervention. She is agreeable with this plan and will follow-up in 1 week. Ramiro Wright DO Objective - Vital Signs Vital signs: Vital Signs Temp 98.3 F 10/20/24 14: Pulse 89 10/20/24 14: Resp 18 10/20/24 14: BP 119/73 10/20/24 14: Pulse Ox 94 L 10/20/24 08:00 FiO2 Intake & Output 10/19/24 10/20/24 10/20/24 18:59 06:59 18:59 Intake Total 433 250 100 Balance 433 250 100 Intake: Oral 433 250 100 Other: Voiding Method Toilet # Voids 5 1 # Bowel Movements 1 - Labs CBC & Chem 7: 10/20/24 06:15 10/18/24 11:42 Labs: Abnormal Lab Results - Last 24 Hours (Table) 10/19/24 10/19/24 10/20/24 Range/Units 16:50 20:05 06:15 RBC 3.77 L (4.10-5.20) 10*6/uL Hgb 10.7 L (12.0-15.0) g/dL Hct 36.9 L (37.2-46.3) % MCV 97.9 H (80.0-97.0) fL MCHC 29.0 L (32.0-37.0) g/dL POC Glucose (mg/dL) 141 H 120 H (70-110) mg/dL 10/20/24 10/20/24 Range/Units 06:31 11:34 RBC (4.10-5.20) 10*6/uL Hgb (12.0-15.0) g/dL Hct (37.2-46.3) % MCV (80.0-97.0) fL MCHC (32.0-37.0) g/dL POC Glucose (mg/dL) 154 H 142 H (70-110) mg/dL
== END 2024-10-20 15:35 | disposition home or self-care (01) ==
LOC: EC 10:56 → 5NMEDONC 14:40 → 1SOBS 15:52
PROVIDERS: ADMIT Student in an Organized Health Care Education/Training Program; ATTEND Student in an Organized Health Care Education/Training Program
DX: K57.32 Diverticulitis of large intestine without perforation or abscess without bleeding (principal); E86.0 Dehydration; E87.20 Acidosis, unspecified; J44.9 Chronic obstructive pulmonary disease, unspecified; J96.11 Chronic respiratory failure with hypoxia; G47.33 Obstructive sleep apnea (adult) (pediatric); E11.42 Type 2 diabetes mellitus with diabetic polyneuropathy; K21.9 Gastro-esophageal reflux disease without esophagitis; E03.9 Hypothyroidism, unspecified; Z87.891 Personal history of nicotine dependence; Z79.84 Long term (current) use of oral hypoglycemic drugs; Z79.890 Hormone replacement therapy; Z79.899 Other long term (current) drug therapy; Z88.5 Allergy status to narcotic agent
CPT/HCPCS: 96365 ×2; 96366 ×3; 96368; 96372; 96376 ×3; 96375; 99285; 36415; 80053; 82150; 83605; 83690; 85025 ×2; 81003; 74177; G0378 ×4; J2405 ×2; J0696 ×3; J1650; J1885 ×3; Q9967; J1836 ×3

== ENCOUNTER 2024-10-31 10:01 | Emergency (ER) | payer MEDICARE, OTHER ==
[2024-10-31 10:11] VITALS: RESP 18; TEMP 98.4
--- NOTE | 2024-10-31 11:12 | ED ---
Abdominal Pain HPI - General Chief Complaint: Abdominal Pain Stated Complaint: Abd pain Time Seen by Provider: 10/31/24 10:31 Source: patient, RN notes reviewed Mode of arrival: EMS Limitations: no limitations - History of Present Illness Initial Comments: This is a 64-year-old female who presents to the emergency department for abdominal pain. Patient states that this flared up on her yesterday. She has been dealing with recurrent abdominal pain over the last month and was told that it is related to 2 hernias in her abdomen. She does have surgery scheduled on 11/24. However, she is concerned about dealing with the recurrent pain associated with this. Reports associated nausea and vomiting. Denies any changes in bowel or bladder habits. She is taking [place], which has not been helpful for her pain. - Related Data Home Medications Medication Instructions Recorded Confirmed Omeprazole [PriLOSEC] 40 mg PO DAILY 07/05/20 10/18/24 Levothyroxine Sodium [Synthroid] 50 mcg PO DAILY 05/21/22 10/18/24 metFORMIN HCL [Glucophage] 500 mg PO BID 05/21/22 10/18/24 Multivitamins, Thera [Multivitamin 1 tab PO DAILY 05/09/23 10/18/24 (formulary)] Furosemide [Lasix] 20 mg PO DAILY PRN 10/08/24 10/18/24 HYDROcodone/APAP 5-325MG [[place] 1 tab PO QID PRN 10/08/24 10/18/24 5-325] Magnesium Oxide [Mag-Ox] 400 mg PO BID 10/08/24 10/18/24 Nystatin 100,000Unit/gm Cream 1 applic TOPICAL BID PRN 10/08/24 10/18/24 [Mycostatin Cream] Potassium Chloride ER [K-Dur 20] 20 meq PO BID 10/08/24 10/18/24 valACYclovir HCL [Valtrex] 1,000 mg PO TID 10/08/24 10/18/24 Previous Rx's Medication Instructions Recorded Gabapentin [Neurontin] 200 mg PO BID #8 cap 08/25/21 Sennosides [Senokot] 8.6 mg PO DAILY #60 tab 10/20/24 polyethylene glycoL 3350 [Miralax] 17 gm PO DAILY #60 packet 10/20/24 Metoclopramide [Reglan] 5 - 10 mg PO Q6H PRN #30 tab 10/31/24 Ondansetron Odt [Zofran Odt] 4 mg PO Q8HR PRN #30 tab 10/31/24 Allergies Allergy/AdvReac Type Severity Reaction Status Date / Time morphine Allergy Itching Verified 10/18/24 11:16 Review of Systems ROS Statement: Those systems with pertinent positive or pertinent negative responses have been documented in the HPI. ROS Other: All systems not noted in ROS Statement are negative. Past Medical History Past Medical History: COPD, Diabetes Mellitus, GERD/Reflux, Osteoarthritis (OA), Pneumonia Additional Past Medical History / Comment(s): migraines, sinus and ear [id number] ear worse, severe arthritis bilateral knees, constipation, edema lower legs and feet, hemorrhoids, blood in stool at times, gallstones, recent diverticulitis History of Any Multi-Drug Resistant Organisms: None Reported Past Surgical History: Breast Surgery, Tubal Ligation Additional Past Surgical History / Comment(s): Rt breast biopsies, COLONOSCOPY, mole removals Past Anesthesia/Blood Transfusion Reactions: Previous Problems w/ Anesthesia Additional Past Anesthesia/Blood Transfusion Reaction / Comment(s): states had diff waking up- "states stopped breathing for a couple seconds" with last colonocopy, "i need a pillow under my head" Past Psychological History: No Psychological Hx Reported Smoking Status: Former smoker Past Alcohol Use History: None Reported Past Drug Use History: None Reported - Past Family History Mother Family Medical History: No Reported History Additional Family Medical History / Comment(s): . Father History Unknown: Yes Family Medical History: Unable to Obtain General Exam Limitations: no limitations General appearance: alert, in no apparent distress Head exam: Present: atraumatic, normocephalic, normal inspection Respiratory exam: Present: normal lung sounds bilaterally. Absent: respiratory distress, wheezes, rales, rhonchi, stridor Cardiovascular Exam: Present: regular rate, normal rhythm GI/Abdominal exam: Present: soft, tenderness, hernia. Absent: distended Neurological exam: Present: alert, oriented X3, CN II-XII intact Psychiatric exam: Present: normal affect, normal mood Skin exam: Present: warm, dry, intact, normal color. Absent: rash Course Vital Signs 10/31/24 10/31/24 10:08 14:19 Temperature 98.4 F Pulse Rate 81 79 Respiratory 18 18 Rate Blood Pressure 152/84 148/88 O2 Sat by Pulse 95 96 Oximetry Medical Decision Making - Medical Decision Making This is a 64 year old female who presents to the emergency department for abdominal pain. Was pt. sent in by a medical professional or institution? @ -No Did you speak to anyone other than the patient for history? @ -No Did you review nursing and triage notes? @ -Yes, and I agree, it is accurate with regards to the patient's symptoms. Were old charts reviewed? @ -No Differential Diagnosis? @ -Differential Abdominal Pain Women: Appendicitis, Cholecystitis, diverticulosis, ischemic bowel, pancreatitis, hepatitis, UTI, gastroenteritis, AAA, incarcerated hernia, bowel obstruction, constipation, inflammatory bowel, hepatitis, peptic ulcer disease, splenic infarction, perforated viscus, vulvitis, ovarian torsion, PID, kidney stone, placenta abruption, this is not meant to be an all-inclusive list EKG interpreted by me (3pts min.)? @ -EKG interpreted by me demonstrating the following: Sinus rhythm. Ventricular rate 94 bpm, KS interval 174 ms, QRS duration 89 ms, QTc 411 ms. X-rays interpreted by me (1pt min.)? @ -Not obtained CT interpreted by me (1pt min.)? @ -CT scan of the abdomen and pelvis obtained. My interpretation identifies small bowel feces sign. U/S interpreted by me (1pt. min.)? @ -Not obtained What testing was considered but not performed? (CT, X-rays, U/S, labs)? Why? @ -None What meds were considered but not given? Why? @ -None Did you discuss the management of the patient with other professionals? @ -No Did you reconcile home meds? @ -No Was smoking cessation discussed for >3mins.? @ -No Was critical care preformed (if so, how long)? @ -No Were there social determinants of health that impacted care today? How? (Homelessness, low income, unemployed, alcoholism, drug addiction, transportation, low edu. Level, literacy, decrease access to med. care, fdc, rehab)? @ -No Was there de-escalation of care discussed even if they declined? (Discuss DNR or withdrawal of care, Hospice)? @ -No What co-morbidities impacted this encounter? (DM, HTN, Smoking, COPD, CAD, Cancer, CVA, Hep., AIDS, mental health diagnosis, sleep apnea, morbid obesity)? @ -DM, hernia Was patient admitted / discharged? @ -Discharged. Lab work demonstrates mild leukocytosis and a mildly elevated lactic acid. Urinalysis negative for signs of infection. CT scan of the abdomen and pelvis demonstrates similar mild acute sigmoid diverticulitis without evidence for complication. She does also have small bowel feces sign suggesting delayed transit with an enteritis. There is no evidence of bowel obstruction. She has redemonstration of her moderate-sized supraumbilical fat- containing hernia and a ventral epigastric hernia. Findings reviewed with the patient. Symptoms well-controlled in the emergency department. The pain is likely further exacerbated by the enteritis. Zofran prescribed for nausea and vomiting. Reglan prescribed as well to help with any additional nausea as well as delayed transit of the bowels. She will follow-up with her PCP and general surgery for reevaluation. Patient discharged home in stable condition. Case discussed with ED attending Dr. Staley. Return precautions reviewed in depth, the patient is instructed to return to the emergency department with any new, worsening, or concerning symptoms. Patient verbalized understanding. Undiagnosed new problem with uncertain prognosis? @ -None Drug Therapy requiring intensive monitoring for toxicity (Heparin, Nitro, Insulin, Cardizem)? @ -None Were any procedures done? @ -None Diagnosis/symptom? @ -Enteritis, abdominal pain Acute, or Chronic, or Acute on Chronic? @ -Acute Uncomplicated (without systemic symptoms) or Complicated (systemic symptoms)? @ -Uncomplicated Side effects of treatment? @ -None Exacerbation, Progression, or Severe Exacerbation] @ -Not applicable Poses a threat to life or bodily function? @ -No - Lab Data Result diagrams: 10/31/24 10:52 10/31/24 10:52 Lab Results 10/31/24 10/31/24 10/31/24 Range/Units 10:52 10:52 10:52 WBC 13.12 H (4.50-10.00) 10*3/uL RBC 4.28 (4.10-5.20) 10*6/uL Hgb 12.8 (12.0-15.0) g/dL Hct 40.5 (37.2-46.3) % MCV 94.6 (80.0-97.0) fL MCH 29.9 (27.0-32.0) pg MCHC 31.6 L (32.0-37.0) g/dL Plt Count 215 (140-440) 10*3/uL MPV 10.0 (9.5-12.2) fL Immature Gran % (Auto) 0.4 % Neutrophils % 84.4 % Lymphocytes % 8.2 % Monocytes % 6.3 % Eosinophils % 0.2 % Basophils % 0.5 % Immature Gran # 0.05 H (0.00-0.04) 10*3/uL Neutrophils # 11.07 H (1.80-7.70) 10*3/uL Lymphocytes # 1.08 (0.90-5.00) 10*3/uL Monocytes # 0.83 (0.20-1.00) 10*3/uL Eosinophils # 0.03 L (0.04-0.35) 10*3/uL Basophils # 0.06 (0.00-0.10) 10*3/uL Manual Slide Review Performed Large Platelets Present Stomatocytes Present Sodium 139 (137-145) mmol/L Potassium 4.5 (3.5-5.1) mmol/L Chloride 97 L (98-107) mmol/L Carbon Dioxide 34 H (22-30) mmol/L Anion Gap 8 mmol/L BUN 17 (7-17) mg/dL Creatinine 0.40 L (0.52-1.04) mg/dL Est GFR (CKD-EPI)AfAm >90 (>60 ml/min/1.73 sqM) Est GFR (CKD-EPI)NonAf >90 (>60 ml/min/1.73 sqM) Glucose 192 H (74-99) mg/dL Lactic Ac Sepsis Rflx Plasma Lactic Acid [place] 2.8 H* (0.7-2.0) mmol/L Calcium 10.0 (8.4-10.2) mg/dL Total Bilirubin 0.5 (0.2-1.3) mg/dL AST 31 (14-36) U/L ALT 33 (4-34) U/L Alkaline Phosphatase 105 (38-126) U/L Total Protein 8.1 (6.3-8.2) g/dL Albumin 4.5 (3.5-5.0) g/dL Amylase 49 (30-110) U/L Lipase 107 (23-300) U/L Urine Color Urine Appearance (Clear) Urine pH (5.0-8.0) Ur Specific [place] (1.001-1.035) Urine Protein (Negative) Urine Glucose (UA) (Negative) Urine Ketones (Negative) Urine Blood (Negative) Urine Nitrite (Negative) Urine Bilirubin (Negative) Urine Urobilinogen (<2.0) mg/dL Ur Leukocyte Esterase (Negative) Urine RBC (0-5) /hpf Urine WBC (0-5) /hpf Ur Squamous Epith Cells (0-4) /hpf Urine Mucus (None) /hpf 10/31/24 10/31/24 Range/Units 11:50 12:29 WBC (4.50-10.00) 10*3/uL RBC (4.10-5.20) 10*6/uL Hgb (12.0-15.0) g/dL Hct (37.2-46.3) % MCV (80.0-97.0) fL MCH (27.0-32.0) pg MCHC (32.0-37.0) g/dL Plt Count (140-440) 10*3/uL MPV (9.5-12.2) fL Immature Gran % (Auto) % Neutrophils % % Lymphocytes % % Monocytes % % Eosinophils % % Basophils % % Immature Gran # (0.00-0.04) 10*3/uL Neutrophils # (1.80-7.70) 10*3/uL Lymphocytes # (0.90-5.00) 10*3/uL Monocytes # (0.20-1.00) 10*3/uL Eosinophils # (0.04-0.35) 10*3/uL Basophils # (0.00-0.10) 10*3/uL Manual Slide Review Large Platelets Stomatocytes Sodium (137-145) mmol/L Potassium (3.5-5.1) mmol/L Chloride (98-107) mmol/L Carbon Dioxide (22-30) mmol/L Anion Gap mmol/L BUN (7-17) mg/dL Creatinine (0.52-1.04) mg/dL Est GFR (CKD-EPI)AfAm (>60 ml/min/1.73 sqM) Est GFR (CKD-EPI)NonAf (>60 ml/min/1.73 sqM) Glucose (74-99) mg/dL Lactic Ac Sepsis Rflx Y Plasma Lactic Acid [place] (0.7-2.0) mmol/L Calcium (8.4-10.2) mg/dL Total Bilirubin (0.2-1.3) mg/dL AST (14-36) U/L ALT (4-34) U/L Alkaline Phosphatase (38-126) U/L Total Protein (6.3-8.2) g/dL Albumin (3.5-5.0) g/dL Amylase (30-110) U/L Lipase (23-300) U/L Urine Color Light Yellow Urine Appearance Clear (Clear) Urine pH 5.5 (5.0-8.0) Ur Specific [place] 1.023 (1.001-1.035) Urine Protein 1+ H (Negative) Urine Glucose (UA) 2+ H (Negative) Urine Ketones Trace H (Negative) Urine Blood Negative (Negative) Urine Nitrite Negative (Negative) Urine Bilirubin Negative (Negative) Urine Urobilinogen <2.0 (<2.0) mg/dL Ur Leukocyte Esterase Negative (Negative) Urine RBC 1 (0-5) /hpf Urine WBC <1 (0-5) /hpf Ur Squamous Epith Cells <1 (0-4) /hpf Urine Mucus Rare H (None) /hpf - Radiology Data Radiology results: report reviewed, image reviewed Disposition Clinical Impression: Abdominal pain, Enteritis Disposition: HOME SELF-CARE Instructions (If sedation given, give patient instructions): Abdominal Pain (ED), Enteritis (ED) Additional Instructions: Return to the emergency department with any new, worsening, or concerning symptoms. You can take the Zofran up to every 8 hours as needed for nausea and vomiting. You can take the Reglan as 1 to 2 tablets up to every 6 hours. This can help with vomiting and speeding up your bowels. Follow up with your primary care provider in 1-2 days. Prescriptions: Metoclopramide [Reglan] 5 - 10 mg PO Q6H PRN #30 tab PRN Reason: Nausea And Vomiting Ondansetron Odt [Zofran Odt] 4 mg PO Q8HR PRN #30 tab PRN Reason: Nausea And Vomiting Is patient prescribed a controlled substance at d/c from ED?: No Referrals: McPhilimy,José, DO [Primary Care Provider] - 1-2 days Time of Disposition: 13:47
[2024-10-31] MEDS: HYDROmorphone 2 MG/ML 1 ML SYRINGE IVP STA (11:18)
[2024-10-31] MEDS: SODIUM CHLORIDE 0.9% 1,000 ML IV ONE (11:21)
[2024-10-31] MEDS: ONDANSETRON 4 MG/2 ML VIAL IVP STA (11:22)
[2024-10-31 11:29] LABS: Basophils # (A) 0.06 10*3/uL (0.00-0.10); Basophils % (A) 0.5 %; Eosinophils # (A) 0.03 10*3/uL (0.04-0.35); Eosinophils % (A) 0.2 %; HCT 40.5 % (37.2-46.3); HGB 12.8 g/dL (12.0-15.0); Lymphocytes # (A) 1.08 10*3/uL (0.90-5.00); Lymphocytes % (A) 8.2 %; MCH 29.9 pg (27.0-32.0); MCHC 31.6 g/dL (32.0-37.0); MCV 94.6 fL (80.0-97.0); Monocytes # (A) 0.83 10*3/uL (0.20-1.00); Monocytes % (A) 6.3 %; Neutrophils # (A) 11.07 10*3/uL (1.80-7.70); Neutrophils % (A) 84.4 %; RBC 4.28 10*6/uL (4.10-5.20); RDW 14.6 % (11.5-14.5); WBC 13.12 10*3/uL (4.50-10.00)
[2024-10-31 11:40] LABS: ALT 33 U/L (4-34); AST 31 U/L (14-36); African American GFR (CKD) >90 (>60 ml/min/1.73 sqM); Albumin 4.5 g/dL (3.5-5.0); Alkaline Phosphatase 105 U/L (38-126); Amylase 49 U/L (30-110); Anion Gap 8 mmol/L; Blood Urea Nitrogen 17 mg/dL (7-17); Carbon Dioxide 34 mmol/L (22-30); Chloride 97 mmol/L (98-107); Glucose 192 mg/dL (74-99); Lipase 107 U/L (23-300); Non-African American GFR(CKD) >90 (>60 ml/min/1.73 sqM); Potassium 4.5 mmol/L (3.5-5.1); Sodium 139 mmol/L (137-145); Total Bilirubin 0.5 mg/dL (0.2-1.3); Total Protein 8.1 g/dL (6.3-8.2)
--- NOTE | 2024-10-31 12:27 | CT ---
EXAMINATION TYPE: CT abdomen pelvis w con CT DLP: 311.4 mGycm, Automated exposure control for dose reduction was used. DATE OF EXAM: 10/31/2024 12:16 PM COMPARISON: Multiple CT abdomen pelvis with most recent 10/19/2024 CLINICAL INDICATION:Female, 64 years old with history of Epigastric and RLQ pain; Epigastric and RLQ pain. hx of diverticulitis. prior on pacs. TECHNIQUE: Standard CT of the abdomen and pelvis following the administration of 100 cc of Isovue 3 00 IV contrast material. Coronal and sagittal reformats were performed. FINDINGS: LOWER CHEST: Left lower lobe linear subsegmental atelectasis. Cardiomegaly. Mitral annulus calcificat ions. ABDOMEN LIVER: Diffusely hypoattenuating parenchyma. No focal lesion. Enlarged measuring 20.7 cm in CC dimens ion. GALLBLADDER AND BILE DUCTS: Unremarkable. PANCREAS: Unremarkable. SPLEEN: Unremarkable. ADRENAL GLANDS: Unremarkable. KIDNEYS AND URETERS: No evidence of hydronephrosis or renal calculus. The kidneys enhance symmetrical ly. Contrast is demonstrated within both collecting systems on the delayed phase. PELVIS BLADDER: Under distended, limiting evaluation. REPRODUCTIVE: Unremarkable. ABDOMEN & PELVIS STOMACH AND BOWEL: Stomach is unremarkable. Periampullary duodenal diverticulum. Sigmoid diverticulos is with some wall thickening and mild surrounding fat stranding. No pericolonic abscess. Small bowel feces sign identified without dilated small bowel. There is some stranding changes about the small tiffany wel within the anterior lower abdomen. No evidence of bowel obstruction. The appendix is within sarah l limits. PERITONEUM: No evidence of pneumoperitoneum or free fluid. VASCULATURE: Mild atherosclerotic calcifications are present throughout the abdominal aorta and its b ranches. No evidence of aortic aneurysm. MUSCULOSKELETAL: No acute osseous abnormalities. Moderate disc degeneration changes are present throu ghout the thoracolumbar spine. Grade 1 anterolisthesis of L5 on S1 redemonstrated. No pars defects. LYMPH NODES: No evidence for lymphadenopathy. SOFT TISSUE/ABDOMINAL WALL: Small periumbilical fat-containing hernia. Redemonstration of moderate-si zed supraumbilical fat-containing hernia measuring up to 8.3 cm. The defect measures up to 3.1 cm wit h small bowel abutting its opening. There is similar stranding/small mesenteric vessels within the he rnia. Additional broad base ventral epigastric hernia containing fat. IMPRESSION: 1. Similar mild acute chronic appearing sigmoid diverticulitis without evidence for complication. 2. Small bowel feces sign with mild wall thickening and surrounding inflammatory changes involving th e small bowel within the anterior lower abdomen. Finding suggests delayed transit with an enteritis. No evidence of bowel obstruction. 3. Redemonstration of a moderate-sized supra umbilical fat-containing hernia. Additional broad-based fat-containing ventral epigastric hernia and small right periumbilical fat-containing hernia. 4. Hepatomegaly with diffuse fatty infiltration. [facility], , 10/31/2024 12:24 PM
[2024-10-31 12:45] LABS: Stomatocytes Present
[2024-10-31 12:49] LABS: Large Platelets Present; Platelet Count 215 10*3/uL (140-440)
[2024-10-31 13:24] LABS: Appearance,Urine Clear (Clear); Bilirubin,Urine Negative (Negative); Blood,Urine Negative (Negative); Color,Urine Light Yellow; Glucose,Urine (UA) 2+ (Negative); Ketones,Urine Trace (Negative); Leukocyte Esterase,Urine Negative (Negative); Mucus,Urine Rare /hpf; Nitrite,Urine Negative (Negative); PH, Urine 5.5 (5.0-8.0); Protein,Urine 1+ (Negative); RBC,Urine 1 /hpf (0-5); Specific Gravity,Urine 1.023 (1.001-1.035); Squamous Epithelial Cell,Urine <1 /hpf (0-4); Urobilinogen,Urine <2.0 mg/dL (<2.0); WBC,Urine <1 /hpf (0-5)
[2024-10-31 14:21] VITALS: BP 148/88; PULSE 79
== END 2024-10-31 14:21 | disposition home or self-care (01) ==
LOC: EC 10:01
DX: K52.9 Noninfective gastroenteritis and colitis, unspecified (principal); K43.9 Ventral hernia without obstruction or gangrene; K42.9 Umbilical hernia without obstruction or gangrene; E11.9 Type 2 diabetes mellitus without complications; Z87.891 Personal history of nicotine dependence; Z88.5 Allergy status to narcotic agent
CPT/HCPCS: 36415; 93005; 80053; 82150; 83605; 83690; 85025; 81001; 74177; 99285; 96374; 96361; J1171; Q9967

== ENCOUNTER 2025-01-02 12:41 | Emergency (ER) | payer MEDICARE, OTHER ==
[2025-01-02 13:40] LABS: Appearance,Urine Cloudy (Clear); Bilirubin,Urine Negative (Negative); Blood,Urine Negative (Negative); Color,Urine Light Yellow; Glucose,Urine (UA) Negative (Negative); Hyaline Casts,Urine 1 /lpf (0-2); Ketones,Urine Negative (Negative); Leukocyte Esterase,Urine Negative (Negative); Mucus,Urine Rare /hpf; Nitrite,Urine Negative (Negative); PH, Urine 5.5 (5.0-8.0); Protein,Urine Negative (Negative); RBC,Urine 2 /hpf (0-5); Specific Gravity,Urine 1.028 (1.001-1.035); Squamous Epithelial Cell,Urine 7 /hpf (0-4); Urobilinogen,Urine <2.0 mg/dL (<2.0); WBC,Urine 2 /hpf (0-5)
[2025-01-02] MEDS: ONDANSETRON 4 MG/2 ML VIAL IVP STA (14:01)
[2025-01-02] MEDS: SODIUM CHLORIDE 0.9% 1,000 ML IV ONE (14:01)
[2025-01-02] MEDS: KETOROLAC 15 MG/ML 1 ML VIAL IVP STA (14:02)
[2025-01-02] MEDS: HYDROmorphone 0.5 MG/0.5 ML SYRINGE IVP STA (14:03)
[2025-01-02 14:05] LABS: Basophils # (A) 0.06 10*3/uL (0.00-0.10); Basophils % (A) 0.6 %; Eosinophils # (A) 0.13 10*3/uL (0.04-0.35); Eosinophils % (A) 1.3 %; HCT 35.6 % (37.2-46.3); HGB 11.1 g/dL (12.0-15.0); Lymphocytes # (A) 1.64 10*3/uL (0.90-5.00); Lymphocytes % (A) 16.2 %; MCH 29.3 pg (27.0-32.0); MCHC 31.2 g/dL (32.0-37.0); Mean Platelet Volume 9.7 fL (9.5-12.2); Monocytes # (A) 1.01 10*3/uL (0.20-1.00); Neutrophils # (A) 7.24 10*3/uL (1.80-7.70); Neutrophils % (A) 71.4 %; Platelet Count 314 10*3/uL (140-440); RBC 3.79 10*6/uL (4.10-5.20); RDW 13.9 % (11.5-14.5); WBC 10.13 10*3/uL (4.50-10.00)
[2025-01-02 14:16] LABS: MCV 93.9 fL (80.0-97.0)
[2025-01-02 14:27] LABS: ALT 24 U/L (4-34); AST 30 U/L (14-36); African American GFR (CKD) >90 (>60 ml/min/1.73 sqM); Albumin 4.2 g/dL (3.5-5.0); Alkaline Phosphatase 117 U/L (38-126); Amylase 47 U/L (30-110); Anion Gap 9 mmol/L; Blood Urea Nitrogen 14 mg/dL (7-17); Calcium 9.7 mg/dL (8.4-10.2); Carbon Dioxide 32 mmol/L (22-30); Chloride 97 mmol/L (98-107); Glucose 143 mg/dL (74-99); Lipase 115 U/L (23-300); Non-African American GFR(CKD) >90 (>60 ml/min/1.73 sqM); Potassium 4.4 mmol/L (3.5-5.1); Sodium 138 mmol/L (137-145); Total Bilirubin 0.3 mg/dL (0.2-1.3); Total Protein 7.7 g/dL (6.3-8.2)
--- NOTE | 2025-01-02 14:43 | ED ---
Abdominal Pain HPI - General Chief Complaint: Abdominal Pain Stated Complaint: abd pain Time Seen by Provider: 01/02/25 13:10 Source: patient, RN notes reviewed, old records reviewed Mode of arrival: ambulatory Limitations: no limitations - History of Present Illness Initial Comments: 64-year-old female presented the ER for evaluation of abdominal pain. Patient states she underwent hernia repair by Dr. Cooney on 12 08 24. Patient states she has had mild pain since surgical intervention. Over the past 2 to 3 days patient has had increase in pain to abdomen stating there is a hard lump to periumbilical region. Pain is sharp in nature. Patient has been taking prescribed [place]'s without relief of pain. She denies any fevers, chills, di arrhea/constipation, urinary complaints or abnormal vaginal bleeding or discharge. Patient admits to mild nausea but contributes this to pain. Denies vomiting. Patient denies any chest pain, shortness of breath, dizziness, lightheadedness. Patient typically wears 5 L nasal cannula oxygen at baseline. Patient denies any known injuries or traumas to abdomen. - Related Data Home Medications Medication Instructions Recorded Confirmed Omeprazole [PriLOSEC] 40 mg PO DAILY 07/05/20 12/01/24 Levothyroxine Sodium [Synthroid] 50 mcg PO DAILY 05/21/22 12/01/24 metFORMIN HCL [Glucophage] 500 mg PO BID 05/21/22 12/01/24 Multivitamins, Thera [Multivitamin 1 tab PO DAILY 05/09/23 12/01/24 (formulary)] Furosemide [Lasix] 20 mg PO DAILY PRN 10/08/24 12/01/24 HYDROcodone/APAP 5-325MG [[place] 1 tab PO QID PRN 10/08/24 12/01/24 5-325] Magnesium Oxide [Mag-Ox] 400 mg PO BID 10/08/24 12/01/24 Nystatin 100,000Unit/gm Cream 1 applic TOPICAL BID PRN 10/08/24 12/01/24 [Mycostatin Cream] Potassium Chloride ER [K-Dur 20] 20 meq PO TID 10/08/24 12/01/24 valACYclovir HCL [Valtrex] 1,000 mg PO TID 10/08/24 12/01/24 Previous Rx's Medication Instructions Recorded Gabapentin [Neurontin] 200 mg PO BID #8 cap 08/25/21 Sennosides [Senokot] 8.6 mg PO DAILY #60 tab 10/20/24 polyethylene glycoL 3350 [Miralax] 17 gm PO DAILY #60 packet 10/20/24 Metoclopramide [Reglan] 5 - 10 mg PO Q6H PRN #30 tab 10/31/24 Ondansetron Odt [Zofran ODT] 4 mg PO Q8HR PRN #30 tab 10/31/24 Albuterol Inhaler [Ventolin Hfa 1 - 2 puff INHALATION Q6H PRN #1 12/09/24 Inhaler] each Budesonide-Formot 160-4.5 Mcg 2 puff INHALATION RT-BID #1 each 12/09/24 [Symbicort 160-4.5 Mcg Inhaler] HYDROcodone/APAP 10-325MG [[place] 1 tab PO Q6HR PRN 3 Days #12 tab 01/02/25 10-325] Ondansetron Odt [Zofran Odt] 4 mg PO Q8HR PRN #10 tab 01/02/25 Allergies Allergy/AdvReac Type Severity Reaction Status Date / Time morphine Allergy Itching Verified 01/02/25 12:50 Review of Systems ROS Statement: Those systems with pertinent positive or pertinent negative responses have been documented in the HPI. ROS Other: All systems not noted in ROS Statement are negative. Past Medical History Past Medical History: COPD, Diabetes Mellitus, GERD/Reflux, Osteoarthritis (OA), Pneumonia, Sleep Apnea/CPAP/BIPAP Additional Past Medical History / Comment(s): migraines, sinus and ear [id number] ear worse, severe arthritis bilateral knees, constipation, edema lower legs and feet, hemorrhoids, blood in stool at times, gallstones, recent diverticulitis History of Any Multi-Drug Resistant Organisms: None Reported Past Surgical History: Breast Surgery, Tubal Ligation Additional Past Surgical History / Comment(s): Rt breast biopsies, COLONOSCOPY, mole removals Past Anesthesia/Blood Transfusion Reactions: Previous Problems w/ Anesthesia Additional Past Anesthesia/Blood Transfusion Reaction / Comment(s): states had diff waking up- "states stopped breathing for a couple seconds" with last colonocopy, "i need a pillow under my head" Past Psychological History: No Psychological Hx Reported Smoking Status: Former smoker Past Alcohol Use History: None Reported Past Drug Use History: None Reported - Past Family History Mother Family Medical History: No Reported History Additional Family Medical History / Comment(s): . Father History Unknown: Yes Family Medical History: Unable to Obtain General Exam Limitations: no limitations General appearance: alert, in no apparent distress Respiratory exam: Present: normal lung sounds bilaterally. Absent: respiratory distress, wheezes, rales, rhonchi, stridor Cardiovascular Exam: Present: normal rhythm, tachycardia, normal heart sounds GI/Abdominal exam: Present: soft, tenderness (Ventral hernia), normal bowel sounds, hernia (Ventral) Neurological exam: Present: alert, oriented X3, CN II-XII intact Skin exam: Present: warm, dry, intact, normal color. Absent: rash Course Vital Signs 01/02/25 01/02/25 01/02/25 12:47 15:04 17:38 Temperature 98.4 F 98.5 F Pulse Rate 106 H 108 H 98 Respiratory 18 20 16 Rate Blood Pressure 112/73 120/84 118/74 O2 Sat by Pulse 93 L 93 L 95 Oximetry - Reevaluation(s) Reevaluation #1: 01/02/25 17:[address] Keen. He states based on CT abdomen pelvis, laboratory studies and patient's presenting symptoms and history she can be discharged with pain medication and advised to follow-up closely with Dr. Wright next week. Medical Decision Making - Medical Decision Making Was pt. sent in by a medical professional or institution (, PA, CLOTHING DESIGNER, urgent care, hospital, or usp...) When possible be specific @ -No Did you speak to anyone other than the patient for history (EMS, parent, family, police, friend...)? What history was obtained from this source @ -No Did you review nursing and triage notes (agree or disagree)? Why? @ -I reviewed and agree with nursing and triage notes Were old charts reviewed (outside hosp., previous admission, EMS record, old EKG, old radiological studies, urgent care reports/EKG's, usp records)? Report findings @ -Operative notes from 12 08 24 evaluated. Patient underwent laparoscopic ventral hernia repair with mesh placement with Dr. Cooney. Differential Diagnosis (chest pain, altered mental status, abdominal pain women, abdominal pain men, vaginal bleeding, weakness, fever, dyspnea, syncope, headache, dizziness, GI bleed, back pain, seizure, CVA, palpatations, mental health, musculoskeletal)? @ -Differential Abdominal Pain Women:Appendicitis, Cholecystitis, diverticulosis, ischemic bowel, pancreatitis, hepatitis, UTI, gastroenteritis, AAA, incarcerated hernia, bowel obstruction, constipation, inflammatory bowel, hepatitis, peptic ulcer disease, splenic infarction, perforated viscus, vulvitis, ovarian torsion, PID, kidney stone, placenta abruption, this is not meant to be an all-inclusive list EKG interpreted by me (3pts min.). @ -As above X-rays interpreted by me (1pt min.). @ -None done CT interpreted by me (1pt min.). @ -CT Abdo pelvis showing post hernia repair changes with fluid layering along the anterior abdominal mesh. There is fat contained within the hernia with fat stranding changes favored to represent infarcted fat in the hernia. Colitis/diverticulitis of sigmoid colon persisting from cannot exclude malignancy. Diastases of rectus abdominis musculature. U/S interpreted by me (1pt. min.). @ -None done What testing was considered but not performed or refused? (CT, X-rays, U/S, labs)? Why? @ -None What meds were considered but not given or refused? Why? @ -None Did you discuss the management of the patient with other professionals (professionals i.e. , PA, CLOTHING DESIGNER, lab, RT, psych nurse, drug abuse social worker, private duty rn, teacher, president and chief commercial officer, case specialist)? Give summary @ -Case discussed with Dr. Keen. He states if patient's pain is controlled and patient is comfortable with discharge she can be discharged with pain medications and follow-up closely outpatient next week. Was smoking cessation discussed for >3mins.? @ -No Was critical care preformed (if so, how long)? @ -No Were there social determinants of health that impacted care today? How? (Homelessness, low income, unemployed, alcoholism, drug addiction, transportation, low edu. Level, literacy, decrease access to med. care, nursing home, rehab)? @ -No Was there de-escalation of care discussed even if they declined (Discuss DNR or withdrawal of care, Hospice)? DNR status @ -No What co-morbidities impacted this encounter? (DM, HTN, Smoking, COPD, CAD, Cancer, CVA, ARF, Chemo, Hep., AIDS, mental health diagnosis, sleep apnea, morbid obesity)? @ -Obese, COPD, diabetes mellitus, GERD Was patient admitted / discharged? Hospital course, mention meds given and route, prescriptions, significant lab abnormalities, going to OR and other pertinent info. @ - Discharged. 64-year-old female presented to the ER for evaluation of abdominal pain. Patient is status post laparoscopic ventral hernia repair with mesh placement on [address] Cooney. Upon arrival patient tachycardic at 106 bpm oxygen saturation 93% on 5 L nasal cannula oxygen. Vitals otherwise stable. Abdominal exam remarkable for a hard centralized nodule superior to umbilicus. Normal bowel sounds without rebound or guarding. Laboratory studies and CT abdomen pelvis ordered. Laboratory studies remarkable for WBC of 10.13. Hemoglobin 11.1. Lactic 2.3 for which patient received IV fluid bolus. Patient also provided with IV Toradol and Dilaudid for pain control. Urinalysis with 7 epithelial cells. No evidence of infection. CT abdomen pelvis showed post hernia repair changes with fluid layering along the anterior abdominal mesh. There is fat contained within a hernia with fat stranding changes favored to represent infarcted fat and hernia. Colitis/diverticulitis of the sigmoid colon persisting from 09-16-2024 cannot rule out malignancy. Given recent surgical intervention, case was discussed with Dr. Keen. He states patient can follow- up outpatient and discharged with pain medication if pain is controlled. Upon reevaluation, patient reporting improvement of pain. Patient educated on today's findings including concern of malignancy and need to follow-up outpatient for further evaluation. Admission was offered to patient patient refused stating she would like to go home as she has an appointment with Dr. Wright next week.[place] and Zofran prescribed. I also recommended [id number] ibuprofen and Tylenol. Strict return parameters discussed. Patient discharged in stable condition with follow-up to PCP and general surgery. Patient verbally expressed understanding agree with care plan. Case discussed with ED attending of Dr. Andersen. Undiagnosed new problem with uncertain prognosis? @ -No Drug Therapy requiring intensive monitoring for toxicity (Heparin, Nitro, Insulin, Cardizem)? @ -No Were any procedures done? @ -No Diagnosis/symptom? @ -Ventral wall hernia/ abdominal pain/ r/o malignancy, Acute, or Chronic, or Acute on Chronic? @ -Acute Uncomplicated (without systemic symptoms) or Complicated (systemic symptoms)? @ -Uncomplicated Side effects of treatment? @ -No Exacerbation, Progression, or Severe Exacerbation? @ -No Poses a threat to life or bodily function? How? (Chest pain, [place], [place], pneumonia, PE, COPD, DKA, ARF, appy, cholecystitis, CVA, Diverticulitis, Homicidal, Suicidal, threat to staff... and all critical care pts) @ -Possibly, cannot rule out malignancy - Lab Data Result diagrams: 01/02/25 13:57 01/02/25 13:57 Lab Results 01/02/25 01/02/25 01/02/25 Range/Units 12:30 13:57 13:57 WBC 10.13 H (4.50-10.00) 10*3/uL RBC 3.79 L (4.10-5.20) 10*6/uL Hgb 11.1 L (12.0-15.0) g/dL Hct 35.6 L (37.2-46.3) % MCV 93.9 D (80.0-97.0) fL MCH 29.3 (27.0-32.0) pg MCHC 31.2 L (32.0-37.0) g/dL Plt Count 314 (140-440) 10*3/uL MPV 9.7 (9.5-12.2) fL Immature Gran % (Auto) 0.5 % Neutrophils % 71.4 % Lymphocytes % 16.2 % Monocytes % 10.0 % Eosinophils % 1.3 % Basophils % 0.6 % Immature Gran # 0.05 H (0.00-0.04) 10*3/uL Neutrophils # 7.24 (1.80-7.70) 10*3/uL Lymphocytes # 1.64 (0.90-5.00) 10*3/uL Monocytes # 1.01 H (0.20-1.00) 10*3/uL Eosinophils # 0.13 (0.04-0.35) 10*3/uL Basophils # 0.06 (0.00-0.10) 10*3/uL Sodium 138 (137-145) mmol/L Potassium 4.4 (3.5-5.1) mmol/L Chloride 97 L (98-107) mmol/L Carbon Dioxide 32 H (22-30) mmol/L Anion Gap 9 mmol/L BUN 14 (7-17) mg/dL Creatinine 0.35 L (0.52-1.04) mg/dL Est GFR (CKD-EPI)AfAm >90 (>60 ml/min/1.73 sqM) Est GFR (CKD-EPI)NonAf >90 (>60 ml/min/1.73 sqM) Glucose 143 H (74-99) mg/dL Lactic Ac Sepsis Rflx Plasma Lactic Acid Sandoval (0.7-2.0) mmol/L Calcium 9.7 (8.4-10.2) mg/dL Total Bilirubin 0.3 (0.2-1.3) mg/dL AST 30 (14-36) U/L ALT 24 (4-34) U/L Alkaline Phosphatase 117 (38-126) U/L Total Protein 7.7 (6.3-8.2) g/dL Albumin 4.2 (3.5-5.0) g/dL Amylase 47 (30-110) U/L Lipase 115 (23-300) U/L Urine Color Light Yellow Urine Appearance Cloudy H (Clear) Urine pH 5.5 (5.0-8.0) Ur Specific [place] 1.028 (1.001-1.035) Urine Protein Negative (Negative) Urine Glucose (UA) Negative (Negative) Urine Ketones Negative (Negative) Urine Blood Negative (Negative) Urine Nitrite Negative (Negative) Urine Bilirubin Negative (Negative) Urine Urobilinogen <2.0 (<2.0) mg/dL Ur Leukocyte Esterase Negative (Negative) Urine RBC 2 (0-5) /hpf Urine WBC 2 (0-5) /hpf Ur Squamous Epith Cells 7 H (0-4) /hpf Hyaline Casts 1 (0-2) /lpf Urine Mucus Rare H (None) /hpf 01/02/25 01/02/25 Range/Units 13:57 14:57 WBC (4.50-10.00) 10*3/uL RBC (4.10-5.20) 10*6/uL Hgb (12.0-15.0) g/dL Hct (37.2-46.3) % MCV (80.0-97.0) fL MCH (27.0-32.0) pg MCHC (32.0-37.0) g/dL Plt Count (140-440) 10*3/uL MPV (9.5-12.2) fL Immature Gran % (Auto) % Neutrophils % % Lymphocytes % % Monocytes % % Eosinophils % % Basophils % % Immature Gran # (0.00-0.04) 10*3/uL Neutrophils # (1.80-7.70) 10*3/uL Lymphocytes # (0.90-5.00) 10*3/uL Monocytes # (0.20-1.00) 10*3/uL Eosinophils # (0.04-0.35) 10*3/uL Basophils # (0.00-0.10) 10*3/uL Sodium (137-145) mmol/L Potassium (3.5-5.1) mmol/L Chloride (98-107) mmol/L Carbon Dioxide (22-30) mmol/L Anion Gap mmol/L BUN (7-17) mg/dL Creatinine (0.52-1.04) mg/dL Est GFR (CKD-EPI)AfAm (>60 ml/min/1.73 sqM) Est GFR (CKD-EPI)NonAf (>60 ml/min/1.73 sqM) Glucose (74-99) mg/dL Lactic Ac Sepsis Rflx Y Plasma Lactic Acid Sandoval 2.3 H* (0.7-2.0) mmol/L Calcium (8.4-10.2) mg/dL Total Bilirubin (0.2-1.3) mg/dL AST (14-36) U/L ALT (4-34) U/L Alkaline Phosphatase (38-126) U/L Total Protein (6.3-8.2) g/dL Albumin (3.5-5.0) g/dL Amylase (30-110) U/L Lipase (23-300) U/L Urine Color Urine Appearance (Clear) Urine pH (5.0-8.0) Ur Specific [place] (1.001-1.035) Urine Protein (Negative) Urine Glucose (UA) (Negative) Urine Ketones (Negative) Urine Blood (Negative) Urine Nitrite (Negative) Urine Bilirubin (Negative) Urine Urobilinogen (<2.0) mg/dL Ur Leukocyte Esterase (Negative) Urine RBC (0-5) /hpf Urine WBC (0-5) /hpf Ur Squamous Epith Cells (0-4) /hpf Hyaline Casts (0-2) /lpf Urine Mucus (None) /hpf - Radiology Data Radiology results: report reviewed, image reviewed Disposition Clinical Impression: Ventral hernia Disposition: HOME SELF-CARE Condition: Stable Additional Instructions: Follow-up closely with Dr. Wright. Return to the ER if any new or worsening concerns. Prescriptions: HYDROcodone/APAP 10-325MG [[place] 10-325] 1 tab PO Q6HR PRN 3 Days #12 tab PRN Reason: Moderate To Severe Pain (4-10) Ondansetron Odt [Zofran Odt] 4 mg PO Q8HR PRN #10 tab PRN Reason: Nausea Is patient prescribed a controlled substance at d/c from ED?: Yes When asked, does pt state using other controlled substances?: No If prescribed controlled substance>3 days was MAPS reviewed?: Prescribed <3 Days If opioid is for acute pain is fill amount 7 days or less?: Yes If Rx opioid, was Start Talking consent form obtained?: Yes Referrals: José Lacy DO [Primary Care Provider] - 1-2 days Ramiro Wright DO [Doctor of Osteopathic Medicine] - 1-2 days Time of Disposition: 17:23
--- NOTE | 2025-01-02 16:48 | CT ---
EXAMINATION TYPE: CT abdomen pelvis w con DATE OF EXAM: 01/02/2025 4:25 PM COMPARISON: 12/06/2024 dating back to at least 05/03/2023. CLINICAL INDICATION: Female, 64 years old with history of abdominal pain s/p hernia repari; complaint of abd pain "for days". pt denies any issues with BM or urine. Pt has hx of hernia surgery TECHNIQUE: Axial CT abdomen pelvis w con;Sagittal and coronal reformats were created on a separate w orkstation. Contrast used:100 ml mL of Isovue 300 with IV Contrast, (none if empty) Oral contrast used: without Oral Contrast (none if empty) CT DLP: 3118 mGycm, Automated exposure control for dose reduction was used. FINDINGS: LOWER CHEST: Unremarkable ABDOMEN LIVER: Unremarkable GALLBLADDER AND BILE DUCTS: Unremarkable. PANCREAS: Unremarkable. SPLEEN: Unremarkable. ADRENAL GLANDS: Unremarkable. KIDNEYS AND URETERS: No evidence of hydronephrosis or obstructing renal calculus. The ureters are unr emarkable. PELVIS BLADDER: No evidence for wall thickening or mass given limitations of exam. REPRODUCTIVE: Unremarkable. ABDOMEN & PELVIS STOMACH AND BOWEL: No evidence of bowel obstruction. Circumferential wall thickening of the sigmoid c olon with fat stranding changes. PERITONEUM/RETROPERITONEUM: No evidence of pneumoperitoneum or free fluid. Additional suspected infar cted fat lobule present in the left anterior lower abdomen series 201 image 57. VASCULATURE: No evidence of aortic aneurysm. MUSCULOSKELETAL: No acute osseous abnormalities. Moderate disc degeneration changes are present throu ghout the thoracolumbar spine. Grade 1 anterolisthesis of L5 on S1. LYMPH NODES: No gross evidence for lymphadenopathy. SOFT TISSUE/ABDOMINAL WALL: Diastases of the rectus abdominis vasculature. Left lower anterior ventra l wall hernia containing fluid in likely infarcted fat with fat stranding changes and some trace flui d. There is trace fluid layering along the anterior abdominal wall. Hernia mesh is also present. IMPRESSION: 1. Post hernia repair changes with fluid layering along the anterior abdominal mesh. There is fat co ntained within a hernia with fat stranding changes favored to represent infarcted fat in the hernia. 2. Colitis/diverticulitis of the sigmoid colon. This area has persisted dating back to 09/16/2024. Un derlying mass is not excluded colonoscopy recommended for evaluation and tissue sampling of the sigmo id colon to exclude malignancy. 3. Diastases of the rectus abdominis musculature. [facility], , 01/02/2025 4:46 PM
[2025-01-02 17:39] VITALS: BP 118/74; PULSE 98; RESP 16; TEMP 98.5
== END 2025-01-02 17:40 | disposition home or self-care (01) ==
LOC: EC 12:41
DX: K43.9 Ventral hernia without obstruction or gangrene (principal); J44.9 Chronic obstructive pulmonary disease, unspecified; E11.9 Type 2 diabetes mellitus without complications; Z87.19 Personal history of other diseases of the digestive system; Z87.891 Personal history of nicotine dependence; Z88.5 Allergy status to narcotic agent
CPT/HCPCS: 99284; 96374; 96375; 96361; 36415; 93005; 80053; 82150; 83605; 83690; 85025; 81001; 74177; J2405; J1885; J1171; Q9967

== ENCOUNTER → 2025-01-14 | Outpatient (CLI) | payer MEDICARE, OTHER ==
[2025-01-14 11:30] LABS: African American GFR (CKD) >90 (>60 ml/min/1.73 sqM); Blood Urea Nitrogen 15 mg/dL (7-17); Non-African American GFR(CKD) >90 (>60 ml/min/1.73 sqM)
--- NOTE | 2025-01-14 12:59 | CT ---
EXAMINATION TYPE: CT abdomen pelvis w con DATE OF EXAM: 01/14/2025 12:30 PM COMPARISON: CT abdomen pelvis most recent from 01/02/2025 CLINICAL INDICATION: Female, 64 years old with history of R10.9 UNSPECIFIED ABDOMINAL PAIN; Umbilical hernia. TECHNIQUE: Axial CT abdomen pelvis w con;Sagittal and coronal reformats were created on a separate w orkstation. Contrast used:100 ml mL of Isovue 300 with IV Contrast, (none if empty) Oral contrast used: with Oral Contrast (none if empty) CT DLP: 2553.4 mGycm, Automated exposure control for dose reduction was used. FINDINGS: LOWER CHEST: Mild cardiomegaly. Mitral valve annular cusp patient's. ABDOMEN LIVER: Diffusely hypoattenuating parenchyma. GALLBLADDER AND BILE DUCTS: Subtotal Cholecystectomy versus cystic duct remnant remains. PANCREAS: Unremarkable. SPLEEN: Unremarkable. ADRENAL GLANDS: Unremarkable. KIDNEYS AND URETERS: No evidence of hydronephrosis or obstructing renal calculus. The ureters are unr emarkable. PELVIS BLADDER: No evidence for wall thickening or mass given limitations of exam. REPRODUCTIVE: Unremarkable. ABDOMEN & PELVIS STOMACH AND BOWEL: Circumferential wall thickening of the sigmoid colon series 3 image 69. No organiz ing fluid collection or free air. Few scattered colonic diverticula. No evidence of bowel obstruction . PERITONEUM/RETROPERITONEUM: No evidence of pneumoperitoneum or free fluid. VASCULATURE: No evidence of aortic aneurysm. MUSCULOSKELETAL: No acute osseous abnormalities. Moderate disc degeneration changes are present throu ghout the thoracolumbar spine. Grade 1 anterolisthesis of L5 on S1. Increased lordosis of the spine. LYMPH NODES: No gross evidence for lymphadenopathy. SOFT TISSUE/ABDOMINAL WALL: Ventral wall hernia mesh present. Fat-containing ventral wall hernia mago ins with its straightening and side mesh covers the hernia opening. IMPRESSION: 1. Ventral wall hernia mesh with persistent Fat-containing umbilical hernia with inflammation in the fat in the hernia sac. This suggests strangulation/infection of the omentum. 2. Circumferential thickening of the sigmoid colon correlate for colitis. Short-term follow-up colon oscopy recommended to exclude underlying malignancy. No organizing fluid collection or free air at th is time. 3. Hepatic steatosis. 4. Cardiomegaly. 5. Subtotal Cholecystectomy versus cystic duct remnant remains. [facility], , 01/14/2025 12:57 PM
== END | disposition home or self-care (01) ==
LOC: RADCTMAIN 10:32
PROVIDERS: ATTEND Surgery
DX: K43.9 Ventral hernia without obstruction or gangrene (principal); K42.9 Umbilical hernia without obstruction or gangrene; K76.0 Fatty (change of) liver, not elsewhere classified; I51.7 Cardiomegaly
CPT/HCPCS: 82565; 84520; 74177; 36415; Q9967